=== PATIENT | female | born 1950 | race Caucasian/White ===

== ENCOUNTER → 2016-05-21 | Outpatient (CLI) | payer MEDICARE, BC ==
[2016-05-21 10:49] LABS: Hemoglobin A1C 9.1 % (4.2-6.1)
== END | disposition home or self-care (01) ==
LOC: LABWHC1 07:25
PROVIDERS: ATTEND Internal Medicine
DX: E11.9 Type 2 diabetes mellitus without complications (principal); E83.52 Hypercalcemia; N18.3 Chronic kidney disease, stage 3 (moderate); E78.5 Hyperlipidemia, unspecified; E03.9 Hypothyroidism, unspecified; E55.9 Vitamin D deficiency, unspecified
CPT/HCPCS: 36415; 83036; 83721

== ENCOUNTER → 2016-06-14 | Outpatient (CLI) | payer MEDICARE, BC ==
[2016-06-14 10:56] LABS: Calcium 9.5 mg/dL (8.4-10.2); Total Bilirubin 0.8 mg/dL (0.2-1.3); Total Protein 7.3 g/dL (6.3-8.2)
== END | disposition home or self-care (01) ==
LOC: LABWHC1 10:23
PROVIDERS: ATTEND Internal Medicine Endocrinology, Diabetes & Metabolism
DX: I10 Essential (primary) hypertension (principal)
CPT/HCPCS: 36415; 80053

== ENCOUNTER → 2016-09-14 | Outpatient (CLI) | payer MEDICARE, BC ==
[2016-09-14 10:03] LABS: CH 28.9; CHCM 33.5; HCT 47.4 % (34.0-46.0); HDW 2.82; HGB 15.5 gm/dL (11.4-16.0); MCH 28.4 pg (25.0-35.0); MCHC 32.6 g/dL (31.0-37.0); MCV 86.9 fL (80.0-100.0); Mean Platelet Volume 8.9; RBC 5.45 m/uL (3.80-5.40); RDW 14.6 % (11.5-15.5); WBC 6.1 k/uL (3.8-10.6)
[2016-09-14 10:32] LABS: Potassium 4.1 mmol/L (3.5-5.1)
== END ==
LOC: LABPAT 09:25
PROVIDERS: ATTEND Internal Medicine Interventional Cardiology
DX: Z01.812 Encounter for preprocedural laboratory examination (principal); I25.10 Atherosclerotic heart disease of native coronary artery without angina pectoris
CPT/HCPCS: 36415; 80051; 82565; 84520; 85027

== ENCOUNTER 2016-09-16 06:28 | Day surgery (SDC) | payer MEDICARE, BC ==
[~2016-09-16 06:28] MED LIST: ALPRAZolam 0.25 MG TAB PO PRN; ALPRAZolam 0.5 MG TAB PO PRN; ASPIRIN 325 MG TAB PO STA; ATORVASTATIN 80 MG TAB PO STA; NITROGLYCERIN SL TABS 0.4 MG TAB SUBLINGUAL PRN; SODIUM CHLORIDE 0.9% 1,000 ML in EMPTY BAG 1 BAG IV ONE
[2016-09-16] MEDS ORDERED: LIDOCAINE 2% INJ 20 MG/ML (20 ML MDV) ONE (07:17)
[2016-09-16] MEDS ORDERED: VERAPAMIL 2.5 MG/ML 2 ML AMP ONE (07:17)
[2016-09-16 07:18] LABS: Glucose,Whole Blood 325 mg/dL (75-99)
[2016-09-16] MEDS ORDERED: HEPARIN SODIUM 1,000 UNIT/ML VIAL ONE (07:18)
[2016-09-16] MEDS ORDERED: INSULIN LISPRO (humaLOG) 300 UNIT/3 ML VIAL SQ ONE (07:25)
[2016-09-16 07:30] LABS: Basophils # (A) 0.1 k/uL (0-0.2); Basophils % (A) 1 %; CH 29.2; CHCM 33.4; Eosinophils # (A) 0.3 k/uL (0-0.7); Eosinophils % (A) 4 %; HCT 44.3 % (34.0-46.0); HDW 2.79; HGB 14.6 gm/dL (11.4-16.0); Luc # (Auto) 0.16; Luc % (Auto) 3; Lymphocytes # (A) 1.8 k/uL (1.0-4.8); Lymphocytes % (A) 32 %; MCH 28.9 pg (25.0-35.0); MCHC 32.8 g/dL (31.0-37.0); MCV 87.9 fL (80.0-100.0); Mean Platelet Volume 8.7; Monocytes # (A) 0.4 k/uL (0-1.0); Monocytes % (A) 7 %; Neutrophils % (A) 53 %; RBC 5.04 m/uL (3.80-5.40); RDW 14.6 % (11.5-15.5); WBC 5.7 k/uL (3.8-10.6); WBC (Perox) 5.56
[2016-09-16] MEDS ORDERED: diphenhydrAMINE 50 MG/ML 1 ML VIAL ONE (07:30)
[2016-09-16] MEDS ORDERED: fentaNYL (PF) 50 MCG/ML 2 ML AMP ONE (07:30)
[2016-09-16 07:41] LABS: Calcium 9.8 mg/dL (8.4-10.2); Potassium 3.8 mmol/L (3.5-5.1)
[2016-09-16] MEDS ORDERED: diphenhydrAMINE 50 MG/ML 1 ML VIAL IVP ONE (07:57)
[2016-09-16] MEDS ORDERED: fentaNYL (PF) 50 MCG/ML 2 ML AMP IV ONE (07:58)
[2016-09-16] MEDS: LIDOCAINE 2% INJ 20 MG/ML SQ ONE ×2 (08:02→08:14)
[2016-09-16] MEDS ORDERED: NITROGLYCERIN 1000MCG/10ML SYRINGE INTRACORON ONE (08:20)
[2016-09-16] MEDS ORDERED: IODIXANOL 320 MG/ML 100 ML INTRAARTER ONE (08:27)
[2016-09-16] MEDS ORDERED: RX INFO: IV CONTRAST WAS GIVEN 1 EACH MISC MISCELLANE PRN (08:51)
[2016-09-16] MEDS ORDERED: NITROGLYCERIN SL TABS 0.4 MG TAB SUBLINGUAL PRN (08:52)
[2016-09-16 08:53] LABS: Glucose,Whole Blood 260 mg/dL (75-99)
[2016-09-16] MEDS: PREGABALIN 75 MG CAP PO SCH ×2 (09:00→21:28)
[2016-09-16] MEDS ORDERED: SODIUM CHLORIDE 0.9% 1,000 ML IV SCH (09:00)
[2016-09-16] MEDS: ISOSORBIDE MONONITRATE ER 15 MG TAB PO SCH (09:45)
[2016-09-16 09:56] LABS: Partial Thromboplastin Time 23.9 sec (22.0-30.0)
[2016-09-16 09:58] LABS: Basophils % (A) 1 %; CH 28.7; CHCM 32.9; Eosinophils # (A) 0.2 k/uL (0-0.7); Eosinophils % (A) 5 %; HCT 44.3 % (34.0-46.0); HDW 2.77; HGB 14.5 gm/dL (11.4-16.0); INR 1.1 (<1.1); Luc # (Auto) 0.09; Luc % (Auto) 2; Lymphocytes # (A) 1.4 k/uL (1.0-4.8); Lymphocytes % (A) 27 %; MCH 28.8 pg (25.0-35.0); MCHC 32.8 g/dL (31.0-37.0); MCV 87.9 fL (80.0-100.0); Monocytes # (A) 0.3 k/uL (0-1.0); Monocytes % (A) 6 %; Neutrophils # (A) 2.9 k/uL (1.3-7.7); Neutrophils % (A) 60 %; RBC 5.04 m/uL (3.80-5.40); RDW 14.5 % (11.5-15.5); WBC 4.9 k/uL (3.8-10.6); WBC (Perox) 4.94
[2016-09-16 10:25] LABS: ALT 30 U/L (9-52); AST 19 U/L (14-36); Alkaline Phosphatase 95 U/L (38-126); Anion Gap 11 mmol/L; Blood Urea Nitrogen 27 mg/dL (7-17); Calcium 9.6 mg/dL (8.4-10.2); Carbon Dioxide 28 mmol/L (22-30); Chloride 101 mmol/L (98-107); Cholesterol 174 mg/dL (<200); Glucose 270 mg/dL (74-99); HDL Cholesterol 29 mg/dL (40-60); Non-African American GFR(MDRD) 36 (>60 ml/min/1.73 sqM); Potassium 4.2 mmol/L (3.5-5.1); Sodium 140 mmol/L (137-145); Total Bilirubin 0.8 mg/dL (0.2-1.3); Total Protein 6.7 g/dL (6.3-8.2)
[2016-09-16] MEDS: LEVOTHYROXINE 75 MCG TAB PO SCH (10:25)
[2016-09-16] MEDS: METOPROLOL TARTRATE 25 MG TAB PO SCH ×2 (10:25→22:32)
[2016-09-16 10:54] LABS: Triglycerides 593 mg/dL (<150)
[2016-09-16] MEDS ORDERED: ACETAMINOPHEN TAB 325 MG TAB PO STA (11:06)
[2016-09-16 11:31] LABS: Hepatitis B Core IgM Index 0.02; Hepatitis B Surface Ag Index 0.06; Hepatitis C Virus IgG Ab Negative (Negative); Hepatitis C Virus IgG Index 0.02
[2016-09-16] MEDS ORDERED: CHOLECALCIFEROL 1,000 UNIT TAB PO SCH (12:00)
[2016-09-16] MEDS ORDERED: CYANOCOBALAMIN 500 MCG TAB PO SCH (12:00)
--- NOTE | 2016-09-16 13:45 | US ---
EXAMINATION TYPE: US carotid duplex BILAT DATE OF EXAM: 09/16/2016 1:36 PM COMPARISON: US CLINICAL HISTORY: Ankle Brachial Index (MITCH) . Pre op cardiac surgery, exam done portable EXAM MEASUREMENTS: RIGHT: Peak Systolic Velocity (PSV) cm/sec ----- Right CCA: 80.3 ----- Right ICA: 67.2 ----- Right ECA: 74.7 ICA/CCA ratio: 0.8 RIGHT: End Diastole cm/sec ----- Right CCA: 8.6 ----- Right ICA: 17.3 ----- Right ECA: 0.0 LEFT: Peak Systolic Velocity (PSV) cm/sec ----- Left CCA: 71.1 ----- Left ICA: 67.8 ----- Left ECA: 75.4 ICA/CCA ratio: 1.0 LEFT: End Diastole cm/sec ----- Left CCA: 8.2 ----- Left ICA: 16.9 ----- Left ECA: 0.0 VERTEBRALS (direction of flow): Right Vertebral: Antegrade Left Vertebral: Antegrade No elevated velocities, no significant stenosis IMPRESSION: 1. No significant hemodynamic stenosis bilaterally. 2. Intimal thickening.
[2016-09-16] MEDS ORDERED: INSULIN PUMP TARGET GLUCOSE 1 EACH MISC MISCELLANE PRN (15:16)
[2016-09-16] MEDS ORDERED: INSULIN LISPRO (humaLOG) 300 UNIT/3 ML VIAL SQ PRN (15:16)
[2016-09-16] MEDS ORDERED: INSULIN PUMP ACTIVE INSULIN 1 EACH MISC MISCELLANE PRN (15:16)
[2016-09-16] MEDS ORDERED: INSPUCOR MISCELLANE PRN (15:16)
[2016-09-16] MEDS ORDERED: INSULIN PUMP BASAL RATES 1 EACH MISC MISCELLANE PRN (15:16)
[2016-09-16 15:21] LABS: Appearance,Urine Clear (Clear); Bilirubin,Urine Negative (Negative); Glucose,Urine (UA) 4+ (Negative); Ketones,Urine Negative (Negative); Leukocyte Esterase,Urine Negative (Negative); Nitrite,Urine Negative (Negative); PH, Urine 5.5 (5.0-8.0); Protein,Urine Trace (Negative); Specific Gravity,Urine 1.034 (1.001-1.035); UA Billing (MACRO vs. MICRO) CHEM; Urobilinogen,Urine <2.0 mg/dL (<2.0)
[2016-09-16 15:29] VITALS: BMI 41.3
[2016-09-16] MEDS: ALLOPURINOL 100 MG TAB PO SCH (15:57)
--- NOTE | 2016-09-16 16:20 | P.GSCN ---
History of Present Illness Consult date: 09/16/16 Reason for Consult: Multivessel coronary artery disease. Requesting physician: Arin Stewart History of present illness: This 66-year-old female with a previous medical history of uncontrolled diabetes 2, hypertension, hyperlipidemia, renal insufficiency, obstructive sleep apnea, diabetic peripheral neuropathy, morbid obesity, and previous AL with stenting has been followed by Dr. Stewart. She had a heart catheterization this morning which demonstrated severe multivessel coronary artery disease. She does state that she has been having chest pain at rest as well as increased fatigue. Dr. Ariza from cardiothoracic surgery was consulted for the possibility of surgical revascularization. Review of Systems 14 point review of systems was completed and was negative except as noted. - Cardiovascular Reports as per HPI - Respiratory Reports as per HPI Past Medical History Past Medical History: Coronary Artery Disease (CAD), Chest Pain / Angina, Heart Failure, Diabetes Mellitus, GERD/Reflux, Myocardial Infarction (AL), Sleep Apnea /CPAP/BIPAP, Thyroid Disorder Additional Past Medical History / Comment(s): gout,neuropathy,fatty liver, renal insufficency, has insulin pump,doesn'tt use the cpap,ulcer, hypothyroid. Last Myocardial Infarction Date:: 09/18/2015 History of Any Multi-Drug Resistant Organisms: None Reported Past Surgical History: Bariatric Surgery, Heart Catheterization With Stent, Hysterectomy, Orthopedic Surgery, Tubal Ligation Additional Past Surgical History / Comment(s): lap band, 2001 HEART CATH W/1 STENT, 2012 HEART CATH AND 09-18-15 HEART CATH W/STENTS X2, EGD,COLONOSCOPY, LAP BAND 2007, RT ROTATOR CUFF,PANNICULECTOMY W/F/U WOUND DEBRIDMENT X2,ANAL FISSURE REPAIR, BRIGID CATARACTS. LT ARM LIPOMA REMOVED. Past Anesthesia/Blood Transfusion Reactions: Postoperative Nausea & Vomiting ( PONV) Additional Past Anesthesia/Blood Transfusion Reaction / Comm: DIFFICULTY WAKING FROM AA. Date of Last Stent Placement:: 09-18-15 Past Psychological History: No Psychological Hx Reported Smoking Status: Never smoker Past Alcohol Use History: Occasional Past Drug Use History: None Reported - Past Family History Mother Family Medical History: Cancer, Diabetes Mellitus Additional Family Medical History / Comment(s): BREAST/BONE CANCER Father Family Medical History: Myocardial Infarction (AL) Additional Family Medical History / Comment(s): AT AGE 56 FROM AL Medications and Allergies Home Medications Medication Instructions Recorded Confirmed Type Allopurinol [Zyloprim] 100 mg PO DAILY 06/17/15 09/16/16 History Cholecalciferol [Vitamin D3] 1,000 unit PO DAILY 06/17/15 09/16/16 History Furosemide [Lasix] 40 mg PO DAILY 06/17/15 09/16/16 History Insulin Aspart [NovoLOG] See Protocol SQ CONTINUOUS 06/17/15 09/16/16 History Levothyroxine Sodium [Synthroid] 75 mcg PO DAILY 06/17/15 09/16/16 History Pregabalin [Lyrica] 150 mg PO BID 06/17/15 09/16/16 History Cyanocobalamin [Vitamin B-12] 2,000 mcg PO DAILY 09/18/15 09/16/16 History Aspirin EC [Ecotrin Low Dose] 81 mg PO HS 12/11/15 09/16/16 History Clopidogrel [Plavix] 75 mg PO DAILY 09/16/16 09/16/16 History Allergies Allergy/AdvReac Type Severity Reaction Status Date / Time adhesive tape Allergy Rash/Hives Verified 12/11/15 14:12 Penicillins Allergy Rash/Hives Verified 12/11/15 14:12 plum Allergy Swelling Verified 12/11/15 14:45 Sulfa (Sulfonamide Allergy Rash/Hives Verified 12/11/15 14:12 Antibiotics) cherrys Allergy Anaphylaxis Uncoded 12/11/15 14:12 Surgical - Exam Vital Signs Temp Resp BP Pulse Ox 98.0 F 20 164/84 93 L 09/16/16 07:30 09/16/16 07:30 09/16/16 07:30 09/16/16 07:30 - General well developed, well nourished, no distress - Eyes PERRL, normal ocular movement - ENT no hearing loss - Neck no masses, no bruits, trachea midline - Respiratory Lung sounds diminished bilaterally. Respirations even, nonlabored. Currently on room air. - Cardiovascular S1, S2 present. Regular rate and rhythm, normal sinus rhythm on telemetry. - Abdomen Abdomen: soft, non tender, bowel sounds - Genitourinary Deferred - Rectum Deferred - Integumentary no rash, no growths - Neurologic normal coordination, normal sensation - Psychiatric oriented to time, oriented to person, oriented to place, speech is normal, memory intact Results - Labs 09/16/16 09:18 09/16/16 09:18 Abnormal Lab Results - Last 24 Hours (Table) 09/16/16 09/16/16 09/16/16 Range/Units 07:10 07:15 08:49 BUN 28 H (7-17) mg/dL Creatinine 1.43 H (0.52-1.04) mg/dL Glucose 281 H (74-99) mg/dL POC Glucose (mg/dL) 325 H 260 H (75-99) mg/dL Hemoglobin A1c (4.2-6.1) % Triglycerides (<150) mg/dL HDL Cholesterol (40-60) mg/dL Urine Protein (Negative) Urine Glucose (UA) (Negative) 09/16/16 09/16/16 09/16/16 Range/Units 09:18 09:18 14:45 BUN 27 H (7-17) mg/dL Creatinine 1.45 H (0.52-1.04) mg/dL Glucose 270 H (74-99) mg/dL POC Glucose (mg/dL) (75-99) mg/dL Hemoglobin A1c 9.4 H (4.2-6.1) % Triglycerides 593 H (<150) mg/dL HDL Cholesterol 29 L (40-60) mg/dL Urine Protein Trace H (Negative) Urine Glucose (UA) 4+ H (Negative) Diabetes panel 09/16/16 09/16/16 09/16/16 Range/Units 07:15 09:18 09:18 Sodium 140 140 (137-145) mmol/L Potassium 3.8 4.2 (3.5-5.1) mmol/L Chloride 104 101 (98-107) mmol/L Carbon Dioxide 25 28 (22-30) mmol/L BUN 28 H 27 H (7-17) mg/dL Creatinine 1.43 H 1.45 H (0.52-1.04) mg/dL Glucose 281 H 270 H (74-99) mg/dL Hemoglobin A1c 9.4 H (4.2-6.1) % Calcium 9.8 9.6 (8.4-10.2) mg/dL AST 19 (14-36) U/L ALT 30 (9-52) U/L Alkaline Phosphatase 95 (38-126) U/L Total Protein 6.7 (6.3-8.2) g/dL Albumin 4.0 (3.5-5.0) g/dL Triglycerides 593 H (<150) mg/dL HDL Cholesterol 29 L (40-60) mg/dL Thyroid panel 09/16/16 Range/Units 09:18 TSH 2.570 (0.465-4.680) mIU/L Calcium panel 09/16/16 09/16/16 Range/Units 07:15 09:18 Calcium 9.8 9.6 (8.4-10.2) mg/dL Albumin 4.0 (3.5-5.0) g/dL Pituitary panel 09/16/16 09/16/16 Range/Units 07:15 09:18 Sodium 140 140 (137-145) mmol/L Potassium 3.8 4.2 (3.5-5.1) mmol/L Chloride 104 101 (98-107) mmol/L Carbon Dioxide 25 28 (22-30) mmol/L BUN 28 H 27 H (7-17) mg/dL Creatinine 1.43 H 1.45 H (0.52-1.04) mg/dL Glucose 281 H 270 H (74-99) mg/dL Calcium 9.8 9.6 (8.4-10.2) mg/dL TSH 2.570 (0.465-4.680) mIU/L Adrenal panel 09/16/16 09/16/16 Range/Units 07:15 09:18 Sodium 140 140 (137-145) mmol/L Potassium 3.8 4.2 (3.5-5.1) mmol/L Chloride 104 101 (98-107) mmol/L Carbon Dioxide 25 28 (22-30) mmol/L BUN 28 H 27 H (7-17) mg/dL Creatinine 1.43 H 1.45 H (0.52-1.04) mg/dL Glucose 281 H 270 H (74-99) mg/dL Calcium 9.8 9.6 (8.4-10.2) mg/dL Total Bilirubin 0.8 (0.2-1.3) mg/dL AST 19 (14-36) U/L ALT 30 (9-52) U/L Alkaline Phosphatase 95 (38-126) U/L Total Protein 6.7 (6.3-8.2) g/dL Albumin 4.0 (3.5-5.0) g/dL - Imaging Chest x-ray: image reviewed Additional studies: Carotid Dopplers, PFTs reviewed Assessment and Plan (1) Morbid obesity with BMI of 40.0-44.9, adult Status: Acute (2) CAD (coronary artery disease) Status: Acute (3) Diabetes mellitus Status: Acute (4) Hyperlipidemia Status: Acute (5) Hypertension Status: Acute Plan: The patient was seen and examined in the extended stay unit with Dr. Ariza. Preoperative testing was initiated. Preoperative teaching was initiated and reinforced. Will plan for coronary artery bypass graft surgery, pending results of all diagnostic workup. Patient will need to be off Plavix for 5 days before surgery. Thank you Dr. Stewart for this consult. We look forward to working with you in the care of your patient. Time with Patient: Greater than 30
[2016-09-16] MEDS: INSULIN PUMP MEAL BOLUS 1 UNIT MISC MISCELLANE SCH ×2 (17:17→22:32)
[2016-09-16 17:24] LABS: Glucose,Whole Blood 177 mg/dL (75-99)
[2016-09-16] MEDS ORDERED: ACETAMINOPHEN TAB 325 MG TAB PO PRN (19:31)
[2016-09-16] MEDS ORDERED: ASPIRIN 81 MG CHEW PO SCH (21:00)
--- NOTE | 2016-09-16 21:31 | CONS ---
DATE OF CONSULTATION: Gena Franco is a 66-year-old female with known history of hypertension, hyperlipidemia, diabetes mellitus, who presented with symptoms of chest discomfort consistent with angina pectoris. In view of that, recommendation was made regarding cardiac catheterization. The procedure as well as the risks and complications were discussed with the patient who is in full understanding and agreement. PROCEDURE: Patient was brought to the petroleum laboratory technician in a fasting semisedated state after receiving fentanyl and Benadryl and achieving conscious moderate sedated state, using Xylocaine anesthesia and attempt to advance a wire in the right radial artery were unsuccessful. At that time using Xylocaine anesthesia and Seldinger technique, a 6 Tanzanian sheath was introduced in the right femoral artery. Selective right and left coronary angiography was performed using 6 Tanzanian 4 bend right and left Tonio catheters. Multiple views of the coronary arteries including hemiaxial views were obtained. Following that, a 6 [place]anian tight pigtail catheter was introduced into left ventricle and pressure was calculated. Following that, catheter and sheaths were removed. Hemostasis was obtained with deployment of an Angio-Seal. There were no immediate complications. Patient is returned to her room in stable condition. FINDINGS: LEFT MAIN: This is a large-size vessel trifurcating into left circumflex and left anterior descending coronary artery, and ramus intermedius, left main is without any evidence of high-grade stenosis. LEFT ANTERIOR DESCENDING CORONARY ARTERY: This is a large-size vessel reaching toward the apex with a wraparound apex segment, giving rise to a large diagonal branch. The stented segment in the diagonal branch in the LAD is patent prior to the takeoff of the diagonal branch, there is a 95% stenosis. The rest of the vessel has no high-grade stenosis. RAMUS INTERMEDIUS: This is a moderately sized vessel that has and 95% stenosis at the take off. LEFT CIRCUMFLEX: This is a nondominant vessel, giving rise to one obtuse marginal branch. The left circumflex in the mid and distal segment prior to the take off of the obtuse marginal branch has a 99% stenosis. RIGHT CORONARY ARTERY: This is a large dominant vessel, bifurcating into PDA and posterolateral branches. The right coronary artery in the proximal segment has a 60% at the bifurcation of the PDA, at the ostium of the PDA there is a 95% stenosis and there is a plaque in the PLV of 30%. LEFT VENTRICULOGRAM: Left ventriculogram was not performed. HEMODYNAMICS: There was no gradient across the aortic valve. The left end-diastolic pressure was 12 mmHg. CONCLUSION: 1. Severe triple vessel coronary artery disease. 2. Normal left ventricle end-diastolic. RECOMMENDATIONS: In view of findings and anatomy, I have recommended proceeding with coronary artery bypass grafting, because of the history of diabetes and the progression of disease those findings and recommendations were discussed with the patient and her family physician who are in full understanding and agreement. The duration of procedure: 29 minutes.
[2016-09-16 21:40] LABS: Glucose,Whole Blood 142 mg/dL (75-99)
--- NOTE | 2016-09-16 21:43 | LTR ---
September 16, 2016 RE: Salvador Gena Glenn Dear Dr. Cha: I had the pleasure of performing cardiac catheterization on Mrs. Franco at [facility] on the 16 of September and a full copy of procedure note will be forwarded to you. In brief, she was found to have severe triple vessel coronary artery disease with significant progression of disease compared with the images obtained in August of last year. Based on those findings, I have recommend proceeding with coronary artery bypass grafting. I will keep you update on her progress. Thank you again for allowing me to participate in her care. Please feel free to call for any questions. Sincerely, ESTRELLITA VALADEZ MD
--- NOTE | 2016-09-16 22:58 | XR ---
EXAMINATION TYPE: XR chest 2V DATE OF EXAM: 09/16/2016 3:58 PM COMPARISON: 12/12/2015 TECHNIQUE: PA and lateral views submitted. HISTORY: Preop FINDINGS: Exam limited by reduced inspiration. Degenerative change of the spine noted. Previous surgery involvi ng the right shoulder. The lungs are clear and there is no pneumothorax, pleural effusion, or focal pneumonia. IMPRESSION: 1. No acute process.
[2016-09-17] MEDS: LEVOTHYROXINE 75 MCG TAB PO SCH (06:37)
[2016-09-17 07:09] LABS: Calcium 8.9 mg/dL (8.4-10.2); Potassium 3.9 mmol/L (3.5-5.1)
[2016-09-17 07:10] LABS: Glucose,Whole Blood 124 mg/dL (75-99)
[2016-09-17 07:51] VITALS: BP 133/60; PULSE 57; TEMP 97.6
[2016-09-17] MEDS: PREGABALIN 75 MG CAP PO SCH (08:48)
[2016-09-17] MEDS: ALLOPURINOL 100 MG TAB PO SCH (08:48)
[2016-09-17] MEDS: ISOSORBIDE MONONITRATE ER 15 MG TAB PO SCH (08:48)
[2016-09-17] MEDS: METOPROLOL TARTRATE 25 MG TAB PO SCH (08:48)
[2016-09-17] MEDS: INSULIN PUMP MEAL BOLUS 1 UNIT MISC MISCELLANE SCH (08:49)
[2016-09-17 10:25] VITALS: RESP 18
--- NOTE | 2016-09-17 10:54 | PN ---
Ms. Franco is a 66-year-old female with known history of hypertension, hyperlipidemia, history of diabetes mellitus who has been complaining of symptoms of angina pectoris, underwent cardiac catheterization, was found to have severe triple vessel coronary artery disease with significant progression compared with a last visit. She is doing well this morning. Her breathing is stable. She is denying any dizziness. No palpitation. She denies any nausea. She continues to be on aspirin once a day, Imdur 15 mg daily, Lipitor 80 mg daily, insulin, metoprolol tartrate 25 mg twice a day and Lyrica. PHYSICAL EXAMINATION: Blood pressure 133/60 with the heart rate in the 50s. LUNGS: Clear. HEART: Regular rate and rhythm. S1 and S2, no S3, no rub with a systolic murmur. ABDOMEN: Soft, nontender, obese. EXTREMITIES: No edema. RIGHT GROIN: No hematoma. Lab data revealed BUN and creatinine 23 and 1.3. Potassium 3.9. IMPRESSION: 1. Severe triple vessel coronary artery disease. 2. Hypertension. 3. Hyperlipidemia. 4. Diabetes mellitus. 5. Renal function abnormality. RECOMMENDATIONS: Patient will be discharged home and readmitted in a week to undergo surgical intervention. She will stay off her Plavix.
--- NOTE | 2016-09-17 11:25 | P.PN ---
Subjective Principal diagnosis: Multi-vessel coronary artery disease, pre-operative coronary artery bypass surgery. Pt currently sitting up in bed in no apparent distress. All pre-operative questions answered Objective - Vital Signs Vital signs: Vital Signs Temp 97.6 F 09/17/16 07:50 Pulse 57 L 09/17/16 07:50 Resp 18 09/17/16 08:00 BP 133/60 09/17/16 07:50 Pulse Ox 98 09/17/16 07:50 Intake & Output 09/16/16 09/17/16 09/17/16 18:59 06:59 18:59 Intake Total 550 1200 Output Total 350 Balance 200 1200 Weight 112.5 kg Intake: IV 250 800 Sodium Chloride 0.9% 1, 100 800 000 ml @ 100 mls/hr IV . Q10H KJ Rx#:[id number] Oral 300 400 Output: Urine 350 Other: Voiding Method Toilet Toilet Toilet # Voids 1 2 - Constitutional General appearance: Present: cooperative, no acute distress, obese - Respiratory Respiratory: bilateral: CTA (Resp even, non-labored. Currently on room air with oxygen saturation 98%.) - Cardiovascular Rhythm: regular Heart sounds: normal: S1, S2 - Gastrointestinal Gastrointestinal Comment(s): Abd soft/NT/ND. General gastrointestinal: Present: normal bowel sounds - Integumentary Integumentary: Present: normal - Musculoskeletal Musculoskeletal: Present: gait normal - Psychiatric Psychiatric: Present: A&O x's 3, appropriate affect, intact judgment & insight - Allied health notes Allied health notes reviewed: nursing - Labs CBC & Chem 7: 09/16/16 09:18 09/17/16 06:08 Labs: Abnormal Lab Results - Last 24 Hours (Table) 09/16/16 09/16/16 09/16/16 Range/Units 09:18 14:45 17:15 Chloride (98-107) mmol/L Carbon Dioxide (22-30) mmol/L BUN (7-17) mg/dL Creatinine (0.52-1.04) mg/dL Glucose (74-99) mg/dL POC Glucose (mg/dL) 177 H (75-99) mg/dL Hemoglobin A1c 9.4 H (4.2-6.1) % Urine Protein Trace H (Negative) Urine Glucose (UA) 4+ H (Negative) 0509/17/16 09/17/16 Range/Units 21:38 06:08 07:03 Chloride 108 H (98-107) mmol/L Carbon Dioxide 21 L (22-30) mmol/L BUN 23 H (7-17) mg/dL Creatinine 1.30 H (0.52-1.04) mg/dL Glucose 134 H (74-99) mg/dL POC Glucose (mg/dL) 142 H 124 H (75-99) mg/dL Hemoglobin A1c (4.2-6.1) % Urine Protein (Negative) Urine Glucose (UA) (Negative) Microbiology - Last 24 Hours (Table) 09/16/16 14:45 Urine Culture - Preliminary Urine,Clean Catch - Imaging and Cardiology Chest x-ray: image reviewed Venous US: image reviewed Carotid, PFT reviewed. Assessment and Plan (1) Morbid obesity with BMI of 40.0-44.9, adult Status: Acute (2) CAD (coronary artery disease) Status: Acute (3) Diabetes mellitus Status: Acute (4) Hyperlipidemia Status: Acute (5) Hypertension Status: Acute Plan: All pre-operative work up completed and reviewed. Pre-operative teaching reinforced. Pt given CABG binder. 5 meter walk test: #1 5.15 sec, #2 5.58 sec, # 3 6.47 sec. From our standpoint, patient can be discharged home. She must hold Plavix 5 days preop which she has been instructed to do. Plan is for CABG September. Pt is in agreement. Time with Patient: Greater than 30
[2016-09-17 12:04] LABS: Glucose,Whole Blood 160 mg/dL (75-99)
[2016-09-17] MEDS ORDERED: ATORVASTATIN 80 MG TAB PO SCH (21:00)
--- NOTE | 2016-09-20 15:41 | ECHOF ---
Referral Reason:preop cardiac surgery MEASUREMENTS -------- HEIGHT: 165.1 cm WEIGHT: 112.5 kg BP: 164/84 RVIDd: 2.7 cm (< 3.3) IVSd: 1.0 cm (0.6 - 1.1) LVIDd: 4.8 cm (3.9 - 5.3) LVPWd: 1.0 cm (0.6 - 1.1) IVSs: 1.8 cm LVIDs: 3.1 cm LVPWs: 1.6 cm Ao Diam: 2.9 cm (2.0 - 3.7) AV Cusp: 1.6 cm (1.5 - 2.6) LA Diam: 3.7 cm (2.7 - 3.8) MV EXCURSION: 14.447 mm (> 18.000) MV EF SLOPE: 146 mm/s (70 - 150) EPSS: 0.8 cm MV E Lester: 0.36 m/s MV DecT: 304 ms MV A Lester: 0.53 m/s MV E/A Ratio: 0.69 RAP: 5.00 mmHg RVSP: 9.27 mmHg FINDINGS -------- Sinus rhythm. This was a technically difficult study with suboptimal views. Left ventricular wall thickness is normal. Overall left ventricular systolic function is normal with, an EF between 60 - 65 %. The right ventricle is normal in size and function. The left atrium was not well visualized. The right atrium was not well visualized. 1.5mg of Definity was utilized for enhancement of images Aortic valve is trileaflet and is mildly thickened. There is no evidence of aortic regurgitation. There is no evidence of aortic stenosis. The mitral valve leaflets are mildly thickened. Mild mitral annular calcification present. There is trace to mild mitral regurgitation. Trace tricuspid regurgitation present. There is no evidence of pulmonary hypertension. The right ventricular systolic pressure, as measured by Doppler, is 9.27mmHg. The pulmonic valve was not well visualized. The aortic root size is normal. The pericardium is normal. There is no pericardial effusion. CONCLUSIONS -------- 1. Sinus rhythm. 2. There is trace to mild mitral regurgitation. 3. Trace tricuspid regurgitation present. 4. There is no evidence of pulmonary hypertension. 5. The right ventricular systolic pressure, as measured by Doppler, is 9.27mmHg. 6. The pulmonic valve was not well visualized. 7. The aortic root size is normal. 8. There is no pericardial effusion. 9. This was a technically difficult study with suboptimal views. 10. Overall left ventricular systolic function is normal with, an EF between 60 - 65 %. 11. The left atrium was not well visualized. 12. The right atrium was not well visualized. 13. 1.5mg of Definity was utilized for enhancement of images 14. Aortic valve is trileaflet and is mildly thickened. 15. The mitral valve leaflets are mildly thickened. 16. Mild mitral annular calcification present. COMMISSIONED FIRE OFFICER: Juan M Kaplan RDCS
--- NOTE | 2016-09-25 11:12 | P.ARTDOP ---
Arterial Doppler LOWER EXTREMITY ARTERIAL DOPPLER: DATE OF SERVICE: 09/16/2016 Reason for study: Pre-CABG. Doppler waveforms: Multiphasic bilaterally throughout. Pulse volume recording: []. Pressure gradients: None. Ankle-brachial indices: Greater than 1 bilaterally. Toe pressures: 1:15 on the right, 122 on the left Impression: Normal study.
--- NOTE | 2016-09-25 11:15 | P.VSCSTY ---
Greater Saphenous Vein Mapping This is bilateral lower extremity greater saphenous vein mapping. Date of service 09/16/2016 Vein quality and ultrasound appearance large proximally, mainly on the right. Vein size groin right 11.1 x 10.6 groin left 9.7 x 9.2 High thigh right third team 0.0 x 10.7 high thigh left 6.0 x 5.6 Mid thigh right 7.4 x 7.5 mid thigh left 6.3 x 5.5 Above-knee right 6.3 x 5.2 above- knee left 6 x 6 x 4.90 Below knee right 5.6 x 5.1 below-knee left 5.1 x 4.8 Mid calf right 3.9 x 4.1 mid calf left 4.7 x 4.1 Ankle right 4.4 x 3.4 ankle left 4.8 x 4.5 Impression usual bilateral greater saphenous veins. Lower legs more size appropriate for coronaries..
== END 2016-09-17 13:05 | disposition home or self-care (01) ==
LOC: CATHCVL 06:28 → 3OBS 08:29 → CATHCVL 09-17 13:05
PROVIDERS: ATTEND Internal Medicine Interventional Cardiology
DX: I25.110 Atherosclerotic heart disease of native coronary artery with unstable angina pectoris (principal); Z95.5 Presence of coronary angioplasty implant and graft; Z82.49 Family history of ischemic heart disease and other diseases of the circulatory system; I10 Essential (primary) hypertension; E78.2 Mixed hyperlipidemia; E03.9 Hypothyroidism, unspecified; E11.40 Type 2 diabetes mellitus with diabetic neuropathy, unspecified; Z79.4 Long term (current) use of insulin; Z96.41 Presence of insulin pump (external) (internal); N28.9 Disorder of kidney and ureter, unspecified; G47.33 Obstructive sleep apnea (adult) (pediatric); M10.9 Gout, unspecified; Z79.02 Long term (current) use of antithrombotics/antiplatelets; Z79.82 Long term (current) use of aspirin; Z79.899 Other long term (current) drug therapy; Z91.09 Other allergy status, other than to drugs and biological substances
CPT/HCPCS: 94150; 93306; 93458; 83880; 80061; 80053; 80048 ×2; 80074; 84443; 83735; 85025; 85610; 85730; 81003; 87070; 87086; 71020; 93970; 93923; 93880; 99152; 99153; C1760; C1894 ×2; C1769; J2001; J1200; Q9967; J3010; 83036; 86850; 86900; 86901; 86920

== ENCOUNTER 2016-09-26 05:43 | Inpatient (IN) | payer MEDICARE, BC ==
[2016-09-16 10:35] LABS: Hemoglobin A1C 9.4 % (4.2-6.1)
[~2016-09-26 05:43] MED LIST changes: +ALBUMIN HUMAN 25% 50 ML IV ONE; +ALBUMIN HUMAN 5% 500 ML IVPB ONE; -ALPRAZolam 0.25 MG TAB PO PRN; -ALPRAZolam 0.5 MG TAB PO PRN; +AMINOCAPROIC ACID 250 MG/ML 20 ML VIAL IV ONE; +AMINOCAPROIC ACID 5,000 MG in DEXTROSE 5% IN WATER 50 ML IV ONE; +ASPIRIN 325 MG TAB PO ONE; -ASPIRIN 325 MG TAB PO STA; +ATORVASTATIN 10 MG TAB PO ONE; -ATORVASTATIN 80 MG TAB PO STA; +CALCIUM CHLORIDE 100 MG/ML 10 ML SYRINGE IV ONE; +CHLORHEXIDINE GLUCONATE 15 ML CUP MUCOUS MEM ONE; +CLEVIDIPINE BUTYRATE 25 MG in EMPTY BAG 1 BAG IV ONE; +DEXTROSE 5% IN WATER 1,000 ML with POTASSIUM CHLORIDE 110 MEQ, MAGNESIUM SULFATE 16 MEQ... IV ONE; +DEXTROSE 5% IN WATER 1,000 ML with POTASSIUM CHLORIDE 25 MEQ, SODIUM CHLORIDE 4MEQ/ML V... IV ONE; +DILTIAZEM 125 MG in SODIUM CHLORIDE 0.9% 100 ML IV ONE; +HEPARIN SODIUM 1,000 UNIT/ML VIAL IV ONE; +HEPARIN SODIUM,PORCINE 5,000 UNIT in SODIUM CHLORIDE 0.9% 500 ML IV ONE; +INSULIN REGULAR 100 UNIT in SODIUM CHLORIDE 0.9% 100 ML IV ONE; +LACTATED RINGERS 1,000 ML IV ONE; +LACTATED RINGERS 1,000 ML IV SCH; +LIDOCAINE 1% 20 ML VIAL (10MG/ML) FOR IV START INTRADERMA PRN; +MAGNESIUM SULFATE MG 500 MG/ML VIAL IV ONE; +MANNITOL 25% 12.5 GM/50 ML VIAL IV ONE; +METOPROLOL TARTRATE 12.5 MG TAB PO ONE; +MUPIROCIN 2% OINT 22 GM TUBE NASAL ONE; +NITROGLYCERIN SL TABS 0.4 MG TAB SUBLINGUAL ONE; -NITROGLYCERIN SL TABS 0.4 MG TAB SUBLINGUAL PRN; +NITROGLYCERIN-D5W PMX 25 MG/250 ML BTL IV ONE; +NITROGLYCERIN-D5W PMX 50 MG in DEXTROSE/WATER 1 250ML.BAG IV ONE; +NOREPINEPHRIN 4 MG-0.9% NS PMX 4 MG/250 ML ML IV ONE; +PHENYLEPHRINE 40 MG in SODIUM CHLORIDE 0.9% 250 ML IV ONE; +PHENYLEPHRINE-0.9% NACL SYG 1 MG/10 ML SYRINGE IV ONE; +PROPOFOL 50 ML IV ONE; +PROTAMINE SULFATE 10 MG/ML 25 ML VIAL IV ONE; +PROTAMINE SULFATE 250 MG in EMPTY BAG 1 BAG IV ONE; +SODIUM BICARB 8.4% 50 ML SYR (1 MEQ/ML) IV ONE; +SODIUM CHLORIDE 0.9% 1,000 ML IV ONE; -SODIUM CHLORIDE 0.9% 1,000 ML in EMPTY BAG 1 BAG IV ONE; +VANCOMYCIN 1,000 MG in SODIUM CHLORIDE 0.9% IRRIGATIO 1,000 ML IRRIGATION ONE; +VANCOMYCIN 1,750 MG in SODIUM CHLORIDE 0.9% 250 ML IVPB ONE
[2016-09-26] MEDS ORDERED: VANCOMYCIN 1,000 MG VIAL IVPB ONE (06:29)
[2016-09-26 06:36] LABS: Glucose,Whole Blood 126 mg/dL (75-99)
[2016-09-26] MEDS ORDERED: fentaNYL (PF) 50 MCG/ML 50 ML VIAL ONE (08:17)
[2016-09-26] MEDS ORDERED: ELECTROLYTE-R (PH 7.4) 1,000 ML IV.SOLN IV ONE (08:17)
[2016-09-26] MEDS ORDERED: LIDOCAINE 2% SYG (PF) 100 MG/5 ML ONE (08:17)
[2016-09-26] MEDS ORDERED: SODIUM CHLORIDE 0.9% 100 ML BAG ONE (08:17)
[2016-09-26] MEDS ORDERED: HEPARIN SODIUM,PORCINE 5,000 UNIT/ML 1 ML VIAL ONE (08:17)
[2016-09-26] MEDS ORDERED: ceFAZolin 1,000 MG VIAL ONE (08:17)
[2016-09-26] MEDS ORDERED: PROPOFOL 10 MG/ML 20 ML VIAL IV ONE (08:17)
[2016-09-26] MEDS ORDERED: HEPARIN SODIUM,PORCINE 10,000 UNIT/ML 1 ML VIAL ONE (08:17)
[2016-09-26] MEDS ORDERED: PHENYLEPHRINE-0.9% NACL SYG 1 MG/10 ML SYRINGE ONE (08:17)
[2016-09-26] MEDS ORDERED: SODIUM CHLORIDE 0.9% IRRIG 1,000 ML BTL IRRIGATION ONE (08:17)
[2016-09-26] MEDS ORDERED: fentaNYL (PF) 50 MCG/ML 2 ML AMP ONE ×2 (08:17)
[2016-09-26] MEDS ORDERED: PROTAMINE SULFATE 10 MG/ML 25 ML VIAL IV ONE (08:17)
[2016-09-26] MEDS ORDERED: VECURONIUM 10 MG VIAL IV ONE (08:17)
[2016-09-26] MEDS ORDERED: HEPARIN SODIUM 1,000 UNIT/ML VIAL ONE (08:17)
[2016-09-26] MEDS ORDERED: ePHEDrine 50 MG/ML 1 ML AMP ONE (08:17)
[2016-09-26] MEDS ORDERED: SUCCINYLCHOLINE CHLORIDE 100 MG/5 ML SYR IV ONE (08:17)
[2016-09-26] MEDS ORDERED: SODIUM BICARB 8.4% 50 ML SYR (1 MEQ/ML) ONE (08:17)
[2016-09-26] MEDS ORDERED: CALCIUM CHLORIDE 100 MG/ML 10 ML SYRINGE ONE (08:17)
[2016-09-26] MEDS ORDERED: MAGNESIUM SULFATE 4 MEQ/ML 2 ML VIAL ONE (08:17)
[2016-09-26] MEDS ORDERED: ALBUMIN HUMAN 5% 500 ML VIAL IVPB ONE (08:17)
[2016-09-26] MEDS ORDERED: MIDAZOLAM 2 MG/2 ML VIAL ONE (08:17)
[2016-09-26 08:51] LABS: Glucose,Whole Blood 137 mg/dL (75-99)
[2016-09-26 11:22] LABS: Glucose,Whole Blood 229 mg/dL (75-99)
[2016-09-26] MEDS ORDERED: SODIUM BICARB 8.4% 50 ML SYR (1 MEQ/ML) IV STA (11:22)
[2016-09-26 11:56] LABS: Glucose,Whole Blood 292 mg/dL (75-99)
[2016-09-26 12:34] LABS: Glucose,Whole Blood 313 mg/dL (75-99)
[2016-09-26 13:18] LABS: Glucose,Whole Blood 282 mg/dL (75-99)
[2016-09-26 13:51] LABS: Glucose,Whole Blood 287 mg/dL (75-99)
[2016-09-26 14:27] LABS: Glucose,Whole Blood 298 mg/dL (75-99)
[2016-09-26 15:00] LABS: Glucose,Whole Blood 212 mg/dL (75-99)
[2016-09-26] MEDS ORDERED: Potassium Replacement Protocol 1 EACH MISC MISCELLANE PRN ×2 (15:07→18:35)
[2016-09-26] MEDS ORDERED: NITROGLYCERIN-D5W PMX 50 MG in DEXTROSE/WATER 1 250ML.BAG IV SCH (15:07)
[2016-09-26] MEDS ORDERED: Phosphorus Replacement Protoco 1 EACH MISC MISCELLANE PRN (15:07)
[2016-09-26] MEDS ORDERED: Magnesium Replacement Protocol 1 EACH MISC MISCELLANE PRN (15:07)
[2016-09-26] MEDS ORDERED: BENZOCAINE/MENTHOL LOZENG 1 EACH LOZENGE MUCOUS MEM PRN (15:07)
[2016-09-26] MEDS ORDERED: MORPHINE SULFATE 2 MG/ML SYRINGE IVP PRN (15:07)
[2016-09-26] MEDS ORDERED: CALCIUM GLUCONATE 2,000 MG in SODIUM CHLORIDE 0.9% 100 ML IVPB PRN (15:07)
[2016-09-26] MEDS ORDERED: METOCLOPRAMIDE 5 MG/ML 2 ML VIAL IVP PRN (15:07)
[2016-09-26] MEDS ORDERED: ONDANSETRON 4 MG/2 ML VIAL IVP PRN (15:07)
[2016-09-26] MEDS ORDERED: ALBUMIN HUMAN 5% 250 ML in EMPTY BAG 1 BAG IVPB PRN (15:07)
[2016-09-26] MEDS ORDERED: IV VANCOMYCIN PER PHARMACY 1 EACH MISC MISCELLANE PRN (15:07)
[2016-09-26] MEDS: LACTATED RINGERS 1,000 ML IV SCH (16:00)
[2016-09-26] MEDS: IPRATROPIUM-ALBUTEROL 3 ML NEB INHALATION SCH ×2 (16:00→19:22)
[2016-09-26 16:14] LABS: Glucose,Whole Blood 162 mg/dL (75-99)
[2016-09-26] MEDS: PROPOFOL 500 MG in EMPTY BAG 1 BAG IV SCH ×3 (16:24→21:04)
[2016-09-26 16:42] LABS: Ionized Calcium 4.7 mg/dL (4.5-5.3)
[2016-09-26 16:43] LABS: Basophils % (A) 0 %; CH 28.4; CHCM 31.9; Eosinophils # (A) 0.1 k/uL (0-0.7); Eosinophils % (A) 1 %; HCT 23.3 % (34.0-46.0); HDW 2.83; Hypochromasia Slight; Luc # (Auto) 0.05; Luc % (Auto) 1; Lymphocytes # (A) 1.2 k/uL (1.0-4.8); Lymphocytes % (A) 21 %; MCH 28.8 pg (25.0-35.0); MCHC 32.1 g/dL (31.0-37.0); MCV 89.6 fL (80.0-100.0); Mean Platelet Volume 9.1; Monocytes # (A) 0.4 k/uL (0-1.0); Monocytes % (A) 7 %; Neutrophils # (A) 3.7 k/uL (1.3-7.7); Neutrophils % (A) 69 %; RBC 2.59 m/uL (3.80-5.40); WBC 5.4 k/uL (3.8-10.6); WBC (Perox) 5.31
[2016-09-26 16:44] LABS: HGB 7.5 gm/dL (11.4-16.0); INR 1.5 (<1.1); Partial Thromboplastin Time 36.1 sec (22.0-30.0); Prothrombin Time 14.9 sec (9.0-12.0)
[2016-09-26 16:54] LABS: ALT 28 U/L (9-52); AST 37 U/L (14-36); Alkaline Phosphatase <20 U/L (38-126); Anion Gap 12 mmol/L; Blood Urea Nitrogen 18 mg/dL (7-17); Calcium 7.6 mg/dL (8.4-10.2); Carbon Dioxide 24 mmol/L (22-30); Chloride 109 mmol/L (98-107); Glucose 148 mg/dL (74-99); Magnesium 2.2 mg/dL (1.6-2.3); Non-African American GFR(MDRD) 49 (>60 ml/min/1.73 sqM); Potassium 3.7 mmol/L (3.5-5.1); Sodium 145 mmol/L (137-145); Total Bilirubin 1.1 mg/dL (0.2-1.3); Total Protein 5.1 g/dL (6.3-8.2)
--- NOTE | 2016-09-26 16:56 | XR ---
EXAMINATION TYPE: XR chest 1V portable DATE OF EXAM: 09/26/2016 COMPARISON: Prior chest x-ray 16 Sep 2016 HISTORY: Postop cardiac surgery TECHNIQUE: Single frontal view of the chest is obtained. FINDINGS: Patient is status post median sternotomy and rotated. Endotracheal tube, NG tube, left and right chest tube, median sternal drains, left jugular central venous catheter are present, there are overlying appropriate positions. There is no sizable pneumothorax or pleural effusion. Lung volumes are low. Heart is enlarged. IMPRESSION: Postop changes. Rotated expiratory exam, follow-up suggested.
[2016-09-26 17:03] LABS: Glucose,Whole Blood 134 mg/dL (75-99)
[2016-09-26 17:07] LABS: Manual Review Performed
[2016-09-26 17:14] LABS: ABG PH 7.29 (7.35-7.45)
[2016-09-26 17:15] LABS: ABG Base Excess -2.7 mmol/L; ABG HCO3 23 mmol/L (21-25); ABG PCO2 49 mmHg (35-45); ABG PO2 266 mmHg (83-108); ABG TCO2 24 mmol/L (19-24)
[2016-09-26] MEDS: INSULIN REGULAR 100 UNIT in SODIUM CHLORIDE 0.9% 100 ML IV SCH (18:18)
--- NOTE | 2016-09-26 18:19 | CONS ---
DATE OF CONSULTATION: This is a 66-year-old lady who was electively brought in for bypass surgery. She is post CABG, intubated on vent, using her pacemaker. Stable hemodynamically. Past medical history is significant for: 1. Coronary artery disease. 2. Hypertension. 3. Hypothyroidism. 4. Diabetes. Medications at home include: 1. Aspirin. 2. Zyloprim. 3. Lipitor. 4. Lasix. 5. Insulin. 6. Imdur. 7. Synthroid. 8. Lopressor. 9. Lyrica. 10. Plavix. ALLERGIES: PENICILLIN, SULFA. Family history is negative for premature coronary artery disease. SOCIAL HISTORY: Negative for current smoking, ETOH abuse or drug abuse. REVIEW OF SYSTEMS: I am unable to obtain from patient, who is intubated on vent. On exam, vital signs are stable. Chest exam reveals diminished air entry at the bases. Heart exam reveals first and heart sounds. No gallop. Examination of extremities did not reveal any edema. Peripheral pulses are palpable. ASSESSMENT: Coronary artery disease, status post coronary artery bypass grafting. Continue with supportive care.
[2016-09-26 18:22] LABS: Glucose,Whole Blood 148 mg/dL (75-99)
[2016-09-26 18:24] LABS: Basophils % (A) 0 %; CH 28.6; CHCM 32.3; Eosinophils # (A) 0.1 k/uL (0-0.7); Eosinophils % (A) 2 %; HCT 24.5 % (34.0-46.0); HDW 2.92; HGB 7.9 gm/dL (11.4-16.0); Luc # (Auto) 0.07; Luc % (Auto) 1; Lymphocytes # (A) 0.9 k/uL (1.0-4.8); Lymphocytes % (A) 18 %; MCH 28.7 pg (25.0-35.0); MCHC 32.2 g/dL (31.0-37.0); MCV 89.2 fL (80.0-100.0); Mean Platelet Volume 8.7; Monocytes # (A) 0.4 k/uL (0-1.0); Monocytes % (A) 8 %; Neutrophils # (A) 3.5 k/uL (1.3-7.7); Neutrophils % (A) 71 %; RBC 2.74 m/uL (3.80-5.40); RDW 15.2 % (11.5-15.5); WBC (Perox) 5.09
[2016-09-26] MEDS: ACETAMINOPHEN IV (For NPO) 1,000 MG in EMPTY BAG 1 BAG IVPB SCH (18:45)
[2016-09-26 19:18] LABS: Glucose,Whole Blood 201 mg/dL (75-99)
--- NOTE | 2016-09-26 19:24 | P.CON ---
Consult Note - . Assessment/Plan:: History of present illness: The patient is a 66-year-old female who has undergone coronary artery bypass surgery earlier today. She is a patient of Dr. Cha for whom I'm covering. Patient presently remains on the ventilator. In discussion with nursing staff there was no apparent problems with her surgery. Past medical history: Coronary artery disease Patient has a history of diabetes Hypertensive cardiovascular disease Hyperlipidemia Morbid obesity Sleep apnea Peripheral neuropathy. Hypothyroidism Medical ALLERGIES include penicillin and sulfa Home medications: Lyrica 150 mg twice a day Nitroglycerin 1.4 sublingual when necessary Metoprolol 25 mg twice a day Levothyroxine 75 g daily Isorbid mononitrate 15 mg daily Lasix 40 mg daily B12 2000 g daily Plavix 75 mg daily Vitamin D 3000 units daily Atorvastatin 80 mg at at bedtime Aspirin 81 mg daily Allopurinol 100 mg daily Review of systems: Unable to obtain Family history: Strong family history of coronary artery disease with father dying of coronary artery disease in his 50s and brother also with coronary artery disease. Mother also has history of breast cancer. Social history: Patient apparently has no history of alcohol use. She does not smoke. Physical examination: Patient remains on ventilator sedated. Vital signs reveal a pulse of 84 with respirations 16 and blood pressure 100/ 62. Once again she is on the ventilator at 100% saturation on 40% FiO2. Head and neck exam reveals some general puffiness and presence of endotracheal tube. Lungs though are generally clear to auscultation but diminished at bases. Heart tones are somewhat distant but regular. No murmurs or rubs Abdomen with multiple drainage sites. Obese. No masses or organomegaly. Extremities revealed wrapping of the left lower extremity and no unusual edema. Unable to determine neurological status as she is sedated. Laboratory results: White count is 5 with a hemoglobin 7.9 and a platelet count of 90. Her INR was 1.5 with a PTT of 36.1. Blood gases reveal pH is 7.29 with a pCO2 of 49 and pO2 of 266. Sodium 145 with potassium of 3.7 and a CO2 content of 24. BUN of 18 with a creatinine 1.11 given her a GFR of 49. Blood sugar is 148. Calcium 7.6. Magnesium 2.2. Albumin was 3.7. Chest x-ray showed regular postop changes with rotation. Low lung volumes. Cardiomegaly. No sizable pneumothorax or pleural effusion seen. Impressions: This 66-year-old female with coronary artery disease status post bypass surgery presently remains on vent. She is in the intensive care unit where Accu-Cheks and blood pressure is being monitored and controlled. She does have other multiple risk factors as delineated above. We'll follow as needed for Dr. Cha until he returns.
[2016-09-26] MEDS: POTASSIUM CHLORIDE 10 MEQ in WATER FOR INJECTION 1 100ML.BAG IVPB SCH ×2 (20:00→21:10)
[2016-09-26 20:05] LABS: Glucose,Whole Blood 206 mg/dL (75-99)
[2016-09-26 20:57] LABS: Glucose,Whole Blood 198 mg/dL (75-99)
[2016-09-26] MEDS: PHENYLEPHRINE 40 MG in SODIUM CHLORIDE 0.9% 250 ML IV SCH ×2 (21:15→23:12)
[2016-09-26 21:18] LABS: Basophils % (A) 0 %; CH 28.4; Eosinophils # (A) 0.1 k/uL (0-0.7); Eosinophils % (A) 1 %; HCT 25.2 % (34.0-46.0); HDW 2.94; Hypochromasia Slight; Luc # (Auto) 0.08; Luc % (Auto) 1; Lymphocytes # (A) 0.7 k/uL (1.0-4.8); Lymphocytes % (A) 12 %; MCH 28.4 pg (25.0-35.0); MCHC 31.7 g/dL (31.0-37.0); MCV 89.4 fL (80.0-100.0); Mean Platelet Volume 8.9; Monocytes # (A) 0.3 k/uL (0-1.0); Monocytes % (A) 6 %; Neutrophils # (A) 4.6 k/uL (1.3-7.7); Neutrophils % (A) 79 %; RBC 2.83 m/uL (3.80-5.40); RDW 15.2 % (11.5-15.5); WBC 5.8 k/uL (3.8-10.6); WBC (Perox) 5.63
[2016-09-26 22:00] LABS: Glucose,Whole Blood 191 mg/dL (75-99)
[2016-09-26 22:27] LABS: ABG Base Excess -3.2 mmol/L; ABG HCO3 22 mmol/L (21-25); ABG PCO2 43 mmHg (35-45); ABG PH 7.33 (7.35-7.45); ABG PO2 88 mmHg (83-108); ABG TCO2 23 mmol/L (19-24)
[2016-09-26 23:11] LABS: Glucose,Whole Blood 178 mg/dL (75-99)
[2016-09-27 00:07] LABS: Glucose,Whole Blood 169 mg/dL (75-99)
[2016-09-27] MEDS: ACETAMINOPHEN IV (For NPO) 1,000 MG in EMPTY BAG 1 BAG IVPB SCH ×4 (00:07→20:29)
[2016-09-27] MEDS: CLEVIDIPINE BUTYRATE 25 MG in EMPTY BAG 1 BAG IV SCH ×2 (00:40→05:47)
[2016-09-27 01:10] LABS: Glucose,Whole Blood 163 mg/dL (75-99)
[2016-09-27 02:05] LABS: Glucose,Whole Blood 157 mg/dL (75-99)
[2016-09-27 03:12] LABS: Ionized Calcium 4.7 mg/dL (4.5-5.3)
[2016-09-27 03:12] LABS: Glucose,Whole Blood 154 mg/dL (75-99)
[2016-09-27 03:15] LABS: Calcium 8.1 mg/dL (8.4-10.2); Magnesium 2.1 mg/dL (1.6-2.3); Phosphorous 2.7 mg/dL (2.5-4.5); Potassium 4.9 mmol/L (3.5-5.1); Total Bilirubin 0.8 mg/dL (0.2-1.3); Total Protein 5.7 g/dL (6.3-8.2)
[2016-09-27 03:20] LABS: Basophils % (A) 0 %; CHCM 32.2; Hypochromasia Slight; Luc % (Auto) 1; Neutrophils % (A) 83 %
[2016-09-27 03:25] LABS: CH 28.3; Eosinophils % (A) 0 %; HCT 24.2 % (34.0-46.0); HDW 2.99; HGB 7.8 gm/dL (11.4-16.0); Luc # (Auto) 0.05; Lymphocytes # (A) 0.5 k/uL (1.0-4.8); Lymphocytes % (A) 10 %; MCH 28.7 pg (25.0-35.0); MCHC 32.3 g/dL (31.0-37.0); MCV 88.7 fL (80.0-100.0); Mean Platelet Volume 9.5; Monocytes # (A) 0.3 k/uL (0-1.0); Monocytes % (A) 5 %; Neutrophils # (A) 4.2 k/uL (1.3-7.7); RBC 2.73 m/uL (3.80-5.40); RDW 15.3 % (11.5-15.5); WBC (Perox) 5.06
[2016-09-27 04:22] LABS: Glucose,Whole Blood 158 mg/dL (75-99)
[2016-09-27] MEDS: HEPARIN SODIUM,PORCINE 5,000 UNIT/ML 1 ML VIAL SQ SCH ×5 (04:31→23:02)
[2016-09-27 05:35] LABS: Glucose,Whole Blood 163 mg/dL (75-99)
[2016-09-27] MEDS: VANCOMYCIN 1,750 MG in SODIUM CHLORIDE 0.9% 250 ML IVPB SCH (06:03)
[2016-09-27 06:06] LABS: Glucose,Whole Blood 158 mg/dL (75-99)
[2016-09-27] MEDS ORDERED: PREGABALIN 75 MG CAP PO STA (06:38)
--- NOTE | 2016-09-27 06:57 | XR ---
EXAMINATION TYPE: XR chest 1V portable DATE OF EXAM: 09/27/2016 HISTORY: Post Operative Cardiac Surgery. REFERENCE: Previous study dated 09/26/2016. FINDINGS: There has been a midline sternotomy. There are bilateral pleural drains in place. The patie nt has been extubated. The patient is ET tube has been removed. There continues to be a [place]-Ishmael cat heter in place. Its tip is in the right main pulmonary artery. Mediastinal widening has improved. There is improved aeration at the left lung base. I suspect small effusions. IMPRESSION: IMPROVED POSTOPERATIVE CHANGES.
[2016-09-27 07:00] LABS: Glucose,Whole Blood 154 mg/dL (75-99)
[2016-09-27] MEDS: INSULIN REGULAR 100 UNIT in SODIUM CHLORIDE 0.9% 100 ML IV SCH ×2 (07:02→21:10)
[2016-09-27] MEDS: LEVOTHYROXINE 75 MCG TAB PO SCH (07:14)
[2016-09-27 07:52] LABS: Glucose,Whole Blood 136 mg/dL (75-99)
[2016-09-27] MEDS ORDERED: FUROSEMIDE 10 MG/ML 2 ML VIAL IV ONE (08:06)
--- NOTE | 2016-09-27 08:12 | OP ---
DATE OF SERVICE: SURGEON: Jamil Ariza MD [employer]: NASH ARCH[employer]D [employer]ESSING MACHINE OPERATOR, KP DAVIS PREOPERATIVE DIAGNOSES: 1. Angina with triple vessel coronary artery disease, status post prior stenting to the LAD and the diagonal artery. 2. Status post prior myocardial infarction. 3. Obesity. 4. Diabetes. 5. Hypertension. 6. Hyperlipidemia. 7. Hypothyroidism. 8. Chronic Plavix used. POSTOPERATIVE DIAGNOSES: 1. Angina with triple vessel coronary artery disease, status post prior stenting to the LAD and the diagonal artery. 2. Status post prior myocardial infarction. 3. Obesity. 4. Diabetes. 5. Hypertension. 6. Hyperlipidemia. 7. Hypothyroidism. 8. Chronic Plavix used. OPERATION: \ 1. Triple vessel coronary artery bypass grafting using the left internal mammary artery to the left anterior descending artery. Reverse saphenous vein graft from the aorta to the posterior descending artery. Reverse saphenous vein graft from the aorta to the second obtuse marginal artery. 2. Endoscopic harvesting of the left greater saphenous vein. 3. Intraoperative transesophageal echocardiogram and epiaortic scanning. 4. Intraoperative graft flow measurements using the [employer] system. ANESTHESIA: ESTIMATED BLOOD LOSS: SPECIMENS REMOVED: COMPLICATIONS: OPERATIVE FINDINGS: INDICATIONS FOR SURGERY: Patient is a 66-year-old lady who underwent one year ago stenting to her LAD, and diagonal artery. The patient had recurrent angina at this point and work-up showed severe stenosis of the LAD as well as the stenosis of the proximal posterior descending artery and moderate stenosis of the circumflex system. There is a small to moderate sized ramus intermedius that we are going to be checking and the obtuse marginal artery seems to be on the small side. Risks, benefits, and alternatives were discussed with her. She understood them and agreed to proceed. We held the Plavix 5 days before surgery. DESCRIPTION OF PROCEDURE: Patient had a right internal jugular [place]-Ishmael catheter inserted in the preoperative holding area. PA Pressure was 45/20 and cardiac index was 2.1. Subsequently, she was brought to the operating room, where general endotracheal anesthesia was induced uneventfully. Patient received 1.75 grams of vancomycin and 3 grams of cefazolin intravenously. A Hedrick catheter was inserted. The chest, abdomen and both lower extremities were prepped and draped using ChloraPrep. Ioban was used to cover the skin. Transesophageal echocardiogram showed mild to moderate left ventricular dysfunction with some and anteroseptal and lateral hypokinesia. There was very mild mitral valve regurgitation. Midline sternotomy was performed and the patient had a thick subcutaneous fat layer. The bone was reasonably dense. The left hemisternum was elevated and left internal mammary artery was harvested in a somewhat skeletonized fashion. The left pleura was intentionally opened in this process and was drained with 28 [place] chest tube. The right pleural also was inadvertently opened and was drained with another 28 [place] chest tube. Mediastinal fat was transected between 2 ties and epiaortic scanning revealed no protruding atheroma in the ascending aorta. In the same setting, the left greater saphenous vein was harvested endoscopically from groin to above ankle level after administration of 2000 units of heparin. The leg incisions were closed over a drain. The vein appeared to be of good quality and around 4 mm in diameter. Pericardium was opened inverted T fashion and pericardial cradle was created. Despite the patient's large body habitus, the aorta was small as well as the heart and all her targets. After systemic heparinization, after placement of respective pledgeted pursestrings, aortic cannulation in the proximal arch, venous cannulation in a retracted right atrial appendage was performed. Antegrade as well as retrograde cardioplegia catheters were placed. Mammary artery was double clipped distally and transected, had an excellent pulsatile flow in it and was around 1.5 mm in diameter thin-walled. Cardiopulmonary bypass was initiated and we looked at the target and appeared that the LAD, which was small and had some visible disease in it, the posterior descending artery proximally when it was of reasonable size and the second obtuse marginal artery would be the site for bypass. The ramus intermedius appeared to be very small, less than 1 mm in diameter and the diagonal artery had a stent. It bifurcated into very small branches. During aortic clamping, myocardial protection was achieved with an initial dose of antegrade cold blood cardioplegia followed by a dose of retrograde cold blood cardioplegia. All subsequent doses were given retrograde at 15 minutes interval. The first distal anastomosis was seen in a segment of reverse saphenous vein. Vein graft of good quality and caliber and the 1.25 mm thin-walled second obtuse marginal artery, using Prolene 7 - 0 in continuous fashion. That anastomosis was hemostatic and there was good flow into the vein. The vein was measured to length and suspended. The second distal anastomosis was between another segment of reverse saphenous vein graft and the proximal aspect of the posterior descending artery, which was opened, and there was an anterior plaque to it using Prolene 7-0 in continuous fashion. There was good flow and that was hemostatic. The third and last distal anastomosis was between the left internal mammary artery and the mid to distal aspect of the left anterior descending artery, which was opened, was around 1.25 mm in diameter thin-walled, using Prolene 7 - 0 in continuous fashion. The mammary pedicle was affixed to the epicardium with 1 Prolene 6 - 0 sutures. Rewarming was started and 2 buttons were made in the ascending aorta and the two veins anastomosed proximally using Prolene 6 - 0 in a continuous fashion. Patient was given lidocaine and magnesium before unclamping the aorta. She regained spontaneous sinus rhythm. Two monopolar atrial pacing wires were affixed to the right atrial appendage. No ventricular pacing wire was placed as the patient tissues were extremely friable. The bleeding epicardial veins at the level of the apex had been oversewn with Prolene 6-0. A groove was made in the left pleural pericardial fat to accommodate the mammary artery medial to the lung and away from the posterior sternal table. There was bleeding from the branch at around 1 cm proximal to the anastomosis and at the level of the left internal mammary artery and that was controlled with a Prolene 7 - 0 using autologous pericardial pledgets within and that was satisfactory. Graft flow measurement revealed excellent flows in all 3 grafts and with that, test dose and full dose protamine was given. Decannulation proceeded. The aortic cannulation site required reinforcement. Mediastinal fat was approximated over the aorta and the right-sided vein graft. There was not much fat to cover the heart, which was plastered against the sternum. One 36 [place] substernal chest tube was placed. After ensuring adequate hemostasis and hemodynamics and with a MELANY showing improved left ventricular function and with good hemodynamics, the sternum was approximated using several [id number] [place] cable after interposing fibrillar between the sternal edges. Thorough irrigation with cefazolin followed before closing in layers. Skin glue was applied. The patient did not receive any blood bank product but received 1.25 liters of Cell Saver blood. She was transferred to the ICU in stable condition. Normal sinus rhythm at 74, PA pressure 42/18 and cardiac index was 2.2, mean arterial pressure of 77. MTDD
[2016-09-27] MEDS: IPRATROPIUM-ALBUTEROL 3 ML NEB INHALATION SCH ×4 (08:16→19:44)
[2016-09-27] MEDS: METOPROLOL TARTRATE 12.5 MG TAB PO SCH ×2 (08:20→20:40)
[2016-09-27] MEDS: PANTOPRAZOLE 40 MG TABLET PO SCH (08:50)
[2016-09-27] MEDS: ALLOPURINOL 100 MG TAB PO SCH (08:50)
[2016-09-27] MEDS: ATORVASTATIN 40 MG TAB PO SCH (08:51)
[2016-09-27] MEDS: CLOPIDOGREL 75 MG TAB PO SCH (08:51)
[2016-09-27] MEDS: ASPIRIN 325 MG TAB PO SCH (08:51)
[2016-09-27] MEDS ORDERED: PANTOPRAZOLE 40 MG/10 ML VIAL IVP SCH (09:00)
--- NOTE | 2016-09-27 09:17 | P.PN ---
<Esme Edmond - Last Filed: 09/27/16 09:04> Subjective Principal diagnosis: Angina with triple vessel coronary artery disease, status post prior stenting to the LAD and the diagonal artery. Status post prior myocardial infarction. Morbid obesity. Uncontrolled diabetes type 2 with hemoglobin A1c 9.4%. Hypertension. Hyperlipidemia. Hypothyroidism. POD #1 triple vessel coronary artery bypass grafting using the left internal mammary artery to the left anterior descending artery. Reverse saphenous vein graft from the aorta to the posterior descending artery. Reverse saphenous vein graft from the aorta to the second obtuse marginal artery. Endoscopic harvesting of the left greater saphenous vein. Intraoperative transesophageal echocardiogram and epi-aortic scanning. Intraoperative graft flow measurement using the [employer] system. Patient's currently sitting up in a recliner in no acute distress. Was extubated last night. Was on Ventimask this morning secondary to mouth breathing, currently on 6 L nasal cannula. Requires much encouragement to cough /deep breathing/move. Objective - Vital Signs Vital signs: Vital Signs Temp 98.1 F 09/26/16 06:00 Pulse 90 09/27/16 08:00 Resp 18 09/27/16 08:00 BP 107/59 09/27/16 07:45 Pulse Ox 93 L 09/27/16 08:00 Intake & Output 09/26/16 09/27/16 09/27/16 18:59 06:59 18:59 Intake Total 202.927 3812.401 559.669 Output Total 4160 1675 210 Balance -3893.067 552.401 349.669 Weight 121.7 kg Intake: IV 250 1125 108 ACETAMINOPHEN IV (For NPO 100 300 ) 1,000 mg In Empty Bag 1 bag @ 400 mls/hr IVPB Q6HR [facility] Rx#:[id number] Lactated Ringers 1,000 ml 150 570 70 @ 20 mls/hr IV .Q24H [facility] Rx#:[id number] cardiac output 150 20 pressure bag 105 18 Intake, IV Titration 16.933 502.401 151.669 Amount Clevidipine Butyrate 25 17.433 7.967 mg In Empty Bag 1 bag @ 1 MG/HR 2 mls/hr IV .Q24H [facility] Rx#:[id number] Insulin Regular 100 unit 89.978 18.702 In Sodium Chloride 0.9% 100 ml @ Per Protocol IV .Q0M [facility] Rx#:[id number] Phenylephrine 40 mg In 19.995 Sodium Chloride 0.9% 250 ml @ Titrate IV .Q0M [facility] Rx#:[id number] Potassium Chloride 10 meq 200 In Water For Injection 1 100ml.bag @ 100 mls/hr IVPB Q1H [facility] Rx#: [id number] Propofol 500 mg In Empty 16.933 49.995 Bag 1 bag @ Titrate IV . Q0M [facility] Rx#:[id number] Vancomycin 1,750 mg In 125 125 Sodium Chloride 0.9% 250 ml @ 125 mls/hr IVPB Q24H [facility] Rx#:[id number] Oral 600 300 Output: Chest Tube Drainage 135 670 40 Chest Tube Left Lateral 70 178 10 Chest Chest Tube Mediastinal 55 317 30 Chest Tube Right Lateral 10 175 0 Chest Drainage 50 Left Knee 50 Urine 1025 955 170 Estimated Blood Loss 3000 Other: Voiding Method Indwelling Catheter Indwelling Catheter ABP, PAP, CO, CI - Last Documented Arterial Blood Pressure 102/66 Pulmonary Artery Pressure 43/19 Cardiac Output 5 Cardiac Index 2.3 - Constitutional General appearance: Present: cooperative, morbidly obese, no acute distress - Respiratory Details: Lungs sounds diminished bilaterally. Respirations even, nonlabored. Currently on 6 L nasal cannula with oxygen saturation 92%. Able to achieve 500-750 mL on her incentive spirometer. Left pleural chest tube with 85 mL serous serosanguineous drainage overnight, 250 mL since surgery. Mediastinal chest tube with 240 mL overnight, 390 mL since surgery. Right pleural chest tube with 85 mL serosanguineous drainage overnight, 170 mL since surgery. No air leaks present. - Cardiovascular Details: S1, S2 present. Irregular rate and rhythm, sinus rhythm with frequent PACs. Sternum stable. Atrial epicardial wires present, disconnected from the generator this morning as patient was being inappropriately paced. Mammary support/Heart Hugger in place with patient demonstrating appropriate use. Teds/ SCDs present. - Gastrointestinal Gastrointestinal Comment(s): Abdomen soft, nontender, nondistended. Active bowel sounds 4 quadrants. Positive flatus. Patient tolerating clear liquids. - Genitourinary Genitourinary Comment(s): Hedrick present draining clear, yellow urine. Output 30-145 mL per hour overnight. - Integumentary Integumentary Comment(s): Anterior chest incision well approximated and covered with dry intact dressing. Left lower extremity EVH site well approximated with HEBERT drain in place. - Musculoskeletal Musculoskeletal: Present: strength equal bilaterally - Psychiatric Psychiatric: Present: A&O x's 3, appropriate affect, intact judgment & insight - Allied health notes Allied health notes reviewed: nursing - Labs CBC & Chem 7: 09/27/16 02:45 09/27/16 02:45 Labs: Abnormal Lab Results - Last 24 Hours (Table) 09/16/16 09/26/16 09/26/16 Range/Units 09:18 11:09 11:53 RBC (3.80-5.40) m/uL Hgb (11.4-16.0) gm/dL Hct (34.0-46.0) % Plt Count (150-450) k/uL Lymphocytes # (1.0-4.8) k/uL PT (9.0-12.0) sec APTT (22.0-30.0) sec ABG pH (7.35-7.45) ABG pCO2 (35-45) mmHg ABG pO2 (83-108) mmHg ABG O2 Saturation (94-97) % Chloride (98-107) mmol/L BUN (7-17) mg/dL Creatinine (0.52-1.04) mg/dL Glucose (74-99) mg/dL POC Glucose (mg/dL) 229 H 292 H (75-99) mg/dL Calcium (8.4-10.2) mg/dL AST (14-36) U/L Alkaline Phosphatase (38-126) U/L Total Protein (6.3-8.2) g/dL Crossmatch See Detail 09/26/16 09/26/16 09/26/16 Range/Units 12:31 13:16 13:49 RBC (3.80-5.40) m/uL Hgb (11.4-16.0) gm/dL Hct (34.0-46.0) % Plt Count (150-450) k/uL Lymphocytes # (1.0-4.8) k/uL PT (9.0-12.0) sec APTT (22.0-30.0) sec ABG pH (7.35-7.45) ABG pCO2 (35-45) mmHg ABG pO2 (83-108) mmHg ABG O2 Saturation (94-97) % Chloride (98-107) mmol/L BUN (7-17) mg/dL Creatinine (0.52-1.04) mg/dL Glucose (74-99) mg/dL POC Glucose (mg/dL) 313 H 282 H 287 H (75-99) mg/dL Calcium (8.4-10.2) mg/dL AST (14-36) U/L Alkaline Phosphatase (38-126) U/L Total Protein (6.3-8.2) g/dL Crossmatch 09/26/16 09/26/16 09/26/16 Range/Units 14:24 14:56 16:11 RBC (3.80-5.40) m/uL Hgb (11.4-16.0) gm/dL Hct (34.0-46.0) % Plt Count (150-450) k/uL Lymphocytes # (1.0-4.8) k/uL PT (9.0-12.0) sec APTT (22.0-30.0) sec ABG pH (7.35-7.45) ABG pCO2 (35-45) mmHg ABG pO2 (83-108) mmHg ABG O2 Saturation (94-97) % Chloride (98-107) mmol/L BUN (7-17) mg/dL Creatinine (0.52-1.04) mg/dL Glucose (74-99) mg/dL POC Glucose (mg/dL) 298 H 212 H 162 H (75-99) mg/dL Calcium (8.4-10.2) mg/dL AST (14-36) U/L Alkaline Phosphatase (38-126) U/L Total Protein (6.3-8.2) g/dL Crossmatch 09/26/16 09/26/16 09/26/16 Range/Units 16:25 16:25 16:25 RBC 2.59 L (3.80-5.40) m/uL Hgb 7.5 L D (11.4-16.0) gm/dL Hct 23.3 L (34.0-46.0) % Plt Count 89 L (150-450) k/uL Lymphocytes # (1.0-4.8) k/uL PT 14.9 H (9.0-12.0) sec APTT 36.1 H (22.0-30.0) sec ABG pH (7.35-7.45) ABG pCO2 (35-45) mmHg ABG pO2 (83-108) mmHg ABG O2 Saturation (94-97) % Chloride 109 H (98-107) mmol/L BUN 18 H (7-17) mg/dL Creatinine 1.11 H (0.52-1.04) mg/dL Glucose 148 H (74-99) mg/dL POC Glucose (mg/dL) (75-99) mg/dL Calcium 7.6 L (8.4-10.2) mg/dL AST 37 H (14-36) U/L Alkaline Phosphatase <20 L (38-126) U/L Total Protein 5.1 L (6.3-8.2) g/dL Crossmatch 09/26/16 09/26/16 09/26/16 Range/Units 16:40 17:01 18:00 RBC 2.74 L (3.80-5.40) m/uL Hgb 7.9 L (11.4-16.0) gm/dL Hct 24.5 L (34.0-46.0) % Plt Count 90 L (150-450) k/uL Lymphocytes # 0.9 L (1.0-4.8) k/uL PT (9.0-12.0) sec APTT (22.0-30.0) sec ABG pH 7.29 L (7.35-7.45) ABG pCO2 49 H (35-45) mmHg ABG pO2 266 H (83-108) mmHg ABG O2 Saturation 99.0 H (94-97) % Chloride (98-107) mmol/L BUN (7-17) mg/dL Creatinine (0.52-1.04) mg/dL Glucose (74-99) mg/dL POC Glucose (mg/dL) 134 H (75-99) mg/dL Calcium (8.4-10.2) mg/dL AST (14-36) U/L Alkaline Phosphatase (38-126) U/L Total Protein (6.3-8.2) g/dL Crossmatch 09/26/16 09/26/16 09/26/16 Range/Units 18:02 19:15 20:04 RBC (3.80-5.40) m/uL Hgb (11.4-16.0) gm/dL Hct (34.0-46.0) % Plt Count (150-450) k/uL Lymphocytes # (1.0-4.8) k/uL PT (9.0-12.0) sec APTT (22.0-30.0) sec ABG pH (7.35-7.45) ABG pCO2 (35-45) mmHg ABG pO2 (83-108) mmHg ABG O2 Saturation (94-97) % Chloride (98-107) mmol/L BUN (7-17) mg/dL Creatinine (0.52-1.04) mg/dL Glucose (74-99) mg/dL POC Glucose (mg/dL) 148 H 201 H 206 H (75-99) mg/dL Calcium (8.4-10.2) mg/dL AST (14-36) U/L Alkaline Phosphatase (38-126) U/L Total Protein (6.3-8.2) g/dL Crossmatch 09/26/16 09/26/16 09/26/16 Range/Units 20:55 20:55 21:59 RBC 2.83 L (3.80-5.40) m/uL Hgb 8.0 L (11.4-16.0) gm/dL Hct 25.2 L (34.0-46.0) % Plt Count 103 L (150-450) k/uL Lymphocytes # 0.7 L (1.0-4.8) k/uL PT (9.0-12.0) sec APTT (22.0-30.0) sec ABG pH (7.35-7.45) ABG pCO2 (35-45) mmHg ABG pO2 (83-108) mmHg ABG O2 Saturation (94-97) % Chloride (98-107) mmol/L BUN (7-17) mg/dL Creatinine (0.52-1.04) mg/dL Glucose (74-99) mg/dL POC Glucose (mg/dL) 198 H 191 H (75-99) mg/dL Calcium (8.4-10.2) mg/dL AST (14-36) U/L Alkaline Phosphatase (38-126) U/L Total Protein (6.3-8.2) g/dL Crossmatch 09/26/16 09/26/16 09/27/16 Range/Units 22:24 23:08 00:05 RBC (3.80-5.40) m/uL Hgb (11.4-16.0) gm/dL Hct (34.0-46.0) % Plt Count (150-450) k/uL Lymphocytes # (1.0-4.8) k/uL PT (9.0-12.0) sec APTT (22.0-30.0) sec ABG pH 7.33 L (7.35-7.45) ABG pCO2 (35-45) mmHg ABG pO2 (83-108) mmHg ABG O2 Saturation (94-97) % Chloride (98-107) mmol/L BUN (7-17) mg/dL Creatinine (0.52-1.04) mg/dL Glucose (74-99) mg/dL POC Glucose (mg/dL) 178 H 169 H (75-99) mg/dL Calcium (8.4-10.2) mg/dL AST (14-36) U/L Alkaline Phosphatase (38-126) U/L Total Protein (6.3-8.2) g/dL Crossmatch 09/27/16 09/27/16 09/27/16 Range/Units 01:07 02:04 02:45 RBC 2.73 L (3.80-5.40) m/uL Hgb 7.8 L (11.4-16.0) gm/dL Hct 24.2 L (34.0-46.0) % Plt Count 92 L (150-450) k/uL Lymphocytes # 0.5 L (1.0-4.8) k/uL PT (9.0-12.0) sec APTT (22.0-30.0) sec ABG pH (7.35-7.45) ABG pCO2 (35-45) mmHg ABG pO2 (83-108) mmHg ABG O2 Saturation (94-97) % Chloride (98-107) mmol/L BUN (7-17) mg/dL Creatinine (0.52-1.04) mg/dL Glucose (74-99) mg/dL POC Glucose (mg/dL) 163 H 157 H (75-99) mg/dL Calcium (8.4-10.2) mg/dL AST (14-36) U/L Alkaline Phosphatase (38-126) U/L Total Protein (6.3-8.2) g/dL Crossmatch 09/27/16 09/27/16 09/27/16 Range/Units 02:45 03:10 04:18 RBC (3.80-5.40) m/uL Hgb (11.4-16.0) gm/dL Hct (34.0-46.0) % Plt Count (150-450) k/uL Lymphocytes # (1.0-4.8) k/uL PT (9.0-12.0) sec APTT (22.0-30.0) sec ABG pH (7.35-7.45) ABG pCO2 (35-45) mmHg ABG pO2 (83-108) mmHg ABG O2 Saturation (94-97) % Chloride 109 H (98-107) mmol/L BUN (7-17) mg/dL Creatinine 1.12 H (0.52-1.04) mg/dL Glucose 147 H (74-99) mg/dL POC Glucose (mg/dL) 154 H 158 H (75-99) mg/dL Calcium 8.1 L (8.4-10.2) mg/dL AST 66 H (14-36) U/L Alkaline Phosphatase 22 L (38-126) U/L Total Protein 5.7 L (6.3-8.2) g/dL Crossmatch 09/27/16 09/27/16 09/27/16 Range/Units 05:33 06:05 06:56 RBC (3.80-5.40) m/uL Hgb (11.4-16.0) gm/dL Hct (34.0-46.0) % Plt Count (150-450) k/uL Lymphocytes # (1.0-4.8) k/uL PT (9.0-12.0) sec APTT (22.0-30.0) sec ABG pH (7.35-7.45) ABG pCO2 (35-45) mmHg ABG pO2 (83-108) mmHg ABG O2 Saturation (94-97) % Chloride (98-107) mmol/L BUN (7-17) mg/dL Creatinine (0.52-1.04) mg/dL Glucose (74-99) mg/dL POC Glucose (mg/dL) 163 H 158 H 154 H (75-99) mg/dL Calcium (8.4-10.2) mg/dL AST (14-36) U/L Alkaline Phosphatase (38-126) U/L Total Protein (6.3-8.2) g/dL Crossmatch 09/27/16 Range/Units 07:50 RBC (3.80-5.40) m/uL Hgb (11.4-16.0) gm/dL Hct (34.0-46.0) % Plt Count (150-450) k/uL Lymphocytes # (1.0-4.8) k/uL PT (9.0-12.0) sec APTT (22.0-30.0) sec ABG pH (7.35-7.45) ABG pCO2 (35-45) mmHg ABG pO2 (83-108) mmHg ABG O2 Saturation (94-97) % Chloride (98-107) mmol/L BUN (7-17) mg/dL Creatinine (0.52-1.04) mg/dL Glucose (74-99) mg/dL POC Glucose (mg/dL) 136 H (75-99) mg/dL Calcium (8.4-10.2) mg/dL AST (14-36) U/L Alkaline Phosphatase (38-126) U/L Total Protein (6.3-8.2) g/dL Crossmatch - Imaging and Cardiology Chest x-ray: image reviewed Assessment and Plan (1) Uncontrolled type 2 diabetes mellitus Status: Acute (2) History of coronary artery stent placement Status: Acute (3) Hypothyroidism Status: Acute (4) CAD (coronary artery disease) Status: Acute (5) Hyperlipidemia Status: Acute (6) Hypertension Status: Acute (7) Morbid obesity with BMI of 40.0-44.9, adult Status: Acute (8) Previous myocardial infarction older than 8 weeks Status: Acute Plan: 1. Continue aspirin, statin, Plavix, heparin subcu, beta feliberto. 2. Lasix 20 mg IV push ordered 1. 3. Wean O2 as tolerated. Encourage incentive spirometry use. 4. Increase activity, out of bed to chair all day. Physical therapy to follow. 5. GI/DVT prophylaxis. 6. Insulin drip/diabetic management per internal medicine service. 7. Daily labs, x-rays. 8. Will discontinue [place]. 9. More recommendations as patient progresses. Time with Patient: Greater than 30 <Jackson Rubin - Last Filed: 09/27/16 16:42> Objective - Vital Signs Vital signs: Vital Signs Temp 98.1 F 09/27/16 16:00 Pulse 75 09/27/16 16:01 Resp 16 09/27/16 16:00 BP 85/60 09/27/16 15:00 Pulse Ox 98 09/27/16 16:02 Intake & Output 09/26/16 09/27/16 09/27/16 18:59 06:59 18:59 Intake Total 910.937 8040.401 797.305 Output Total 4160 1675 638 Balance -3893.067 552.401 159.305 Weight 121.7 kg 121.7 kg Intake: IV 250 1125 301 ACETAMINOPHEN IV (For NPO 100 300 ) 1,000 mg In Empty Bag 1 bag @ 400 mls/hr IVPB Q6HR [facility] Rx#:[id number] Lactated Ringers 1,000 ml 150 570 230 @ 20 mls/hr IV .Q24H [facility] Rx#:[id number] cardiac output 150 20 pressure bag 105 51 Intake, IV Titration 16.933 502.401 196.305 Amount Clevidipine Butyrate 25 17.433 7.967 mg In Empty Bag 1 bag @ 1 MG/HR 2 mls/hr IV .Q24H [facility] Rx#:[id number] Insulin Regular 100 unit 89.978 63.338 In Sodium Chloride 0.9% 100 ml @ Per Protocol IV .Q0M [facility] Rx#:[id number] Phenylephrine 40 mg In 19.995 Sodium Chloride 0.9% 250 ml @ Titrate IV .Q0M [facility] Rx#:[id number] Potassium Chloride 10 meq 200 In Water For Injection 1 100ml.bag @ 100 mls/hr IVPB Q1H [facility] Rx#: [id number] Propofol 500 mg In Empty 16.933 49.995 Bag 1 bag @ Titrate IV . Q0M [facility] Rx#:[id number] Vancomycin 1,750 mg In 125 125 Sodium Chloride 0.9% 250 ml @ 125 mls/hr IVPB Q24H [facility] Rx#:[id number] Oral 600 300 Output: Chest Tube Drainage 135 670 180 Chest Tube Left Lateral 70 178 70 Chest Chest Tube Mediastinal 55 317 100 Chest Tube Right Lateral 10 175 10 Chest Drainage 50 Left Knee 50 Urine 1025 955 458 Estimated Blood Loss 3000 Other: Voiding Method Indwelling Catheter Indwelling Catheter Indwelling Catheter ABP, PAP, CO, CI - Last Documented Arterial Blood Pressure 104/90 Pulmonary Artery Pressure 31/15 Cardiac Output 5 Cardiac Index 2.3 - Labs CBC & Chem 7: 09/27/16 02:45 09/27/16 02:45 Labs: Abnormal Lab Results - Last 24 Hours (Table) 09/16/16 09/26/16 09/26/16 Range/Units 09:18 16:25 16:25 RBC 2.59 L (3.80-5.40) m/uL Hgb 7.5 L D (11.4-16.0) gm/dL Hct 23.3 L (34.0-46.0) % Plt Count 89 L (150-450) k/uL Lymphocytes # (1.0-4.8) k/uL PT (9.0-12.0) sec APTT (22.0-30.0) sec ABG pH (7.35-7.45) ABG pCO2 (35-45) mmHg ABG pO2 (83-108) mmHg ABG O2 Saturation (94-97) % Chloride 109 H (98-107) mmol/L BUN 18 H (7-17) mg/dL Creatinine 1.11 H (0.52-1.04) mg/dL Glucose 148 H (74-99) mg/dL POC Glucose (mg/dL) (75-99) mg/dL Calcium 7.6 L (8.4-10.2) mg/dL AST 37 H (14-36) U/L Alkaline Phosphatase <20 L (38-126) U/L Total Protein 5.1 L (6.3-8.2) g/dL Crossmatch See Detail 09/26/16 09/26/16 09/26/16 Range/Units 16:25 16:40 17:01 RBC (3.80-5.40) m/uL Hgb (11.4-16.0) gm/dL Hct (34.0-46.0) % Plt Count (150-450) k/uL Lymphocytes # (1.0-4.8) k/uL PT 14.9 H (9.0-12.0) sec APTT 36.1 H (22.0-30.0) sec ABG pH 7.29 L (7.35-7.45) ABG pCO2 49 H (35-45) mmHg ABG pO2 266 H (83-108) mmHg ABG O2 Saturation 99.0 H (94-97) % Chloride (98-107) mmol/L BUN (7-17) mg/dL Creatinine (0.52-1.04) mg/dL Glucose (74-99) mg/dL POC Glucose (mg/dL) 134 H (75-99) mg/dL Calcium (8.4-10.2) mg/dL AST (14-36) U/L Alkaline Phosphatase (38-126) U/L Total Protein (6.3-8.2) g/dL Crossmatch 09/26/16 09/26/16 09/26/16 Range/Units 18:00 18:02 19:15 RBC 2.74 L (3.80-5.40) m/uL Hgb 7.9 L (11.4-16.0) gm/dL Hct 24.5 L (34.0-46.0) % Plt Count 90 L (150-450) k/uL Lymphocytes # 0.9 L (1.0-4.8) k/uL PT (9.0-12.0) sec APTT (22.0-30.0) sec ABG pH (7.35-7.45) ABG pCO2 (35-45) mmHg ABG pO2 (83-108) mmHg ABG O2 Saturation (94-97) % Chloride (98-107) mmol/L BUN (7-17) mg/dL Creatinine (0.52-1.04) mg/dL Glucose (74-99) mg/dL POC Glucose (mg/dL) 148 H 201 H (75-99) mg/dL Calcium (8.4-10.2) mg/dL AST (14-36) U/L Alkaline Phosphatase (38-126) U/L Total Protein (6.3-8.2) g/dL Crossmatch 09/26/16 09/26/16 09/26/16 Range/Units 20:04 20:55 20:55 RBC 2.83 L (3.80-5.40) m/uL Hgb 8.0 L (11.4-16.0) gm/dL Hct 25.2 L (34.0-46.0) % Plt Count 103 L (150-450) k/uL Lymphocytes # 0.7 L (1.0-4.8) k/uL PT (9.0-12.0) sec APTT (22.0-30.0) sec ABG pH (7.35-7.45) ABG pCO2 (35-45) mmHg ABG pO2 (83-108) mmHg ABG O2 Saturation (94-97) % Chloride (98-107) mmol/L BUN (7-17) mg/dL Creatinine (0.52-1.04) mg/dL Glucose (74-99) mg/dL POC Glucose (mg/dL) 206 H 198 H (75-99) mg/dL Calcium (8.4-10.2) mg/dL AST (14-36) U/L Alkaline Phosphatase (38-126) U/L Total Protein (6.3-8.2) g/dL Crossmatch 09/26/16 09/26/16 09/26/16 Range/Units 21:59 22:24 23:08 RBC (3.80-5.40) m/uL Hgb (11.4-16.0) gm/dL Hct (34.0-46.0) % Plt Count (150-450) k/uL Lymphocytes # (1.0-4.8) k/uL PT (9.0-12.0) sec APTT (22.0-30.0) sec ABG pH 7.33 L (7.35-7.45) ABG pCO2 (35-45) mmHg ABG pO2 (83-108) mmHg ABG O2 Saturation (94-97) % Chloride (98-107) mmol/L BUN (7-17) mg/dL Creatinine (0.52-1.04) mg/dL Glucose (74-99) mg/dL POC Glucose (mg/dL) 191 H 178 H (75-99) mg/dL Calcium (8.4-10.2) mg/dL AST (14-36) U/L Alkaline Phosphatase (38-126) U/L Total Protein (6.3-8.2) g/dL Crossmatch 09/27/16 09/27/16 09/27/16 Range/Units 00:05 01:07 02:04 RBC (3.80-5.40) m/uL Hgb (11.4-16.0) gm/dL Hct (34.0-46.0) % Plt Count (150-450) k/uL Lymphocytes # (1.0-4.8) k/uL PT (9.0-12.0) sec APTT (22.0-30.0) sec ABG pH (7.35-7.45) ABG pCO2 (35-45) mmHg ABG pO2 (83-108) mmHg ABG O2 Saturation (94-97) % Chloride (98-107) mmol/L BUN (7-17) mg/dL Creatinine (0.52-1.04) mg/dL Glucose (74-99) mg/dL POC Glucose (mg/dL) 169 H 163 H 157 H (75-99) mg/dL Calcium (8.4-10.2) mg/dL AST (14-36) U/L Alkaline Phosphatase (38-126) U/L Total Protein (6.3-8.2) g/dL Crossmatch 09/27/16 09/27/16 09/27/16 Range/Units 02:45 02:45 03:10 RBC 2.73 L (3.80-5.40) m/uL Hgb 7.8 L (11.4-16.0) gm/dL Hct 24.2 L (34.0-46.0) % Plt Count 92 L (150-450) k/uL Lymphocytes # 0.5 L (1.0-4.8) k/uL PT (9.0-12.0) sec APTT (22.0-30.0) sec ABG pH (7.35-7.45) ABG pCO2 (35-45) mmHg ABG pO2 (83-108) mmHg ABG O2 Saturation (94-97) % Chloride 109 H (98-107) mmol/L BUN (7-17) mg/dL Creatinine 1.12 H (0.52-1.04) mg/dL Glucose 147 H (74-99) mg/dL POC Glucose (mg/dL) 154 H (75-99) mg/dL Calcium 8.1 L (8.4-10.2) mg/dL AST 66 H (14-36) U/L Alkaline Phosphatase 22 L (38-126) U/L Total Protein 5.7 L (6.3-8.2) g/dL Crossmatch 09/27/16 09/27/16 09/27/16 Range/Units 04:18 05:33 06:05 RBC (3.80-5.40) m/uL Hgb (11.4-16.0) gm/dL Hct (34.0-46.0) % Plt Count (150-450) k/uL Lymphocytes # (1.0-4.8) k/uL PT (9.0-12.0) sec APTT (22.0-30.0) sec ABG pH (7.35-7.45) ABG pCO2 (35-45) mmHg ABG pO2 (83-108) mmHg ABG O2 Saturation (94-97) % Chloride (98-107) mmol/L BUN (7-17) mg/dL Creatinine (0.52-1.04) mg/dL Glucose (74-99) mg/dL POC Glucose (mg/dL) 158 H 163 H 158 H (75-99) mg/dL Calcium (8.4-10.2) mg/dL AST (14-36) U/L Alkaline Phosphatase (38-126) U/L Total Protein (6.3-8.2) g/dL Crossmatch 09/27/16 09/27/16 09/27/16 Range/Units 06:56 07:50 09:28 RBC (3.80-5.40) m/uL Hgb (11.4-16.0) gm/dL Hct (34.0-46.0) % Plt Count (150-450) k/uL Lymphocytes # (1.0-4.8) k/uL PT (9.0-12.0) sec APTT (22.0-30.0) sec ABG pH (7.35-7.45) ABG pCO2 (35-45) mmHg ABG pO2 (83-108) mmHg ABG O2 Saturation (94-97) % Chloride (98-107) mmol/L BUN (7-17) mg/dL Creatinine (0.52-1.04) mg/dL Glucose (74-99) mg/dL POC Glucose (mg/dL) 154 H 136 H 114 H (75-99) mg/dL Calcium (8.4-10.2) mg/dL AST (14-36) U/L Alkaline Phosphatase (38-126) U/L Total Protein (6.3-8.2) g/dL Crossmatch 09/27/16 09/27/16 09/27/16 Range/Units 10:54 12:02 12:25 RBC (3.80-5.40) m/uL Hgb (11.4-16.0) gm/dL Hct (34.0-46.0) % Plt Count (150-450) k/uL Lymphocytes # (1.0-4.8) k/uL PT (9.0-12.0) sec APTT (22.0-30.0) sec ABG pH (7.35-7.45) ABG pCO2 (35-45) mmHg ABG pO2 (83-108) mmHg ABG O2 Saturation (94-97) % Chloride (98-107) mmol/L BUN (7-17) mg/dL Creatinine (0.52-1.04) mg/dL Glucose (74-99) mg/dL POC Glucose (mg/dL) 183 H 163 H 147 H (75-99) mg/dL Calcium (8.4-10.2) mg/dL AST (14-36) U/L Alkaline Phosphatase (38-126) U/L Total Protein (6.3-8.2) g/dL Crossmatch 09/27/16 09/27/16 Range/Units 13:49 14:45 RBC (3.80-5.40) m/uL Hgb (11.4-16.0) gm/dL Hct (34.0-46.0) % Plt Count (150-450) k/uL Lymphocytes # (1.0-4.8) k/uL PT (9.0-12.0) sec APTT (22.0-30.0) sec ABG pH (7.35-7.45) ABG pCO2 (35-45) mmHg ABG pO2 (83-108) mmHg ABG O2 Saturation (94-97) % Chloride (98-107) mmol/L BUN (7-17) mg/dL Creatinine (0.52-1.04) mg/dL Glucose (74-99) mg/dL POC Glucose (mg/dL) 117 H 100 H (75-99) mg/dL Calcium (8.4-10.2) mg/dL AST (14-36) U/L Alkaline Phosphatase (38-126) U/L Total Protein (6.3-8.2) g/dL Crossmatch Assessment and Plan Plan: The patient was seen and examined. Agree with the above assessment and plan. The patient was extubated last night. We will discontinue her [place] catheter this morning. Otherwise we will continue all of her monitoring lines. She'll be given a dose of Lasix. She is up in a chair this morning. We will continue to wean her oxygen as tolerated.
[2016-09-27 09:30] LABS: Glucose,Whole Blood 114 mg/dL (75-99)
[2016-09-27 10:56] LABS: Glucose,Whole Blood 183 mg/dL (75-99)
--- NOTE | 2016-09-27 11:19 | P.CNPUL ---
History of Present Illness Consult date: 09/27/16 Requesting physician: Sukhwinder Gtz Reason for consult: other (Ventilator/critical care management) Chief complaint: Coronary artery disease History of present illness: This is a very pleasant 66-year-old female patient who follows with Dr. Cha as her primary care physician. She has a history of diabetes mellitus, hypertension, hyperlipidemia, morbid obesity, sleep apnea, peripheral neuropathy , hypothyroidism, coronary artery disease with previous stenting to the LAD and the diagonal artery. She was also found to have coronary artery disease and presented for elective coronary artery bypass grafting yesterday. Dr. Ariza performed the surgery utilizing a SIMS to the LAD, reverse saphenous vein graft to the PDA and second obtuse marginal artery. This is postoperative day #1. She was successfully extubated and is presently sitting up in a chair at the bedside. She is awake and alert in no acute distress. She is maintaining good O2 saturations in the upper 90s on 2 L/m per nasal cannula. Her pain is well controlled. Her only drip remaining his insulin at 10 units per hour. She continues with the left, right and mediastinal chest tubes in place. She is in normal sinus rhythm. Hemodynamically stable. Current hemoglobin 7.8. Review of Systems 14 point review of systems was conducted all negative other than as mentioned in the HPI. Past Medical History Past Medical History: Coronary Artery Disease (CAD), Chest Pain / Angina, Heart Failure, Diabetes Mellitus, Myocardial Infarction ([place]), Renal Disease, Sleep Apnea/CPAP/BIPAP, Thyroid Disorder Additional Past Medical History / Comment(s): gout,neuropathy,fatty liver, renal insufficency-PCP monitors, has insulin pump,doesn't use the cpap, past hx. ulcer Last Myocardial Infarction Date:: 09/18/2015 History of Any Multi-Drug Resistant Organisms: None Reported Past Surgical History: Bariatric Surgery, Heart Catheterization, Heart Catheterization With Stent, Hysterectomy, Orthopedic Surgery, Tubal Ligation Additional Past Surgical History / Comment(s): lap band, several heart cath's w/ stents, EGD,COLONOSCOPY, LAP BAND 2007, RT ROTATOR CUFF,PANNICULECTOMY W/F/U WOUND DEBRIDEMENT X2,ANAL FISSURE REPAIR, BRIGID CATARACTS. LT ARM LIPOMA REMOVED. Past Anesthesia/Blood Transfusion Reactions: Previous Problems w/ Anesthesia Additional Past Anesthesia/Blood Transfusion Reaction / Comment(s): difficulty waking up from anesthesia Date of Last Stent Placement:: 09-18-15 Past Psychological History: No Psychological Hx Reported Smoking Status: Never smoker Past Alcohol Use History: Occasional Past Drug Use History: None Reported - Past Family History Mother Family Medical History: Cancer, Diabetes Mellitus Additional Family Medical History / Comment(s): BREAST/BONE CANCER Father Family Medical History: Myocardial Infarction ([place]) Additional Family Medical History / Comment(s): AT AGE 56 FROM [place] Brother(s) Family Medical History: Cancer Additional Family Medical History / Comment(s): prostate cancer, had open heart surg. Medications and Allergies Home Medications Medication Instructions Recorded Confirmed Type Allopurinol [Zyloprim] 100 mg PO DAILY 06/17/15 09/26/16 History Cholecalciferol [Vitamin D3] 1,000 unit PO DAILY 06/17/15 09/26/16 History Furosemide [Lasix] 40 mg PO DAILY 06/17/15 09/26/16 History Insulin Aspart [NovoLOG] See Protocol SQ CONTINUOUS 06/17/15 09/26/16 History Levothyroxine Sodium [Synthroid] 75 mcg PO DAILY 06/17/15 09/26/16 History Pregabalin [Lyrica] 150 mg PO BID 06/17/15 09/26/16 History Aspirin EC [Ecotrin Low Dose] 81 mg PO HS 12/11/15 09/26/16 History Clopidogrel [Plavix] 75 mg PO DAILY 09/20/16 09/26/16 History Cyanocobalamin (Vitamin B-12) 2,000 mcg PO DAILY 09/26/16 09/26/16 History [Vitamin B-12] Allergies Allergy/AdvReac Type Severity Reaction Status Date / Time adhesive tape Allergy Rash/Hives Verified 09/26/16 06:10 Penicillins Allergy Rash/Hives Verified 09/26/16 06:10 plum Allergy Swelling Verified 09/26/16 06:10 Sulfa (Sulfonamide Allergy Rash/Hives Verified 09/26/16 06:10 Antibiotics) cherrys Allergy Anaphylaxis Uncoded 09/20/16 14:46 Physical Exam Vitals: Vital Signs Pulse Resp BP Pulse Ox 09/27/16 11:00 79 14 83/39 96 09/27/16 10:00 85 13 95/53 96 09/27/16 09:00 81 13 100/58 99 09/27/16 08:00 90 13 93 L 09/27/16 07:45 93 22 107/59 92 L 09/27/16 07:30 84 15 98 09/27/16 07:00 82 13 97/49 97 09/27/16 06:45 85 14 99/51 95 09/27/16 06:30 93 19 91 L 09/27/16 06:15 87 16 93 L 09/27/16 06:00 84 18 90 L 09/27/16 05:45 84 15 94 L 09/27/16 05:30 97 16 94 L 09/27/16 05:15 92 13 94 L 09/27/16 05:00 96 34 H 82 L 09/27/16 04:45 85 17 91 L 09/27/16 04:30 84 16 92 L 09/27/16 04:15 84 22 91 L 09/27/16 04:00 84 14 92 L 09/27/16 03:45 84 17 86 L 09/27/16 03:30 84 13 91 L 09/27/16 03:15 84 13 92 L 09/27/16 03:00 84 13 95 09/27/16 02:45 84 13 90 L 09/27/16 02:30 84 15 90 L 09/27/16 02:15 84 26 H 87 L 09/27/16 02:00 84 15 84 L 09/27/16 01:45 84 16 94 L 09/27/16 01:30 84 13 95 09/27/16 01:15 84 15 95 09/27/16 01:00 84 14 94 L 09/27/16 00:45 84 21 97 09/27/16 00:30 84 16 98 09/27/16 00:15 84 15 94 L 09/27/16 00:00 87 17 99 09/26/16 23:45 84 16 96 09/26/16 23:30 84 15 98 09/26/16 23:15 84 18 93 L 09/26/16 23:00 84 18 96 09/26/16 22:45 84 18 97 09/26/16 22:30 84 18 98 09/26/16 22:15 84 19 97 09/26/16 22:00 84 21 98 09/26/16 21:45 84 20 95 09/26/16 21:30 84 19 99 09/26/16 21:15 84 17 100 09/26/16 21:00 84 18 100 09/26/16 20:45 84 17 100 09/26/16 20:30 84 18 09/26/16 20:15 84 18 100 09/26/16 20:00 84 17 100 09/26/16 19:45 84 18 09/26/16 19:42 84 09/26/16 19:30 75 18 09/26/16 19:22 84 09/26/16 19:00 84 16 100 09/26/16 18:15 84 17 100 09/26/16 18:00 84 18 100 09/26/16 17:45 84 18 09/26/16 17:30 84 18 09/26/16 17:15 84 18 09/26/16 17:00 84 12 09/26/16 16:57 84 12 09/26/16 16:00 12 Intake and Output 09/26/16 09/27/16 09/27/16 22:59 06:59 14:59 Intake Total 935.348 7274.493 698.917 Output Total 1255 980 420 Balance -255.159 514.493 278.917 Intake: IV 693 682 239 ACETAMINOPHEN IV (For NPO 200 200 ) 1,000 mg In Empty Bag 1 bag @ 400 mls/hr IVPB Q6HR [facility] Rx#:[id number] Lactated Ringers 1,000 ml 350 370 180 @ 20 mls/hr IV .Q24H [facility] Rx#:[id number] cardiac output 110 40 20 pressure bag 33 72 39 Intake, IV Titration 306.841 212.493 159.917 Amount Clevidipine Butyrate 25 17.433 7.967 mg In Empty Bag 1 bag @ 1 MG/HR 2 mls/hr IV .Q24H [facility] Rx#:[id number] Insulin Regular 100 unit 19.918 70.060 26.950 In Sodium Chloride 0.9% 100 ml @ Per Protocol IV .Q0M [facility] Rx#:[id number] Phenylephrine 40 mg In 19.995 Sodium Chloride 0.9% 250 ml @ Titrate IV .Q0M [facility] Rx#:[id number] Potassium Chloride 10 meq 200 In Water For Injection 1 100ml.bag @ 100 mls/hr IVPB Q1H [facility] Rx#: [id number] Propofol 500 mg In Empty 66.928 Bag 1 bag @ Titrate IV . Q0M [facility] Rx#:[id number] Vancomycin 1,750 mg In 125 125 Sodium Chloride 0.9% 250 ml @ 125 mls/hr IVPB Q24H [facility] Rx#:[id number] Oral 600 300 Output: Chest Tube Drainage 390 415 80 Chest Tube Left Lateral 162 86 10 Chest Chest Tube Mediastinal 128 244 70 Chest Tube Right Lateral 100 85 0 Chest Drainage 25 25 Left Knee 25 25 Urine 840 540 340 Other: Voiding Method Indwelling Catheter Indwelling Catheter Indwelling Catheter Weight 121.7 kg ABP, PAP, CO, CI - Last 8 Hours Arterial Blood Pressure 111/87 Arterial Blood Pressure 107/69 Arterial Blood Pressure 110/64 Arterial Blood Pressure 102/66 Arterial Blood Pressure 96/63 Arterial Blood Pressure 125/82 Arterial Blood Pressure 134/61 Arterial Blood Pressure 93/60 Arterial Blood Pressure 93/61 Arterial Blood Pressure 130/54 Arterial Blood Pressure 132/53 Arterial Blood Pressure 130/58 Arterial Blood Pressure 130/61 Arterial Blood Pressure 123/57 Arterial Blood Pressure 134/68 Arterial Blood Pressure 131/53 Arterial Blood Pressure 126/53 Arterial Blood Pressure 123/50 Arterial Blood Pressure 133/57 Arterial Blood Pressure 129/54 Arterial Blood Pressure 129/57 Arterial Blood Pressure 132/62 Pulmonary Artery Pressure 31/15 Pulmonary Artery Pressure 33/18 Pulmonary Artery Pressure 43/19 Pulmonary Artery Pressure 35/20 Pulmonary Artery Pressure 37/23 Pulmonary Artery Pressure 39/24 Pulmonary Artery Pressure 35/21 Pulmonary Artery Pressure 37/23 Pulmonary Artery Pressure 34/19 Pulmonary Artery Pressure 33/18 Pulmonary Artery Pressure 32/17 Pulmonary Artery Pressure 35/21 Pulmonary Artery Pressure 35/20 Pulmonary Artery Pressure 31/17 Pulmonary Artery Pressure 48/32 Pulmonary Artery Pressure 36/19 Pulmonary Artery Pressure 38/19 Pulmonary Artery Pressure 43/18 Pulmonary Artery Pressure 38/20 Pulmonary Artery Pressure 38/17 Pulmonary Artery Pressure 40/23 Pulmonary Artery Pressure 42/25 Cardiac Output 5 Cardiac Output 5 Cardiac Output 5 Cardiac Output 5 Cardiac Output 5.8 Cardiac Output 5.8 Cardiac Output 5.8 Cardiac Output 5.8 Cardiac Output 5.8 Cardiac Output 5.8 Cardiac Output 5.8 Cardiac Output 5.8 Cardiac Output 5.8 Cardiac Output 5.8 Cardiac Output 5.8 Cardiac Output 5.8 Cardiac Output 5.8 Cardiac Output 5.8 Cardiac Output 5.8 Cardiac Output 5.8 Cardiac Output 5.8 Cardiac Output 5.8 Cardiac Output 5 Cardiac Index 2.3 Cardiac Index 2.7 GENERAL EXAM: Alert, comfortable in no apparent distress. HEAD: Normocephalic. EYES: Normal reaction of pupils, equal size. NOSE: Clear with pink turbinates. THROAT: No erythema or exudates. NECK: No masses, no JVD. CHEST: Dressing is dry and intact. Chest tubes in place. LUNGS: Equal air entry with crackles in the posterior bases.. CVS: S1 and S2 normal with no audible murmur, regular rhythm. ABDOMEN: No hepatosplenomegaly, normal bowel sounds, no guarding or rigidity. SPINE: No scoliosis or deformity SKIN: No rashes CENTRAL NERVOUS SYSTEM: No focal deficits, tone is normal in all 4 extremities. Extremities: There is trace peripheral edema. No clubbing, no cyanosis. Peripheral pulses are intact. Results - Laboratory Findings CBC and BMP: 09/27/16 02:45 09/27/16 02:45 ABG ABG pH 7.33 (7.35-7.45) L 09/26/16 22:24 ABG pCO2 43 mmHg (35-45) 09/26/16 22:24 ABG pO2 88 mmHg (83-108) 09/26/16 22:24 ABG O2 Saturation 96.0 % (94-97) 09/26/16 22:24 PT/INR, D-dimer PT 14.9 sec (9.0-12.0) H 09/26/16 16:25 INR 1.5 (<1.1) 09/26/16 16:25 Abnormal lab findings: Abnormal Labs 09/16/16 09/16/16 09/26/16 09:18 09:18 06:20 RBC Hgb Hct Plt Count Lymphocytes # PT APTT ABG pH ABG pCO2 ABG pO2 ABG O2 Saturation Chloride BUN Creatinine Glucose POC Glucose (mg/dL) 126 H Hemoglobin A1c 9.4 H Calcium AST Alkaline Phosphatase Total Protein Crossmatch See Detail 09/26/16 09/26/16 09/26/16 08:46 11:09 11:53 RBC Hgb Hct Plt Count Lymphocytes # PT APTT ABG pH ABG pCO2 ABG pO2 ABG O2 Saturation Chloride BUN Creatinine Glucose POC Glucose (mg/dL) 137 H 229 H 292 H Hemoglobin A1c Calcium AST Alkaline Phosphatase Total Protein Crossmatch 09/26/16 09/26/16 09/26/16 12:31 13:16 13:49 RBC Hgb Hct Plt Count Lymphocytes # PT APTT ABG pH ABG pCO2 ABG pO2 ABG O2 Saturation Chloride BUN Creatinine Glucose POC Glucose (mg/dL) 313 H 282 H 287 H Hemoglobin A1c Calcium AST Alkaline Phosphatase Total Protein Crossmatch 09/26/16 09/26/16 09/26/16 14:24 14:56 16:11 RBC Hgb Hct Plt Count Lymphocytes # PT APTT ABG pH ABG pCO2 ABG pO2 ABG O2 Saturation Chloride BUN Creatinine Glucose POC Glucose (mg/dL) 298 H 212 H 162 H Hemoglobin A1c Calcium AST Alkaline Phosphatase Total Protein Crossmatch 09/26/16 09/26/16 09/26/16 16:25 16:25 16:25 RBC 2.59 L Hgb 7.5 L D Hct 23.3 L Plt Count 89 L Lymphocytes # PT 14.9 H APTT 36.1 H ABG pH ABG pCO2 ABG pO2 ABG O2 Saturation Chloride 109 H BUN 18 H Creatinine 1.11 H Glucose 148 H POC Glucose (mg/dL) Hemoglobin A1c Calcium 7.6 L AST 37 H Alkaline Phosphatase <20 L Total Protein 5.1 L Crossmatch 09/26/16 09/26/16 09/26/16 16:40 17:01 18:00 RBC 2.74 L Hgb 7.9 L Hct 24.5 L Plt Count 90 L Lymphocytes # 0.9 L PT APTT ABG pH 7.29 L ABG pCO2 49 H ABG pO2 266 H ABG O2 Saturation 99.0 H Chloride BUN Creatinine Glucose POC Glucose (mg/dL) 134 H Hemoglobin A1c Calcium AST Alkaline Phosphatase Total Protein Crossmatch 09/26/16 09/26/16 09/26/16 18:02 19:15 20:04 RBC Hgb Hct Plt Count Lymphocytes # PT APTT ABG pH ABG pCO2 ABG pO2 ABG O2 Saturation Chloride BUN Creatinine Glucose POC Glucose (mg/dL) 148 H 201 H 206 H Hemoglobin A1c Calcium AST Alkaline Phosphatase Total Protein Crossmatch 09/26/16 09/26/16 09/26/16 20:55 20:55 21:59 RBC 2.83 L Hgb 8.0 L Hct 25.2 L Plt Count 103 L Lymphocytes # 0.7 L PT APTT ABG pH ABG pCO2 ABG pO2 ABG O2 Saturation Chloride BUN Creatinine Glucose POC Glucose (mg/dL) 198 H 191 H Hemoglobin A1c Calcium AST Alkaline Phosphatase Total Protein Crossmatch 09/26/16 09/26/16 09/27/16 22:24 23:08 00:05 RBC Hgb Hct Plt Count Lymphocytes # PT APTT ABG pH 7.33 L ABG pCO2 ABG pO2 ABG O2 Saturation Chloride BUN Creatinine Glucose POC Glucose (mg/dL) 178 H 169 H Hemoglobin A1c Calcium AST Alkaline Phosphatase Total Protein Crossmatch 09/27/16 09/27/16 09/27/16 01:07 02:04 02:45 RBC 2.73 L Hgb 7.8 L Hct 24.2 L Plt Count 92 L Lymphocytes # 0.5 L PT APTT ABG pH ABG pCO2 ABG pO2 ABG O2 Saturation Chloride BUN Creatinine Glucose POC Glucose (mg/dL) 163 H 157 H Hemoglobin A1c Calcium AST Alkaline Phosphatase Total Protein Crossmatch 09/27/16 09/27/16 09/27/16 02:45 03:10 04:18 RBC Hgb Hct Plt Count Lymphocytes # PT APTT ABG pH ABG pCO2 ABG pO2 ABG O2 Saturation Chloride 109 H BUN Creatinine 1.12 H Glucose 147 H POC Glucose (mg/dL) 154 H 158 H Hemoglobin A1c Calcium 8.1 L AST 66 H Alkaline Phosphatase 22 L Total Protein 5.7 L Crossmatch 09/27/16 09/27/16 09/27/16 05:33 06:05 06:56 RBC Hgb Hct Plt Count Lymphocytes # PT APTT ABG pH ABG pCO2 ABG pO2 ABG O2 Saturation Chloride BUN Creatinine Glucose POC Glucose (mg/dL) 163 H 158 H 154 H Hemoglobin A1c Calcium AST Alkaline Phosphatase Total Protein Crossmatch 09/27/16 09/27/16 09/27/16 07:50 09:28 10:54 RBC Hgb Hct Plt Count Lymphocytes # PT APTT ABG pH ABG pCO2 ABG pO2 ABG O2 Saturation Chloride BUN Creatinine Glucose POC Glucose (mg/dL) 136 H 114 H 183 H Hemoglobin A1c Calcium AST Alkaline Phosphatase Total Protein Crossmatch - Diagnostic Findings Chest x-ray: image reviewed Assessment and Plan Plan: Impression: #1 Coronary artery disease status post coronary artery bypass grafting utilizing a SIMS to the LAD, reverse saphenous vein grafts to the PDA and obtuse marginal branch. #2 Ventilator dependent secondary to thoracotomy, expected outcome. Successfully extubated to nasal cannula. #3 History of coronary artery disease with previous stent placements to the LAD and diagonal artery. #4 Morbid obesity. #5 Hypertension. #6 Hyperlipidemia. #7 Hypothyroidism. #8 Obstructive sleep apnea. Plan: The patient was seen and evaluated by Dr. Meeks. Her chest x-ray and labs were reviewed. The patient is currently stable from the pulmonary and critical care standpoint. We'll continue to monitor her here closely in the intensive care unit. Continue to monitor her blood glucose levels. Continue bronchodilators. She is again encouraged regarding the increased use the incentive spirometer and cough and deep breathing exercises. We'll repeat her chest x-ray and labs in the a.m. We'll continue to follow.
--- NOTE | 2016-09-27 11:50 | PN ---
A 66-year-old lady who was admitted to hospital for bypass surgery. She is postop day #2, extubated. Seems to be in some discomfort, but is otherwise doing well. Remains in sinus rhythm with intermittent use of the pacemaker. On exam, comfortable at rest. Vital signs are stable. There is no jugular venous distention. Chest exam reveals diminished air entry at the bases. Heart exam reveals first and second heart sounds. No gallop. Exam of the extremities did not reveal edema. Peripheral pulses are felt. Occasional PACs are noted. Labs show that potassium is 4.9. Creatinine is 1.1. Hemoglobin is 7.8. ASSESSMENT: Coronary artery disease, status post coronary artery bypass graft, postop day #2. Patient is making steady recovery. She is currently on aspirin, Plavix, Lipitor, metoprolol, which are going to be continued.
[2016-09-27 12:03] LABS: Glucose,Whole Blood 163 mg/dL (75-99)
[2016-09-27 12:27] LABS: Glucose,Whole Blood 147 mg/dL (75-99)
[2016-09-27 14:09] LABS: Glucose,Whole Blood 117 mg/dL (75-99)
[2016-09-27 14:46] LABS: Glucose,Whole Blood 100 mg/dL (75-99)
[2016-09-27] MEDS ORDERED: BISACODYL 10 MG SUPP RECTAL PRN (14:51)
[2016-09-27] MEDS ORDERED: MAGNESIUM HYDROXIDE 2,400 MG/10 ML CUP PO PRN (14:51)
[2016-09-27] MEDS ORDERED: IPRATROPIUM-ALBUTEROL 3 ML NEB INHALATION PRN (14:52)
[2016-09-27] MEDS: CYANOCOBALAMIN 500 MCG TAB PO SCH (15:03)
[2016-09-27 15:50] LABS: Glucose,Whole Blood 96 mg/dL (75-99)
[2016-09-27 17:09] LABS: Glucose,Whole Blood 101 mg/dL (75-99)
[2016-09-27] MEDS: CHOLECALCIFEROL 1,000 UNIT TAB PO SCH (17:36)
[2016-09-27] MEDS: LACTATED RINGERS 1,000 ML IV SCH (17:37)
[2016-09-27 17:50] LABS: Glucose,Whole Blood 107 mg/dL (75-99)
[2016-09-27 18:45] LABS: Glucose,Whole Blood 138 mg/dL (75-99)
[2016-09-27 20:28] LABS: Glucose,Whole Blood 175 mg/dL (75-99)
[2016-09-27] MEDS: PREGABALIN 75 MG CAP PO SCH (20:40)
[2016-09-27] MEDS: SENNOSIDES-DOCUSATE SODIUM 1 EACH TAB PO SCH (20:41)
[2016-09-27 21:10] LABS: Glucose,Whole Blood 170 mg/dL (75-99)
[2016-09-27 22:12] LABS: Glucose,Whole Blood 146 mg/dL (75-99)
[2016-09-27 22:59] LABS: Glucose,Whole Blood 126 mg/dL (75-99)
[2016-09-27] MEDS: HYDROcodone/APAP 5-325MG 1 EACH TAB PO PRN (23:07)
[2016-09-28 00:24] LABS: Glucose,Whole Blood 107 mg/dL (75-99)
[2016-09-28 02:05] LABS: Glucose,Whole Blood 164 mg/dL (75-99)
[2016-09-28 03:13] LABS: Glucose,Whole Blood 143 mg/dL (75-99)
[2016-09-28 05:02] LABS: Glucose,Whole Blood 125 mg/dL (75-99)
[2016-09-28 05:14] LABS: Glucose,Whole Blood 121 mg/dL (75-99)
[2016-09-28 06:19] LABS: Glucose,Whole Blood 96 mg/dL (75-99)
[2016-09-28 06:32] LABS: Basophils % (A) 0 %; CH 28.6; CHCM 31.5; Eosinophils # (A) 0.1 k/uL (0-0.7); Eosinophils % (A) 2 %; HCT 23.5 % (34.0-46.0); HDW 2.97; HGB 7.4 gm/dL (11.4-16.0); Hypochromasia Slight; Luc # (Auto) 0.19; Luc % (Auto) 3; Lymphocytes # (A) 1.1 k/uL (1.0-4.8); Lymphocytes % (A) 16 %; MCHC 31.7 g/dL (31.0-37.0); MCV 91.7 fL (80.0-100.0); Mean Platelet Volume 9.1; Monocytes # (A) 0.5 k/uL (0-1.0); Monocytes % (A) 7 %; Neutrophils # (A) 5.1 k/uL (1.3-7.7); Neutrophils % (A) 72 %; RBC 2.57 m/uL (3.80-5.40); RDW 15.4 % (11.5-15.5); WBC (Perox) 7.29
[2016-09-28 06:51] LABS: INR 1.2 (<1.1); Prothrombin Time 12.3 sec (9.0-12.0)
[2016-09-28 07:18] LABS: Ionized Calcium 4.8 mg/dL (4.5-5.3)
[2016-09-28 07:34] LABS: Calcium 8.7 mg/dL (8.4-10.2); Magnesium 2.2 mg/dL (1.6-2.3); Potassium 4.3 mmol/L (3.5-5.1); Total Bilirubin 0.7 mg/dL (0.2-1.3); Total Protein 5.4 g/dL (6.3-8.2)
[2016-09-28] MEDS: IPRATROPIUM-ALBUTEROL 3 ML NEB INHALATION SCH ×4 (07:55→19:42)
--- NOTE | 2016-09-28 07:59 | XR ---
EXAMINATION TYPE: XR chest 1V portable DATE OF EXAM: 09/28/2016 HISTORY: Shortness of breath. COMPARISON: September 27, 2016 TECHNIQUE: Single view of the chest is submitted. FINDINGS: [place]-I[place]mael catheter has been removed. Bilateral chest tubes are in place. No evidence for sizable pneu mothorax. Lung volumes are diminished with scattered areas of linear atelectasis or infiltrate. The heart is stable. Hilar and mediastinal structures are within normal limits. Degenerative changes are seen of the dorsal spine. IMPRESSION: 1. Stable chest. Removal of [place]-Ishmael catheter noted.
[2016-09-28 08:11] LABS: Glucose,Whole Blood 184 mg/dL (75-99)
[2016-09-28] MEDS: VANCOMYCIN 1,750 MG in SODIUM CHLORIDE 0.9% 250 ML IVPB SCH (08:14)
[2016-09-28] MEDS: HYDROcodone/APAP 5-325MG 1 EACH TAB PO PRN ×3 (08:23→20:13)
[2016-09-28] MEDS: INSULIN REGULAR 100 UNIT in SODIUM CHLORIDE 0.9% 100 ML IV SCH ×2 (08:24→21:09)
[2016-09-28] MEDS: LEVOTHYROXINE 75 MCG TAB PO SCH (08:25)
[2016-09-28] MEDS: PANTOPRAZOLE 40 MG TABLET PO SCH (08:25)
[2016-09-28] MEDS: HEPARIN SODIUM,PORCINE 5,000 UNIT/ML 1 ML VIAL SQ SCH ×3 (08:25→23:55)
[2016-09-28] MEDS: ALLOPURINOL 100 MG TAB PO SCH (08:26)
[2016-09-28] MEDS: ATORVASTATIN 40 MG TAB PO SCH (08:26)
[2016-09-28] MEDS: CLOPIDOGREL 75 MG TAB PO SCH (08:26)
[2016-09-28] MEDS: METOPROLOL TARTRATE 12.5 MG TAB PO SCH (08:26)
[2016-09-28] MEDS: ASPIRIN 325 MG TAB PO SCH (08:26)
[2016-09-28] MEDS: PREGABALIN 75 MG CAP PO SCH ×2 (08:28→20:09)
--- NOTE | 2016-09-28 08:52 | P.PN ---
Progress Note - Text The patient is a 66-year-old female who is post coronary artery bypass surgery 3 days previous. She is a patient of Dr. Cha for whom I am covering. Patient is sitting in a chair at the side of the bed. She is somewhat fatigued but easily aroused. She does complain of some postsurgical chest discomfort. Denies any nausea, vomiting or shortness of breath at rest. Her last vital signs reveal a pulse of 89 with respirations 14 and blood pressure 114/67. She is 98% saturated on 2 L Extraocular movements intact. Lungs reveal diminished breath sounds at the bases but no wheezing. Heart tones are somewhat distant but regular. Abdomen is obese and nontender. No unusual distal edema noted. As mentioned she is responding appropriately. No definite cranial nerve deficits. No focal weakness noted. Laboratory results: White count is 7 with a hemoglobin 7.4 and a platelet count of 91. INR is 1.2 Sodium is 140 with potassium 4.3. BUN of 15 with a creatinine 1.3 giving her GFR of 41. Blood sugar ranged from 96-184. AST is mildly elevated at 60. Albumin is 3.7. Impressions and plans: Overall this 66-year-old female who appears to be slowly improving post coronary artery bypass surgery. Patient does have multiple comorbidities including obesity, diabetes, hypertension, hyperlipidemia, sleep apnea, hypothyroidism and peripheral neuropathy. Continue present treatment as per thoracic surgery, pulmonary medicine and cardiology. Their notes were regarded. She does have a postop blood loss anemia which is being followed. Dr. Cha to resume follow-up on his return.
[2016-09-28 10:23] LABS: Glucose,Whole Blood 199 mg/dL (75-99)
--- NOTE | 2016-09-28 10:35 | P.PN ---
Subjective Principal diagnosis: Coronary artery disease This is a very pleasant 66-year-old female patient who follows with Dr. Cha as her primary care physician. She has a history of diabetes mellitus, hypertension, hyperlipidemia, morbid obesity, sleep apnea, peripheral neuropathy , hypothyroidism, coronary artery disease with previous stenting to the LAD and the diagonal artery. She was also found to have coronary artery disease and presented for elective coronary artery bypass grafting yesterday. Dr. Ariza performed the surgery utilizing a SIMS to the LAD, reverse saphenous vein graft to the PDA and second obtuse marginal artery. This is postoperative day #1. She was successfully extubated and is presently sitting up in a chair at the bedside. She is awake and alert in no acute distress. She is maintaining good O2 saturations in the upper 90s on 2 L/m per nasal cannula. Her pain is well controlled. Her only drip remaining his insulin at 10 units per hour. She continues with the left, right and mediastinal chest tubes in place. She is in normal sinus rhythm. Hemodynamically stable. Current hemoglobin 7.8. The patient is seen again today postoperative day #2 09/28/2016 in follow-up in the intensive care unit. She is awake and alert in no acute distress. She is currently sitting up in the chair at the bedside. Her pain is well controlled currently. She denies any worsening shortness of breath, cough or congestion. She is maintaining good O2 saturations in the 90s on 2 L/m per nasal cannula. She has a lactated Ringer's running at 30 MLS per hour. She is on an insulin drip at 11.5 units per hour. Her hemoglobin is stable at 7.4. Leaflets 91, 000. Creatinine 1.30. She is afebrile. Hemodynamically stable. Asher-Ishmael catheter has been removed. Her chest tubes remain in place. Chest x-ray reveals atelectasis in the bilateral bases. Objective - Vital Signs Vital signs: Vital Signs Temp 98.8 F 09/28/16 00:00 Pulse 89 09/28/16 08:06 Resp 14 09/28/16 07:00 BP 114/67 09/28/16 07:00 Pulse Ox 98 09/28/16 07:00 Intake & Output 09/27/16 09/28/16 09/28/16 18:59 06:59 18:59 Intake Total 849.305 856.896 50.135 Output Total 841 790 Balance 8.305 66.896 50.135 Weight 121.7 kg 126.4 kg Intake: IV 353 742 ACETAMINOPHEN IV (For NPO 100 ) 1,000 mg In Empty Bag 1 bag @ 400 mls/hr IVPB Q6HR KJ Rx#:[id number] Lactated Ringers 1,000 ml 270 600 @ 20 mls/hr IV .Q24H KJ Rx#:[id number] cardiac output 20 pressure bag 63 42 Intake, IV Titration 196.305 114.896 50.135 Amount Clevidipine Butyrate 25 7.967 mg In Empty Bag 1 bag @ 1 MG/HR 2 mls/hr IV .Q24H KJ Rx#:[id number] Insulin Regular 100 unit 63.338 114.896 50.135 In Sodium Chloride 0.9% 100 ml @ Per Protocol IV .Q0M KJ Rx#:[id number] Vancomycin 1,750 mg In 125 Sodium Chloride 0.9% 250 ml @ 125 mls/hr IVPB Q24H KJ Rx#:[id number] Oral 300 Output: Chest Tube Drainage 258 190 Chest Tube Left Lateral 98 80 Chest Chest Tube Mediastinal 150 100 Chest Tube Right Lateral 10 10 Chest Urine 583 600 Other: Voiding Method Indwelling Catheter Indwelling Catheter ABP, PAP, CO, CI - Last Documented Arterial Blood Pressure 291/291 Pulmonary Artery Pressure 31/15 Cardiac Output 5 Cardiac Index 2.3 - Exam GENERAL EXAM: Alert, comfortable in no apparent distress. HEAD: Normocephalic. EYES: Normal reaction of pupils, equal size. NOSE: Clear with pink turbinates. THROAT: No erythema or exudates. NECK: No masses, no JVD. CHEST: Dressing is dry and intact. Chest tubes in place. LUNGS: Equal air entry with crackles in the posterior bases.. CVS: S1 and S2 normal with no audible murmur, regular rhythm. ABDOMEN: No hepatosplenomegaly, normal bowel sounds, no guarding or rigidity. SPINE: No scoliosis or deformity SKIN: No rashes CENTRAL NERVOUS SYSTEM: No focal deficits, tone is normal in all 4 extremities. Extremities: There is trace peripheral edema. No clubbing, no cyanosis. Peripheral pulses are intact. - Labs CBC & Chem 7: 09/28/16 06:05 09/28/16 06:05 Labs: Abnormal Lab Results - Last 24 Hours (Table) 09/27/16 09/27/16 09/27/16 Range/Units 10:54 12:02 12:25 RBC (3.80-5.40) m/uL Hgb (11.4-16.0) gm/dL Hct (34.0-46.0) % Plt Count (150-450) k/uL PT (9.0-12.0) sec Creatinine (0.52-1.04) mg/dL POC Glucose (mg/dL) 183 H 163 H 147 H (75-99) mg/dL AST (14-36) U/L Alkaline Phosphatase (38-126) U/L Total Protein (6.3-8.2) g/dL 09/27/16 09/27/16 09/27/16 Range/Units 13:49 14:45 17:08 RBC (3.80-5.40) m/uL Hgb (11.4-16.0) gm/dL Hct (34.0-46.0) % Plt Count (150-450) k/uL PT (9.0-12.0) sec Creatinine (0.52-1.04) mg/dL POC Glucose (mg/dL) 117 H 100 H 101 H (75-99) mg/dL AST (14-36) U/L Alkaline Phosphatase (38-126) U/L Total Protein (6.3-8.2) g/dL 09/27/16 09/27/16 09/27/16 Range/Units 17:49 18:43 20:24 RBC (3.80-5.40) m/uL Hgb (11.4-16.0) gm/dL Hct (34.0-46.0) % Plt Count (150-450) k/uL PT (9.0-12.0) sec Creatinine (0.52-1.04) mg/dL POC Glucose (mg/dL) 107 H 138 H 175 H (75-99) mg/dL AST (14-36) U/L Alkaline Phosphatase (38-126) U/L Total Protein (6.3-8.2) g/dL 09/27/16 09/27/16 09/27/16 Range/Units 21:09 22:10 22:58 RBC (3.80-5.40) m/uL Hgb (11.4-16.0) gm/dL Hct (34.0-46.0) % Plt Count (150-450) k/uL PT (9.0-12.0) sec Creatinine (0.52-1.04) mg/dL POC Glucose (mg/dL) 170 H 146 H 126 H (75-99) mg/dL AST (14-36) U/L Alkaline Phosphatase (38-126) U/L Total Protein (6.3-8.2) g/dL 09/28/16 09/28/16 09/28/16 Range/Units 00:22 02:03 03:11 RBC (3.80-5.40) m/uL Hgb (11.4-16.0) gm/dL Hct (34.0-46.0) % Plt Count (150-450) k/uL PT (9.0-12.0) sec Creatinine (0.52-1.04) mg/dL POC Glucose (mg/dL) 107 H 164 H 143 H (75-99) mg/dL AST (14-36) U/L Alkaline Phosphatase (38-126) U/L Total Protein (6.3-8.2) g/dL 09/28/16 09/28/16 09/28/16 Range/Units 05:00 05:12 06:05 RBC (3.80-5.40) m/uL Hgb (11.4-16.0) gm/dL Hct (34.0-46.0) % Plt Count (150-450) k/uL PT (9.0-12.0) sec Creatinine 1.30 H (0.52-1.04) mg/dL POC Glucose (mg/dL) 125 H 121 H (75-99) mg/dL AST 60 H (14-36) U/L Alkaline Phosphatase 29 L (38-126) U/L Total Protein 5.4 L (6.3-8.2) g/dL 09/28/16 09/28/16 09/28/16 Range/Units 06:05 06:05 08:09 RBC 2.57 L (3.80-5.40) m/uL Hgb 7.4 L (11.4-16.0) gm/dL Hct 23.5 L (34.0-46.0) % Plt Count 91 L (150-450) k/uL PT 12.3 H (9.0-12.0) sec Creatinine (0.52-1.04) mg/dL POC Glucose (mg/dL) 184 H (75-99) mg/dL AST (14-36) U/L Alkaline Phosphatase (38-126) U/L Total Protein (6.3-8.2) g/dL 09/28/16 Range/Units 10:22 RBC (3.80-5.40) m/uL Hgb (11.4-16.0) gm/dL Hct (34.0-46.0) % Plt Count (150-450) k/uL PT (9.0-12.0) sec Creatinine (0.52-1.04) mg/dL POC Glucose (mg/dL) 199 H (75-99) mg/dL AST (14-36) U/L Alkaline Phosphatase (38-126) U/L Total Protein (6.3-8.2) g/dL Assessment and Plan Plan: Impression: #1 Coronary artery disease status post coronary artery bypass grafting utilizing a SIMS to the LAD, reverse saphenous vein grafts to the PDA and obtuse marginal branch. Post operative day #2. #2 Ventilator dependent secondary to thoracotomy, expected outcome. Successfully extubated to nasal cannula. #3 History of coronary artery disease with previous stent placements to the LAD and diagonal artery. #4 Morbid obesity. #5 Hypertension. #6 Hyperlipidemia. #7 Hypothyroidism. #8 Obstructive sleep apnea. Plan: The patient was seen and evaluated by Dr. Meeks. Her chest x-ray and labs were reviewed. Will continue with her current medications. Continue to monitor her blood glucose levels. Continue bronchodilators. She is again encouraged regarding the increased use the incentive spirometer and cough and deep breathing exercises. We will increase her activity as tolerated. We'll repeat her chest x-ray and labs in the a.m. We'll continue to follow. Time with Patient: Greater than 30
--- NOTE | 2016-09-28 10:41 | P.PN ---
<Alec Epstein Manuel - Last Filed: 09/28/16 10:38> Progress Note - Text CV Surgery Nursing Principal diagnosis: Angina with triple vessel coronary artery disease, status post prior stenting to the LAD and the diagonal artery. Status post prior myocardial infarction. Morbid obesity. Uncontrolled diabetes type 2 with hemoglobin A1c 9.4%. Hypertension. Hyperlipidemia. Hypothyroidism. POD #2 triple vessel coronary artery bypass grafting using the left internal mammary artery to the left anterior descending artery. Reverse saphenous vein graft from the aorta to the posterior descending artery. Reverse saphenous vein graft from the aorta to the second obtuse marginal artery. Endoscopic harvesting of the left greater saphenous vein. Intraoperative transesophageal echocardiogram and epi-aortic scanning. Intraoperative graft flow measurement using the beRecruitedstSymphogen system. Patient awake and alert, no distress noted, no specific complaints. She is sitting up to the bedside chair. Vital Signs: Afebrile Vital Signs - 24 hr 09/27/16 09/27/16 09/27/16 07:30 07:45 08:00 Temperature Pulse Rate 84 93 90 Respiratory 15 22 13 Rate Blood Pressure 107/59 O2 Sat by Pulse 98 92 L 93 L Oximetry 09/27/16 09/27/16 09/27/16 09:00 10:00 11:00 Temperature Pulse Rate 81 85 79 Respiratory 13 13 14 Rate Blood Pressure 100/58 95/53 83/39 O2 Sat by Pulse 99 96 96 Oximetry 09/27/16 09/27/16 09/27/16 11:32 11:42 12:00 Temperature 98.1 F Pulse Rate 75 74 79 Respiratory 16 Rate Blood Pressure 91/38 O2 Sat by Pulse 97 Oximetry 09/27/16 09/27/16 09/27/16 13:00 14:00 15:00 Temperature Pulse Rate 81 76 76 Respiratory 12 22 13 Rate Blood Pressure 94/55 85/60 85/60 O2 Sat by Pulse 99 98 98 Oximetry 09/27/16 09/27/16 09/27/16 15:41 16:00 16:01 Temperature 98.1 F Pulse Rate 68 74 75 Respiratory 16 Rate Blood Pressure O2 Sat by Pulse 99 Oximetry 09/27/16 09/27/16 09/27/16 16:02 17:00 18:00 Temperature Pulse Rate 77 96 Respiratory 12 21 Rate Blood Pressure O2 Sat by Pulse 98 99 95 Oximetry 09/27/16 09/27/16 09/27/16 19:00 19:44 19:58 Temperature Pulse Rate 90 87 95 Respiratory 15 Rate Blood Pressure 111/64 O2 Sat by Pulse 97 Oximetry 09/27/16 09/27/16 09/27/16 20:00 21:00 22:00 Temperature 99 F Pulse Rate 94 88 89 Respiratory 21 11 L 10 L Rate Blood Pressure 111/64 119/60 137/64 O2 Sat by Pulse 100 97 95 Oximetry 09/27/16 09/27/16 09/28/16 22:17 23:00 00:00 Temperature 98.8 F Pulse Rate 84 84 85 Respiratory 10 L 12 12 Rate Blood Pressure 137/64 132/70 127/62 O2 Sat by Pulse 96 96 97 Oximetry 09/28/16 09/28/16 09/28/16 01:00 02:00 03:00 Temperature Pulse Rate 82 82 75 Respiratory 10 L 10 L 12 Rate Blood Pressure 112/59 112/54 112/54 O2 Sat by Pulse 98 97 97 Oximetry 09/28/16 09/28/16 09/28/16 04:00 05:00 06:00 Temperature Pulse Rate 79 74 76 Respiratory 13 14 16 Rate Blood Pressure 101/52 104/50 104/50 O2 Sat by Pulse 97 99 96 Oximetry 09/28/16 07:00 Temperature Pulse Rate 78 Respiratory 14 Rate Blood Pressure 114/67 O2 Sat by Pulse 98 Oximetry ABP, PAP, CO, CI - Last 8 Hours Arterial Blood Pressure 291/291 Arterial Blood Pressure 97/80 Arterial Blood Pressure 103/88 Arterial Blood Pressure 99/83 Arterial Blood Pressure 108/96 Labs: IV Fluids: Lactated Ringer's at 20 mL per hour. CVP: 3 Lungs: Essentially clear throughout, diminished bilateral bases. Respirations are symmetrical and unlabored. O2 sat: 98% on 2 L nasal cannula. I/S: 500-750 mL, reviewed with the patient the importance of using her incentive spirometry every hour while awake. The patient did give a good return demonstration on her incentive spirometry. Heart: S1S2, regular rhythm and rate, negative for S3, gallop or murmur. Bedside telemetry showing normal sinus rhythm with frequent PACs heart rate 74. Sternum stable, chest incision clean with Dermabond dressing clean and dry. No drainage noted. Heart hugger in place, patient demonstrating proper use of her heart hugger. Heart hugger brought in place for extra sternal protection. Epicardial atrial pacemaker wires intact. Left leg incisions clean dry and well approximated. No drainage noted. HEBERT drain intact to her left lower mid leg, 25 mL output in the last 8 hours, 50 mL output since surgery. Knee-high NISHA hose and sequential compression devices in place to her lower extremities. Abdomen: Soft, Positive bowel sounds present in all 4 quadrants, patient denies passing any flatus since surgery. CBGs: 96-143 mg/dL in the last 24 hours. U/O: Adequate, Hedrick catheter for accurate I&O. 355 mL output in the last 8 hours. Chest Tubes: Left pleural chest tube without air leak, draining thin serosanguineous drainage. 50 mL output in the last 8 hours, 150 mL output in the last 24 hours. Mediastinal chest tube without air leak, draining thin serosanguineous drainage. 90 mL output in the last 8 hours, 270 mL output in the last 24 hours. Right pleural chest tube without air leak, draining thin serosanguineous drainage. 10 mL output in the last 8 hours, 130 mL output in the last 24 hours. All 3 chest tubes remained to continuous low wall suction. 24 hr Total: Intake & Output 09/26/16 09/27/16 09/28/16 09/29/16 06:59 06:59 06:59 06:59 Intake Total 102 2494.334 1706.201 Output Total 5835 1631 Balance 102 -3340.666 75.201 Weight 114.8 kg 121.7 kg 126.4 kg Active Medications Hydrocodone Bitart/Acetaminophen ([place] 5-325) 2 each PO Q4HR PRN PRN Reason: Severe Pain Hydrocodone Bitart/Acetaminophen ([place] 5-325) 1 each PO Q4HR PRN PRN Reason: Moderate Pain Last Admin: 09/27/16 23:07 Dose: 1 each Albuterol/Ipratropium (Duoneb 0.5 Mg-3 Mg/3 Ml Soln) 3 ml INHALATION RT-Q2H PRN PRN Reason: Shortness Of Breath Or Wheezing Albuterol/Ipratropium (Duoneb 0.5 Mg-3 Mg/3 Ml Soln) 3 ml INHALATION RT-QID [facility] Last Admin: 09/27/16 19:44 Dose: 3 ml Allopurinol (Zyloprim) 100 mg PO DAILY [facility] Last Admin: 09/27/16 08:50 Dose: 100 mg Aspirin (Aspirin) 325 mg PO DAILY [facility] Last Admin: 09/27/16 08:51 Dose: 325 mg Atorvastatin Calcium (Lipitor) 40 mg PO DAILY [facility] Last Admin: 09/27/16 08:51 Dose: 40 mg Benzocaine/Menthol (Cepacol Lozenge) 1 each MUCOUS MEM Q2H PRN PRN Reason: Sore Throat Bisacodyl (Dulcolax) 10 mg RECTAL DAILY PRN PRN Reason: Constipation Cholecalciferol (Vitamin D3) 1,000 unit PO DAILY@1200 [facility] Last Admin: 09/27/16 17:36 Dose: 1,000 unit Clopidogrel Bisulfate (Plavix) 75 mg PO DAILY [facility] Last Admin: 09/27/16 08:51 Dose: 75 mg Cyanocobalamin (Vitamin B-12) 2,000 mcg PO DAILY@1200 [facility] Last Admin: 09/27/16 15:03 Dose: 2,000 mcg Heparin Sodium (Porcine) (Heparin) 5,000 unit SQ Q8HR [facility] Last Admin: 09/27/16 23:02 Dose: Not Given Albumin Human 250 ml/ IV (Solution) 250 mls @ 250 mls/hr IVPB Q1HR PRN PRN Reason: For Volume Stop: 09/28/16 15:08 Clevidipine 25 mg/ IV Solution 50 mls @ 2 mls/hr IV .Q24H [facility]; 1 MG/HR PRN Reason: Protocol Last Titration: 09/27/16 07:14 Dose: 0 mg/hr, 0 mls/hr Insulin Human Regular 100 unit (/ Sodium Chloride) 101 mls @ 0 mls/hr IV .Q0M [facility]; Per Protocol PRN Reason: Protocol Last Titration: 09/28/16 05:14 Dose: 10 units/hr, 10.1 mls/hr Lactated Ringer's (Lactated Ringers) 1,000 mls @ 20 mls/hr IV .Q24H [facility] Last Admin: 09/27/16 17:37 Dose: 20 mls/hr Vancomycin HCl 1,750 mg/ (Sodium Chloride) 250 mls @ 125 mls/hr IVPB Q24H [facility] Stop: 09/28/16 07:59 Last Admin: 09/27/16 06:03 Dose: 125 mls/hr Phenylephrine HCl 40 mg/ (Sodium Chloride) 254 mls @ 0 mls/hr IV .Q0M [facility]; Titrate PRN Reason: Protocol Last Titration: 09/26/16 22:45 Dose: 0 mcg/min, 0 mls/hr Levothyroxine Sodium (Synthroid) 75 mcg PO DAILY@0630 [facility] Last Admin: 09/27/16 07:14 Dose: 75 mcg Magnesium Hydroxide (Milk Of Magnesia) 2,400 mg PO BID PRN PRN Reason: Constipation Metoclopramide HCl (Reglan) 10 mg IVP Q4H PRN PRN Reason: Nausea And Vomiting Metoprolol Tartrate (Lopressor) 12.5 mg PO BID [facility] Last Admin: 09/27/16 20:40 Dose: 12.5 mg Miscellaneous Information (Magnesium Per Protocol) 1 each MISCELLANE DAILY PRN ; Protocol PRN Reason: Per Protocol Miscellaneous Information (Phosphorus Per Protocol) 1 each MISCELLANE DAILY PRN ; Protocol PRN Reason: Per Protocol Miscellaneous Information (Potassium Per Protocol) 1 each MISCELLANE DAILY PRN ; Protocol PRN Reason: Per Protocol Miscellaneous Information (Potassium Per Protocol) 1 each MISCELLANE DAILY PRN ; Protocol PRN Reason: Per Protocol Ondansetron HCl (Zofran) 4 mg IVP Q6HR PRN PRN Reason: Nausea And Vomiting Pantoprazole Sodium (Protonix) 40 mg PO AC-[id number] [facility] Last Admin: 09/27/16 08:50 Dose: 40 mg Pregabalin (Lyrica) 150 mg PO BID [facility] Last Admin: 09/27/16 20:40 Dose: 150 mg Senna/Docusate Sodium (Senokot-S) 2 each PO HS [facility] Last Admin: 09/27/16 20:41 Dose: 2 each Sodium Chloride (Saline Flush) 10 ml IV BID [facility] Last Admin: 09/27/16 20:56 Dose: 10 ml Plan: 1. Continue aspirin, statin, Plavix, heparin subcu, we will increase her metoprolol to 25 mg by mouth twice a day. 2. We will increase her metoprolol to 25 mg by mouth twice a day. 3. Wean O2 as tolerated. Encourage incentive spirometry use. 4. Increase activity, out of bed to chair all day. Physical therapy to follow. 5. GI/DVT prophylaxis. 6. Insulin drip/diabetic management per internal medicine service. 7. Daily labs, x-rays. 8. Will remove her mediastinal chest tube, her right and left pleural chest tubes remain in at this time. 9. She will be transferred to [address] [place] [address]. <Jackson Rubin - Last Filed: 09/28/16 10:52> Progress Note - Text The patient was seen and examined. I agree with the above assessment and plan. The patient continues to report generalized pain and discomfort. We will remove her mediastinal tube today but keep her pleural tubes intact. We will increase her beta feliberto and wean her oxygen. Her creatinine did increase a bit overnight. We will monitor it for now. We will discontinue her Hedrick catheter and transfer her to [facility]. She needs encouragement for ambulation.
[2016-09-28 11:22] LABS: Glucose,Whole Blood 161 mg/dL (75-99)
--- NOTE | 2016-09-28 12:14 | PN ---
Gena is a 66-year-old lady who is status post CABG, postop day #3, doing much better and less discomfort. Chest tubes are coming out. She is on aspirin, Lipitor, Plavix. On exam, comfortable at rest. Vital signs are stable. Chest exam reveals diminished air entry at the bases. Heart exam reveals first and second heart sounds. No gallop. Exam of the extremities did not reveal any edema. Peripheral pulses are felt. Labs show that the hemoglobin is low at 7.4. Creatinine is 1.3. Potassium is 4.3. ASSESSMENT: Coronary artery disease, status post coronary artery bypass graft. PLAN: Patient is making steady recovery, on appropriate medications. Once chest tubes are out, she may be able to come to [facility].
[2016-09-28 12:25] LABS: Glucose,Whole Blood 125 mg/dL (75-99)
[2016-09-28] MEDS: CHOLECALCIFEROL 1,000 UNIT TAB PO SCH (12:25)
[2016-09-28] MEDS: CYANOCOBALAMIN 500 MCG TAB PO SCH (12:25)
[2016-09-28 14:06] LABS: Glucose,Whole Blood 88 mg/dL (75-99)
[2016-09-28 14:57] LABS: Glucose,Whole Blood 143 mg/dL (75-99)
[2016-09-28] MEDS: CLEVIDIPINE BUTYRATE 25 MG in EMPTY BAG 1 BAG IV SCH (15:11)
[2016-09-28 16:54] LABS: Glucose,Whole Blood 237 mg/dL (75-99)
[2016-09-28] MEDS: LACTATED RINGERS 1,000 ML IV SCH (16:58)
[2016-09-28 17:58] LABS: Glucose,Whole Blood 213 mg/dL (75-99)
[2016-09-28 19:10] LABS: Glucose,Whole Blood 189 mg/dL (75-99)
[2016-09-28 19:59] LABS: Glucose,Whole Blood 172 mg/dL (75-99)
[2016-09-28] MEDS: METOPROLOL TARTRATE 25 MG TAB PO SCH (20:08)
[2016-09-28] MEDS: SENNOSIDES-DOCUSATE SODIUM 1 EACH TAB PO SCH (20:08)
[2016-09-28 21:04] LABS: Glucose,Whole Blood 126 mg/dL (75-99)
[2016-09-28 22:03] LABS: Glucose,Whole Blood 159 mg/dL (75-99)
[2016-09-28 23:10] LABS: Glucose,Whole Blood 142 mg/dL (75-99)
[2016-09-28 23:56] LABS: Glucose,Whole Blood 115 mg/dL (75-99)
[2016-09-29 02:08] LABS: Glucose,Whole Blood 140 mg/dL (75-99)
[2016-09-29 03:27] LABS: Glucose,Whole Blood 144 mg/dL (75-99)
[2016-09-29 04:05] LABS: Glucose,Whole Blood 191 mg/dL (75-99)
[2016-09-29 04:12] LABS: Calcium 8.4 mg/dL (8.4-10.2); Magnesium 2.1 mg/dL (1.6-2.3); Potassium 4.2 mmol/L (3.5-5.1); Total Bilirubin 0.9 mg/dL (0.2-1.3); Total Protein 5.3 g/dL (6.3-8.2)
[2016-09-29 04:13] LABS: Ionized Calcium 4.8 mg/dL (4.5-5.3)
[2016-09-29 04:27] LABS: Basophils % (A) 1 %; CH 28.6; CHCM 32.2; Eosinophils # (A) 0.2 k/uL (0-0.7); Eosinophils % (A) 2 %; HCT 20.2 % (34.0-46.0); HDW 3.08; Hypochromasia Slight; Luc # (Auto) 0.21; Luc % (Auto) 3; Lymphocytes # (A) 1.3 k/uL (1.0-4.8); Lymphocytes % (A) 19 %; MCH 29.2 pg (25.0-35.0); MCHC 32.5 g/dL (31.0-37.0); MCV 89.9 fL (80.0-100.0); Mean Platelet Volume 9.1; Monocytes # (A) 0.4 k/uL (0-1.0); Monocytes % (A) 6 %; Neutrophils # (A) 4.8 k/uL (1.3-7.7); Neutrophils % (A) 70 %; RBC 2.25 m/uL (3.80-5.40); RDW 15.4 % (11.5-15.5); WBC 6.9 k/uL (3.8-10.6); WBC (Perox) 7.09
[2016-09-29 04:42] LABS: HGB 6.6 gm/dL (11.4-16.0)
[2016-09-29 05:02] LABS: Glucose,Whole Blood 112 mg/dL (75-99)
[2016-09-29 06:55] LABS: Glucose,Whole Blood 157 mg/dL (75-99)
[2016-09-29] MEDS: IPRATROPIUM-ALBUTEROL 3 ML NEB INHALATION SCH ×4 (07:19→20:53)
[2016-09-29 08:20] LABS: Glucose,Whole Blood 156 mg/dL (75-99)
--- NOTE | 2016-09-29 09:00 | XR ---
EXAMINATION TYPE: XR chest 1V portable DATE OF EXAM: 09/29/2016 COMPARISON: 09/28/2016 HISTORY: SOB, Follow Up FINDINGS: Bilateral chest tubes are in place. No evidence for sizable pneumothorax. No change in scattered strandy opacities. Stable appearance of the cardio-mediastinal structures at this time. Pleural effusion unchanged. IMPRESSION: 1. Stable portable chest. Clinical correlation and follow up until resolution is recommended.
[2016-09-29] MEDS: LEVOTHYROXINE 75 MCG TAB PO SCH (09:07)
[2016-09-29] MEDS: METOPROLOL TARTRATE 25 MG TAB PO SCH ×2 (09:07→20:03)
[2016-09-29] MEDS: CLOPIDOGREL 75 MG TAB PO SCH (09:08)
[2016-09-29] MEDS: ASPIRIN 325 MG TAB PO SCH (09:08)
[2016-09-29] MEDS: PANTOPRAZOLE 40 MG TABLET PO SCH (09:08)
[2016-09-29] MEDS: HEPARIN SODIUM,PORCINE 5,000 UNIT/ML 1 ML VIAL SQ SCH ×3 (09:08→23:09)
[2016-09-29] MEDS: ATORVASTATIN 40 MG TAB PO SCH (09:08)
[2016-09-29] MEDS: ALLOPURINOL 100 MG TAB PO SCH (09:08)
[2016-09-29] MEDS: PREGABALIN 75 MG CAP PO SCH ×2 (09:09→20:16)
[2016-09-29 09:17] LABS: Glucose,Whole Blood 252 mg/dL (75-99)
[2016-09-29 10:45] LABS: Glucose,Whole Blood 154 mg/dL (75-99)
--- NOTE | 2016-09-29 11:11 | PN ---
This is a lady who is postop day number three status post bypass grafting. She had a 3 vessel bypass. She had SIMS to LAD, reverse saphenous vein graft to the PDA and also to the obtuse marginal. She has a history of ventilator -dependent respiratory failure postoperatively which is resolved. She also has a history of coronary artery disease, morbid obesity, hypertension, hyperlipidemia, hypothyroidism, and sleep apnea syndrome. Doing reasonably well. The patient is slow to progress. Not doing well on her incentive spirometry. Really has no complaints today. She is getting no supplemental oxygen. She had a KVO IV of LR. She is receiving 1 unit of PRBCs and she is on an insulin drip at 17 units an hour. Vital signs include temperature 99.3, heart rate 80, respiratory rate 18, blood pressure 102/44, mean 63, saturations are 93% on room air. Appears in no acute distress. HEENT examination is grossly unremarkable. Mucous membranes are moist. No oral lesions. Neck is supple. Full range of motion. No adenopathy or thyromegaly. Cardiovascular examination reveals regular rhythm and rate. S1, S2 normal. No S3, S4 or murmur. Lungs reveal relatively clear breath sounds. She did not take deep breaths. ABDOMEN: Soft. Bowel sounds are heard. EXTREMITIES: Intact. No cyanosis, clubbing, or edema. Skin without rash. NEUROLOGICAL: Examination is nonfocal. Labs are reviewed. White count 6.9, hemoglobin 6.6, hematocrit 20.2, platelet count 103,000. Electrolytes all normal. Creatinine a bit high at 1.16. The rest of the labs look okay. Chest x-ray is unchanged and stable. Medications are reviewed. ASSESSMENT: 1. Postoperative day. 2. Status post three-vessel bypass grafting. 3. Postoperative respiratory failure with ventilator dependence, resolved. 4. History of coronary artery disease with previous stent placement. 5. History of morbid obesity. 6. Essential hypertension. 7. Hyperlipidemia. 8. Hypothyroidism. 9. Sleep apnea syndrome. PLAN: The patient is doing reasonably well. Slow to progress. We encourage deep breathing, coughing and clearing of secretions. I have also asked the nurse to really work with her with her incentive spirometer. Hopefully get her out of bed today. Chest tubes coming out. No additional recommendations are made. Will continue to follow.
[2016-09-29] MEDS: CHOLECALCIFEROL 1,000 UNIT TAB PO SCH (12:10)
[2016-09-29] MEDS: CYANOCOBALAMIN 500 MCG TAB PO SCH (12:10)
[2016-09-29 12:11] LABS: Glucose,Whole Blood 129 mg/dL (75-99)
[2016-09-29] MEDS: INSULIN REGULAR 100 UNIT in SODIUM CHLORIDE 0.9% 100 ML IV SCH (12:11)
[2016-09-29 12:43] LABS: Basophils % (A) 0 %; CH 29.3; CHCM 33.7; Eosinophils # (A) 0.2 k/uL (0-0.7); Eosinophils % (A) 2 %; Luc % (Auto) 2; Lymphocytes # (A) 1.2 k/uL (1.0-4.8); Lymphocytes % (A) 14 %; MCH 29.6 pg (25.0-35.0); MCHC 33.8 g/dL (31.0-37.0); MCV 87.7 fL (80.0-100.0); Mean Platelet Volume 9.4; Monocytes # (A) 0.4 k/uL (0-1.0); Monocytes % (A) 5 %; Neutrophils # (A) 6.5 k/uL (1.3-7.7); Neutrophils % (A) 76 %; Poikilocytosis Slight; RBC 2.97 m/uL (3.80-5.40); RDW 15.9 % (11.5-15.5); WBC 8.6 k/uL (3.8-10.6); WBC (Perox) 8.72
[2016-09-29 12:49] LABS: HGB 8.8 gm/dL (11.4-16.0)
--- NOTE | 2016-09-29 13:00 | P.PN ---
Progress Note - Text CV Surgery Nursing Principal diagnosis: Angina with triple vessel coronary artery disease, status post prior stenting to the LAD and the diagonal artery. Status post prior myocardial infarction. Morbid obesity. Uncontrolled diabetes type 2 with hemoglobin A1c 9.4%. Hypertension. Hyperlipidemia. Hypothyroidism. POD #3 triple vessel coronary artery bypass grafting using the left internal mammary artery to the left anterior descending artery. Reverse saphenous vein graft from the aorta to the posterior descending artery. Reverse saphenous vein graft from the aorta to the second obtuse marginal artery. Endoscopic harvesting of the left greater saphenous vein. Intraoperative transesophageal echocardiogram and epi-aortic scanning. Intraoperative graft flow measurement using the [employer] system. Patient awake and alert, no distress noted, she is complaining of pain to her bottom was sitting up to the chair. Vital Signs: Afebrile Vital Signs - 24 hr 09/28/16 09/28/16 09/28/16 09:00 10:00 11:00 Temperature Pulse Rate 84 81 71 Respiratory 13 17 12 Rate Blood Pressure 120/60 91/55 100/49 O2 Sat by Pulse 99 97 Oximetry 09/28/16 09/28/16 09/28/16 12:00 12:07 12:18 Temperature 98.2 F Pulse Rate 70 69 72 Respiratory 11 L Rate Blood Pressure 106/53 O2 Sat by Pulse 97 Oximetry 09/28/16 09/28/16 09/28/16 13:00 14:00 15:00 Temperature Pulse Rate 64 102 H 76 Respiratory 11 L 22 18 Rate Blood Pressure 100/45 100/45 O2 Sat by Pulse 96 Oximetry 09/28/16 09/28/16 09/28/16 15:36 15:47 16:00 Temperature Pulse Rate 83 86 83 Respiratory 13 Rate Blood Pressure O2 Sat by Pulse Oximetry 09/28/16 09/28/16 09/28/16 17:00 18:00 19:00 Temperature 98.4 F Pulse Rate 90 87 79 Respiratory 17 11 L 14 Rate Blood Pressure 142/53 152/60 152/60 O2 Sat by Pulse 96 Oximetry 09/28/16 09/28/16 09/28/16 19:42 20:00 20:02 Temperature 97.9 F Pulse Rate 81 84 87 Respiratory 12 Rate Blood Pressure 131/65 O2 Sat by Pulse 92 L Oximetry 09/28/16 09/28/16 09/28/16 21:00 22:00 23:00 Temperature Pulse Rate 101 H 78 71 Respiratory 26 H 12 12 Rate Blood Pressure 131/65 105/64 105/64 O2 Sat by Pulse 99 97 Oximetry 09/28/16 09/29/16 09/29/16 23:10 00:00 01:00 Temperature 97.5 F L Pulse Rate 66 72 68 Respiratory 11 L 21 13 Rate Blood Pressure 105/64 98/50 98/50 O2 Sat by Pulse 98 96 98 Oximetry 09/29/16 09/29/16 09/29/16 02:00 03:00 04:00 Temperature 98.1 F Pulse Rate 67 68 65 Respiratory 11 L 12 13 Rate Blood Pressure 97/44 97/44 109/54 O2 Sat by Pulse 99 100 98 Oximetry 09/29/16 09/29/16 09/29/16 05:00 06:00 07:00 Temperature Pulse Rate 72 76 68 Respiratory 15 11 L 13 Rate Blood Pressure 109/54 101/55 101/55 O2 Sat by Pulse 95 97 99 Oximetry 09/29/16 09/29/16 09/29/16 07:21 07:43 08:00 Temperature Pulse Rate 73 75 72 Respiratory 17 Rate Blood Pressure 102/44 O2 Sat by Pulse 94 L 96 Oximetry Labs: Short CBC 09/29/16 Range/Units 03:38 WBC 6.9 (3.8-10.6) k/uL Hgb 6.6 L* (11.4-16.0) gm/dL Hct 20.2 L (34.0-46.0) % Plt Count 103 L (150-450) k/uL Neutrophils # 4.8 (1.3-7.7) k/uL BMP 09/29/16 03:38 Sodium 137 Potassium 4.2 Chloride 105 Carbon Dioxide 24 BUN 16 Creatinine 1.16 H Glucose 134 H Calcium 8.4 Liver Function 09/29/16 Range/Units 03:38 Total Bilirubin 0.9 (0.2-1.3) mg/dL AST 79 H (14-36) U/L ALT 32 (9-52) U/L Alkaline Phosphatase 39 (38-126) U/L Albumin 3.1 L (3.5-5.0) g/dL IV Fluids: Lactated Ringer's at 20 minute liters per hour Insulin drip at 0.5 units per hour. Lungs: Essentially clear throughout, diminished bilateral bases. Respirations are symmetrical and unlabored. O2 sat: 96% on room air. I/S: 1000 mL, reviewed with the patient important of using her incentive spirometry every hour while awake. The patient did give a good return demonstration on her incentive spirometry. Heart: S1S2, regular rhythm and rate, negative for S3, gallop or murmur. Bedside telemetry showing normal sinus rhythm with occasional PACs with heart rate 86. Sternum stable, chest incision clean with Dermabond dressing clean and dry. Heart hugger in place, patient is demonstrating proper use of her heart hugger. Atrial epicardial pacemaker wires intact and grounded. Left leg incisions clean dry and well approximated. No drainage noted. HEBERT drain in place to left lower leg. 35 mL of thin serosanguineous drainage in the last 24 hours. Abdomen: Soft, nontender. Positive bowel sounds present in all 4 quadrants. Sitting up to bedside chair eating her breakfast. CBGs: 112-172 mg/dL in the last 24 hours. U/O: Adequate, Hedrick catheter for accurate I&O. 415 mL output in the last 8 hours. Chest Tubes: Left pleural chest tube without air leak, draining thin serosanguineous drainage. Remains to continuous low wall suction. 40 mL output in the last 8 hours, 150 mL output in the last 24 hours. Right pleural chest tube without air leak, remains to low continuous wall suction. Draining thin serosanguineous drainage. 50 mL output in the last 8 hours, 130 mL output in the last 24 hours. 24 hr Total: Intake & Output 09/27/16 09/28/16 09/29/16 09/30/16 06:59 06:59 06:59 06:59 Intake Total 2494.334 9070.466 9305.511 20 Output Total 5835 1631 1090 315 Balance -3340.666 75.201 899.511 -295 Weight 121.7 kg 126.4 kg 125.4 kg 125.4 kg Active Medications Hydrocodone Bitart/Acetaminophen ([place] 5-325) 2 each PO Q4HR PRN PRN Reason: Severe Pain Hydrocodone Bitart/Acetaminophen ([place] 5-325) 1 each PO Q4HR PRN PRN Reason: Moderate Pain Last Admin: 09/28/16 20:13 Dose: 1 each Albuterol/Ipratropium (Duoneb 0.5 Mg-3 Mg/3 Ml Soln) 3 ml INHALATION RT-Q2H PRN PRN Reason: Shortness Of Breath Or Wheezing Albuterol/Ipratropium (Duoneb 0.5 Mg-3 Mg/3 Ml Soln) 3 ml INHALATION RT-QID [facility] Last Admin: 09/29/16 07:19 Dose: 3 ml Allopurinol (Zyloprim) 100 mg PO DAILY [facility] Last Admin: 09/28/16 08:26 Dose: 100 mg Aspirin (Aspirin) 325 mg PO DAILY [facility] Last Admin: 09/28/16 08:26 Dose: 325 mg Atorvastatin Calcium (Lipitor) 40 mg PO DAILY [facility] Last Admin: 09/28/16 08:26 Dose: 40 mg Benzocaine/Menthol (Cepacol Lozenge) 1 each MUCOUS MEM Q2H PRN PRN Reason: Sore Throat Bisacodyl (Dulcolax) 10 mg RECTAL DAILY PRN PRN Reason: Constipation Cholecalciferol (Vitamin D3) 1,000 unit PO DAILY@1200 [facility] Last Admin: 09/28/16 12:25 Dose: 1,000 unit Clopidogrel Bisulfate (Plavix) 75 mg PO DAILY [facility] Last Admin: 09/28/16 08:26 Dose: 75 mg Cyanocobalamin (Vitamin B-12) 2,000 mcg PO DAILY@1200 [facility] Last Admin: 09/28/16 12:25 Dose: 2,000 mcg Heparin Sodium (Porcine) (Heparin) 5,000 unit SQ Q8HR [facility] Last Admin: 09/28/16 23:55 Dose: 5,000 unit Clevidipine 25 mg/ IV Solution 50 mls @ 2 mls/hr IV .Q24H KJ; 1 MG/HR PRN Reason: Protocol Last Admin: 09/28/16 15:11 Dose: Not Given Insulin Human Regular 100 unit (/ Sodium Chloride) 101 mls @ 0 mls/hr IV .Q0M [facility]; Per Protocol PRN Reason: Protocol Last Titration: 09/29/16 07:05 Dose: 11.5 units/hr, 11.61 mls/hr Lactated Ringer's (Lactated Ringers) 1,000 mls @ 20 mls/hr IV .Q24H [facility] Last Admin: 09/28/16 16:58 Dose: 20 mls/hr Phenylephrine HCl 40 mg/ (Sodium Chloride) 254 mls @ 0 mls/hr IV .Q0M [facility]; Titrate PRN Reason: Protocol Last Titration: 09/26/16 22:45 Dose: 0 mcg/min, 0 mls/hr Levothyroxine Sodium (Synthroid) 75 mcg PO DAILY@0630 [facility] Last Admin: 09/28/16 08:25 Dose: 75 mcg Magnesium Hydroxide (Milk Of Magnesia) 2,400 mg PO BID PRN PRN Reason: Constipation Metoclopramide HCl (Reglan) 10 mg IVP Q4H PRN PRN Reason: Nausea And Vomiting Metoprolol Tartrate (Lopressor) 25 mg PO BID [facility] Last Admin: 09/28/16 20:08 Dose: 25 mg Miscellaneous Information (Magnesium Per Protocol) 1 each MISCELLANE DAILY PRN ; Protocol PRN Reason: Per Protocol Miscellaneous Information (Phosphorus Per Protocol) 1 each MISCELLANE DAILY PRN ; Protocol PRN Reason: Per Protocol Miscellaneous Information (Potassium Per Protocol) 1 each MISCELLANE DAILY PRN ; Protocol PRN Reason: Per Protocol Miscellaneous Information (Potassium Per Protocol) 1 each MISCELLANE DAILY PRN ; Protocol PRN Reason: Per Protocol Ondansetron HCl (Zofran) 4 mg IVP Q6HR PRN PRN Reason: Nausea And Vomiting Pantoprazole Sodium (Protonix) 40 mg PO AC-BRKFST [facility] Last Admin: 09/28/16 08:25 Dose: 40 mg Pregabalin (Lyrica) 150 mg PO BID [facility] Last Admin: 09/28/16 20:09 Dose: 150 mg Senna/Docusate Sodium (Senokot-S) 2 each PO HS [facility] Last Admin: 09/28/16 20:08 Dose: 2 each Sodium Chloride (Saline Flush) 10 ml IV BID [facility] Last Admin: 09/28/16 23:08 Dose: 10 ml Plan: 1. Continue aspirin, statin, Plavix, heparin subcu, and metoprolol. 2. We will remove her left and right pleural chest tubes. 3. Wean O2 as tolerated. Encourage incentive spirometry use. 4. Increase activity, out of bed to chair all day. Physical therapy to follow. 5. GI/DVT prophylaxis. 6. Insulin drip/diabetic management per internal medicine service. 7. Daily labs, x-rays. 8. Discontinue cordis and Hedrick catheter and left leg HEBERT drain today. 9. She will receive 1 unit of packed red blood cells today for a hemoglobin of 6.6. 10. She will be transferred to [address] [place] [address] when there is a bed available. Left and right pleural chest tubes removed without incident, sutures secured in place. Folded 4 x 4 dressings applied and secured with tape.
[2016-09-29 13:24] LABS: Glucose,Whole Blood 104 mg/dL (75-99)
--- NOTE | 2016-09-29 13:26 | PN ---
Gena is a 66-year-old lady with coronary artery disease, status post CABG, she is feeling better today. Denies any chest pain, remains in sinus rhythm. Blood pressure is well controlled. She is currently on aspirin, Lipitor, Plavix, Synthroid, Lopressor 25 b.i.d. On exam, heart rate is 85 beats per minute per minute, blood pressures 100/50, respirations 18. There is no jugular venous distention. Chest exam reveals diminished air entry at the bases. Heart exam reveals first and second heart sounds. No gallop. There is a systolic murmur in the left lower sternal border. Abdomen soft. Exam of extremities did not reveal any edema. Peripheral pulses are palpable. ASSESSMENT: Coronary artery disease status post coronary artery bypass graft. PLAN: Patient is making slow but steady recovery. Continue with the current care.
[2016-09-29] MEDS: INSULN ASP PRT/INSULIN ASPART 100 UNIT/ML 10 ML VIAL SQ SCH (14:30)
[2016-09-29 17:16] LABS: Glucose,Whole Blood 246 mg/dL (75-99)
[2016-09-29] MEDS: INSULIN LISPRO (humaLOG) 300 UNIT/3 ML VIAL SQ SCH ×3 (17:19→21:55)
[2016-09-29] MEDS: HYDROcodone/APAP 5-325MG 1 EACH TAB PO PRN (20:02)
[2016-09-29] MEDS: SENNOSIDES-DOCUSATE SODIUM 1 EACH TAB PO SCH (20:16)
[2016-09-29 21:09] LABS: Glucose,Whole Blood 186 mg/dL (75-99)
[2016-09-29] MEDS: INSULIN NPH 300 UNIT/3 ML VIAL SQ SCH (21:54)
[2016-09-30 06:13] LABS: Glucose,Whole Blood 241 mg/dL (75-99)
[2016-09-30] MEDS: INSULIN LISPRO (humaLOG) 300 UNIT/3 ML VIAL SQ SCH ×6 (06:35→21:31)
[2016-09-30] MEDS: PANTOPRAZOLE 40 MG TABLET PO SCH (06:48)
[2016-09-30] MEDS: LEVOTHYROXINE 75 MCG TAB PO SCH (06:48)
[2016-09-30] MEDS: INSULN ASP PRT/INSULIN ASPART 100 UNIT/ML 10 ML VIAL SQ SCH (06:52)
--- NOTE | 2016-09-30 07:57 | P.PN ---
Progress Note - Text The patient is a 66-year-old female who is post coronary artery bypass surgery 5 days ago. She is a patient of Dr. Cha for whom I am covering. Patient has been moved to the cardiac monitoring floor. She is sitting up in the chair at the side of the bed. She is trying to eat some breakfast this morning. Denies any unusual shortness of breath. No nausea or vomiting. She is alert and oriented. Vital signs with temperature 98.2 with a pulse of 72 and respirations 18. Blood pressure is 143/62. Head and neck exam unremarkable. Lungs are diminished at bases. Heart tones slightly irregular. Abdomen is obese. Nontender. No unusual distal edema. Patient is alert. No cranial nerve deficits. No focal weakness noted. Blood sugars have recently increased up to the 200 range. Other labs pending. Chest x-ray pending. Impressions and plans: This 66-year-old female appears to be continuing to recover after coronary artery bypass surgery. She does have multiple comorbidities including underlying obesity, diabetes, hypertension, hyperlipidemia. Patient also has sleep apnea, hypothyroidism and neuropathy. Cardiology, pulmonary and surgery notes regarded. Patient is on her insulin and will receive her 50 units before breakfast this morning. She is also on 13 units NPH at bedtime and 13 units before supper.
--- NOTE | 2016-09-30 08:11 | XR ---
EXAMINATION TYPE: XR chest 2V DATE OF EXAM: 09/30/2016 HISTORY: Postop CABG. REFERENCE: Previous study dated 09/29/2016. FINDINGS: There has been a midline sternotomy. The heart is mildly enlarged. There are areas of platelike atelectasis in both lungs. I suspect a small left effusion. The patient' s bilateral pleural drains have been removed. IMPRESSION: 1. AREAS OF PLATELIKE ATELECTASIS IN BOTH LUNGS. 2. I SUSPECT A SMALL LEFT EFFUSION.
[2016-09-30] MEDS: IPRATROPIUM-ALBUTEROL 3 ML NEB INHALATION SCH ×4 (08:21→20:16)
[2016-09-30] MEDS: HEPARIN SODIUM,PORCINE 5,000 UNIT/ML 1 ML VIAL SQ SCH ×3 (08:37→23:25)
[2016-09-30] MEDS: CLOPIDOGREL 75 MG TAB PO SCH (08:37)
[2016-09-30] MEDS: ATORVASTATIN 40 MG TAB PO SCH (08:37)
[2016-09-30] MEDS: ALLOPURINOL 100 MG TAB PO SCH (08:37)
[2016-09-30] MEDS: METOPROLOL TARTRATE 25 MG TAB PO SCH ×2 (08:37→21:30)
[2016-09-30] MEDS: ASPIRIN 325 MG TAB PO SCH (08:37)
[2016-09-30 08:57] LABS: Anisocytosis Slight; CH 29.3; CHCM 33.3; HCT 27.9 % (34.0-46.0); HDW 3.65; HGB 9.5 gm/dL (11.4-16.0); MCH 30.2 pg (25.0-35.0); Mean Platelet Volume 8.4; Poikilocytosis Slight; RBC 3.13 m/uL (3.80-5.40); RDW 16.2 % (11.5-15.5); WBC 6.5 k/uL (3.8-10.6); WBC (Perox) 6.97
[2016-09-30 09:14] LABS: ALT 44 U/L (9-52); AST 45 U/L (14-36); Alkaline Phosphatase 64 U/L (38-126); Anion Gap 12 mmol/L; Blood Urea Nitrogen 16 mg/dL (7-17); Calcium 8.7 mg/dL (8.4-10.2); Carbon Dioxide 23 mmol/L (22-30); Chloride 104 mmol/L (98-107); Glucose 237 mg/dL (74-99); Non-African American GFR(MDRD) 50 (>60 ml/min/1.73 sqM); Sodium 139 mmol/L (137-145); Total Bilirubin 1.3 mg/dL (0.2-1.3)
[2016-09-30 09:43] LABS: Add Differential Manual Differential
[2016-09-30 09:44] LABS: Nucleated Red Blood Cells 0 /100 WBC (0-0); Total Cells Counted 100
[2016-09-30 09:46] LABS: Manual Review Performed
[2016-09-30 09:53] VITALS: BMI 45.8
--- NOTE | 2016-09-30 11:18 | P.PN ---
Subjective Principal diagnosis: Angina with triple vessel coronary artery disease, status post prior stenting to the LAD and the diagonal artery. Status post prior myocardial infarction. Morbid obesity. Uncontrolled diabetes type 2 with hemoglobin A1c 9.4%. Hypertension. Hyperlipidemia. Hypothyroidism. POD #4 triple vessel coronary artery bypass grafting using the left internal mammary artery to the left anterior descending artery. Reverse saphenous vein graft from the aorta to the posterior descending artery. Reverse saphenous vein graft from the aorta to the second obtuse marginal artery. Endoscopic harvesting of the left greater saphenous vein. Intraoperative transesophageal echocardiogram and epi-aortic scanning. Intraoperative graft flow measurement using the [employer] system. Patient's currently sitting up in the chair eating breakfast in no acute distress. Was transferred out of the ICU yesterday. Chest tubes were discontinued yesterday. Denies pain, shortness of breath. Objective - Vital Signs Vital signs: Vital Signs Temp 98.2 F 09/30/16 04:00 Pulse 72 09/30/16 04:00 Resp 18 09/30/16 04:00 BP 143/62 09/30/16 04:00 Pulse Ox 96 09/30/16 04:00 Intake & Output 09/29/16 09/30/16 09/30/16 18:59 06:59 18:59 Intake Total 1245.811 Output Total 1490 200 Balance -244.189 -200 Weight 125.4 kg 125.1 kg Intake: IV 180 Lactated Ringers 1,000 ml 180 @ 20 mls/hr IV .Q24H KJ Rx#:[id number] Intake, IV Titration 35.811 Amount Insulin Regular 100 unit 35.811 In Sodium Chloride 0.9% 100 ml @ Per Protocol IV .Q0M KJ Rx#:[id number] Oral 720 Blood Product 310 Rc As-1 Unit 310 [id number] Output: Chest Tube Drainage 190 Chest Tube Left Lateral 100 Chest Chest Tube Right Lateral 90 Chest Urine 1300 200 Other: Voiding Method Bedside Commode Toilet # Voids 1 ABP, PAP, CO, CI - Last Documented Arterial Blood Pressure 291/291 Pulmonary Artery Pressure 31/15 Cardiac Output 5 Cardiac Index 2.3 - Constitutional General appearance: Present: cooperative, no acute distress, obese - Respiratory Details: Lungs sounds diminished bilaterally. Respirations even, nonlabored. Currently on room air with oxygen saturation 96%. Able to achieve 1000 mL on her incentive spirometry. Effective cough. - Cardiovascular Details: S1, S2 present. Regular rate and rhythm, normal sinus rhythm on telemetry. Sternum stable. Atrial epicardial wire present but grounded. Heart hugger in place with patient demonstrating appropriate use. Teds/SCDs present. Trace bilateral lower extremity edema present, left greater than right. - Gastrointestinal Gastrointestinal Comment(s): Abdomen soft, nontender, nondistended. Active bowel sounds 4 quadrants. Tolerating diet. - Genitourinary Genitourinary Comment(s): Void clear, yellow urine - Integumentary Integumentary Comment(s): Anterior chest incision well approximated and covered with dry intact dressing. Left lower extremity EVH site well approximated - Musculoskeletal Musculoskeletal: Present: strength equal bilaterally - Psychiatric Psychiatric: Present: A&O x's 3, appropriate affect, intact judgment & insight - Allied health notes Allied health notes reviewed: nursing - Labs CBC & Chem 7: 09/29/16 11:52 09/29/16 03:38 Labs: Abnormal Lab Results - Last 24 Hours (Table) 09/29/16 09/29/16 09/29/16 Range/Units 07:06 08:17 09:15 RBC (3.80-5.40) m/uL Hgb (11.4-16.0) gm/dL Hct (34.0-46.0) % RDW (11.5-15.5) % Plt Count (150-450) k/uL POC Glucose (mg/dL) 156 H 252 H (75-99) mg/dL Crossmatch See Detail 09/29/16 09/29/16 09/29/16 Range/Units 10:43 11:52 12:09 RBC 2.97 L (3.80-5.40) m/uL Hgb 8.8 L D (11.4-16.0) gm/dL Hct 26.0 L (34.0-46.0) % RDW 15.9 H (11.5-15.5) % Plt Count 114 L (150-450) k/uL POC Glucose (mg/dL) 154 H 129 H (75-99) mg/dL Crossmatch 09/29/16 09/29/16 09/29/16 Range/Units 13:21 17:10 20:34 RBC (3.80-5.40) m/uL Hgb (11.4-16.0) gm/dL Hct (34.0-46.0) % RDW (11.5-15.5) % Plt Count (150-450) k/uL POC Glucose (mg/dL) 104 H 246 H 186 H (75-99) mg/dL Crossmatch 09/30/16 Range/Units 06:00 RBC (3.80-5.40) m/uL Hgb (11.4-16.0) gm/dL Hct (34.0-46.0) % RDW (11.5-15.5) % Plt Count (150-450) k/uL POC Glucose (mg/dL) 241 H (75-99) mg/dL Crossmatch - Imaging and Cardiology Chest x-ray: image reviewed Assessment and Plan (1) Uncontrolled type 2 diabetes mellitus Status: Acute (2) History of coronary artery stent placement Status: Acute (3) Hypothyroidism Status: Acute (4) CAD (coronary artery disease) Status: Acute (5) Hyperlipidemia Status: Acute (6) Hypertension Status: Acute (7) Morbid obesity with BMI of 40.0-44.9, adult Status: Acute (8) Previous myocardial infarction older than 8 weeks Status: Acute Plan: 1. Continue aspirin, statin, Plavix, heparin subcu, beta feliberto. 2. Encourage incentive spirometry use. 3. Increase activity, ambulate in hallway. Physical therapy to follow. 4. GI/DVT prophylaxis. 5. Diabetic management per internal medicine service. 6. Daily labs. 7. PT/OT recommendations appreciated. Consult placed to case management and social work as patient will need to go to rehab upon discharge. Patient lives alone and has no support. 8. Plan for discharge soon. Time with Patient: Greater than 30
[2016-09-30] MEDS: PREGABALIN 75 MG CAP PO SCH ×2 (11:27→21:30)
[2016-09-30] MEDS: CYANOCOBALAMIN 500 MCG TAB PO SCH (11:28)
[2016-09-30] MEDS: CHOLECALCIFEROL 1,000 UNIT TAB PO SCH (11:28)
[2016-09-30 11:43] LABS: Glucose,Whole Blood 193 mg/dL (75-99)
--- NOTE | 2016-09-30 12:42 | P.PN ---
Subjective Principal diagnosis: Status post CABG This is a 66-year-old female who is status post coronary artery bypass grafting surgery, patient was seen and examined today, sitting up in the chair at bedside. Denies any chest pain, breathing has been stable. Blood pressure 106/ 58 with a heart rate in the 70s. Hemoglobin 9.5, platelet count 138, potassium 4.0, BUN 16, creatinine 1.1. Objective - Vital Signs Vital signs: Vital Signs Temp 97.1 F L 09/30/16 12:00 Pulse 72 09/30/16 12:00 Resp 18 09/30/16 12:00 BP 106/58 09/30/16 12:00 Pulse Ox 95 09/30/16 12:00 Intake & Output 09/29/16 09/30/16 09/30/16 18:59 06:59 18:59 Intake Total 1245.811 240 Output Total 1490 200 Balance -244.189 -200 240 Weight 125.4 kg 125.1 kg 125.1 kg Intake: IV 180 Lactated Ringers 1,000 ml 180 @ 20 mls/hr IV .Q24H KJ Rx#:[id number] Intake, IV Titration 35.811 Amount Insulin Regular 100 unit 35.811 In Sodium Chloride 0.9% 100 ml @ Per Protocol IV .Q0M KJ Rx#:[id number] Oral 720 240 Blood Product 310 Rc As-1 Unit 310 [id number] Output: Chest Tube Drainage 190 Chest Tube Left Lateral 100 Chest Chest Tube Right Lateral 90 Chest Urine 1300 200 Other: Voiding Method Bedside Commode Toilet Toilet # Voids 1 ABP, PAP, CO, CI - Last Documented Arterial Blood Pressure 291/291 Pulmonary Artery Pressure 31/15 Cardiac Output 5 Cardiac Index 2.3 - Exam PHYSICAL EXAMINATION: HEENT: Head is atraumatic, normocephalic. Pupils equal, round. Neck is supple. There is no elevated jugular venous pressure. HEART EXAMINATION: Heart S1, S2 normal. No murmur or gallop heard. CHEST EXAMINATION: Lungs reveal diminished air entry to bilateral bases. ABDOMEN: Soft, nontender. Bowel sounds are heard. No organomegaly noted. EXTREMITIES: 2+ peripheral pulses with trace evidence of peripheral edema and no calf tenderness noted. NEUROLOGIC patient is awake, alert and oriented -3. . - Labs CBC & Chem 7: 09/30/16 07:48 09/30/16 07:48 Labs: Abnormal Lab Results - Last 24 Hours (Table) 09/29/16 09/29/16 09/29/16 Range/Units 07:06 11:52 13:21 RBC 2.97 L (3.80-5.40) m/uL Hgb 8.8 L D (11.4-16.0) gm/dL Hct 26.0 L (34.0-46.0) % RDW 15.9 H (11.5-15.5) % Plt Count 114 L (150-450) k/uL Lymphocytes # (Manual) (1.0-4.8) k/uL Creatinine (0.52-1.04) mg/dL Glucose (74-99) mg/dL POC Glucose (mg/dL) 104 H (75-99) mg/dL AST (14-36) U/L Total Protein (6.3-8.2) g/dL Crossmatch See Detail 09/29/16 09/29/16 09/30/16 Range/Units 17:10 20:34 06:00 RBC (3.80-5.40) m/uL Hgb (11.4-16.0) gm/dL Hct (34.0-46.0) % RDW (11.5-15.5) % Plt Count (150-450) k/uL Lymphocytes # (Manual) (1.0-4.8) k/uL Creatinine (0.52-1.04) mg/dL Glucose (74-99) mg/dL POC Glucose (mg/dL) 246 H 186 H 241 H (75-99) mg/dL AST (14-36) U/L Total Protein (6.3-8.2) g/dL Crossmatch 09/30/16 09/30/16 09/30/16 Range/Units 07:48 07:48 11:42 RBC 3.13 L (3.80-5.40) m/uL Hgb 9.5 L (11.4-16.0) gm/dL Hct 27.9 L (34.0-46.0) % RDW 16.2 H (11.5-15.5) % Plt Count 138 L (150-450) k/uL Lymphocytes # (Manual) 0.4 L (1.0-4.8) k/uL Creatinine 1.10 H (0.52-1.04) mg/dL Glucose 237 H (74-99) mg/dL POC Glucose (mg/dL) 193 H (75-99) mg/dL AST 45 H (14-36) U/L Total Protein 6.0 L (6.3-8.2) g/dL Crossmatch Assessment and Plan (1) S/P CABG (coronary artery bypass graft) Status: Acute (2) CAD (coronary artery disease) Status: Acute (3) Diabetes mellitus Status: Acute (4) Hyperlipidemia Status: Acute (5) Hypertension Status: Acute (6) Morbid obesity with BMI of 40.0-44.9, adult Status: Acute Plan: From cardiology's perspective, we'll recommend to continue the patient on her current medications. She's been encouraged regarding the use of her incentive spirometry. DNP note has been reviewed, I agree with a documented findings and plan of care. Patient was seen and examined.
--- NOTE | 2016-09-30 16:05 | P.PN ---
Subjective This is a 66-year-old female patient who is still recovering from coronary artery bypass surgery. The patient underwent three-vessel bypass surgery with SIMS to LAD and reverse saphenous vein graft to PDA and obtuse marginal. The patient is morbidly obese. She has also hypertension, hyperlipidemia, hypothyroidism and obstructive sleep apnea. The patient is doing extremely well. She has no specific complaints. Chest tubes have been removed. No major respiratory distress. She is having symptoms of peripheral neuropathy which is a diabetic neuropathy for which she was restarted on that a cup. No nausea. No vomiting. She is using incentive spirometer. There has been no other significant events over the past 24 hours. Her condition is stable for now. Objective - Vital Signs Vital signs: Vital Signs Temp 97.1 F L 09/30/16 12:00 Pulse 80 09/30/16 15:26 Resp 18 09/30/16 12:00 BP 143/63 09/30/16 14:01 Pulse Ox 97 09/30/16 14:01 Intake & Output 09/29/16 09/30/16 09/30/16 18:59 06:59 18:59 Intake Total 6496.418 0443 Output Total 1490 200 Balance -244.189 -200 1000 Weight 125.4 kg 125.1 kg 125.1 kg Intake: IV 180 Lactated Ringers 1,000 ml 180 @ 20 mls/hr IV .Q24H KJ Rx#:[id number] Intake, IV Titration 35.811 Amount Insulin Regular 100 unit 35.811 In Sodium Chloride 0.9% 100 ml @ Per Protocol IV .Q0M KJ Rx#:[id number] Oral 720 1000 Blood Product 310 Rc As-1 Unit 310 [id number] Output: Chest Tube Drainage 190 Chest Tube Left Lateral 100 Chest Chest Tube Right Lateral 90 Chest Urine 1300 200 Other: Voiding Method Bedside Commode Toilet Toilet # Voids 1 ABP, PAP, CO, CI - Last Documented Arterial Blood Pressure 291/291 Pulmonary Artery Pressure 31/15 Cardiac Output 5 Cardiac Index 2.3 - Exam My normally had patient is morbidly obese and she is not in acute respiratory distress.Head exam was generally normal. There was no scleral icterus or corneal arcus. Mucous membranes were moist. Neck is supple and there is no JVDs no goiter or neck masses. The patient is a Mallampati class IV. Lung sounds are diminished in lung bases bilaterally otherwise clear. There is no wheezes overall currently crackles. Heart sounds are regular, positive S1-S2. No cervical murmurs appreciated and sternum stable clean and intact.Abdominal exam revealed normal bowel sounds. The abdomen was soft, non-tender, and without masses, organomegaly, or appreciable enlargement of the abdominal aorta.Examination of the extremities revealed easily palpable radial, femoral and pedal pulses. There was no cyanosis, clubbing. Patient has +1-2 edema in lower extremities bilaterally and some edema in the upper extremities. - Labs CBC & Chem 7: 09/30/16 07:48 09/30/16 07:48 Labs: Abnormal Lab Results - Last 24 Hours (Table) 09/29/16 09/29/16 09/29/16 Range/Units 07:06 17:10 20:34 RBC (3.80-5.40) m/uL Hgb (11.4-16.0) gm/dL Hct (34.0-46.0) % RDW (11.5-15.5) % Plt Count (150-450) k/uL Lymphocytes # (Manual) (1.0-4.8) k/uL Creatinine (0.52-1.04) mg/dL Glucose (74-99) mg/dL POC Glucose (mg/dL) 246 H 186 H (75-99) mg/dL AST (14-36) U/L Total Protein (6.3-8.2) g/dL Crossmatch See Detail 09/30/16 09/30/16 09/30/16 Range/Units 06:00 07:48 07:48 RBC 3.13 L (3.80-5.40) m/uL Hgb 9.5 L (11.4-16.0) gm/dL Hct 27.9 L (34.0-46.0) % RDW 16.2 H (11.5-15.5) % Plt Count 138 L (150-450) k/uL Lymphocytes # (Manual) 0.4 L (1.0-4.8) k/uL Creatinine 1.10 H (0.52-1.04) mg/dL Glucose 237 H (74-99) mg/dL POC Glucose (mg/dL) 241 H (75-99) mg/dL AST 45 H (14-36) U/L Total Protein 6.0 L (6.3-8.2) g/dL Crossmatch 09/30/16 Range/Units 11:42 RBC (3.80-5.40) m/uL Hgb (11.4-16.0) gm/dL Hct (34.0-46.0) % RDW (11.5-15.5) % Plt Count (150-450) k/uL Lymphocytes # (Manual) (1.0-4.8) k/uL Creatinine (0.52-1.04) mg/dL Glucose (74-99) mg/dL POC Glucose (mg/dL) 193 H (75-99) mg/dL AST (14-36) U/L Total Protein (6.3-8.2) g/dL Crossmatch Assessment and Plan Plan: Assessment 1 coronary artery bypass surgery and the patient is postop day #4. 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 atelectasis in lung bases bilaterally with a small left-sided pleural effusion Plan We'll give the patient 20 mg IV Lasix to improve her volume status. Continues incentive spirometer. Ambulate in the hallway. She has adequate point controlled with [place]. Restart Lyrica. Monitor the blood sugar. We'll continue to follow.
[2016-09-30] MEDS: HYDROcodone/APAP 5-325MG 1 EACH TAB PO PRN (16:13)
[2016-09-30 16:51] LABS: Glucose,Whole Blood 227 mg/dL (75-99)
[2016-09-30] MEDS: FUROSEMIDE 10 MG/ML 2 ML VIAL IV ONE ×2 (17:09→18:23)
[2016-09-30 20:50] LABS: Glucose,Whole Blood 155 mg/dL (75-99)
[2016-09-30] MEDS: SENNOSIDES-DOCUSATE SODIUM 1 EACH TAB PO SCH (21:30)
[2016-09-30] MEDS: INSULIN NPH 300 UNIT/3 ML VIAL SQ SCH (21:31)
[2016-10-01] MEDS: HYDROcodone/APAP 5-325MG 1 EACH TAB PO PRN ×3 (02:18→23:08)
[2016-10-01] MEDS: INSULIN LISPRO (humaLOG) 300 UNIT/3 ML VIAL SQ SCH ×6 (02:19→21:59)
[2016-10-01 02:20] LABS: Glucose,Whole Blood 172 mg/dL (75-99)
[2016-10-01 06:02] LABS: Glucose,Whole Blood 184 mg/dL (75-99)
[2016-10-01] MEDS: PANTOPRAZOLE 40 MG TABLET PO SCH (06:33)
[2016-10-01] MEDS: LEVOTHYROXINE 75 MCG TAB PO SCH (06:33)
[2016-10-01] MEDS: INSULN ASP PRT/INSULIN ASPART 100 UNIT/ML 10 ML VIAL SQ SCH (06:55)
[2016-10-01 07:22] LABS: Anisocytosis Slight; CH 29.7; CHCM 34.2; HCT 24.7 % (34.0-46.0); HDW 3.77; HGB 8.3 gm/dL (11.4-16.0); MCH 29.5 pg (25.0-35.0); MCHC 33.6 g/dL (31.0-37.0); MCV 87.7 fL (80.0-100.0); Mean Platelet Volume 9.7; Poikilocytosis Slight; RBC 2.81 m/uL (3.80-5.40); RDW 16.4 % (11.5-15.5); WBC (Perox) 6.14
--- NOTE | 2016-10-01 07:40 | P.PN ---
Progress Note - Text The patient is a 66-year-old female who is post coronary artery bypass about 6 days ago. I'm covering for Dr. Cha. Patient overall states that she is doing well but developed some shortness of breath last night. She feels better this morning and is sitting at the side of the bed in no distress. She states she has a mild cough. No unusual chest pain or nausea and vomiting. Vital signs reveal temperature 90.8 with a pulse of 70 and respirations 16. Blood pressure 124/64 and she is 99% saturated on 2 L nasal cannula. Lung sounds are generally diminished but overall clear. Her tones distant but regular. She does have some low-grade edema. No neurological changes. Abdomen results: Blood sugars 184 this morning and has been intermittent 100s to 200 range. White count 5.8 with a hemoglobin 8.3 and a platelet count of 142. Impressions and plans: Overall this 66-year-old female appears to be continuing to recover from her bypass surgery. She does have underlying comorbidities including obesity, diabetes, hypertension and hyperlipidemia along with sleep apnea and hypothyroidism and underlying neuropathy. Notes from specialists regarded. Continue present insulin regimen. Discussed with surgery. Anticipating discharge to extended care facility when bed is available. Will discuss and inform Dr. Cha upon his return later today.
[2016-10-01] MEDS: IPRATROPIUM-ALBUTEROL 3 ML NEB INHALATION SCH ×4 (07:44→20:51)
[2016-10-01 08:01] LABS: Add Differential Manual Differential; Anion Gap 8 mmol/L; Blood Urea Nitrogen 13 mg/dL (7-17); Calcium 8.9 mg/dL (8.4-10.2); Carbon Dioxide 24 mmol/L (22-30); Chloride 108 mmol/L (98-107); Glucose 182 mg/dL (74-99); Non-African American GFR(MDRD) 54 (>60 ml/min/1.73 sqM); Potassium 4.4 mmol/L (3.5-5.1); Sodium 140 mmol/L (137-145)
[2016-10-01 08:14] LABS: Band Neutrophils % 0.5 %; Nucleated Red Blood Cells 3 /100 WBC (0-0); Total Cells Counted 200
[2016-10-01 08:15] LABS: WBC 5.6 k/uL (3.8-10.6)
[2016-10-01 08:16] LABS: Manual Review Performed; Polychromasia Present
--- NOTE | 2016-10-01 08:21 | XR ---
EXAMINATION TYPE: XR chest 2V DATE OF EXAM: 10/01/2016 COMPARISON: Prior chest x-ray 09/30/2016 HISTORY: Status post cardiac surgery TECHNIQUE: Frontal and lateral views of the chest are obtained. FINDINGS: Some minimal blunting of the costophrenic sulcus is noted, patient is post median sternoto my and the heart remains enlarged. There is basilar atelectasis. No evident pneumothorax. Postop díaz ge right shoulder. Pulmonary vascularity and hernando not significantly changed. IMPRESSION: Similar findings to prior exam. Basilar atelectasis, small left effusion.
[2016-10-01] MEDS ORDERED: FUROSEMIDE 10 MG/ML 2 ML VIAL IV ONE (08:30)
[2016-10-01] MEDS: HEPARIN SODIUM,PORCINE 5,000 UNIT/ML 1 ML VIAL SQ SCH ×3 (08:54→23:08)
[2016-10-01] MEDS: METOPROLOL TARTRATE 25 MG TAB PO SCH ×2 (08:55→20:09)
[2016-10-01] MEDS: ASPIRIN 325 MG TAB PO SCH (08:55)
[2016-10-01] MEDS: ATORVASTATIN 40 MG TAB PO SCH (08:55)
[2016-10-01] MEDS: CLOPIDOGREL 75 MG TAB PO SCH (08:55)
[2016-10-01] MEDS: ALLOPURINOL 100 MG TAB PO SCH (08:55)
[2016-10-01] MEDS: PREGABALIN 75 MG CAP PO SCH ×2 (08:59→20:09)
--- NOTE | 2016-10-01 09:56 | P.PN ---
Subjective Principal diagnosis: Angina with triple vessel coronary artery disease, status post prior stenting to the LAD and the diagonal artery. Status post prior myocardial infarction. Morbid obesity. Uncontrolled diabetes type 2 with hemoglobin A1c 9.4%. Hypertension. Hyperlipidemia. Hypothyroidism. POD #5 triple vessel coronary artery bypass grafting using the left internal mammary artery to the left anterior descending artery. Reverse saphenous vein graft from the aorta to the posterior descending artery. Reverse saphenous vein graft from the aorta to the second obtuse marginal artery. Endoscopic harvesting of the left greater saphenous vein. Intraoperative transesophageal echocardiogram and epi-aortic scanning. Intraoperative graft flow measurement using the Ce[employer] system. Patient sitting up in the chair eating breakfast in no acute distress. States she had a rough night last night with some increased shortness of breath, however currently on room air without shortness of breath. Objective - Vital Signs Vital signs: Vital Signs Temp 98 F 10/01/16 04:00 Pulse 96 10/01/16 07:46 Resp 16 10/01/16 04:00 BP 124/64 10/01/16 04:00 Pulse Ox 96 10/01/16 07:46 Intake & Output 09/30/16 10/01/16 10/01/16 18:59 06:59 18:59 Intake Total 1360 20 Balance 1360 20 Weight 125.1 kg 122.4 kg Intake: IV 20 0.9 flush 20 Oral 1360 Other: Voiding Method Toilet Toilet # Voids 1 ABP, PAP, CO, CI - Last Documented Arterial Blood Pressure 291/291 Pulmonary Artery Pressure 31/15 Cardiac Output 5 Cardiac Index 2.3 - Constitutional General appearance: Present: cooperative, no acute distress, obese - Respiratory Details: Lungs sounds diminished bilaterally with coarse breath sounds left lung base. Respirations even, nonlabored. Currently on room air with oxygen saturation 98% . Able to achieve 750 mL on incentive spirometry. - Cardiovascular Details: S1, S2 present. Regular rate and rhythm, at times irregular, sinus rhythm with frequent PACs. Sternum stable. Heart hugger in place with patient demonstrating appropriate use. Teds/SCDs present. Trace bilateral lower extremity edema still present. - Gastrointestinal Gastrointestinal Comment(s): Abdomen soft, nontender, nondistended. Active bowel sounds 4 quadrants. Tolerating diet. States she had a bowel movements 2 days ago. - Genitourinary Genitourinary Comment(s): Continues to void clear, yellow urine. - Integumentary Integumentary Comment(s): Anterior chest incision well approximated and covered with dry intact dressing. - Musculoskeletal Musculoskeletal: Present: strength equal bilaterally - Psychiatric Psychiatric: Present: A&O x's 3, appropriate affect, intact judgment & insight - Allied health notes Allied health notes reviewed: nursing - Labs CBC & Chem 7: 10/01/16 06:01 10/01/16 06:01 Labs: Abnormal Lab Results - Last 24 Hours (Table) 09/30/16 09/30/16 09/30/16 Range/Units 07:48 07:48 11:42 RBC 3.13 L (3.80-5.40) m/uL Hgb 9.5 L (11.4-16.0) gm/dL Hct 27.9 L (34.0-46.0) % RDW 16.2 H (11.5-15.5) % Plt Count 138 L (150-450) k/uL Lymphocytes # (Manual) 0.4 L (1.0-4.8) k/uL Creatinine 1.10 H (0.52-1.04) mg/dL Glucose 237 H (74-99) mg/dL POC Glucose (mg/dL) 193 H (75-99) mg/dL AST 45 H (14-36) U/L Total Protein 6.0 L (6.3-8.2) g/dL 09/30/16 09/30/16 10/01/16 Range/Units 16:47 20:42 02:18 RBC (3.80-5.40) m/uL Hgb (11.4-16.0) gm/dL Hct (34.0-46.0) % RDW (11.5-15.5) % Plt Count (150-450) k/uL Lymphocytes # (Manual) (1.0-4.8) k/uL Creatinine (0.52-1.04) mg/dL Glucose (74-99) mg/dL POC Glucose (mg/dL) 227 H 155 H 172 H (75-99) mg/dL AST (14-36) U/L Total Protein (6.3-8.2) g/dL 10/01/16 10/01/16 Range/Units 06:01 06:01 RBC 2.81 L (3.80-5.40) m/uL Hgb 8.3 L (11.4-16.0) gm/dL Hct 24.7 L (34.0-46.0) % RDW 16.4 H (11.5-15.5) % Plt Count 142 L (150-450) k/uL Lymphocytes # (Manual) (1.0-4.8) k/uL Creatinine (0.52-1.04) mg/dL Glucose (74-99) mg/dL POC Glucose (mg/dL) 184 H (75-99) mg/dL AST (14-36) U/L Total Protein (6.3-8.2) g/dL Assessment and Plan (1) Uncontrolled type 2 diabetes mellitus Status: Acute (2) History of coronary artery stent placement Status: Acute (3) Hypothyroidism Status: Acute (4) CAD (coronary artery disease) Status: Acute (5) Hyperlipidemia Status: Acute (6) Hypertension Status: Acute (7) Morbid obesity with BMI of 40.0-44.9, adult Status: Acute (8) Previous myocardial infarction older than 8 weeks Status: Acute Plan: 1. Continue aspirin, statin, Plavix, heparin subcu, beta feliberto. Lasix given yesterday per pulmonology with good diuresis. Will give lasix 20 mg IVP x1 today. 2. Encourage incentive spirometry use. Will obtain chest x-ray secondary to patient's complaint of shortness of breath. 3. Increase activity, ambulate in hallway. Physical therapy to follow. 4. GI/DVT prophylaxis. 5. Diabetic management per internal medicine service. 6. Daily labs. 7. PT/OT recommendations appreciated. 8. Discharge planning in place, patient will need to go to rehab she has no home support. Time with Patient: Greater than 30
--- NOTE | 2016-10-01 11:22 | P.PN ---
Subjective Principal diagnosis: Status post CABG This is a 66-year-old female who is status post coronary artery bypass grafting surgery, patient was seen and examined today, sitting up in the chair at bedside. Patient complained of having an episode of shortness of breath through the night last night. She states that her breathing feels normal wall she is sitting up in the chair. Chest x-ray does reveal small left pleural effusion. Patient continues to be in a normal sinus rhythm with PACs. No evidence of atrial fibrillation. Hemoglobin 8.3, potassium 4.4, BUN 13, creatinine 1.03. The patient was initiated on Lasix, her weight today is down 3 kg. Objective - Vital Signs Vital signs: Vital Signs Temp 98.0 F 10/01/16 08:45 Pulse 80 10/01/16 08:45 Resp 18 10/01/16 08:45 BP 133/60 10/01/16 08:45 Pulse Ox 97 10/01/16 08:45 Intake & Output 09/30/16 10/01/16 10/01/16 18:59 06:59 18:59 Intake Total 1360 20 464 Balance 1360 20 464 Weight 125.1 kg 122.4 kg Intake: IV 20 24 0.9 flush 20 24 Oral 1360 440 Other: Voiding Method Toilet Toilet # Voids 1 ABP, PAP, CO, CI - Last Documented Arterial Blood Pressure 291/291 Pulmonary Artery Pressure 31/15 Cardiac Output 5 Cardiac Index 2.3 - Exam PHYSICAL EXAMINATION: HEENT: Head is atraumatic, normocephalic. Pupils equal, round. Neck is supple. There is no elevated jugular venous pressure. HEART EXAMINATION: Heart S1, S2 normal. No murmur or gallop heard. CHEST EXAMINATION: Lungs reveal diminished air entry to bilateral bases. ABDOMEN: Soft, nontender. Bowel sounds are heard. No organomegaly noted. EXTREMITIES: 2+ peripheral pulses with trace evidence of peripheral edema and no calf tenderness noted. Left leg greater than right. Mild swelling in bilateral hands noted NEUROLOGIC patient is awake, alert and oriented -3. . - Labs CBC & Chem 7: 10/01/16 06:01 10/01/16 06:01 Labs: Abnormal Lab Results - Last 24 Hours (Table) 09/30/16 09/30/16 09/30/16 Range/Units 11:42 16:47 20:42 RBC (3.80-5.40) m/uL Hgb (11.4-16.0) gm/dL Hct (34.0-46.0) % RDW (11.5-15.5) % Plt Count (150-450) k/uL Nucleated RBCs (0-0) /100 WBC Chloride (98-107) mmol/L Glucose (74-99) mg/dL POC Glucose (mg/dL) 193 H 227 H 155 H (75-99) mg/dL 10/01/16 10/01/16 10/01/16 Range/Units 02:18 06:01 06:01 RBC 2.81 L (3.80-5.40) m/uL Hgb 8.3 L (11.4-16.0) gm/dL Hct 24.7 L (34.0-46.0) % RDW 16.4 H (11.5-15.5) % Plt Count 142 L (150-450) k/uL Nucleated RBCs 3 H (0-0) /100 WBC Chloride 108 H (98-107) mmol/L Glucose 182 H (74-99) mg/dL POC Glucose (mg/dL) 172 H (75-99) mg/dL 10/01/16 Range/Units 06:01 RBC (3.80-5.40) m/uL Hgb (11.4-16.0) gm/dL Hct (34.0-46.0) % RDW (11.5-15.5) % Plt Count (150-450) k/uL Nucleated RBCs (0-0) /100 WBC Chloride (98-107) mmol/L Glucose (74-99) mg/dL POC Glucose (mg/dL) 184 H (75-99) mg/dL Assessment and Plan (1) S/P CABG (coronary artery bypass graft) Status: Acute (2) CAD (coronary artery disease) Status: Acute (3) Diabetes mellitus Status: Acute (4) Hyperlipidemia Status: Acute (5) Hypertension Status: Acute (6) Morbid obesity with BMI of 40.0-44.9, adult Status: Acute Plan: From cardiology's perspective, we'll recommend to continue the patient on her current medications including Lasix. Overall progressing very well. DNP note has been reviewed, I agree with a documented findings and plan of care. Patient was seen and examined.
[2016-10-01] MEDS: CYANOCOBALAMIN 500 MCG TAB PO SCH (11:27)
[2016-10-01] MEDS: CHOLECALCIFEROL 1,000 UNIT TAB PO SCH (11:28)
[2016-10-01 11:37] LABS: Glucose,Whole Blood 207 mg/dL (75-99)
--- NOTE | 2016-10-01 12:45 | P.PN ---
Subjective This is a 66-year-old female patient who is still recovering from coronary artery bypass surgery. The patient underwent three-vessel bypass surgery with SIMS to LAD and reverse saphenous vein graft to PDA and obtuse marginal. The patient is morbidly obese. She has also hypertension, hyperlipidemia, hypothyroidism and obstructive sleep apnea. The patient is doing extremely well. She has no specific complaints. Chest tubes have been removed. No major respiratory distress. She is having symptoms of peripheral neuropathy which is a diabetic neuropathy for which she was restarted on that a cup. No nausea. No vomiting. She is using incentive spirometer. There has been no other significant events over the past 24 hours. Her condition is stable for now. On 10/01/2016 I'm seeing this patient in follow-up. She is doing well. She is less edematous compared to yesterday. No shortness of breath. Sternum stable clean and intact. No nausea or vomiting. No change in mental status. No cardiac arrhythmias have been noted. No other complaints otherwise for now. Objective - Vital Signs Vital signs: Vital Signs Temp 97.7 F 10/01/16 11:20 Pulse 88 10/01/16 12:36 Resp 18 10/01/16 11:20 BP 99/58 10/01/16 11:20 Pulse Ox 96 10/01/16 11:20 Intake & Output 09/30/16 10/01/16 10/01/16 18:59 06:59 18:59 Intake Total 1360 20 464 Output Total 400 Balance 1360 20 64 Weight 125.1 kg 122.4 kg Intake: IV 20 24 0.9 flush 20 24 Oral 1360 440 Output: Urine 400 Other: Voiding Method Toilet Toilet # Voids 1 1 ABP, PAP, CO, CI - Last Documented Arterial Blood Pressure 291/291 Pulmonary Artery Pressure 31/15 Cardiac Output 5 Cardiac Index 2.3 - Exam My normally had patient is morbidly obese and she is not in acute respiratory distress.Head exam was generally normal. There was no scleral icterus or corneal arcus. Mucous membranes were moist. Neck is supple and there is no JVDs no goiter or neck masses. The patient is a Mallampati class IV. Lung sounds are diminished in lung bases bilaterally otherwise clear. There is no wheezes overall currently crackles. Heart sounds are regular, positive S1-S2. No cervical murmurs appreciated and sternum stable clean and intact.Abdominal exam revealed normal bowel sounds. The abdomen was soft, non-tender, and without masses, organomegaly, or appreciable enlargement of the abdominal aorta.Examination of the extremities revealed easily palpable radial, femoral and pedal pulses. There was no cyanosis, clubbing. Patient has +1-2 edema in lower extremities bilaterally and some edema in the upper extremities. - Labs CBC & Chem 7: 10/01/16 06:10/01/16 06:01 Labs: Abnormal Lab Results - Last 24 Hours (Table) 09/30/16 09/30/16 10/01/16 Range/Units 16:47 20:42 02:18 RBC (3.80-5.40) m/uL Hgb (11.4-16.0) gm/dL Hct (34.0-46.0) % RDW (11.5-15.5) % Plt Count (150-450) k/uL Nucleated RBCs (0-0) /100 WBC Chloride (98-107) mmol/L Glucose (74-99) mg/dL POC Glucose (mg/dL) 227 H 155 H 172 H (75-99) mg/dL 10/01/16 10/01/16 10/01/16 Range/Units 06:01 06:01 06:01 RBC 2.81 L (3.80-5.40) m/uL Hgb 8.3 L (11.4-16.0) gm/dL Hct 24.7 L (34.0-46.0) % RDW 16.4 H (11.5-15.5) % Plt Count 142 L (150-450) k/uL Nucleated RBCs 3 H (0-0) /100 WBC Chloride 108 H (98-107) mmol/L Glucose 182 H (74-99) mg/dL POC Glucose (mg/dL) 184 H (75-99) mg/dL 10/01/16 Range/Units 11:30 RBC (3.80-5.40) m/uL Hgb (11.4-16.0) gm/dL Hct (34.0-46.0) % RDW (11.5-15.5) % Plt Count (150-450) k/uL Nucleated RBCs (0-0) /100 WBC Chloride (98-107) mmol/L Glucose (74-99) mg/dL POC Glucose (mg/dL) 207 H (75-99) mg/dL Assessment and Plan Plan: Assessment 1 coronary artery bypass surgery and the patient is postop day #5 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 atelectasis in lung bases bilaterally with a small left-sided pleural effusion Plan Patient is doing extremely well. No significant distress at this point. No cardiac arrhythmias. Using incentive spirometer. Oxygenating well. Hemoglobin stable at 8.3. No other significant issues otherwise for now.
[2016-10-01 16:51] LABS: Glucose,Whole Blood 219 mg/dL (75-99)
--- NOTE | 2016-10-01 18:32 | P.PN ---
Subjective This is dictation on medical consult dictated by Dr. Vamsi Eaton [facility], date of service 10/01/2016. Patient seen and evaluated today discussed with her the plan stated that she is going to be assisted for for further deconditioning and rehabilitation pulsed coronary artery bypass graft 3 done on the last 7 today. Her vital signs stable. Status post 3 vessel bypass graft. She had episode of shortness of breath. And her previous chest x-ray showed some pleural effusion her creatinine 1.03 with a BUN 13 and potassium 4.4 her vital signs stable. His intake and output stable Past medical history: Obesity, diabetes mellitus insulin-dependent and she was followed by Dr.shamsa CONTRERAS the room cooler installer who has been monitoring her blood sugars. Hyperlipidemia, hypertension, chronic kidney disease. On examination today 5 days after the surgery. She conscious alert oriented able to continue to communicate she had mild cough and splinted her chest with the brace. She had thoracotomy Healing well and she has bruises on the left thigh associated with harvesting the veins. Patient has also edema of the dorsum of the hand and 1+ edema on the lower extremities she is wearing the SCDs with inflation and deflation Abdomen soft positive bowel sounds no tenderness. Neurological examination was intact with no lateralizing sign and she just finished her walk today. Assessment: No #1 status post 3 vessel bypass graft. #2 diabetes mellitus insulin-dependent labile but well-controlled. #3 anemia postoperative. #4 hyperlipidemia Plan: We'll continue the current treatment, cardiology monitoring the patient from the cardiac, they consulted also Dr. Brendon Dunbar the room cooler installer. I was out of town and they came today and I found that consult was requested, we 'll see the patient in follow her with you thank you Objective - Vital Signs Vital signs: Vital Signs Temp 97.9 F 10/01/16 16:00 Pulse 91 10/01/16 16:00 Resp 20 10/01/16 16:00 BP 123/58 10/01/16 16:00 Pulse Ox 96 10/01/16 16:00 Intake & Output 09/30/16 10/01/16 10/01/16 18:59 06:59 18:59 Intake Total 1360 20 824 Output Total 400 Balance 1360 20 424 Weight 125.1 kg 122.4 kg Intake: IV 20 24 0.9 flush 20 24 Oral 1360 800 Output: Urine 400 Other: Voiding Method Toilet Toilet # Voids 1 1 ABP, PAP, CO, CI - Last Documented Arterial Blood Pressure 291/291 Pulmonary Artery Pressure 31/15 Cardiac Output 5 Cardiac Index 2.3 - Labs CBC & Chem 7: 10/01/16 06:01 10/01/16 06:01 Labs: Abnormal Lab Results - Last 24 Hours (Table) 09/30/16 10/01/16 10/01/16 Range/Units 20:42 02:18 06:01 RBC 2.81 L (3.80-5.40) m/uL Hgb 8.3 L (11.4-16.0) gm/dL Hct 24.7 L (34.0-46.0) % RDW 16.4 H (11.5-15.5) % Plt Count 142 L (150-450) k/uL Nucleated RBCs 3 H (0-0) /100 WBC Chloride (98-107) mmol/L Glucose (74-99) mg/dL POC Glucose (mg/dL) 155 H 172 H (75-99) mg/dL 10/01/16 10/01/16 10/01/16 Range/Units 06:01 06:01 11:30 RBC (3.80-5.40) m/uL Hgb (11.4-16.0) gm/dL Hct (34.0-46.0) % RDW (11.5-15.5) % Plt Count (150-450) k/uL Nucleated RBCs (0-0) /100 WBC Chloride 108 H (98-107) mmol/L Glucose 182 H (74-99) mg/dL POC Glucose (mg/dL) 184 H 207 H (75-99) mg/dL 10/01/16 Range/Units 16:44 RBC (3.80-5.40) m/uL Hgb (11.4-16.0) gm/dL Hct (34.0-46.0) % RDW (11.5-15.5) % Plt Count (150-450) k/uL Nucleated RBCs (0-0) /100 WBC Chloride (98-107) mmol/L Glucose (74-99) mg/dL POC Glucose (mg/dL) 219 H (75-99) mg/dL
[2016-10-01] MEDS: SENNOSIDES-DOCUSATE SODIUM 1 EACH TAB PO SCH (20:09)
[2016-10-01 20:30] LABS: Glucose,Whole Blood 136 mg/dL (75-99)
[2016-10-01] MEDS: INSULIN NPH 300 UNIT/3 ML VIAL SQ SCH (22:00)
[2016-10-02 01:59] LABS: Glucose,Whole Blood 142 mg/dL (75-99)
[2016-10-02] MEDS: INSULIN LISPRO (humaLOG) 300 UNIT/3 ML VIAL SQ SCH ×3 (02:04→12:11)
[2016-10-02 05:38] LABS: Glucose,Whole Blood 146 mg/dL (75-99)
[2016-10-02] MEDS: PANTOPRAZOLE 40 MG TABLET PO SCH (06:36)
[2016-10-02] MEDS: LEVOTHYROXINE 75 MCG TAB PO SCH (06:36)
[2016-10-02 06:46] LABS: Anisocytosis Slight; Basophils % (A) 1 %; CH 29.1; CHCM 32.1; Eosinophils # (A) 0.3 k/uL (0-0.7); Eosinophils % (A) 6 %; HCT 26.2 % (34.0-46.0); HDW 3.65; HGB 8.4 gm/dL (11.4-16.0); Hypochromasia Slight; Luc # (Auto) 0.22; Luc % (Auto) 4; Lymphocytes # (A) 1.2 k/uL (1.0-4.8); Lymphocytes % (A) 22 %; MCH 29.5 pg (25.0-35.0); MCHC 32.1 g/dL (31.0-37.0); MCV 91.8 fL (80.0-100.0); Mean Platelet Volume 8.5; Monocytes # (A) 0.4 k/uL (0-1.0); Monocytes % (A) 7 %; Neutrophils # (A) 3.2 k/uL (1.3-7.7); Neutrophils % (A) 60 %; Poikilocytosis Slight; RBC 2.86 m/uL (3.80-5.40); RDW 16.5 % (11.5-15.5); WBC 5.4 k/uL (3.8-10.6); WBC (Perox) 5.64
[2016-10-02 06:48] LABS: Calcium 8.4 mg/dL (8.4-10.2); Potassium 3.8 mmol/L (3.5-5.1)
[2016-10-02] MEDS: INSULN ASP PRT/INSULIN ASPART 100 UNIT/ML 10 ML VIAL SQ SCH (07:06)
[2016-10-02] MEDS: IPRATROPIUM-ALBUTEROL 3 ML NEB INHALATION SCH ×2 (08:45→12:08)
[2016-10-02] MEDS: ASPIRIN 325 MG TAB PO SCH (08:58)
[2016-10-02] MEDS: PREGABALIN 75 MG CAP PO SCH (08:58)
[2016-10-02] MEDS: HEPARIN SODIUM,PORCINE 5,000 UNIT/ML 1 ML VIAL SQ SCH (08:58)
[2016-10-02] MEDS: CLOPIDOGREL 75 MG TAB PO SCH (08:58)
[2016-10-02] MEDS: ATORVASTATIN 40 MG TAB PO SCH (08:58)
[2016-10-02] MEDS: ALLOPURINOL 100 MG TAB PO SCH (08:58)
[2016-10-02] MEDS ORDERED: METOPROLOL TARTRATE 50 MG TAB PO SCH (09:00)
--- NOTE | 2016-10-02 09:00 | P.PN ---
Progress Note - Text CV Surgery Nursing Principal diagnosis: Angina with triple vessel coronary artery disease, status post prior stenting to the LAD and the diagonal artery. Status post prior myocardial infarction. Morbid obesity. Uncontrolled diabetes type 2 with hemoglobin A1c 9.4%. Hypertension. Hyperlipidemia. Hypothyroidism. POD #6 triple vessel coronary artery bypass grafting using the left internal mammary artery to the left anterior descending artery. Reverse saphenous vein graft from the aorta to the posterior descending artery. Reverse saphenous vein graft from the aorta to the second obtuse marginal artery. Endoscopic harvesting of the left greater saphenous vein. Intraoperative transesophageal echocardiogram and epi-aortic scanning. Intraoperative graft flow measurement using the Medistim system. Patient awake and alert, no distress noted, no specific complaints. She is sitting up to the bedside chair eating her breakfast. She states she does not have much of an appetite. Vital Signs: Afebrile Vital Signs - 24 hr 10/01/16 10/01/16 10/01/16 07:46 07:55 08:45 Temperature 98.0 F Pulse Rate 96 92 Pulse Rate [ 80 Pulse Oximetery ] Respiratory 18 Rate Blood Pressure [Left Arm Sitting] Blood Pressure 133/60 [Right Arm] O2 Sat by Pulse 96 97 Oximetry 10/01/16 10/01/16 10/01/16 11:20 12:25 12:36 Temperature 97.7 F Pulse Rate 86 88 Pulse Rate [ 87 Pulse Oximetery ] Respiratory 18 Rate Blood Pressure [Left Arm Sitting] Blood Pressure 99/58 [Right Arm] O2 Sat by Pulse 96 Oximetry 10/01/16 10/01/16 10/01/16 15:08 15:13 16:00 Temperature 97.9 F Pulse Rate 84 88 Pulse Rate [ 91 Pulse Oximetery ] Respiratory 20 Rate Blood Pressure [Left Arm Sitting] Blood Pressure 123/58 [Right Arm] O2 Sat by Pulse 96 Oximetry 10/01/16 10/01/16 10/01/16 20:00 20:53 21:07 Temperature 98.3 F Pulse Rate 88 88 Pulse Rate [ 96 Pulse Oximetery ] Respiratory 16 Rate Blood Pressure [Left Arm Sitting] Blood Pressure 139/68 [Right Arm] O2 Sat by Pulse 96 Oximetry 10/02/16 10/02/16 00:00 02:47 Temperature 98.3 F 98.1 F Pulse Rate Pulse Rate [ 88 89 Pulse Oximetery ] Respiratory 16 16 Rate Blood Pressure 114/56 [Left Arm Sitting] Blood Pressure 123/73 [Right Arm] O2 Sat by Pulse 94 L 95 Oximetry Labs: Short CBC 10/01/16 10/02/16 Range/Units 06:01 06:20 WBC 5.6 5.4 (3.8-10.6) k/uL Hgb 8.4 L (11.4-16.0) gm/dL Hct 26.2 L (34.0-46.0) % Plt Count 179 (150-450) k/uL Neutrophils # 3.2 (1.3-7.7) k/uL BMP 10/01/16 10/02/16 06:01 06:20 Sodium 140 140 Potassium 4.4 3.8 Chloride 108 H 106 Carbon Dioxide 24 26 BUN 13 12 Creatinine 1.03 1.16 H Glucose 182 H 149 H Calcium 8.9 8.4 Lungs: Expiratory wheezes to her bilateral upper lobes, diminished bilateral bases. Respirations are symmetrical and unlabored. O2 sat: 95% on room air. I/S: 1000 mL, reviewed with the patient the importance of using her incentive spirometry every hour while awake. The patient did give a good return demonstration on her incentive spirometry. Heart: S1S2, regular rhythm and rate, negative for S3, gallop or murmur. Remote telemetry showing normal sinus rhythm with frequent PACs heart rate 88. Sternum stable, chest incision clean with Dermabond dressing clean and dry. No drainage noted. Heart hugger in place, patient is demonstrating appropriate use of her heart hugger. Left leg incisions clean dry and well approximated. No drainage noted. 2 edema noted to her bilateral lower and upper extremities. Knee-high NISHA hose and sequential compression devices in place to her bilateral lower extremities. Abdomen: Soft, nontender. Positive bowel sounds present in all 4 quadrants. Patient states her bowels have moved since surgery. CBGs: 136-219 mg/dL in the last 24 hours. U/O: Adequate. 24 hr Total: Intake & Output 09/30/16 10/01/16 10/02/16 10/03/16 06:59 06:59 06:59 06:59 Intake Total 2145.815 6243 834 100 Output Total 1690 400 Balance -917.766 4352 434 100 Weight 125.1 kg 122.4 kg 122.2 kg Active Medications Hydrocodone Bitart/Acetaminophen (Wallis 5-325) 2 each PO Q4HR PRN PRN Reason: Severe Pain Last Admin: 10/01/16 23:08 Dose: 2 each Hydrocodone Bitart/Acetaminophen (Wallis 5-325) 1 each PO Q4HR PRN PRN Reason: Moderate Pain Last Admin: 10/01/16 14:37 Dose: 1 each Albuterol/Ipratropium (Duoneb 0.5 Mg-3 Mg/3 Ml Soln) 3 ml INHALATION RT-Q2H PRN PRN Reason: Shortness Of Breath Or Wheezing Last Admin: 10/01/16 01:34 Dose: 3 ml Albuterol/Ipratropium (Duoneb 0.5 Mg-3 Mg/3 Ml Soln) 3 ml INHALATION RT-QID [facility] Last Admin: 10/01/16 20:51 Dose: 3 ml Allopurinol (Zyloprim) 100 mg PO DAILY [facility] Last Admin: 10/01/16 08:55 Dose: 100 mg Aspirin (Aspirin) 325 mg PO DAILY [facility] Last Admin: 10/01/16 08:55 Dose: 325 mg Atorvastatin Calcium (Lipitor) 40 mg PO DAILY [facility] Last Admin: 10/01/16 08:55 Dose: 40 mg Bisacodyl (Dulcolax) 10 mg RECTAL DAILY PRN PRN Reason: Constipation Cholecalciferol (Vitamin D3) 1,000 unit PO DAILY@1200 [facility] Last Admin: 10/01/16 11:28 Dose: 1,000 unit Clopidogrel Bisulfate (Plavix) 75 mg PO DAILY [facility] Last Admin: 10/01/16 08:55 Dose: 75 mg Cyanocobalamin (Vitamin B-12) 2,000 mcg PO DAILY@1200 [facility] Last Admin: 10/01/16 11:27 Dose: 2,000 mcg Heparin Sodium (Porcine) (Heparin) 5,000 unit SQ Q8HR [facility] Last Admin: 10/01/16 23:08 Dose: 5,000 unit Insulin Aspart (Novolog Mix 70-30 Vial) 50 unit 0.4 unit/kg (50 unit) SQ - BRKFST [facility] Last Admin: 10/02/16 07:06 Dose: 50 unit Insulin Human Lispro (Humalog) 13 unit 0.1 unit/kg (13 unit) SQ -SUPPER [facility] Last Admin: 10/01/16 17:41 Dose: 13 unit Insulin Human Lispro (Humalog) 0 unit SQ [id number] [facility] PRN Reason: Protocol Last Admin: 10/02/16 06:36 Dose: 1 unit Insulin Human NPH (Humulin N) 13 unit 0.1 unit/kg (13 unit) SQ [facility] Last Admin: 10/01/16 22:00 Dose: 13 unit Levothyroxine Sodium (Synthroid) 75 mcg PO DAILY@0630 [facility] Last Admin: 10/02/16 06:36 Dose: 75 mcg Magnesium Hydroxide (Milk Of Magnesia) 2,400 mg PO BID PRN PRN Reason: Constipation Metoclopramide HCl (Reglan) 10 mg IVP Q4H PRN PRN Reason: Nausea And Vomiting Metoprolol Tartrate (Lopressor) 25 mg PO BID [facility] Last Admin: 10/01/16 20:09 Dose: 25 mg Miscellaneous Information (Magnesium Per Protocol) 1 each MISCELLANE DAILY PRN ; Protocol PRN Reason: Per Protocol Miscellaneous Information (Phosphorus Per Protocol) 1 each MISCELLANE DAILY PRN ; Protocol PRN Reason: Per Protocol Miscellaneous Information (Potassium Per Protocol) 1 each MISCELLANE DAILY PRN ; Protocol PRN Reason: Per Protocol Miscellaneous Information (Potassium Per Protocol) 1 each MISCELLANE DAILY PRN ; Protocol PRN Reason: Per Protocol Ondansetron HCl (Zofran) 4 mg IVP Q6HR PRN PRN Reason: Nausea And Vomiting Pantoprazole Sodium (Protonix) 40 mg PO AC-BRKFST [facility] Last Admin: 10/02/16 06:36 Dose: 40 mg Pregabalin (Lyrica) 150 mg PO BID [facility] Last Admin: 10/01/16 20:09 Dose: 150 mg Senna/Docusate Sodium (Senokot-S) 2 each PO HS [facility] Last Admin: 10/01/16 20:09 Dose: 2 each Sodium Chloride (Saline Flush) 10 ml IV BID [facility] Last Admin: 10/01/16 20:09 Dose: 10 ml Plan: 1. Continue aspirin, statin, Plavix, heparin subcu, and we will increase her metoprolol to 50 mg by mouth twice a day. 2. Increase activity, out of bed to chair all day. Physical therapy to follow. 3. GI/DVT prophylaxis. 4. Insulin drip/diabetic management per internal medicine service. 5. Daily labs, x-rays. 6. Discontinue cordis and Hedrick catheter and left leg HEBERT drain today. 7. We will restart the patient on her daily dose of Lasix 40 mg by mouth daily. 8. Discharge planning in place, will be discharged to subacute rehab when bed available.
[2016-10-02] MEDS ORDERED: FUROSEMIDE 40 MG TAB PO SCH (09:15)
--- NOTE | 2016-10-02 10:13 | CDI ---
In responding to this query, please exercise your independent professional judgment. The [facility] Coding Staff and Clinical Documentation Specialists appreciate your assistance in clarifying documentation, maintaining compliance with coding guidelines, accurately documenting patients condition and capturing severity of illness. The fact that a question is asked does not imply that any particular answer is desired or expected. Communication forms are a method of clarifying documentation and are not made part of the Legal Health Record. Thank you in advance for your clarification. Last Revision, May 2016 Dillon Russell [address] [place] [address] Documentation Clarification Form Date: 10/02/2016 9:57:00 AM From: Jewell Singh RN, CCDS Admit Date: 09/26/2016 5:43:00 AM Patient Name: Gena Franco Visit Number: [id number] Dr. Jaiml Ariza/Esme Edmond LIBRARY CIRCULATION TECHNICIAN "Post-operative anemia is documented in the Medical Progress Notes. Patients Admitting Diagnosis: Angina with triple vessel coronary artery disease , status post prior stenting to the LAD and the diagonal artery. Status post prior myocardial infarction. Post-Operative Diagnosis: same Procedure performed: triple vessel coronary artery bypass grafting using the left internal mammary artery to the left anterior descending artery. Reverse saphenous vein graft from the aorta to the posterior descending artery. Reverse saphenous vein graft from the aorta to the second obtuse marginal artery. Endoscopic harvesting of the left greater saphenous vein. Intraoperative transesophageal echocardiogram and epi-aortic scanning. Intraoperative graft flow measurement using the Medistim system. History/Risk Factors: Morbid obesity. Uncontrolled diabetes type 2 with hemoglobin A1c 9.4%. Hypertension. Hyperlipidemia. Hypothyroidism. Clinical Indicators: Hgb: 7.5/7.9/8/7.8/7.4/6.6/8.8/9.5/8.3/8.4 HCT:23.3/24.5/25.2/24.2/23.5/20.2/27.9/24.7/26.2 Treatment: Transfusion of 1 unit PRBC's In order to accurately reflect this patients severity of illness, please clarify if the post-operative diagnosis is: An expected post-procedural or post-surgical condition Integral to the procedure Inherent to the procedure An unexpected post-procedural or post-surgical condition, related to surgical care Other, please specify Unable to determine Please also specify the type of anemia if present, Acute blood loss anemia Acute on chronic blood loss anemia Chronic blood loss anemia Iron deficiency anemia Hemolytic anemia Drug induced anemia Anemia of chronic disease Please document in your progress notes and discharge summary in order to capture severity of illness and risk of mortality. Include clinical findings that support your diagnosis. FYI: Press F11 to launch patient chart Place X here if this finding has no clinical significance, is not applicable or if you are not able to provide any additional documentation. ROBYN
--- NOTE | 2016-10-02 10:21 | P.PN ---
Subjective Principal diagnosis: Status post CABG This is a 66-year-old female who is status post coronary artery bypass grafting surgery, patient was seen and examined today, sitting up in the chair at bedside. Patient complained again of having an episode of shortness of breath through the night last night. She states that her breathing feels normal wall she is sitting up in the chair. Patient continues to be in a normal sinus rhythm with PACs. No evidence of atrial fibrillation. Hemoglobin 8.4, platelet count 179, potassium 3.8, BUN 12, creatinine 1.1. Blood pressure 114/ 56 with a heart rate in the 80s. Patient has been resumed on Lasix 40 mg daily. Objective - Vital Signs Vital signs: Vital Signs Temp 98.1 F 10/02/16 02:47 Pulse 84 10/02/16 09:07 Resp 16 10/02/16 02:47 BP 114/56 10/02/16 02:47 Pulse Ox 95 10/02/16 02:47 Intake & Output 10/01/16 10/02/16 10/02/16 18:59 06:59 18:59 Intake Total 824 10 100 Output Total 400 Balance 424 10 100 Weight 122.2 kg Intake: IV 24 10 0.9 flush 24 10 Oral 800 100 Output: Urine 400 Other: Voiding Method Toilet # Voids 1 1 ABP, PAP, CO, CI - Last Documented Arterial Blood Pressure 291/291 Pulmonary Artery Pressure 31/15 Cardiac Output 5 Cardiac Index 2.3 - Exam PHYSICAL EXAMINATION: HEENT: Head is atraumatic, normocephalic. Pupils equal, round. Neck is supple. There is no elevated jugular venous pressure. HEART EXAMINATION: Heart S1, S2 normal. No murmur or gallop heard. CHEST EXAMINATION: Lungs reveal diminished air entry to bilateral bases. ABDOMEN: Soft, nontender. Bowel sounds are heard. No organomegaly noted. EXTREMITIES: 2+ peripheral pulses with trace evidence of peripheral edema and no calf tenderness noted. Left leg greater than right. Mild swelling in bilateral hands noted NEUROLOGIC patient is awake, alert and oriented -3. . - Labs CBC & Chem 7: 10/02/16 06:20 10/02/16 06:20 Labs: Abnormal Lab Results - Last 24 Hours (Table) 10/01/16 10/01/16 10/01/16 Range/Units 11:30 16:44 20:29 RBC (3.80-5.40) m/uL Hgb (11.4-16.0) gm/dL Hct (34.0-46.0) % RDW (11.5-15.5) % Creatinine (0.52-1.04) mg/dL Glucose (74-99) mg/dL POC Glucose (mg/dL) 207 H 219 H 136 H (75-99) mg/dL 10/02/16 10/02/16 10/02/16 Range/Units 01:57 05:37 06:20 RBC 2.86 L (3.80-5.40) m/uL Hgb 8.4 L (11.4-16.0) gm/dL Hct 26.2 L (34.0-46.0) % RDW 16.5 H (11.5-15.5) % Creatinine (0.52-1.04) mg/dL Glucose (74-99) mg/dL POC Glucose (mg/dL) 142 H 146 H (75-99) mg/dL 10/02/16 Range/Units 06:20 RBC (3.80-5.40) m/uL Hgb (11.4-16.0) gm/dL Hct (34.0-46.0) % RDW (11.5-15.5) % Creatinine 1.16 H (0.52-1.04) mg/dL Glucose 149 H (74-99) mg/dL POC Glucose (mg/dL) (75-99) mg/dL Assessment and Plan (1) S/P CABG (coronary artery bypass graft) Status: Acute (2) CAD (coronary artery disease) Status: Acute (3) Diabetes mellitus Status: Acute (4) Hyperlipidemia Status: Acute (5) Hypertension Status: Acute (6) Morbid obesity with BMI of 40.0-44.9, adult Status: Acute Plan: From cardiology's perspective, we'll recommend to continue the patient on her current medications Lasix has been resumed. Arrangements being made for transfer to rehab. Overall progressing very well. DNP note has been reviewed, I agree with a documented findings and plan of care. Patient was seen and examined.
--- NOTE | 2016-10-02 10:38 | P.DS ---
Providers Date of admission: 09/26/16 05:43 Attending physician: Jamil Ariza Consults: 09/26/16 15:07 Consult Physician Routine Consulting Provider: Fei Meeks Consult Reason/Comments: Minister Helper Consult: post cardiac surgery Do you want consulting provider notified?: Yes Consult Physician Routine Consulting Provider: Bjorn Cha Consult Reason/Comments: medical managment Do you want consulting provider notified?: Yes Consult Physician Routine Consulting Provider: Arin Stewart Consult Reason/Comments: Commercial Accountant Consult: post cardiac surgery Do you want consulting provider notified?: Yes Primary care physician: Bjorn Cha - Discharge Diagnosis(es) (1) Uncontrolled type 2 diabetes mellitus Current Visit: Yes Status: Acute (2) History of coronary artery stent placement Current Visit: Yes Status: Acute (3) Hypothyroidism Current Visit: Yes Status: Acute (4) CAD (coronary artery disease) Current Visit: No Status: Acute (5) Hyperlipidemia Current Visit: No Status: Acute (6) Hypertension Current Visit: No Status: Acute (7) Morbid obesity with BMI of 40.0-44.9, adult Current Visit: No Status: Acute (8) Previous myocardial infarction older than 8 weeks Current Visit: Yes Status: Acute Hospital Course: FINAL DIAGNOSIS: 1.[ Angina with triple vessel coronary artery disease, status post prior stenting to the LAD and the diagonal artery] 2.[ Status post prior myocardial infarction] 3.[ Morbid obesity] 4.[ Uncontrolled diabetes type 2 with hemoglobin A1c 9.4%] 5.[ Hypertension] 6.[ Hyperlipidemia] 7.[ Hypothyroidism] 8.[ Renal insufficiency] 9.[ Obstructive sleep apnea, noncompliant with CPAP use] 10.[ Diabetic peripheral neuropathy] PRINCIPAL PROCEDURE: [] 1.[ Elective triple-vessel coronary artery bypass grafting using the left internal mammary artery to the left anterior descending artery, reverse saphenous vein graft from the aorta to the posterior descending artery, reverse saphenous vein graft from the aorta to the second obtuse marginal artery] 2.[ Endoscopic harvesting of the left greater saphenous vein] 3.[ Intraoperative transesophageal echocardiogram and epi-aortic scanning] 4.[ Intraoperative graft flow measurement using the Medistim system] HISTORY OF PRESENT ILLNESS: [This 66-year-old female was being followed by Dr. Stewart. Apparently she was exhibiting increased episodes of chest pain including at rest as well as increased fatigue. She was recommended to undergo cardiac catheterization which she had on 09/16/2016. This catheterization demonstrated significant progression of multivessel coronary artery disease. Dr. Ariza from cardiothoracic surgery was consulted for the possibility of surgical revascularization. An extensive discussion was had with the patient, risks and benefits were explained, and consent was obtained to proceed with surgery. The patient had preoperative testing while in the hospital and was subsequently discharged home to allow for Plavix metabolism, to be brought back in as an outpatient.] HOSPITAL COURSE:[ The patient was brought to the hospital on 09/26/2016, taken to the preoperative area, prepared in the usual fashion, and subsequently taken to the operating room where Dr. Ariza performed an elective coronary artery bypass grafting using the left internal mammary artery to the left anterior descending artery, reverse saphenous vein graft from the aorta to the posterior descending artery, reverse saphenous vein graft from the aorta to the second obtuse marginal artery, endoscopic harvesting of the left greater saphenous vein, intraoperative transesophageal echocardiogram, epi-aortic scanning, and intraoperative graft flow measurement using the Medistim system. Upon completion of surgery the patient was transferred to the cardiovascular intensive care unit where she was recovered, monitored hemodynamically, and where she progressed to cardiac rehabilitation phase 1. She was extubated, all lines, tubes, and drips were discontinued when appropriate and she was transferred to [address] [place] [address] for further monitoring and rehabilitation. Her oxygen was titrated down, she continued to work with physical therapy, and she was ready to be discharged to rehab on postoperative day #5 as she lives alone and has no support for her immediate postoperative care. She received written and verbal instruction regarding her medications, activity restrictions , signs and symptoms requiring physician notification, and follow-up appointments.] COMPLICATIONS: [The patient experienced no postoperative complications.] CONSULTATIONS: 1.[ Dr. Stewart for cardiology] 2.[ Dr. Meeks for pulmonology] 3.[ Dr. Cha for medical management] DISCHARGE INSTRUCTIONS: 1. No driving for 4 weeks, or until physician gives their ok. 2. The patient should sleep in their own bed, no medical bed needed. 3. Stairs are not an issue. If the bedroom is upstairs, it is advised that the patient go up at night and down in the morning for the first week. Go slowly, using handrail and take 1 step at a time. 4. NISHA hose are to be worn for 30 days or until physician discontinues. 5. Heart hugger is to be worn 100% of the time until physician discontinues.( except when showering) 6. No lifting, pushing, or pulling more than 10 pounds for 12 weeks. The physician will advise of any restriction changes. 7. The patient is expected to continue the prescribed walking program. 8. Continue pain control per as needed orders. 9. Continue with incentive spirometry and splinting/heart hugger until otherwise directed by the physician. 10. Must shower daily using liquid antibacterial soap and a separate white washcloth for each individual incision. 11. Routine sternal incision care. No powders, lotions, ointments on incisions. 12. Please call surgeon/BAG CUTTER for temp greater than 101 F or purulent drainage from incisions. REHAB SERVICES TO PROVIDE: RN SKILLED HOME CARE SERVICES FOR POST-OP SURGICAL PATIENTS WITH THE FOLLOWING: Coronary Artery Bypass Surgery (CABG), Mitral Valve Replacement/ Repair ( MVR), Aortic Valve Replacement/Repair (AVR) RN TO CONTINUE EDUCATION FROM ``ROAD TO A HEALTH HEART PATIENT EDUCATION MANUAL (GIVEN TO PATIENT IN THE HOSPITAL) MEDICATION RECONCILIATION WITH EDUCATION NEEDED ON FIRST HOME VISIT EMPHASIZE IMPORTANCE OF WEARING BREAST SUPPORT/HEART HUGGER ENCOURAGE USE OF INCENTIVE SPIROMETER 10 X EVERY HOUR WHILE AWAKE ENCOURAGE UTILIZATION OF LOWER EXTREMITY COMPRESSION STOCKINGS/NISHA HOSE and ELEVATE LEGS ABOVE LEVEL OF HEART WHILE AT REST. ENCOURAGE AMBULATION 3-5x/day INCREASING TOLERATES, WHILE AVOID EXTREMES IN TEMPERATURE FREQUENCY: RN TO OPEN THE PATIENT WITHIN 24 HOURS OF DISCHARGE FROM THE HOSPITAL WITH TELEHEALTH INSTALLED AT [facility] [place] TO VISIT 2-3 X A WEEK FOR 4 WEEKS ESTABLISHED BY PATIENT NEEDS. REMOVAL OF SUTURES: NURSING SERVICES TO REMOVE SUTURES TWO WEEKS POST SURGICAL DATE [ default ]. If any questions regarding suture removal please call the office at [phone]. LABORATORY: CBC, CMP TO BE DRAWN ON THE THIRD DAY HOME, 12/14/2015 (RAN STAT ) FAX RESULTS TO [phone]. TELEHEALTH PARAMETERS: WEIGHT: NOTIFY MD OF WEIGHT GAIN OF 2 LBS IN 24 HOURS OR 5 LBS IN ONE WEEK HR: NOTIFY MD OF HR <55 BPM OR HR>100 BPM BP: NOTIFY MD IF BP <90/55 OR BP>140/100 O2 SAT: NOTIFY MD IF PO2<93% ON ROOM AIR SEND TELEHEALTH REPORT TO AIR AND WATER FILLER AND CARDIOVASCULAR SURGEON THE FIRST WEEK OF CARE AND THEN BI-WEEKLY. PLEASE ADDITIONALLY COMMUNICATE ANY ABNORMALS AND NEW FINDINGS TO THE SURGEONS OFFICE. Plan - Discharge Summary New Discharge Prescriptions: New Aspirin 325 mg PO DAILY tab Atorvastatin [Lipitor] 40 mg PO DAILY tab HYDROcodone/APAP 5-325MG [[place] 5-325] 1 - 2 each PO Q6HR PRN #120 tab PRN Reason: Severe Pain INSULIN LISPRO (humaLOG) [humaLOG (formulary)] 13 unit SQ AC-SUPPER vial Insulin NPH [humuLIN N] 13 unit SQ HS vial Insuln Asp Prt/Insulin Aspart [NovoLOG MIX 70-30 VIAL] 50 unit SQ AC-BRKFST vial Ipratropium-Albuterol Nebulize [Duoneb 0.5 mg-3 mg/3 ml Soln] 3 ml INHALATION RT-Q2H PRN neb PRN Reason: Shortness Of Breath Or Wheezing Ipratropium-Albuterol Nebulize [Duoneb 0.5 mg-3 mg/3 ml Soln] 3 ml INHALATION RT-QID neb Magnesium Hydroxide [Milk of Magnesia Concentrate] 2,400 mg PO BID PRN dose PRN Reason: Constipation Metoprolol Tartrate [Lopressor] 50 mg PO BID tab Pantoprazole [Protonix] 40 mg PO AC-BRKFST tab Sennosides-Docusate Sodium [Senokot-S] 2 each PO HS tab Continue Levothyroxine Sodium [Synthroid] 75 mcg PO DAILY Furosemide [Lasix] 40 mg PO DAILY Cholecalciferol [Vitamin D3] 1,000 unit PO DAILY Allopurinol [Zyloprim] 100 mg PO DAILY Pregabalin [Lyrica] 150 mg PO BID Clopidogrel [Plavix] 75 mg PO DAILY Cyanocobalamin (Vitamin B-12) [Vitamin B-12] 2,000 mcg PO DAILY Discontinued Insulin Aspart [NovoLOG] See Protocol SQ CONTINUOUS Atorvastatin [Lipitor] 80 mg PO HS #30 tab Metoprolol Tartrate [Lopressor] 25 mg PO BID #60 tab Nitroglycerin Sl Tabs [Nitrostat] 0.4 mg SUBLINGUAL Q5M PRN #25 tab PRN Reason: Chest Pain Aspirin EC [Ecotrin Low Dose] 81 mg PO HS Isosorbide Mononitrate ER [Imdur] 15 mg PO DAILY tab Discharge Medication List Allopurinol [Zyloprim] 100 mg PO DAILY 06/17/15 [History] Cholecalciferol [Vitamin D3] 1,000 unit PO DAILY 06/17/15 [History] Furosemide [Lasix] 40 mg PO DAILY 06/17/15 [History] Levothyroxine Sodium [Synthroid] 75 mcg PO DAILY 06/17/15 [History] Pregabalin [Lyrica] 150 mg PO BID 06/17/15 [History] Clopidogrel [Plavix] 75 mg PO DAILY 09/20/16 [History] Cyanocobalamin (Vitamin B-12) [Vitamin B-12] 2,000 mcg PO DAILY 09/26/16 [ History] Aspirin 325 mg PO DAILY tab 10/02/16 [Rx] Atorvastatin [Lipitor] 40 mg PO DAILY tab 10/02/16 [Rx] HYDROcodone/APAP 5-325MG [[place] 5-325] 1 - 2 each PO Q6HR PRN #120 tab 10/02/16 [Rx] INSULIN LISPRO (humaLOG) [humaLOG (formulary)] 13 unit SQ AC-SUPPER vial [Rx] Insulin NPH [humuLIN N] 13 unit SQ HS vial 10/02/16 [Rx] Insuln Asp Prt/Insulin Aspart [NovoLOG MIX 70-30 VIAL] 50 unit SQ AC-BRKFST vial 10/02/16 [Rx] Ipratropium-Albuterol Nebulize [Duoneb 0.5 mg-3 mg/3 ml Soln] 3 ml INHALATION RT -Q2H PRN neb 10/02/16 [Rx] Ipratropium-Albuterol Nebulize [Duoneb 0.5 mg-3 mg/3 ml Soln] 3 ml INHALATION RT -QID neb 10/02/16 [Rx] Magnesium Hydroxide [Milk of Magnesia Concentrate] 2,400 mg PO BID PRN dose 11/11 [Rx] Metoprolol Tartrate [Lopressor] 50 mg PO BID tab 10/02/16 [Rx] Pantoprazole [Protonix] 40 mg PO AC-BRKFST tab 10/02/16 [Rx] Sennosides-Docusate Sodium [Senokot-S] 2 each PO HS tab 10/02/16 [Rx] Follow up Appointment(s)/Referral(s): Arin Stewart MD [STAFF PHYSICIAN] - 2 Weeks (Dr. Stewart's office will call with appointment time) Jamil Ariza MD [STAFF PHYSICIAN] - 10/25/16 10:30 am Fei Meeks DO [Doctor of Osteopathic Medicine] - 10/24/16 1:30 pm Bjorn Cha MD [Primary Care Provider] - As Needed (Dr. Cha to follow patient at [facility]) Ambulatory/Diagnostic Orders: Complete Blood Count w/diff [LAB.AMB] Time Frame: 3 Days, Location: Determined By Patient Comprehensive Metabolic Panel [LAB.AMB] Time Frame: 3 Days, Location: Determined By Patient Discharge Disposition: TRANSFER TO SNF/ECF
[2016-10-02 11:41] VITALS: RESP 18
[2016-10-02 11:49] LABS: Glucose,Whole Blood 175 mg/dL (75-99)
[2016-10-02] MEDS: CYANOCOBALAMIN 500 MCG TAB PO SCH (12:11)
[2016-10-02] MEDS: CHOLECALCIFEROL 1,000 UNIT TAB PO SCH (12:11)
--- NOTE | 2016-10-02 13:51 | P.PN ---
Subjective Principal diagnosis: Coronary artery disease This is a very pleasant 66-year-old female patient who follows with Dr. Cha as her primary care physician. She has a history of diabetes mellitus, hypertension, hyperlipidemia, morbid obesity, sleep apnea, peripheral neuropathy , hypothyroidism, coronary artery disease with previous stenting to the LAD and the diagonal artery. She was also found to have coronary artery disease and presented for elective coronary artery bypass grafting yesterday. Dr. Ariza performed the surgery utilizing a SIMS to the LAD, reverse saphenous vein graft to the PDA and second obtuse marginal artery. This is postoperative day #6. She is doing quite well. She is currently sitting up in the chair at the bedside. She has no pulmonary complaints. No significant cough or congestion. No significant dyspnea on exertion. Working well with her incentive spirometer. Maintaining good O2 saturations in the 90s on room air. Afebrile. No leukocytosis. Hemoglobin stable at 8.4. Objective - Vital Signs Vital signs: Vital Signs Temp 97.6 F 10/02/16 08:40 Pulse 84 10/02/16 12:21 Resp 18 10/02/16 08:40 BP 126/58 10/02/16 11:09 Pulse Ox 96 10/02/16 11:09 Intake & Output 10/01/16 10/02/16 10/02/16 18:59 06:59 18:59 Intake Total 824 10 100 Output Total 400 Balance 424 10 100 Weight 122.2 kg Intake: IV 24 10 0.9 flush 24 10 Oral 800 100 Output: Urine 400 Other: Voiding Method Toilet # Voids 1 1 ABP, PAP, CO, CI - Last Documented Arterial Blood Pressure 291/291 Pulmonary Artery Pressure 31/15 Cardiac Output 5 Cardiac Index 2.3 - Exam GENERAL EXAM: Alert, comfortable in no apparent distress. HEAD: Normocephalic. EYES: Normal reaction of pupils, equal size. NOSE: Clear with pink turbinates. THROAT: No erythema or exudates. NECK: No masses, no JVD. CHEST: Dressing is dry and intact. LUNGS: Equal air entry with no crackles, wheeze or rhonchi. CVS: S1 and S2 normal with no audible murmur, regular rhythm. ABDOMEN: No hepatosplenomegaly, normal bowel sounds, no guarding or rigidity. SPINE: No scoliosis or deformity SKIN: No rashes CENTRAL NERVOUS SYSTEM: No focal deficits, tone is normal in all 4 extremities. Extremities: There is trace peripheral edema. No clubbing, no cyanosis. Peripheral pulses are intact. - Labs CBC & Chem 7: 10/02/16 06:20 10/02/16 06:20 Labs: Abnormal Lab Results - Last 24 Hours (Table) 10/01/16 10/01/16 10/02/16 Range/Units 16:44 20:29 01:57 RBC (3.80-5.40) m/uL Hgb (11.4-16.0) gm/dL Hct (34.0-46.0) % RDW (11.5-15.5) % Creatinine (0.52-1.04) mg/dL Glucose (74-99) mg/dL POC Glucose (mg/dL) 219 H 136 H 142 H (75-99) mg/dL 10/02/16 10/02/16 10/02/16 Range/Units 05:37 06:20 06:20 RBC 2.86 L (3.80-5.40) m/uL Hgb 8.4 L (11.4-16.0) gm/dL Hct 26.2 L (34.0-46.0) % RDW 16.5 H (11.5-15.5) % Creatinine 1.16 H (0.52-1.04) mg/dL Glucose 149 H (74-99) mg/dL POC Glucose (mg/dL) 146 H (75-99) mg/dL 10/02/16 Range/Units 11:48 RBC (3.80-5.40) m/uL Hgb (11.4-16.0) gm/dL Hct (34.0-46.0) % RDW (11.5-15.5) % Creatinine (0.52-1.04) mg/dL Glucose (74-99) mg/dL POC Glucose (mg/dL) 175 H (75-99) mg/dL Assessment and Plan Plan: Impression: #1 Coronary artery disease status post coronary artery bypass grafting utilizing a SIMS to the LAD, reverse saphenous vein grafts to the PDA and obtuse marginal branch. Post operative day #6. #2 Ventilator dependent secondary to thoracotomy, expected outcome. Successfully extubated to nasal cannula. #3 History of coronary artery disease with previous stent placements to the LAD and diagonal artery. #4 Morbid obesity. #5 Hypertension. #6 Hyperlipidemia. #7 Hypothyroidism. #8 Obstructive sleep apnea. Plan: The patient was seen and evaluated by Dr. Leonard. She is stable from the pulmonary and critical care standpoint. The plan is to transfer for inpatient rehabilitation. She'll follow-up in our office in 1-2 weeks' time. She is however encouraged to call sooner with any other questions or concerns.
[2016-10-02 14:38] VITALS: BP 118/67; PULSE 90; TEMP 98.4
[2016-10-04 08:48] LABS: ABG Base Excess 2.1 mmol/L; ABG HCO3 27 mmol/L (21-25); ABG Oxygen Saturation 99.8 % (94-97); ABG PCO2 45 mmHg (35-45); ABG PH 7.39 (7.35-7.45); ABG PO2 223 mmHg (83-108); ABG TCO2 28 mmol/L (19-24)
[2016-10-04 08:49] LABS: ABG Base Excess -0.2 mmol/L; ABG HCO3 24 mmol/L (21-25); ABG Oxygen Saturation 97.5 % (94-97); ABG PCO2 39 mmHg (35-45); ABG PH 7.41 (7.35-7.45); ABG PO2 95 mmHg (83-108); ABG TCO2 25 mmol/L (19-24)
[2016-10-04 08:50] LABS: ABG Base Excess -2.4 mmol/L; ABG HCO3 24 mmol/L (21-25); ABG Oxygen Saturation 99.4 % (94-97); ABG PCO2 50 mmHg (35-45); ABG PO2 171 mmHg (83-108); ABG TCO2 25 mmol/L (19-24)
[2016-10-04 08:51] LABS: ABG Base Excess -2.3 mmol/L; ABG HCO3 23 mmol/L (21-25); ABG Oxygen Saturation 99.8 % (94-97); ABG PCO2 42 mmHg (35-45); ABG PH 7.35 (7.35-7.45); ABG PO2 255 mmHg (83-108); ABG TCO2 24 mmol/L (19-24)
[2016-10-04 08:52] LABS: ABG PCO2 43 mmHg (35-45); ABG PH 7.31 (7.35-7.45); ABG PO2 311 mmHg (83-108)
[2016-10-04 08:53] LABS: ABG PCO2 43 mmHg (35-45); ABG PH 7.32 (7.35-7.45); ABG PO2 333 mmHg (83-108)
[2016-10-04 08:53] LABS: ABG Base Excess -4.2 mmol/L; ABG HCO3 21 mmol/L (21-25); ABG Oxygen Saturation 99.9 % (94-97); ABG TCO2 23 mmol/L (19-24)
[2016-10-04 08:54] LABS: ABG Base Excess -3.5 mmol/L; ABG HCO3 22 mmol/L (21-25); ABG Oxygen Saturation 99.9 % (94-97); ABG TCO2 23 mmol/L (19-24)
[2016-10-04 08:55] LABS: ABG Base Excess -2.4 mmol/L; ABG HCO3 22 mmol/L (21-25); ABG Oxygen Saturation 99.7 % (94-97); ABG PCO2 38 mmHg (35-45); ABG PH 7.38 (7.35-7.45); ABG PO2 211 mmHg (83-108); ABG TCO2 23 mmol/L (19-24)
== END 2016-10-02 15:18 | DRG 236 ==
LOC: 2ORMAIN 05:43 → 6ICU 16:56 → 6SEL 09-29 14:41
PROVIDERS: ADMIT Surgery; ATTEND Surgery
PROC: 06BQ0ZZ Excision of Left Saphenous Vein, Open Approach (ICD-10-PCS; 2016-09-26)
PROC: 5A1221Z Performance of Cardiac Output, Continuous (ICD-10-PCS; 2016-09-26)
PROC: 021109W Bypass Coronary Artery, Two Arteries from Aorta with Autologous Venous Tissue, Open Approach (ICD-10-PCS; principal; 2016-09-26 08:00)
PROC: 02100Z9 Bypass Coronary Artery, One Artery from Left Internal Mammary, Open Approach (ICD-10-PCS; 2016-09-26 08:00)
PROC: 30240N1 Transfusion of Nonautologous Red Blood Cells into Central Vein, Open Approach (ICD-10-PCS; 2016-09-29)
DX: I25.119 Atherosclerotic heart disease of native coronary artery with unspecified angina pectoris (principal); D62 Acute posthemorrhagic anemia; J98.11 Atelectasis; I13.0 Hypertensive heart and chronic kidney disease with heart failure and stage 1 through stage 4 chronic kidney disease, or unspecified chronic kidney disease; E11.22 Type 2 diabetes mellitus with diabetic chronic kidney disease; E11.42 Type 2 diabetes mellitus with diabetic polyneuropathy; I50.9 Heart failure, unspecified; E03.9 Hypothyroidism, unspecified; E11.65 Type 2 diabetes mellitus with hyperglycemia; E66.01 Morbid (severe) obesity due to excess calories; E78.5 Hyperlipidemia, unspecified; G47.33 Obstructive sleep apnea (adult) (pediatric); I25.2 Old myocardial infarction; K76.0 Fatty (change of) liver, not elsewhere classified; M10.9 Gout, unspecified; N18.9 Chronic kidney disease, unspecified; R01.1 Cardiac murmur, unspecified; Z68.41 Body mass index [BMI] 40.0-44.9, adult; Z79.02 Long term (current) use of antithrombotics/antiplatelets; Z79.82 Long term (current) use of aspirin; Z79.899 Other long term (current) drug therapy; Z83.3 Family history of diabetes mellitus; Z98.84 Bariatric surgery status; Z96.41 Presence of insulin pump (external) (internal); Z95.5 Presence of coronary angioplasty implant and graft; Z91.19 Patient's noncompliance with other medical treatment and regimen; Z88.0 Allergy status to penicillin; Z88.2 Allergy status to sulfonamides; Z82.49 Family history of ischemic heart disease and other diseases of the circulatory system
CPT/HCPCS: 36620; 71010; 71020; 80048; 80053; 82330; 82805; 83036; 83735; 84100; 85025; 85520; 85610; 85730; 86850; 86891; 86900; 86901; 86920; 94002; 94640; 94760

== ENCOUNTER → 2016-11-08 | Outpatient (CLI) | payer MEDICARE, BC ==
[2016-11-08 11:28] LABS: Calcium 9.7 mg/dL (8.4-10.2); Phosphorous 3.6 mg/dL (2.5-4.5); Potassium 4.1 mmol/L (3.5-5.1); Total Bilirubin 0.6 mg/dL (0.2-1.3); Total Protein 6.8 g/dL (6.3-8.2); Uric Acid 6.4 mg/dL (3.7-7.4)
[2016-11-08 11:37] LABS: % Iron Saturation 15.7 % (20-50)
--- NOTE | 2016-11-08 11:58 | XR ---
Lumbosacral spine HISTORY: Low back pain 5 views of the lumbosacral spine No comparisons Patient is post lap band. There is no spondylolysis evident. Anterolisthesis grade 1 L4-5. Loss of di sc height L4-5 and L5-S1. Marked spondylosis is present especially in the lower thoracic spine. Scler osis present in the posterior elements of the lower lumbar spine. Atherosclerotic vascular calcificat ions are present in the aorta and iliac locations. IMPRESSION: Degenerative disc disease, facet arthropathy. Postop changes.
--- NOTE | 2016-11-08 12:00 | XR ---
Sacroiliac joints HISTORY: Back and hip pain 2 views of the sacroiliac joints are submitted. There is no ankylosis or erosion. Sacroiliac joints are intact, no evident eburnation. Bone mineraliz ation and alignment are maintained. Mild marginal spurring present. IMPRESSION: Mild osteoarthritic changes.
[2016-11-08 12:15] LABS: Basophils % (A) 1 %; CH 25.7; CHCM 31.4; Eosinophils # (A) 0.3 k/uL (0-0.7); Eosinophils % (A) 6 %; HCT 38.6 % (34.0-46.0); HDW 3.67; Hypochromasia Moderate; Luc # (Auto) 0.11; Luc % (Auto) 2; Lymphocytes # (A) 1.5 k/uL (1.0-4.8); Lymphocytes % (A) 25 %; MCH 26.7 pg (25.0-35.0); MCHC 32.5 g/dL (31.0-37.0); Mean Platelet Volume 9.3; Monocytes # (A) 0.4 k/uL (0-1.0); Monocytes % (A) 7 %; Neutrophils # (A) 3.7 k/uL (1.3-7.7); Neutrophils % (A) 61 %; Poikilocytosis Slight; RBC 4.71 m/uL (3.80-5.40); RDW 15.1 % (11.5-15.5); WBC (Perox) 5.85
[2016-11-08 12:16] LABS: HGB 12.6 gm/dL (11.4-16.0)
[2016-11-08 12:17] LABS: MCV 82.1 fL (80.0-100.0)
[2016-11-08 13:57] LABS: Hemoglobin A1C 7.1 % (4.2-6.1)
== END | disposition home or self-care (01) ==
LOC: LABWHC1 10:25
PROVIDERS: ATTEND Internal Medicine Interventional Cardiology
DX: M51.36 Other intervertebral disc degeneration, lumbar region (principal); M46.96 Unspecified inflammatory spondylopathy, lumbar region; M53.3 Sacrococcygeal disorders, not elsewhere classified; D64.9 Anemia, unspecified; E11.9 Type 2 diabetes mellitus without complications; E55.9 Vitamin D deficiency, unspecified; E78.2 Mixed hyperlipidemia; E78.5 Hyperlipidemia, unspecified; J44.9 Chronic obstructive pulmonary disease, unspecified; Z95.1 Presence of aortocoronary bypass graft; Z98.890 Other specified postprocedural states
CPT/HCPCS: 36415; 72110; 72202; 80053; 80061; 82306; 82728; 83036; 83540; 83550; 83735; 83970; 84100; 84439; 84443; 84550; 85025

== ENCOUNTER → 2017-01-15 | Outpatient (CLI) | payer MEDICARE, BC ==
[2017-01-15 12:15] LABS: Magnesium 1.9 mg/dL (1.6-2.3); Potassium 4.1 mmol/L (3.5-5.1); Total Bilirubin 0.5 mg/dL (0.2-1.3); Total Protein 6.6 g/dL (6.3-8.2)
== END | disposition home or self-care (01) ==
LOC: LABWHC1 11:26
PROVIDERS: ATTEND Internal Medicine Interventional Cardiology
DX: I49.8 Other specified cardiac arrhythmias (principal)
CPT/HCPCS: 36415; 80053; 83735

== ENCOUNTER → 2017-04-29 | Outpatient (CLI) | payer MEDICARE, BC ==
[2017-04-29 10:36] LABS: Albumin 4.2 g/dL (3.5-5.0); Calcium 10.2 mg/dL (8.4-10.2); Potassium 4.3 mmol/L (3.5-5.1); Total Bilirubin 0.6 mg/dL (0.2-1.3); Total Protein 7.2 g/dL (6.3-8.2)
[2017-04-29 10:59] LABS: Creatinine,Urine Random 115.3 mg/dL
[2017-04-29 11:04] LABS: C Reactive Protein 12.2 mg/L (<10.0)
[2017-04-29 12:15] LABS: Erythrocyte Sedimentation Rate 14 mm/hr (0-20)
[2017-04-29 13:51] LABS: Basophils # (A) 0.1 k/uL (0-0.2); Basophils % (A) 1 %; Eosinophils # (A) 0.3 k/uL (0-0.7); Eosinophils % (A) 5 %; HCT 45.5 % (34.0-46.0); HGB 14.9 gm/dL (11.4-16.0); Lymphocytes # (A) 1.4 k/uL (1.0-4.8); Lymphocytes % (A) 27 %; MCH 27.9 pg (25.0-35.0); MCHC 32.8 g/dL (31.0-37.0); Mean Platelet Volume 9.6; Monocytes # (A) 0.5 k/uL (0-1.0); Monocytes % (A) 9 %; Neutrophils # (A) 3.1 k/uL (1.3-7.7); Neutrophils % (A) 57 %; Platelet Count 183 k/uL (150-450); RBC 5.35 m/uL (3.80-5.40); RDW 14.8 % (11.5-15.5); WBC 5.4 k/uL (3.8-10.6)
== END | disposition home or self-care (01) ==
LOC: LABWHC1 09:55
PROVIDERS: ATTEND Internal Medicine Interventional Cardiology
DX: E78.2 Mixed hyperlipidemia (principal); N18.4 Chronic kidney disease, stage 4 (severe)
CPT/HCPCS: 36415; 80053; 80061; 82550; 82570; 84156; 85025; 85652; 86140

== ENCOUNTER → 2017-06-26 | Outpatient (CLI) | payer MEDICARE, BC ==
--- NOTE | 2017-06-26 14:03 | US ---
EXAMINATION TYPE: US kidneys/renal and bladder DATE OF EXAM: 06/26/2017 COMPARISON:2014 renal US CLINICAL HISTORY: N18.4 Chronic Kidney Disease stage 4. Large body habitus limited visualization EXAM MEASUREMENTS: Right Kidney: 9.0 x 3.9 x 4.8 cm Left Kidney: 9.7 x 4.4 x 3.7 cm Post Void Residual Volume: 12.9 mL Right Kidney: No hydronephrosis or masses seen Left Kidney: possible small cyst lower pole 1.3 x 1.5 x 1.3 cm Bladder: limited Bilateral Jets seen: No Normal Post Void Residual: Yes There is no evidence for hydronephrosis at this point in time. No nephrolithiasis is seen. Technolog ist mueller lower pole lesion left kidney likely corresponds to simple appearing cysts seen on prior ex am, measurements are slightly smaller and the lesion is less well-seen on current study. The urinary bladder is poorly distended and thus suboptimally evaluated. Bilateral ureteral jets are not seen. IMPRESSION: No hydronephrosis is evident bilaterally.
== END | disposition home or self-care (01) ==
LOC: RADUSWWP 12:14
PROVIDERS: ATTEND Internal Medicine
DX: N18.4 Chronic kidney disease, stage 4 (severe) (principal); Z88.0 Allergy status to penicillin; Z88.2 Allergy status to sulfonamides
CPT/HCPCS: 76770

== ENCOUNTER → 2017-11-26 | Outpatient (CLI) | payer MEDICARE, BC ==
[2017-11-26 10:59] LABS: ALT 32 U/L (9-52); AST 29 U/L (14-36); Cholesterol 163 mg/dL (<200); HDL Cholesterol 32 mg/dL (40-60); LDL Cholesterol,Calculated 52 mg/dL (0-99); Triglycerides 393 mg/dL (<150)
== END | disposition home or self-care (01) ==
LOC: LABWHC1 09:52
PROVIDERS: ATTEND Nurse Practitioner Adult Health
DX: E78.2 Mixed hyperlipidemia (principal)
CPT/HCPCS: 36415; 80061; 84450; 84460

== ENCOUNTER → 2017-12-02 | Outpatient (CLI) | payer MEDICARE, BC ==
--- NOTE | 2017-12-03 10:00 | MM ---
Reason for exam: clinical finding. Last mammogram was performed 1 year and 9 months ago. History: Patient is postmenopausal and had first child at age 33. Family history of breast cancer in mother at age 69. Took estrogen for 20 years beginning at age 38. Taking other hormone for 40 years beginning at age 18. Physical Findings: Nurse did not find any significant physical abnormalities on exam. MG 3D Diag Mammo W/Cad BRIGID Bilateral CC, MLO, and CV view(s) were taken. Prior study comparison: March 11, 2016, bilateral MG 3d screening mammo w/cad. December 07, 2013, bilateral MG screening mammo w CAD. There are scattered fibroglandular densities. No significant new findings when compared with previous films. These results were verbally communicated with the patient and result sheet given to the patient on 12/02/17. ASSESSMENT: Benign, BI-RAD 2 RECOMMENDATION: Routine screening mammogram of both breasts in 1 year.
--- NOTE | 2017-12-03 10:01 | USB ---
Reason for exam: clinical finding. History: Patient is postmenopausal and had first child at age 33. Family history of breast cancer in mother at age 69. Took estrogen for 20 years beginning at age 38. Taking other hormone for 40 years beginning at age 18. US Breast RT Right complete breast ultrasound includes all four quadrants, the retroareolar region and axilla. Finding demonstrates a 0.3 x 0.3 x 0.3cm lesion too small to characterize at 10 o'clock. These results were verbally communicated with the patient and result sheet given to the patient on 12/02/17. ASSESSMENT: Probably benign, BI-RAD 3 RECOMMENDATION: Ultrasound of the right breast in 6 months.
== END | disposition home or self-care (01) ==
LOC: RADMAMWWP 14:04
PROVIDERS: ATTEND Internal Medicine
DX: S20.01XA Contusion of right breast, initial encounter (principal); N63.10 Unspecified lump in the right breast, unspecified quadrant
CPT/HCPCS: 77066; 76641; G0279; 77062

== ENCOUNTER → 2017-12-18 | Outpatient (CLI) | payer MEDICARE, BC ==
[2017-12-18 14:10] LABS: Calcium 9.8 mg/dL (8.4-10.2); Potassium 4.5 mmol/L (3.5-5.1); Uric Acid 6.5 mg/dL (3.7-7.4)
[2017-12-18 18:58] LABS: Rheumatoid Factor 11 IU/mL (0-15)
[2017-12-18 21:43] LABS: Anti-DNA, DS unit <1.0 IU/mL; DNA Double-Stranded NEGATIVE (NEGATIVE)
== END | disposition home or self-care (01) ==
LOC: LABWHC1 10:53
PROVIDERS: ATTEND Internal Medicine
DX: E87.8 Other disorders of electrolyte and fluid balance, not elsewhere classified (principal); M10.9 Gout, unspecified; N18.3 Chronic kidney disease, stage 3 (moderate); M46.1 Sacroiliitis, not elsewhere classified; D89.89 Other specified disorders involving the immune mechanism, not elsewhere classified
CPT/HCPCS: 36415; 80048; 84550; 85652; 86038; 86225; 86431

== ENCOUNTER → 2018-02-19 | Outpatient (CLI) | payer MEDICARE, BC ==
[2018-02-19 11:22] LABS: Anisocytosis Slight; Basophils % (A) 1 %; Eosinophils # (A) 0.3 k/uL (0-0.7); Eosinophils % (A) 3 %; HCT 43.3 % (34.0-46.0); HGB 13.7 gm/dL (11.4-16.0); Lymphocytes # (A) 1.4 k/uL (1.0-4.8); Lymphocytes % (A) 19 %; MCH 26.9 pg (25.0-35.0); MCHC 31.7 g/dL (31.0-37.0); MCV 84.9 fL (80.0-100.0); Mean Platelet Volume 8.4; Monocytes # (A) 0.5 k/uL (0-1.0); Monocytes % (A) 6 %; Neutrophils # (A) 5.1 k/uL (1.3-7.7); Neutrophils % (A) 69 %; Platelet Count 189 k/uL (150-450); RDW 16.5 % (11.5-15.5); WBC 7.4 k/uL (3.8-10.6)
[2018-02-19 13:27] LABS: Erythrocyte Sedimentation Rate 17 mm/hr (0-20)
[2018-02-19 15:29] LABS: Parathyroid Hormone Intact 68.7 pg/mL (14.0-72.0)
[2018-02-19 15:39] LABS: Vitamin D 25 Hydroxy 29.9 ng/mL (30.0-100.0)
[2018-02-19 15:49] LABS: Albumin 4.3 g/dL (3.80-4.90); Albumin/Globulin Ratio 2.05 (1.20-2.10); Anion Gap 6.9 mmol/L (4.00-12.00); C Reactive Protein 1.4 mg/dL (0.0-0.8); Calcium 9.2 mg/dL (8.7-10.3); Carbon Dioxide 29.1 mmol/L (21.6-31.8); Globulin 2.1 g/dL (2.1-3.7); LDL Cholesterol,Calculated 78.2 mg/dL (0.0-131.0); Magnesium 2.1 mg/dL (1.5-2.4); Phosphorus 3.1 mg/dL (2.4-5.1); Potassium 4.2 mmol/L (3.5-5.5); Total Bilirubin 0.7 mg/dL (0.3-1.2); Total Protein 6.4 g/dL (6.2-8.2); Uric Acid 7.5 mg/dL (2.9-7.7); VLDL Calculation 63.8 mg/dL (5.00-40.00)
[2018-02-19 15:57] LABS: T4, Free (Free Thyroxine) 1.1 ng/dL (0.80-1.80)
[2018-02-19 18:51] LABS: Hemoglobin A1C 8.5 % (4.0-6.0)
== END | disposition home or self-care (01) ==
LOC: LABWHC1 10:23
PROVIDERS: ATTEND Internal Medicine
DX: E11.22 Type 2 diabetes mellitus with diabetic chronic kidney disease (principal); I12.9 Hypertensive chronic kidney disease with stage 1 through stage 4 chronic kidney disease, or unspecified chronic kidney disease; N18.3 Chronic kidney disease, stage 3 (moderate); E78.5 Hyperlipidemia, unspecified; E21.3 Hyperparathyroidism, unspecified; E55.9 Vitamin D deficiency, unspecified
CPT/HCPCS: 36415; 80053; 80061; 82306; 82550; 83036; 83735; 83970; 84100; 84439; 84443; 84550; 85025; 85652; 86140

== ENCOUNTER → 2018-03-04 | Outpatient (CLI) | payer MEDICARE, BC ==
--- NOTE | 2018-03-04 16:37 | MR ---
EXAMINATION TYPE: MR lumbar spine wo/w con DATE OF EXAM: 03/04/2018 COMPARISON: None HISTORY: Spinal Stenosis of lumbar region CONTRAST: 10 mL intravenous Gadavist. TECHNIQUE: Multiplanar, multisequence images of the lumbar spine were acquired. FINDINGS: L5-S1: No significant disc bulge or disc herniation. No spinal canal stenosis. No foraminal stenosi s. Facet hypertrophy is present. L4-L5: There is a grade 1 spondylolisthesis of L4 anterior and L5. Disc uncovering is present with mo derate anterior thecal sac flattening. Facet hypertrophy and ligamentum flavum laxity is present. Thi s is contributing to AP spinal canal stenosis of 0.9 cm. Moderate right and mild left foraminal steno sis is present. L3-L4: Minimal disc bulge is anterior thecal sac flattening. No AP spinal canal stenosis or neural fo raminal stenosis is present. No spinal canal stenosis. No foraminal stenosis. . L2-L3: No significant disc bulge or disc herniation. No spinal canal stenosis. No foraminal stenosi s. Neural foramen are patent.. L1-L2: Minimal disc bulging is anterior thecal sac contact. No AP spinal canal stenosis is present. No spinal canal stenosis. No foraminal stenosis. . T12-L1: No significant disc bulge or disc herniation. No spinal canal stenosis. No foraminal stenos is. T11-T12: There is loss of disc height. Endplate changes are present. No AP spinal canal stenosis pres ent. Minimal posterior lateral thecal sac contact from facet hypertrophy is present. Neural foramen a re patent. No abnormal enhancement is evident. IMPRESSION: 1. Disc uncovering with facet hypertrophy is contributing to spinal canal stenosis at L4-5. Bilateral foraminal stenosis is present, greater on the right than left. 2. Minimal disc bulge L1-2, T11-12.
== END | disposition home or self-care (01) ==
LOC: RADMRIMAIN 08:33
PROVIDERS: ATTEND Psychiatry & Neurology Neurology
DX: M48.061 Spinal stenosis, lumbar region without neurogenic claudication (principal); M99.73 Connective tissue and disc stenosis of intervertebral foramina of lumbar region; M51.25 Other intervertebral disc displacement, thoracolumbar region
CPT/HCPCS: 72158; A9585

== ENCOUNTER → 2018-03-24 | Outpatient (CLI) | payer MEDICARE, BC ==
[2018-03-24 15:04] VITALS: BP 117/75; PULSE 81; TEMP 98.8; BMI 39.8
--- NOTE | 2018-03-24 15:27 | P.BASOAP ---
Subjective Progress Note Date: 03/24/18 Principal diagnosis: Morbid obesity Patient has not been seen in quite some time. She had a lap band placed in 2007. This was a AP large. She is unsure how much fluid is in the band. She still has some issues with dysphagia to eggs and mushrooms. Overall her restriction is decreased however. She would like to try to have a lap band adjustment because of a slight increase in appetite. She had a recent heart surgery. After her heart surgery her weight had gone down to approximately 220. Today she is 239 and feels much more fatigued as the result of the increased weight. Some back and hip pain that is limiting her exercise level. Objective - Vital Signs Vital signs: Vital Signs Temp 98.8 F 03/24/18 15:02 Pulse 81 03/24/18 15:02 Resp BP 117/75 03/24/18 15:02 Pulse Ox Intake & Output 03/23/18 03/24/18 03/24/18 18:59 06:59 18:59 Weight 108.545 kg - Exam Abdomen: Soft, nontender, nondistended Assessment/Plan (1) Morbid obesity with BMI of 40.0-44.9, adult Narrative/Plan: Patient requesting a lap band adjustment. The band was accessed sterilely. 1.6 mL of saline was present in the band. I added an additional 0.2 mL for a total of 1.8 mL. Patient tolerated water at that time. Follow-up 1-2 months. Plan: Date: 03/24/18 Initial Weight: 131.542 kg Initial BMI: 48.2 Current Weight: 108.545 kg Current BMI: 39.8 Type of Surgery: Total Volume in Band: Previous Volume: Volume Removed: Volume Added: Band Size:
== END ==
LOC: BARWHC3 14:26
PROVIDERS: ATTEND Surgery
DX: E66.01 Morbid (severe) obesity due to excess calories (principal); Z68.39 Body mass index [BMI] 39.0-39.9, adult
CPT/HCPCS: 99212

== ENCOUNTER 2018-04-01 16:58 | Emergency (ER) | payer OTHER, MEDICARE, BC ==
[2018-04-01] MEDS ORDERED: HYDROmorphone 1 MG/ML 1 ML SYRINGE IVP STA (17:27)
[2018-04-01] MEDS ORDERED: SODIUM CHLORIDE 0.9% 1,000 ML IV STA (17:27)
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
[2018-04-01 17:50] LABS: Basophils % (A) 1 %; Eosinophils # (A) 0.3 k/uL (0-0.7); Eosinophils % (A) 5 %; HCT 41.9 % (34.0-46.0); Lymphocytes # (A) 1.4 k/uL (1.0-4.8); Lymphocytes % (A) 24 %; MCHC 33.5 g/dL (31.0-37.0); MCV 83.7 fL (80.0-100.0); Mean Platelet Volume 8.4; Monocytes # (A) 0.4 k/uL (0-1.0); Monocytes % (A) 7 %; Neutrophils # (A) 3.7 k/uL (1.3-7.7); Neutrophils % (A) 61 %; Platelet Count 153 k/uL (150-450); RBC 5.01 m/uL (3.80-5.40); RDW 15.4 % (11.5-15.5)
[2018-04-01 17:55] LABS: Appearance,Urine Clear (Clear); Bacteria,Urine Many /hpf; Bilirubin,Urine Negative (Negative); Blood,Urine Negative (Negative); Color,Urine Light Yellow; Glucose,Urine (UA) 2+ (Negative); Ketones,Urine Negative (Negative); Leukocyte Esterase,Urine Small (Negative); Mucus,Urine Rare /hpf; Nitrite,Urine Negative (Negative); Protein,Urine Negative (Negative); RBC,Urine 1 /hpf (0-5); Specific Gravity,Urine 1.007 (1.001-1.035); Squamous Epithelial Cell,Urine <1 /hpf (0-4); Urobilinogen,Urine <2.0 mg/dL (<2.0); WBC,Urine 7 /hpf (0-5)
[2018-04-01 17:56] LABS: Partial Thromboplastin Time 24.2 sec (22.0-30.0); Prothrombin Time 10.9 sec (9.0-12.0)
[2018-04-01 18:03] LABS: ALT 31 U/L (9-52); AST 51 U/L (14-36); Albumin 4.1 g/dL (3.5-5.0); Alcohol <10 mg/dL; Alkaline Phosphatase 49 U/L (38-126); Amphetamine Screen,Urine Not Detected (NotDetected); Anion Gap 11 mmol/L; Barbiturate Screen,Urine Not Detected (NotDetected); Benzodiazepines Screen,Urine Not Detected (NotDetected); Blood Urea Nitrogen 28 mg/dL (7-17); Calcium 9.1 mg/dL (8.4-10.2); Carbon Dioxide 27 mmol/L (22-30); Chloride 101 mmol/L (98-107); Cocaine Screen,Urine Not Detected (NotDetected); Glucose 254 mg/dL (74-99); Methadone Screen, Urine Not Detected (NotDetected); Opiate Screen,Urine Not Detected (NotDetected); Oxycodone Screen, Urine Not Detected (NotDetected); Phencyclidine Screen,Urine Not Detected (NotDetected); Potassium 4.9 mmol/L (3.5-5.1); Sodium 139 mmol/L (137-145); Total Bilirubin 1.1 mg/dL (0.2-1.3); Total Protein 7.2 g/dL (6.3-8.2); Tricyclic Antidepressant,Urine Not Detected (NotDetected); Urn Cannabinoid Scrn Not Detected (NotDetected)
[2018-04-01 18:12] LABS: Creatine Kinase 53 U/L (30-135)
[2018-04-01] MEDS ORDERED: FAMOTIDINE 20 MG/2 ML VIAL IV STA (18:21)
[2018-04-01] MEDS ORDERED: methylPREDNISolone SOD SUCCI 125 MG/2 ML VIAL IV STA (18:21)
[2018-04-01] MEDS ORDERED: diphenhydrAMINE 50 MG/ML 1 ML VIAL IVP STA (18:22)
[2018-04-01 18:23] LABS: Creatine Kinase MB 0.4 ng/mL (0.0-2.4); Troponin I <0.012 ng/mL (0.000-0.034)
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
[2018-04-01 19:29] VITALS: BP 179/79; PULSE 50; RESP 18; TEMP 98
== END 2018-04-01 19:27 | disposition home or self-care (01) ==
LOC: EC 16:58
DX: S20.219A Contusion of unspecified front wall of thorax, initial encounter (principal); I25.119 Atherosclerotic heart disease of native coronary artery with unspecified angina pectoris; G47.30 Sleep apnea, unspecified; E07.9 Disorder of thyroid, unspecified; E11.40 Type 2 diabetes mellitus with diabetic neuropathy, unspecified; I25.2 Old myocardial infarction; I50.9 Heart failure, unspecified; M10.9 Gout, unspecified; Z79.899 Other long term (current) drug therapy; Z79.4 Long term (current) use of insulin; Z79.82 Long term (current) use of aspirin; Z88.0 Allergy status to penicillin; Z91.041 Radiographic dye allergy status; Z91.048 Other nonmedicinal substance allergy status; Z91.018 Allergy to other foods; Z88.2 Allergy status to sulfonamides; Z98.84 Bariatric surgery status; Z95.1 Presence of aortocoronary bypass graft; Z95.5 Presence of coronary angioplasty implant and graft; V99.XXXA Unspecified transport accident, initial encounter; Y92.410 Unspecified street and highway as the place of occurrence of the external cause
CPT/HCPCS: 36415; 93005; 80053; 82550; 82553; 84484; 85025; 85610; 85730; 81001; 80306; 80320; 72125; 70450; 71260; 74177; 99285; 96374; 96375 ×2; 96361; J1200; J2930; Q9967

== ENCOUNTER → 2018-04-01 | Outpatient (CLI) | payer MEDICARE, BC ==
--- NOTE | 2018-04-01 15:53 | XR ---
Bilateral hips HISTORY: Bilateral hip pain 2 views of each hip submitted on a total of 4 images. There is calcification at the insertion of the gluteus tendon at the greater trochanter on the left w hich may be indicative of calcific tendinitis. Alignment, joint spaces, bone mineralization are denae l. No fracture or dislocation. IMPRESSION: Possible calcific tendinitis on the left as described. Hip MRI may be of benefit.
== END ==
LOC: RADXRMAIN 14:42
PROVIDERS: ATTEND Psychiatry & Neurology Neurology
DX: M25.551 Pain in right hip (principal); M25.552 Pain in left hip
CPT/HCPCS: 73521

== ENCOUNTER → 2018-05-19 | Outpatient (CLI) | payer MEDICARE, BC ==
[2018-05-19 15:07] VITALS: BP 111/74; PULSE 70; RESP 16; TEMP 97.6; BMI 39.6
--- NOTE | 2018-05-19 18:24 | P.BASOAP ---
Subjective Progress Note Date: 05/19/18 Principal diagnosis: Morbid obesity Patient here today requesting a band adjustment. Overall she was somewhat happy with her previous adjustment. She notices decreased hunger. Improved restriction. Objective - Vital Signs Vital signs: Vital Signs Temp 97.6 F 05/19/18 15:05 Pulse 70 05/19/18 15:05 Resp 16 05/19/18 15:05 BP 111/74 05/19/18 15:05 Pulse Ox Intake & Output 05/18/18 05/19/18 05/19/18 18:59 06:59 18:59 Weight 107.955 kg - Exam Abdomen: Soft, nontender, nondistended Assessment/Plan (1) Morbid obesity with BMI of 40.0-44.9, adult Narrative/Plan: Options reviewed with patient. We'll proceed with band adjustment. The patient 's lap band port was palpated. The site was aseptically prepped. The Garrett needle was advanced into the port. A total of 0.2 ml of fluid was did for a total of 2 mL. Pressure was held and a sterile dressing was applied. Plan: Date: 05/19/18 Initial Weight: 134.263 kg Initial BMI: 49.2 Current Weight: 107.955 kg Current BMI: 39.6 Type of Surgery: Total Volume in Band: 2.0 Previous Volume: 1.8 Volume Removed: Volume Added: 0.2 Band Size:
== END ==
LOC: BARWHC3 13:36
PROVIDERS: ATTEND Surgery
DX: E66.01 Morbid (severe) obesity due to excess calories (principal); Z68.41 Body mass index [BMI] 40.0-44.9, adult
CPT/HCPCS: 99212

== ENCOUNTER → 2018-05-22 | Outpatient (CLI) | payer MEDICARE, BC ==
[2018-05-22 16:19] LABS: Albumin 4.5 g/dL (3.80-4.90); Albumin/Globulin Ratio 2.05 (1.20-2.10); Calcium 9.7 mg/dL (8.7-10.3); Globulin 2.2 g/dL (1.6-3.3); Potassium 4.5 mmol/L (3.5-5.5); Total Bilirubin 0.4 mg/dL (0.3-1.2); Total Protein 6.7 g/dL (6.2-8.2)
== END | disposition home or self-care (01) ==
LOC: LABWHC1 09:47
PROVIDERS: ATTEND Internal Medicine Interventional Cardiology
DX: E78.2 Mixed hyperlipidemia (principal)
CPT/HCPCS: 36415; 80053; 80061

== ENCOUNTER → 2018-06-19 | Outpatient (CLI) | payer MEDICARE, BC ==
[2018-06-19 18:21] LABS: Hemoglobin A1C 8.4 % (4.0-6.0)
== END | disposition home or self-care (01) ==
LOC: LABWHC1 10:12
PROVIDERS: ATTEND Internal Medicine Endocrinology, Diabetes & Metabolism
DX: E11.65 Type 2 diabetes mellitus with hyperglycemia (principal)
CPT/HCPCS: 36415; 82043; 82570; 83036; 84443

== ENCOUNTER → 2018-09-01 | Outpatient (CLI) | payer MEDICARE, BC ==
[2018-09-01 15:35] LABS: HCT 43.9 % (34.0-46.0); HGB 14.4 gm/dL (11.4-16.0); MCH 27.9 pg (25.0-35.0); MCHC 32.7 g/dL (31.0-37.0); MCV 85.4 fL (80.0-100.0); Mean Platelet Volume 8.5; Platelet Count 190 k/uL (150-450); RBC 5.15 m/uL (3.80-5.40); RDW 14.6 % (11.5-15.5); WBC 6.9 k/uL (3.8-10.6)
[2018-09-01 15:54] LABS: Albumin 4.2 g/dL (3.5-5.0); Calcium 9.9 mg/dL (8.4-10.2); Potassium 4.3 mmol/L (3.5-5.1); Total Bilirubin 0.9 mg/dL (0.2-1.3); Total Protein 6.9 g/dL (6.3-8.2)
[2018-09-01 19:05] LABS: Vitamin D 25 Hydroxy 22.8 ng/mL (30.0-100.0)
[2018-09-01 19:25] LABS: Parathyroid Hormone Intact 40.6 pg/mL (14.0-72.0)
--- NOTE | 2018-09-02 06:55 | BD ---
EXAMINATION TYPE: Axial Bone Density DATE OF EXAM: 09/01/2018 COMPARISON: 12/19/2011 CLINICAL HISTORY: 68-year-old female osteopenia and bone disorder Height: 63 IN Weight: 239 LBS FRAX RISK QUESTIONS: Family History (Parent hip fracture): YES MOTHER Secondary Osteoporosis: 3. Menopause before 45: YES PARTIAL HYST AGE 38 RISK FACTORS HISTORY OF: Active: MODERATE Postmenopausal woman: AGE 38 Take estrogen and/or progesterone medications: NOT NOW How long: AGE 50-55 Lost more than 2 inches in height since high school: YES 3" MEDICATIONS: Thyroid Medications: YES Which medication: Levothyroxine How Lon+ YEARS Additional Medications: LEVOTHYROXINE, CHOLESTEROL MEDS, HEART MEDS, OMEGA 3, LYRICA, INSULIN, EXAM MEASUREMENTS: Bone mineral densitometry was performed using the [employer] System. Bone mineral density as measured about the Lumbar spine is: ----- L1-L4(G/cm2): 1.391 T Score Values are as follows: ----- L2: 2.0 ----- L3: 1.8 ----- L4: 1.1 ----- L1-L4: 1.8 Bone mineral density has: Increased 1.5% since study of: 12/19/2011 Bone mineral density about the R hip (g/cm2): 0.917 Bone mineral density about the L hip (g/cm2): 0.918 T Score values are as follows: -----R Neck: -0.9 -----L Neck: -0.9 -----R Total: 0.4 -----L Total: 0.6 Bone mineral density has: Decreased -3.2% since study of: 12/19/2011 IMPRESSION: Normal (Values between +1 and -1 indicate normal bone mass). However, note that measurements are clos silvia approaching osteopenia at the femoral necks. Consider repeating this study in 5 years or sooner if there is some new clinical indication. NOTE: T-SCORE=SD OF THE YOUNG ADULT MEAN.
== END | disposition home or self-care (01) ==
LOC: RADBDWWP 15:10
PROVIDERS: ATTEND Physical Medicine & Rehabilitation Pain Medicine
DX: M85.851 Other specified disorders of bone density and structure, right thigh (principal); M85.852 Other specified disorders of bone density and structure, left thigh
CPT/HCPCS: 77080; 80053; 82306; 83970; 84443; 85027

== ENCOUNTER → 2018-09-15 | Outpatient (CLI) | payer MEDICARE, BC ==
--- NOTE | 2018-09-15 14:08 | XR ---
Lumbosacral spine HISTORY: Low back pain 5 views of lumbosacral spine correlated to prior exam dated 11/08/2016 Patient is post lap band. Lumbar vertebral bodies show stable height, alignment, and bone mineralizat ion. Anterolisthesis grade 1 present L4-5. There is loss of disc height L4-5, L5-S1 with multilevel s pondylosis. Sclerosis present in the posterior elements. Vascular calcifications are noted incidental ly. No significant change in listhesis on flexion and extension views. IMPRESSION: Degenerative disc disease, spondylolisthesis, facet arthropathy
== END | disposition home or self-care (01) ==
LOC: RADXRMAIN 13:42
PROVIDERS: ATTEND Neurological Surgery
DX: M43.16 Spondylolisthesis, lumbar region (principal); M51.36 Other intervertebral disc degeneration, lumbar region; M51.37 Other intervertebral disc degeneration, lumbosacral region; M46.97 Unspecified inflammatory spondylopathy, lumbosacral region
CPT/HCPCS: 72110

== ENCOUNTER → 2018-11-24 | Outpatient (CLI) | payer MEDICARE, BC ==
[2018-11-24 19:00] LABS: Hemoglobin A1C 8.7 % (4.0-6.0)
[2018-11-24 19:12] LABS: Chol/HDL Ratio 4.82; LDL Cholesterol,Calculated 49.8 mg/dL (0.0-131.0); VLDL Calculation 76.2 mg/dL (5.00-40.00)
== END ==
LOC: LABWHC1 09:44
PROVIDERS: ATTEND Internal Medicine Endocrinology, Diabetes & Metabolism
DX: E11.65 Type 2 diabetes mellitus with hyperglycemia (principal); E78.2 Mixed hyperlipidemia
CPT/HCPCS: 36415; 80061; 83036; 84450; 84460

== ENCOUNTER → 2018-12-29 | Outpatient (CLI) | payer MEDICARE, BC ==
[2018-12-29 16:39] LABS: Basophils # (A) 0.2 k/uL (0-0.2); Basophils % (A) 2 %; Eosinophils # (A) 0.5 k/uL (0-0.7); Eosinophils % (A) 6 %; HGB 15.2 gm/dL (11.4-16.0); Lymphocytes # (A) 2.2 k/uL (1.0-4.8); Lymphocytes % (A) 24 %; MCH 27.3 pg (25.0-35.0); Mean Platelet Volume 8.3; Monocytes # (A) 0.6 k/uL (0-1.0); Monocytes % (A) 6 %; Neutrophils # (A) 5.5 k/uL (1.3-7.7); Neutrophils % (A) 60 %; Platelet Count 222 k/uL (150-450); RBC 5.55 m/uL (3.80-5.40); RDW 15.4 % (11.5-15.5); WBC 9.2 k/uL (3.8-10.6)
--- NOTE | 2018-12-30 08:28 | XR ---
EXAMINATION TYPE: XR chest 2V DATE OF EXAM: 12/29/2018 COMPARISON: NONE TECHNIQUE: PA and lateral views submitted. HISTORY: Cough possible pneumonia FINDINGS: The lungs are clear and there is no pneumothorax, pleural effusion, or focal pneumonia. Postsurgica l changes noted. There is reduced inspiration. Postoperative change right shoulder. Heart size normal . Hypertrophic and degenerative change of the spine. Subsegmental changes at the lung bases. Catheter overlying the anterior upper abdomen on the lateral view. IMPRESSION: 1. Basilar subsegmental consolidation felt to be more typical of atelectasis from reduced inspiration correlate clinically.
== END | disposition home or self-care (01) ==
LOC: LABWHC1 16:09
PROVIDERS: ATTEND Internal Medicine
DX: J98.11 Atelectasis (principal); J12.9 Viral pneumonia, unspecified
CPT/HCPCS: 36415; 71046; 85025

== ENCOUNTER → 2019-01-20 | Outpatient (CLI) | payer MEDICARE, BC ==
[2019-01-20 10:09] LABS: HCT 48.4 % (34.0-46.0); MCH 27.4 pg (25.0-35.0); Mean Platelet Volume 8.7; Platelet Count 191 k/uL (150-450); RBC 5.84 m/uL (3.80-5.40); RDW 15.7 % (11.5-15.5); WBC 5.7 k/uL (3.8-10.6)
[2019-01-20 10:14] LABS: Appearance,Urine Clear (Clear); Bacteria,Urine Rare /hpf; Bilirubin,Urine Negative (Negative); Blood,Urine Negative (Negative); Color,Urine Yellow; Glucose,Urine (UA) Negative (Negative); Hyaline Casts,Urine 5 /lpf (0-2); Ketones,Urine Negative (Negative); Leukocyte Esterase,Urine Moderate (Negative); Mucus,Urine Rare /hpf; Nitrite,Urine Negative (Negative); PH, Urine 5.5 (5.0-8.0); Protein,Urine Trace (Negative); Specific Gravity,Urine 1.015 (1.001-1.035); Squamous Epithelial Cell,Urine 1 /hpf (0-4); Urobilinogen,Urine <2.0 mg/dL (<2.0)
[2019-01-20 17:27] LABS: Anion Gap 11.9 mmol/L (4.00-12.00); BUN/Creat Ratio 13.13 Ratio (12.00-20.00); Calcium 9.8 mg/dL (8.7-10.3); Carbon Dioxide 28.1 mmol/L (21.6-31.8); Potassium 4.3 mmol/L (3.5-5.5)
== END | disposition home or self-care (01) ==
LOC: LABWHC1 09:40
PROVIDERS: ATTEND Neurological Surgery
DX: M43.10 Spondylolisthesis, site unspecified (principal); E11.9 Type 2 diabetes mellitus without complications; Z79.4 Long term (current) use of insulin
CPT/HCPCS: 36415; 80048; 81001; 85027

== ENCOUNTER → 2019-04-12 | Outpatient (CLI) | payer MEDICARE, BC ==
[2019-04-12 12:24] LABS: Basophils # (A) 0.1 k/uL (0-0.2); Basophils % (A) 1 %; Eosinophils # (A) 0.3 k/uL (0-0.7); Eosinophils % (A) 4 %; HGB 13.5 gm/dL (11.4-16.0); Hypochromasia Slight; Lymphocytes # (A) 1.4 k/uL (1.0-4.8); Lymphocytes % (A) 20 %; MCH 26.8 pg (25.0-35.0); MCHC 32.1 g/dL (31.0-37.0); MCV 83.4 fL (80.0-100.0); Monocytes # (A) 0.4 k/uL (0-1.0); Monocytes % (A) 6 %; Neutrophils # (A) 4.6 k/uL (1.3-7.7); Neutrophils % (A) 66 %; Platelet Count 202 k/uL (150-450); RBC 5.03 m/uL (3.80-5.40); RDW 14.7 % (11.5-15.5); WBC 6.9 k/uL (3.8-10.6)
[2019-04-12 13:24] LABS: Erythrocyte Sedimentation Rate 20 mm/hr (0-20)
[2019-04-12 17:26] LABS: African American GFR (CKD) 44.6 (60.0-200.0); Albumin 4.3 g/dL (3.80-4.90); Albumin/Globulin Ratio 2.26 (1.60-3.17); Calcium 9.5 mg/dL (8.7-10.3); Chol/HDL Ratio 4.24; Globulin 1.9 g/dL (1.6-3.3); LDL Cholesterol,Calculated 57.8 mg/dL (0.0-131.0); Non-African American GFR(CKD) 38.5 (60.0-200.0); Potassium 3.7 mmol/L (3.5-5.5); Total Bilirubin 0.5 mg/dL (0.3-1.2); Total Protein 6.2 g/dL (6.2-8.2); Uric Acid 6.8 mg/dL (2.9-7.7); VLDL Calculation 52.2 mg/dL (5.00-40.00)
[2019-04-12 19:30] LABS: Hemoglobin A1C 6.8 % (4.0-6.0)
== END ==
LOC: LABWHC1 10:50
PROVIDERS: ATTEND Internal Medicine
DX: E78.5 Hyperlipidemia, unspecified (principal); E11.9 Type 2 diabetes mellitus without complications; M10.9 Gout, unspecified; I10 Essential (primary) hypertension; E55.9 Vitamin D deficiency, unspecified; D64.9 Anemia, unspecified
CPT/HCPCS: 36415; 80053; 80061; 82306; 82550; 83036; 84439; 84443; 84550; 85025; 85652; 86140

== ENCOUNTER → 2019-06-03 | Outpatient (CLI) | payer MEDICARE, BC ==
[2019-06-03 16:17] LABS: African American GFR (CKD) 37.7 (60.0-200.0); Albumin 4.5 g/dL (3.80-4.90); Albumin/Globulin Ratio 2.37 (1.60-3.17); BUN/Creat Ratio 16.88 Ratio (12.00-20.00); Calcium 9.4 mg/dL (8.7-10.3); Chol/HDL Ratio 4.82; Globulin 1.9 g/dL (1.6-3.3); LDL Cholesterol,Calculated 52.6 mg/dL (0.0-131.0); Non-African American GFR(CKD) 32.5 (60.0-200.0); Total Bilirubin 0.5 mg/dL (0.3-1.2); Total Protein 6.4 g/dL (6.2-8.2); VLDL Calculation 73.4 mg/dL (5.00-40.00)
[2019-06-03 17:25] LABS: Urine Creatinine 133.6 mg/dL
[2019-06-03 18:10] LABS: Hemoglobin A1C 8.2 % (4.0-6.0)
== END | disposition home or self-care (01) ==
LOC: LABWHC1 10:28
PROVIDERS: ATTEND Internal Medicine Interventional Cardiology
DX: E11.65 Type 2 diabetes mellitus with hyperglycemia (principal)
CPT/HCPCS: 36415; 80053; 80061; 82043; 82570; 83036; 84443

== ENCOUNTER → 2019-09-27 | Outpatient (CLI) | payer MEDICARE, BC ==
[2019-09-27 17:43] LABS: African American GFR (CKD) 40.8 (60.0-200.0); Albumin 4.1 g/dL (3.80-4.90); Albumin/Globulin Ratio 1.86 (1.60-3.17); Anion Gap 9.9 mmol/L (4.00-12.00); BUN/Creat Ratio 14.67 Ratio (12.00-20.00); Calcium 9.2 mg/dL (8.7-10.3); Carbon Dioxide 30.1 mmol/L (21.6-31.8); Chol/HDL Ratio 5.38; Globulin 2.2 g/dL (1.6-3.3); Non-African American GFR(CKD) 35.2 (60.0-200.0); Potassium 3.7 mmol/L (3.5-5.5); Total Bilirubin 0.6 mg/dL (0.3-1.2); Total Protein 6.3 g/dL (6.2-8.2)
== END | disposition home or self-care (01) ==
LOC: LABWHC1 08:00
PROVIDERS: ATTEND Internal Medicine Interventional Cardiology
DX: E78.2 Mixed hyperlipidemia (principal)
CPT/HCPCS: 36415; 80053; 80061; 83721

== ENCOUNTER → 2020-01-28 | Outpatient (CLI) | payer MEDICARE, BC ==
[2020-01-28 22:38] LABS: African American GFR (CKD) 40.8 (60.0-200.0); Albumin 4.4 g/dL (3.80-4.90); Albumin/Globulin Ratio 1.91 (1.60-3.17); Anion Gap 10.3 mmol/L (4.00-12.00); Calcium 9.6 mg/dL (8.7-10.3); Carbon Dioxide 28.7 mmol/L (21.6-31.8); Chol/HDL Ratio 4.88; Globulin 2.3 g/dL (1.6-3.3); Non-African American GFR(CKD) 35.2 (60.0-200.0); Potassium 4.2 mmol/L (3.5-5.5); Total Bilirubin 0.7 mg/dL (0.2-1.2); Total Protein 6.7 g/dL (6.2-8.2)
== END | disposition home or self-care (01) ==
LOC: LABWHC1 10:03
PROVIDERS: ATTEND Internal Medicine Interventional Cardiology
DX: E78.2 Mixed hyperlipidemia (principal)
CPT/HCPCS: 36415; 80053; 80061; 83721

== ENCOUNTER → 2020-02-21 | Outpatient (CLI) | payer MEDICARE, BC ==
[2020-02-21 19:02] LABS: Urine Creatinine 140.4 mg/dL
[2020-02-21 20:32] LABS: African American GFR (CKD) 44.3 (60.0-200.0); Albumin 4.2 g/dL (3.80-4.90); Albumin/Globulin Ratio 1.75 (1.60-3.17); Anion Gap 7.9 mmol/L (4.00-12.00); BUN/Creat Ratio 16.43 Ratio (12.00-20.00); Calcium 9.6 mg/dL (8.7-10.3); Carbon Dioxide 31.1 mmol/L (21.6-31.8); Chol/HDL Ratio 5.47; Globulin 2.4 g/dL (1.6-3.3); Non-African American GFR(CKD) 38.2 (60.0-200.0); Potassium 4.3 mmol/L (3.5-5.5); Total Bilirubin 0.6 mg/dL (0.2-1.2); Total Protein 6.6 g/dL (6.2-8.2)
[2020-02-21 21:16] LABS: Hemoglobin A1C 8.8 % (4.0-6.0)
== END | disposition home or self-care (01) ==
LOC: LABWHC1 10:15
PROVIDERS: ATTEND Internal Medicine Endocrinology, Diabetes & Metabolism
DX: E11.65 Type 2 diabetes mellitus with hyperglycemia (principal)
CPT/HCPCS: 36415; 80053; 80061; 82043; 82570; 83036; 83721; 84443

== ENCOUNTER → 2021-03-01 | Day surgery (SDC) | payer MEDICARE, BC ==
[2021-02-27 09:30] VITALS: BMI 39.9
[~2021-03-01] MED LIST changes: -ALBUMIN HUMAN 25% 50 ML IV ONE; -ALBUMIN HUMAN 5% 500 ML IVPB ONE; +ALPRAZolam 0.25 MG TAB PO PRN; +ALPRAZolam 0.5 MG TAB PO PRN; -AMINOCAPROIC ACID 250 MG/ML 20 ML VIAL IV ONE; -AMINOCAPROIC ACID 5,000 MG in DEXTROSE 5% IN WATER 50 ML IV ONE; -ASPIRIN 325 MG TAB PO ONE; +ASPIRIN 325 MG TAB PO SCH; +ASPIRIN 325 MG TAB PO STA; -ATORVASTATIN 10 MG TAB PO ONE; +ATORVASTATIN 80 MG TAB PO SCH; -CALCIUM CHLORIDE 100 MG/ML 10 ML SYRINGE IV ONE; -CHLORHEXIDINE GLUCONATE 15 ML CUP MUCOUS MEM ONE; -CLEVIDIPINE BUTYRATE 25 MG in EMPTY BAG 1 BAG IV ONE; -DEXTROSE 5% IN WATER 1,000 ML with POTASSIUM CHLORIDE 110 MEQ, MAGNESIUM SULFATE 16 MEQ... IV ONE; -DEXTROSE 5% IN WATER 1,000 ML with POTASSIUM CHLORIDE 25 MEQ, SODIUM CHLORIDE 4MEQ/ML V... IV ONE; -DILTIAZEM 125 MG in SODIUM CHLORIDE 0.9% 100 ML IV ONE; +FLUTICASONE 50MCG/SPRAY NASAL 16GM EA NOSTRIL SCH; -HEPARIN SODIUM 1,000 UNIT/ML VIAL IV ONE; +HEPARIN SODIUM,PORCINE 10,000 UNIT in SODIUM CHLORIDE 0.9% 1,000 ML IRRIGATION PRN; +HEPARIN SODIUM,PORCINE 2,500 UNIT in SODIUM CHLORIDE 0.9% 250 ML IRRIGATION PRN; -HEPARIN SODIUM,PORCINE 5,000 UNIT in SODIUM CHLORIDE 0.9% 500 ML IV ONE; -INSULIN REGULAR 100 UNIT in SODIUM CHLORIDE 0.9% 100 ML IV ONE; +IOPAMIDOL-370 100ML BTL INJ ONE; +IOPAMIDOL-370 125ML BTL INJ ONE; +ISOSORBIDE MONONITRATE ER 30 MG TAB.ER.24H PO SCH; +Insulin Aspart (For Pump) 100 UNIT/ML VIAL SQ-PUMP SCH; -LACTATED RINGERS 1,000 ML IV ONE; -LACTATED RINGERS 1,000 ML IV SCH; +LEVOTHYROXINE 75 MCG TAB PO SCH; -LIDOCAINE 1% 20 ML VIAL (10MG/ML) FOR IV START INTRADERMA PRN; +LIDOCAINE 1% INJ 10MG/ML (20 ML MDV) ONE; +LIDOCAINE 1% INJ 10MG/ML (20 ML MDV) SQ ONE; -MAGNESIUM SULFATE MG 500 MG/ML VIAL IV ONE; -MANNITOL 25% 12.5 GM/50 ML VIAL IV ONE; -METOPROLOL TARTRATE 12.5 MG TAB PO ONE; +METOPROLOL TARTRATE 25 MG TAB PO SCH; -MUPIROCIN 2% OINT 22 GM TUBE NASAL ONE; -NITROGLYCERIN SL TABS 0.4 MG TAB SUBLINGUAL ONE; +NITROGLYCERIN SL TABS 0.4 MG TAB SUBLINGUAL PRN; -NITROGLYCERIN-D5W PMX 25 MG/250 ML BTL IV ONE; -NITROGLYCERIN-D5W PMX 50 MG in DEXTROSE/WATER 1 250ML.BAG IV ONE; +NON FORMULARY DRUG (Cholecalciferol (Vitamin D3) [Vitamin D3] 2,000 UNIT Capsule) PO SCH; +NON FORMULARY DRUG (Dulaglutide [Trulicity] 1.5 MG/0.5 ML Each) SQ SCH; +NON FORMULARY DRUG (Fenofibrate Nanocrystallized [Fenofibrate] 145 MG Tablet) PO SCH; +NON FORMULARY DRUG (Folic Acid [Folic Acid] 0.4 MG Tablet) PO SCH; +NON FORMULARY DRUG (Pregabalin [Lyrica] 150 MG Capsule) PO SCH; -NOREPINEPHRIN 4 MG-0.9% NS PMX 4 MG/250 ML ML IV ONE; -PHENYLEPHRINE 40 MG in SODIUM CHLORIDE 0.9% 250 ML IV ONE; -PHENYLEPHRINE-0.9% NACL SYG 1 MG/10 ML SYRINGE IV ONE; -PROPOFOL 50 ML IV ONE; -PROTAMINE SULFATE 10 MG/ML 25 ML VIAL IV ONE; -PROTAMINE SULFATE 250 MG in EMPTY BAG 1 BAG IV ONE; +RX INFO: IV CONTRAST WAS GIVEN 1 EACH MISC MISCELLANE PRN; -SODIUM BICARB 8.4% 50 ML SYR (1 MEQ/ML) IV ONE; -SODIUM CHLORIDE 0.9% 1,000 ML IV ONE; +SODIUM CHLORIDE 0.9% 1,000 ML IV SCH; +SODIUM CHLORIDE 0.9% 1,000 ML in EMPTY BAG 1 BAG IV SCH; -VANCOMYCIN 1,000 MG in SODIUM CHLORIDE 0.9% IRRIGATIO 1,000 ML IRRIGATION ONE; -VANCOMYCIN 1,750 MG in SODIUM CHLORIDE 0.9% 250 ML IVPB ONE; +allopurinoL 100 MG TAB PO SCH; +fentaNYL (PF) 50 MCG/ML 2 ML AMP IVP ONE; +fentaNYL (PF) 50 MCG/ML 2 ML AMP ONE
[2021-03-01 06:38] LABS: Glucose,Whole Blood 268 mg/dL (75-99)
[2021-03-01 06:42] VITALS: TEMP 97.5
[2021-03-01 11:17] VITALS: RESP 16
--- NOTE | 2021-03-01 11:18 | CC ---
CARDIAC CATHETERIZATION REPORT Mrs. Franco is a 70-year-old female with known history of coronary artery disease status post coronary bypass grafting who has been complaining of symptoms of progressive dyspnea on exertion and chest discomfort. She has underwent a myocardial perfusion imaging that revealed anterolateral wall ischemia. In view of that, recommendation made regarding cardiac catheterization. The procedure as well as the risks and the complications were discussed with the patient who is in full understanding and agreement. PROCEDURE DETAILS: Patient was brought to [facility] in a fasting semi-sedated state after receiving fentanyl and Benadryl and achieving moderate conscious sedated state. Using Xylocaine anesthesia and Seldinger technique, a 6-Arabic sheath was introduced in the right femoral artery. Selective right and left coronary angiography performed using 5-Arabic 3.5 bend right and left Tonio catheter. Multiple views of the coronary artery including hemiaxial views were obtained. The right Tonio was used to cannulate the saphenous vein graft to the obtuse marginal branch and cross the aortic valve and left ventricular end-diastolic pressure was calculated. Following that, the 6-Arabic KENNETH catheter was used to obtain images of the SIMS and a 6-Arabic right coronary bypass catheter was used to cannulate the saphenous vein graft to the right coronary artery. The images of the grafts were obtained. At the end of the procedure, catheter and sheath were removed. Hemostasis was obtained with deployment of an Angio-Seal. There was no immediate complication. Patient was returned to his room in stable condition. FINDINGS: LEFT MAIN: This is a large-sized vessel bifurcating into left circumflex, left anterior descending artery, left main coronary artery has no evidence of high-grade stenosis. LEFT ANTERIOR DESCENDING CORONARY ARTERY: This is a large-sized vessel reaching to the apex with a wraparound apex segment, in the left anterior descending artery stented segment proximally has a 90% stenosis involving the segment prior to the takeoff of the diagonal branch. The rest of the vessel has no high-grade stenosis. CIRCUMFLEX CORONARY ARTERY: This is a nondominant vessel giving rise to 2 obtuse marginal branches. The first one has a 50 to 60% stenosis proximally. The second obtuse marginal branch is totally occluded without significant antegrade flow. RIGHT CORONARY ARTERY: This is a large dominant vessel bifurcating into PDA and posterolateral segment and branches. The vessel distally has a 90% stenosis with competitive flow in the PDA and PLV. SAPHENOUS VEIN GRAFT TO THE OBTUSE MARGINAL BRANCH: The proximal and distal anastomotic sites are patent. The flow into the obtuse marginal branch is brisk. There is no evidence of obstructive disease. SAPHENOUS VEIN GRAFT TO THE RIGHT CORONARY ARTERY: The proximal and distal anastomotic sites are patent. The flow into the PDA and PLV is brisk. There is no evidence for active significant obstructive disease. SIMS TO THE LAD: The distal anastomotic site is patent. The flow into the LAD is brisk. HEMODYNAMICS: There was no gradient across the aortic valve. The left ventricle end-diastolic pressure was 14-16 mmHg. CONCLUSION: 1. Severe triple-vessel coronary artery disease. 2. Patent SIMS to LAD. 3. Patent saphenous vein graft to the obtuse marginal branch 2. 4. Patent saphenous vein graft to the right coronary artery. RECOMMENDATIONS: At this time, I would recommend continue medical therapy and optimizing medical regimen and if she persists in having symptoms, then attempt to proceed with PCI of the proximal LAD will be done. Those findings and recommendations were discussed with the patient and her family and they are in full understanding and agreement. Duration of the sedation is 36 minutes. MMODL / IJN: [id number] /
[2021-03-01 12:24] VITALS: BP 130/62; PULSE 50
== END | disposition home or self-care (01) ==
LOC: CATHCVL 06:11
PROVIDERS: ATTEND Internal Medicine Interventional Cardiology
DX: I25.10 Atherosclerotic heart disease of native coronary artery without angina pectoris (principal); Z20.822 Contact with and (suspected) exposure to COVID-19
CPT/HCPCS: 93459; 87635; C1760; C1894; C1769; J2001; J3010; Q9967 ×2

== ENCOUNTER → 2021-06-18 | Outpatient (CLI) | payer MEDICARE, BC ==
--- NOTE | 2021-06-20 14:07 | MM ---
Reason for exam: screening (asymptomatic). Last mammogram was performed 3 years and 6 months ago. History: Patient is postmenopausal and had first child at age 33. Family history of breast cancer in mother at age 69. Took estrogen for 20 years beginning at age 38. Taking other hormone for 40 years beginning at age 18. Physical Findings: A clinical breast exam by your physician is recommended on an annual basis and results should be correlated with mammographic findings. MG 3D Screening Mammo W/Cad Bilateral CC and MLO view(s) were taken. Prior study comparison: December 02, 2017, bilateral MG 3d diag mammo w/cad BRIGID. March 11, 2016, bilateral MG 3d screening mammo w/cad. No significant changes when compared with prior studies. ASSESSMENT: Benign, BI-RAD 2 RECOMMENDATION: Routine screening mammogram of both breasts in 1 year.
== END | disposition home or self-care (01) ==
LOC: RADMAMWWP 15:58
PROVIDERS: ATTEND Internal Medicine
DX: Z12.31 Encounter for screening mammogram for malignant neoplasm of breast (principal)
CPT/HCPCS: 77063; 77067

== ENCOUNTER 2023-09-26 12:57 | Observation (INO) | payer MEDICARE, BC ==
--- NOTE | 2023-09-26 13:31 | ED ---
Chest Pain HPI - General Source: patient, RN notes reviewed Mode of arrival: ambulatory Limitations: no limitations <Giovanna Ogden - Last Filed: 09/26/23 13:30> <Karan Fitzgerald - Last Filed: 09/26/23 17:26> - General Chief Complaint: Chest Pain Stated Complaint: Chest pain/MARTHA Time Seen by Provider: 09/26/23 13:30 - History of Present Illness Initial Comments: Quick note: 73-year-old female presented to the ER with a chief complaint of shortness of breath and chest heaviness. Patient has a past medical history significant of open heart surgery in 2017. She states chest discomfort started last night and has been increasing in intensity. She also reports she is starting to get a headache. She denies any nausea, vomiting, or peripheral edema. (Giovanna Ogden) Dictation was produced using [employer] dictation software. please excuse any grammatical, word or spelling errors. Chief Complaint: 73-year-old female presents emergency department for shortness of breath and chest pressure History of Present Illness: Patient is 73-year-old female she has been suffering from shortness of breath and chest pressure for the last several days. She called her health and safety tech on the phone today. She is told to come to the emergency department. Patient states that sometimes she wakes up in the morning has sharp pain in her substernal area. Nonradiating not associate diaphoresis or nausea. She has history of coronary artery bypass grafting performed several years ago. Denies any fever but has been having a slightly productive cough. Pains not reproduced with deep inspiration. The ROS documented in this emergency department record has been reviewed and confirmed by me. Those systems with pertinent positive or negative responses have been documented in the HPI. All other systems are other negative and/or noncontributory. (Karan Fitzgerald) - Related Data Home Medications Medication Instructions Recorded Confirmed Atorvastatin [Lipitor] 80 mg PO HS 03/24/18 09/26/23 Fenofibrate Nanocrystallized 145 mg PO HS 03/24/18 09/26/23 [Fenofibrate] Furosemide [Lasix] 40 mg PO BID 03/24/18 09/26/23 Insulin Aspart (For Pump) [NovoLOG 0.01 unit SQ-PUMP CONTINUOUS 03/24/18 09/26/23 (For Pump)] Levothyroxine Sodium [Synthroid] 75 mcg PO DAILY 03/24/18 09/26/23 Pregabalin [Lyrica] 150 mg PO BID 03/24/18 09/26/23 allopurinoL [Zyloprim] 100 mg PO DAILY 03/24/18 09/26/23 Isosorbide Mononitrate [Isosorbide 30 mg PO DAILY 02/27/21 09/26/23 Mononitrate ER] Nitroglycerin Sl Tabs [Nitrostat] 0.4 mg SUBLINGUAL Q5M PRN 09/26/23 09/26/23 Allergies Allergy/AdvReac Type Severity Reaction Status Date / Time adhesive tape Allergy Rash/Hives Verified 09/26/23 14:13 shepherd Allergy Anaphylaxis Verified 09/26/23 14:13 Iodinated Contrast Media Allergy Anaphylaxis Verified 09/26/23 14:13 [Iodinated Contrast- Oral and IV Dye] Penicillins Allergy Rash/Hives Verified 09/26/23 14:13 plum Allergy Swelling Verified 09/26/23 14:13 Sulfa (Sulfonamide Allergy Rash/Hives Verified 09/26/23 14:13 Antibiotics) Review of Systems ROS Other: All systems not noted in ROS Statement are negative. <Giovanna Ogden - Last Filed: 09/26/23 13:30> ROS Other: All systems not noted in ROS Statement are negative. <Karan Fitzgerald - Last Filed: 09/26/23 17:26> ROS Statement: Those systems with pertinent positive or pertinent negative responses have been documented in the HPI. Past Medical History Past Medical History: Coronary Artery Disease (CAD), Chest Pain / Angina, Heart Failure, Diabetes Mellitus, [place]ocardial Infarction ([place]), Renal Disease, Sleep Apnea/CPAP/BIPAP, Thyroid Disorder Additional Past Medical History / Comment(s): gout,neuropathy,fatty liver, CHRONIC KIDNEY DISEASE - STAGE 3 , has insulin pump,doesn't use the cpap, past hx. Last Myocardial Infarction Date:: 09/18/2015 History of Any Multi-Drug Resistant Organisms: None Reported Past Surgical History: Back Surgery, Bariatric Surgery, Coronary Bypass/CABG, Heart Catheterization, Heart Catheterization With Stent, Hysterectomy, Orthopedic Surgery, Tubal Ligation Additional Past Surgical History / Comment(s): several heart cath's w/stents most recent was 2015 (2 stents placed), EGD,COLONOSCOPY, LAP BAND 2008, RT ROTATOR CUFF,PANNICULECTOMY W/surgical WOUND DEBRIDEMENT X2,ANAL FISSURE REPAIR, BRIGID CATARACTS. LT ARM LIPOMA REMOVED, triple bypass & CABG 09-26-16 Past Anesthesia/Blood Transfusion Reactions: Previous Problems w/ Anesthesia Additional Past Anesthesia/Blood Transfusion Reaction / Comment(s): difficulty waking up from anesthesia. Pt states she had one blood transfusion after her open heart sx and did not experience any reactions Date of Last Stent Placement:: 09-18-15 Past Psychological History: No Psychological Hx Reported Smoking Status: Never smoker Past Alcohol Use History: None Reported Past Drug Use History: None Reported - Past Family History Mother Family Medical History: Cancer, Diabetes Mellitus Additional Family Medical History / Comment(s): BREAST/BONE CANCER Father Family Medical History: Myocardial Infarction ([place]) Additional Family Medical History / Comment(s): AT AGE 56 FROM [place] Brother(s) Family Medical History: Cancer Additional Family Medical History / Comment(s): prostate cancer, had open heart surg. Sister(s) Family Medical History: Cancer Additional Family Medical History / Comment(s): KIDNEY CANCER , SKIN CANCER <Giovanna Ogden - Last Filed: 09/26/23 13:30> General Exam Limitations: no limitations <Giovanna Ogden - Last Filed: 09/26/23 13:30> <Karan Fitzgerald - Last Filed: 09/26/23 17:26> - General Exam Comments Initial Comments: Visual Physical Exam Vital signs reviewed General: Well-appearing, nontoxic, no acute distress. Head: Normocephalic, atraumatic Eyes: PERRLA, EOMI ENT: Airway patent Chest: Nonlabored breathing Skin: No visual rash, normal skin tone Neuro: Alert and oriented 3 Musculoskeletal: No gross abnormalities (Giovanna Ogden) PHYSICAL EXAM: General Impression: Alert and oriented x3, not in acute distress HEENT: Normocephalic atraumatic, extra-ocular movements intact, pupils equal and reactive to light bilaterally, mucous membranes moist. Cardiovascular: Heart regular rate and rhythm Chest: Able to complete full sentences, no retractions, no tachypnea Abdomen: abdomen soft, non-tender, non-distended, no organomegaly Musculoskeletal: Pulses present and equal in all extremities, no peripheral edema Motor: no focal deficits noted Neurological: CN II-XII grossly intact, no focal motor or sensory deficits noted Skin: Intact with no visualized rashes Psych: Normal affect and mood (Karan Fitzgerald) Course Vital Signs 09/26/23 09/26/23 09/26/23 13:10 14:26 15:00 Temperature 98.2 F Pulse Rate 56 L 53 L 48 L Respiratory 18 16 20 Rate Blood Pressure 108/70 108/87 105/58 O2 Sat by Pulse 95 97 97 Oximetry 09/26/23 16:00 Temperature Pulse Rate 52 L Respiratory 17 Rate Blood Pressure 113/59 O2 Sat by Pulse 100 Oximetry Chest Pain MDM <Giovanna Ogden - Last Filed: 09/26/23 13:30> <Karan Fitzgerald - Last Filed: 09/26/23 17:26> - MDM I performed the quick note portion of this chart. Electronically signed by Giovanna Ogden PA-C (Giovanna Ogden) My EKG interpretation: Ventricular rate 55, sinus bradycardia, NV interval 164, QRS 108, QTc 416. No NV prolongation, no QTC prolongation, no ST or T-wave changes noted. EKG compared to April 01, 2018 showing no changes. Overall, this EKG is unremarkable Was pt. sent in by a medical professional or institution ([facility], [employer], urgent care, hospital, or skilled nursing...) When possible be specific @ -Sent from health and safety tech office Did you speak to anyone other than the patient for history (EMS, parent, family, police, friend...)? What history was obtained from this source @ -No Did you review nursing and triage notes (agree or disagree)? Why? @ -I reviewed and agree with nursing and triage notes Were old charts reviewed (outside hosp., previous admission, EMS record, old EKG, old radiological studies, urgent care reports/EKG's, skilled nursing records)? Report findings @ -No old charts were reviewed Differential Diagnosis (chest pain, altered mental status, abdominal pain women, abdominal pain men, vaginal bleeding, musculoskeletal, weakness, fever, dyspnea, syncope, headache, dizziness, GI bleed, back pain, seizure, CVA, palpatations, mental health)? @ -Differential Chest Pain: Stable Angina, Unstable Angina, STEMI, NSTEMI Aortic Dissection, Pneumothorax, Musculoskeletal, Esophageal Spasm GERD, Cholecystitis, Pancreatitis, Zoster, this is not meant to be an all-inclusive list. EKG interpreted by me (3pts min.). @ -See above X-rays interpreted by me (1pt min.). @ -Chest x-ray shows no acute process CT interpreted by me (1pt min.). @ -CT angiography shows no large PE U/S interpreted by me (1pt. min.). @ -None done What testing was considered but not performed or refused? (CT, X-rays, U/S, labs)? Why? @ -None What meds were considered but not given or refused? Why? @ -None Did you discuss the management of the patient with other professionals (professionals i.e. , PA, [employer], lab, RT, psych nurse, social services designee, product grader, teacher, infantry officer, catalytic case operator)? Give summary @ -Case discussed with hospitalist for admission Was smoking cessation discussed for >3mins.? @ -No Was critical care preformed (if so, how long)? @ -No Were there social determinants of health that impacted care today? How? (Homelessness, low income, unemployed, alcoholism, drug addiction, transportation, low edu. Level, literacy, decrease access to med. care, usp, rehab)? @ -No Was there de-escalation of care discussed even if they declined (Discuss DNR or withdrawal of care, Hospice)? DNR status @ -No What co-morbidities impacted this encounter? (DM, HTN, Smoking, COPD, CAD, Cancer, CVA, ARF, Chemo, Hep., AIDS, mental health diagnosis, sleep apnea, morbid obesity)? @ -None Was patient admitted / discharged? Hospital course, mention meds given and route, prescriptions, significant lab abnormalities, going to OR and other pertinent info. @ -73-year-old female presents to the emergency department for chest pain s hortness of breath. Vital signs upon arrival shows findings within acceptable limits. Laboratory evaluation obtained. D-dimer elevated 1.01. Rest of labs within acceptable limits. Patient given aspirin. Patient studies are unremarkable. Patient be admitted observation with cardiology consultation. Undiagnosed new problem with uncertain prognosis? @ -No Drug Therapy requiring intensive monitoring for toxicity (Heparin, Nitro, Insulin, Cardizem)? @ -No Were any procedures done? @ -No Diagnosis/symptom? Acute, or Chronic, or Acute on Chronic? Uncomplicated (without systemic symptoms) or Complicated (systemic symptoms)? @ -Chest pain Side effects of treatment? @ -No Exacerbation, Progression, or Severe Exacerbation? @ -No Poses a threat to life or bodily function? How? (Chest pain, [place], [place], pneumonia, PE, COPD, DKA, ARF, appy, cholecystitis, CVA, Diverticulitis, Homicidal, Suicidal, threat to staff... and all critical care pts) @ -yes (Karan Fitzgerald) Disposition <Giovanna Ogden - Last Filed: 09/26/23 13:30> Decision Time: 17:26 <Karan Fitzgerald - Last Filed: 09/26/23 17:26> Clinical Impression: Chest pain Disposition: ADMITTED IP TO THIS HOSP Condition: Fair Referrals: Bjorn Cha MD [Primary Care Provider] - 1-2 days
[2023-09-26 13:54] LABS: Basophils # (A) 0.1 k/uL (0-0.2); Basophils % (A) 1 %; Eosinophils # (A) 0.4 k/uL (0-0.7); Eosinophils % (A) 7 %; HCT 44.5 % (34.0-46.0); HGB 14.5 gm/dL (11.4-16.0); Lymphocytes # (A) 1.6 k/uL (1.0-4.8); Lymphocytes % (A) 26 %; MCH 27.4 pg (25.0-35.0); MCHC 32.5 g/dL (31.0-37.0); MCV 84.4 fL (80.0-100.0); Monocytes # (A) 0.5 k/uL (0-1.0); Monocytes % (A) 7 %; Neutrophils # (A) 3.5 k/uL (1.3-7.7); Neutrophils % (A) 56 %; Platelet Count 191 k/uL (150-450); RBC 5.27 m/uL (3.80-5.40); RDW 15.3 % (11.5-15.5); WBC 6.2 k/uL (3.8-10.6)
[2023-09-26 14:03] LABS: Partial Thromboplastin Time 24.5 sec (22.0-30.0); Prothrombin Time 10.9 sec (10.0-12.5)
[2023-09-26 14:13] LABS: ALT 21 U/L (4-34); AST 33 U/L (14-36); African American GFR (CKD) 45 (>60 ml/min/1.73 sqM); Albumin 4.1 g/dL (3.5-5.0); Alkaline Phosphatase 85 U/L (38-126); Anion Gap 2 mmol/L; Blood Urea Nitrogen 21 mg/dL (7-17); Calcium 9.3 mg/dL (8.4-10.2); Carbon Dioxide 35 mmol/L (22-30); Chloride 103 mmol/L (98-107); Glucose 115 mg/dL (74-99); Magnesium 1.9 mg/dL (1.6-2.3); Non-African American GFR(CKD) 39 (>60 ml/min/1.73 sqM); Potassium 4.5 mmol/L (3.5-5.1); Sodium 140 mmol/L (137-145); Total Bilirubin 0.7 mg/dL (0.2-1.3); Total Protein 6.8 g/dL (6.3-8.2)
[2023-09-26] MEDS: methylPREDNISolone SOD SUCCI 125 MG/2 ML VIAL IV STA (15:28)
[2023-09-26] MEDS: FAMOTIDINE 20 MG/2 ML VIAL IV STA (15:29)
[2023-09-26] MEDS: diphenhydrAMINE 50 MG/ML 1 ML VIAL IVP STA (15:30)
--- NOTE | 2023-09-26 16:13 | CT ---
EXAMINATION TYPE: CT angio chest DATE OF EXAM: 09/26/2023 COMPARISON: 04/01/2018 HISTORY: 73-year-old female positive d-dimer, shortness of breath TECHNIQUE: Contiguous axial scanning of the chest after the administration of 80 mL of Isovue 370. C oronal/sagittal MIP reconstructions performed. CT DLP: 731.8 mGycm. Automatic exposure control utilized for a dose reduction. FINDINGS: Median sternotomy wires and postoperative clips. Heart normal size without pericardial effusion. No flattening of the interventricular septum or reflu x of contrast into the veins. Aorta normal caliber with conventional branching anatomy. No thoracic lymphadenopathy by CT size criteria. Satisfactory opacification of the pulmonary arterial system with mild breathing motion artifact. No d efinite pulmonary embolus is seen. Some patchy subpleural opacity along the posterior right lung base and also at the bilateral lung bas es likely representing areas of atelectasis. There seems to be some mild medial lower lobe bronchiole ctasis. No consolidation or pleural effusion. Visualized upper abdomen shows lap band device in place and a couple small hilar splenules. Bones: Accentuated lower thoracic kyphosis with scattered moderate to severe degenerative disc diseas e throughout the thoracic spine. IMPRESSION: 1. Mild breathing motion artifact. No definite pulmonary embolus. 2. Strandy areas of scarring or atelectasis especially in the lower lungs where mild bronchiolectasis also seems to be present, unchanged from prior.
--- NOTE | 2023-09-26 16:39 | XR ---
EXAMINATION TYPE: XR chest 2V DATE OF EXAM: 09/26/2023 2:45 PM CLINICAL INDICATION:Female, 73 years old with history of Chest Pain; COMPARISON: Chest radiographs from 12/29/2018 TECHNIQUE: XR chest 2V Frontal and lateral views of the chest. FINDINGS: Lungs/Pleura: There is no evidence of pleural effusion, focal consolidation, or pneumothorax. Pulmonary vascularity: Unremarkable. Heart/mediastinum: Cardiomediastinal silhouette is unremarkable. Musculoskeletal: No acute osseous pathology. Midline sternotomy wires are noted. Right shoulder rotat or cuff repair anchors. IMPRESSION: No acute cardiopulmonary disease/process.
[2023-09-26] MEDS: ASPIRIN 81 MG PO STA (16:50)
[2023-09-26] MEDS ORDERED: NITROGLYCERIN SL TABS 0.4 MG TAB SUBLINGUAL PRN (17:22)
[2023-09-26 21:31] LABS: Glucose,Whole Blood 230 mg/dL (70-110)
[2023-09-27] MEDS ORDERED: NITROGLYCERIN SL TABS 0.4 MG TAB SUBLINGUAL PRN (05:10)
[2023-09-27] MEDS ORDERED: DEXTROSE 50% SYRINGE 50 ML IVP PRN ×2 (05:11)
[2023-09-27 05:30] LABS: Glucose,Whole Blood 253 mg/dL (70-110)
[2023-09-27] MEDS: Insulin Aspart (For Pump) 100 UNIT/ML VIAL SQ-PUMP SCH (05:37)
[2023-09-27] MEDS: LEVOTHYROXINE 75 MCG TAB PO SCH (05:41)
[2023-09-27] MEDS: INSPUCOR MISCELLANE PRN (05:48)
[2023-09-27] MEDS: ISOSORBIDE MONONITRATE ER 30 MG TAB.ER.24H PO SCH (08:23)
[2023-09-27] MEDS: allopurinoL 100 MG TAB PO SCH (08:24)
[2023-09-27] MEDS: PREGABALIN 75 MG CAP PO SCH (08:24)
[2023-09-27] MEDS: ASPIRIN 325 MG TAB PO SCH (08:24)
[2023-09-27 08:56] LABS: Glucose,Whole Blood 312 mg/dL (70-110)
--- NOTE | 2023-09-27 10:57 | P.HPIM ---
History of Present Illness Patient is a pleasant 73-year-old female came in with complaints of cough shortness of breath and chest pressure-like sensation. Patient had no acute ST- T wave changes on the EKG. Patient had an EF of around 60 to 65% in the past may have had diastolic dysfunction patient is on Lasix at home with elevated creatinine of 1.35 which is at baseline. Patient denies any cough sputum production patient had a CT of the chest which showed some atelectasis without any evidence of pneumonia or pulmonary embolism. Patient does have sleep apnea and does not use her CPAP machine at home. Patient was evaluated by cardiology recommended echocardiogram monitoring overnight if echo is normal patient can be discharged tomorrow after overnight monitoring. Patient is not in heart failure exacerbation. Patient blood sugars are elevated because of the steroid she received in ER. Patient chest pressure is constant mild nonradiating no as sociated lightheadedness shortness of breath. Patient denies any fever or chills. REVIEW OF SYSTEMS: CONSTITUTIONAL: No fever, no malaise, no fatigue. HEENT: No recent visual problems or hearing problems. Denied any sore throat. CARDIOVASCULAR: No orthopnea, PND, no palpitations, no syncope. PULMONARY: no hemoptysis. GASTROINTESTINAL: No diarrhea, no nausea, no vomiting, no abdominal pain. NEUROLOGICAL: No headaches, no weakness, no numbness. HEMATOLOGICAL: Denies any bleeding or petechiae. GENITOURINARY: Denies any burning micturition, frequency, or urgency. MUSCULOSKELETAL/RHEUMATOLOGICAL: Denies any joint pain, swelling, or any muscle pain. ENDOCRINE: Denies any polyuria or polydipsia. The rest of the 14-point review of systems is negative. PHYSICAL EXAMINATION: GENERAL: The patient is alert and oriented x3, not in any acute distress. Well developed, well nourished. HEENT: Pupils are round and equally reacting to light. EOMI. No scleral icterus. No conjunctival pallor. Normocephalic, atraumatic. No pharyngeal erythema. No thyromegaly. CARDIOVASCULAR: S1 and S2 present. No murmurs, rubs, or gallops. PULMONARY: Chest is clear to auscultation, no wheezing or crackles. ABDOMEN: Soft, nontender, nondistended, normoactive bowel sounds. No palpable organomegaly. MUSCULOSKELETAL: No joint swelling or deformity. EXTREMITIES: No cyanosis, clubbing, or pedal edema. NEUROLOGICAL: Gross neurological examination did not reveal any focal deficits. SKIN: No rashes. Assessment and plan -Chest pain will rule out acute coronary syndromes patient will be monitored overnight echocardiogram will be obtained cardiology evaluated the patient. Rule out pulmonary embolism and pneumonia. -Shortness of breath unknown etiology patient saturations are good may be re lated to her sleep apnea. Patient was advised to see his sleep specialist as an outpatient -Type 2 diabetes mellitus uncontrolled elevated blood sugars secondary to steroid she received in ER. Patient blood sugars are expected to be higher for around 48 to 72 hours. Patient has an insulin pump which will be resumed -Coronary artery disease with a CABG in 2017 -Hypertension -Hyperlipidemia -Congestive heart failure chronic diastolic function without any acute exacerbation -Hypothyroidism -Sleep apnea -Chronic kidney disease stage III probably diabetic nephropathy DVT prophylaxis: Early ambulation test Past Medical History Past Medical History: Coronary Artery Disease (CAD), Chest Pain / Angina, Heart Failure, Diabetes Mellitus, Hyperlipidemia, Myocardial Infarction ([place]), Renal Disease, Sleep Apnea/CPAP/BIPAP, Thyroid Disorder Additional Past Medical History / Comment(s): gout,neuropathy,fatty liver, CHRONIC KIDNEY DISEASE - STAGE 3 , has insulin pump,doesn't use the cpap Last Myocardial Infarction Date:: 09/18/2015 History of Any Multi-Drug Resistant Organisms: None Reported Past Surgical History: Back Surgery, Bariatric Surgery, Coronary Bypass/CABG, Heart Catheterization, Heart Catheterization With Stent, Hysterectomy, Ort hopedic Surgery, Tubal Ligation Additional Past Surgical History / Comment(s): several heart cath's w/stents most recent was 2015 (2 stents placed), EGD,COLONOSCOPY, LAP BAND 2008, RT ROTATOR CUFF,PANNICULECTOMY W/surgical WOUND DEBRIDEMENT X2,ANAL FISSURE REPAIR, BRIGID CATARACTS. LT ARM LIPOMA REMOVED, triple bypass & CABG 09-26-16, back sx 2018 2022 Past Anesthesia/Blood Transfusion Reactions: Previous Problems w/ Anesthesia Additional Past Anesthesia/Blood Transfusion Reaction / Comment(s): difficulty waking up from anesthesia. Pt states she had one blood transfusion after her open heart sx and did not experience any reactions Date of Last Stent Placement:: 09-18-15 Past Psychological History: No Psychological Hx Reported Smoking Status: Never smoker Past Alcohol Use History: Occasional, Rare Past Drug Use History: None Reported - Past Family History Mother Family Medical History: Cancer, Diabetes Mellitus Additional Family Medical History / Comment(s): BREAST/BONE CANCER Father Family Medical History: Myocardial Infarction ([place]) Additional Family Medical History / Comment(s): AT AGE 56 FROM [place] Brother(s) Family Medical History: Cancer Additional Family Medical History / Comment(s): prostate cancer, had open heart surg. Sister(s) Family Medical History: Cancer Additional Family Medical History / Comment(s): KIDNEY CANCER , SKIN CANCER Medications and Allergies Home Medications Medication Instructions Recorded Confirmed Type Atorvastatin [Lipitor] 80 mg PO HS 03/24/18 09/26/23 History Fenofibrate Nanocrystallized 145 mg PO HS 03/24/18 09/26/23 History [Fenofibrate] Furosemide [Lasix] 40 mg PO BID 03/24/18 09/26/23 History Insulin Aspart (For Pump) [NovoLOG 0.01 unit SQ-PUMP CONTINUOUS 03/24/18 09/26/23 History (For Pump)] Levothyroxine Sodium [Synthroid] 75 mcg PO DAILY 03/24/18 09/26/23 History Pregabalin [Lyrica] 150 mg PO BID 03/24/18 09/26/23 History allopurinoL [Zyloprim] 100 mg PO DAILY 03/24/18 09/26/23 History Isosorbide Mononitrate [Isosorbide 30 mg PO DAILY 02/27/21 09/26/23 History Mononitrate ER] Dulaglutide [Trulicity] 3 mg SQ WEEKLY 09/26/23 09/26/23 History Nitroglycerin Sl Tabs [Nitrostat] 0.4 mg SUBLINGUAL Q5M PRN 09/26/23 09/26/23 History Allergies Allergy/AdvReac Type Severity Reaction Status Date / Time adhesive tape Allergy Rash/Hives Verified 09/26/23 14:13 shepherd Allergy Anaphylaxis Verified 09/26/23 14:13 Iodinated Contrast Media Allergy Anaphylaxis Verified 09/26/23 14:13 [Iodinated Contrast- Oral and IV Dye] Penicillins Allergy Rash/Hives Verified 09/26/23 14:13 plum Allergy Swelling Verified 09/26/23 14:13 Sulfa (Sulfonamide Allergy Rash/Hives Verified 09/26/23 14:13 Antibiotics) Physical Exam Vitals: Vital Signs Temp Pulse Pulse Resp BP BP BP 06/01/24 07:00 97.6 F 69 18 146/65 09/27/23 02:21 97.5 F L 54 L 17 133/76 09/26/23 21:50 97.8 F 62 18 136/81 09/26/23 20:23 98.3 F 57 L 20 133/66 09/26/23 16:00 52 L 17 113/59 09/26/23 15:00 48 L 20 105/58 09/26/23 14:26 53 L 16 108/87 09/26/23 13:10 98.2 F 56 L 18 108/70 Pulse Ox 09/27/23 07:00 95 09/27/23 02:21 96 09/26/23 21:50 95 09/26/23 20:23 96 09/26/23 16:00 100 09/26/23 15:00 97 09/26/23 14:26 97 09/26/23 13:10 95 Intake and Output 09/26/23 09/27/23 09/27/23 22:59 06:59 14:59 Output Total 100 Balance -100 Output: Urine 100 Other: Voiding Method Toilet # Voids 1 1 Weight 108.862 kg Results CBC & Chem 7: 09/26/23 13:31 09/26/23 13:31 Labs: Abnormal Lab Results - Last 24 Hours (Table) 09/26/23 09/26/23 09/26/23 Range/Units 13:31 14:23 21:25 D-Dimer 1.01 H (<0.60) mg/L FEU Carbon Dioxide 35 H (22-30) mmol/L BUN 21 H (7-17) mg/dL Creatinine 1.35 H (0.52-1.04) mg/dL Glucose 115 H (74-99) mg/dL POC Glucose (mg/dL) 230 H (70-110) mg/dL Hemoglobin A1c (<=6.0) % 09/27/23 09/27/23 09/27/23 Range/Units 05:29 05:43 08:55 D-Dimer (<0.60) mg/L FEU Carbon Dioxide (22-30) mmol/L BUN (7-17) mg/dL Creatinine (0.52-1.04) mg/dL Glucose (74-99) mg/dL POC Glucose (mg/dL) 253 H 312 H (70-110) mg/dL Hemoglobin A1c 9.1 H (<=6.0) % Thrombosis Risk Factor Assmnt - Choose All That Apply Any of the Below Risk Factors Present?: Yes Each Factor Represents 1 point: Obesity (BMI >25) Other Risk Factors: Yes Each Risk Factor Represents 3 Points: Age 75 years or older Other congenital or acquired thrombophilia - If yes, enter type in comment: No Thrombosis Risk Factor Assessment Total Risk Factor Score: 4 Thrombosis Risk Factor Assessment Level: Moderate Risk
[2023-09-27 11:14] LABS: Chol/HDL Ratio 6.11 Ratio; LDL Cholesterol,Calculated 103.7 mg/dL (0.0-131.0)
[2023-09-27] MEDS: FUROSEMIDE 40 MG TAB PO SCH (11:59)
--- NOTE | 2023-09-27 12:38 | P.CRDCN ---
History of Present Illness Consult date: 09/27/23 Consult reason: chest pain History of present illness: This is Mir Regalado NP, I'm dictating on behalf of Dr. Murphy's H&P and A&P The patient was interviewed and examined. HPI: Patient is a pleasant 73-year-old female with a past medical history that includes coronary artery disease, chest pain, heart failure, diabetes, hyperlipidemia, SC, CKD stage III, sleep apnea, hypothyroidism, and gout who presents to the hospital with complaints of shortness of breath and chest pressure. Patient reports that she has had shortness of breath on and off for the last couple of weeks. She states that she woke up 2 nights ago with significant chest heaviness. She reports after that night the shortness of breath and heaviness continued constantly. She reports the heaviness in her chest was central with radiation in through her back. Patient has had a history of SC as well as coronary artery bypass in 2017, and the symptoms caused her con cern and this is why she presented to the emergency department. Cardiology was consulted secondary to the shortness of breath and chest heaviness. Patient this morning reports that she continues to feel the chest pressure centrally at this time. Review of her EKG demonstrates very subtle changes when compared to the admission EKG in the ER. Vital signs otherwise stable. ROS: [No fever, chills, or rigors] [Positive for cough, no phlegm or expectoration] [no nausea, vomiting, or diarrhea] [no hematuria, dysuria] [no musculoskelatal complaints] [no strokes or seizures] [no skin lesions] EXAMINATION: GENERAL: Well-appearing, well-nourished and in no acute distress. NECK: Supple without JVD or thyromegaly. LUNGS: Breath sounds clear to auscultation bilaterally. Respiration equal and unlabored. No wheezes, rales or rhonchi. HEART: Regular rate and rhythm without murmurs, rubs or gallops. S1 and S2 heard. EXTREMITIES: Normal range of motion, no edema. No clubbing or cyanosis. Albina pheral pulses intact and strong. REVIEW OF LABS, ECG & MEDICAL DATA: LABS: White count 6.2, hemoglobin 14.5, platelets 191, D-dimer 1.01, sodium 140, potassium 4.5, BUN 21, creatinine 1.35, hemoglobin A1c 9.1, magnesium 1.9, troponin less than 0.012 x 3, BNP 263, triglycerides 301, cholesterol 196, LDL 103.7, HDL 32.1 EKG: Sinus mechanism with subtle changes when compared to initial read. IMAGING: CT angiogram of the chest dated 09/26/2023 demonstrates mild breathing motion artifact, no definite pulmonary embolus, strandy areas of scarring or atelectasis especially in the lower lungs were mild bronchiolectasis also seems to be present, unchanged from prior. Chest x-ray dated 09/26/2023 demonstrates no acute cardiopulmonary disease/process. VITALS: Temp 97.6, pulse 69, respirations 18, blood pressure 146/65, O2 saturation 95% on room air IMPRESSION: 1. Chest heaviness 2. History of bypass surgery 3. Shortness of breath 4. Hypertriglyceridemia PLAN: Obtain echocardiogram. Check lipid panel. If patient has any increase in chest discomfort or pain please get repeat EKG. Start Zetia 10 mg daily in response to elevated triglycerides. Further recommendations based on patient's clinical course. Thank you for the consult and allowing us to participate in the care of this patient. Past Medical History Past Medical History: Coronary Artery Disease (CAD), Chest Pain / Angina, Heart Failure, Diabetes Mellitus, Hyperlipidemia, Myocardial Infarction (SC), Renal Disease, Sleep Apnea/CPAP/BIPAP, Thyroid Disorder Additional Past Medical History / Comment(s): gout,neuropathy,fatty liver, CHRONIC KIDNEY DISEASE - STAGE 3 , has insulin pump,doesn't use the cpap Last Myocardial Infarction Date:: 09/18/2015 History of Any Multi-Drug Resistant Organisms: None Reported Past Surgical History: Back Surgery, Bariatric Surgery, Coronary Bypass/CABG, Heart Catheterization, Heart Catheterization With Stent, Hysterectomy, Orthopedic Surgery, Tubal Ligation Additional Past Surgical History / Comment(s): several heart cath's w/stents most recent was 2015 (2 stents placed), EGD,COLONOSCOPY, LAP BAND 2007, RT ROTAT OR CUFF,PANNICULECTOMY W/surgical WOUND DEBRIDEMENT X2,ANAL FISSURE REPAIR, BRIGID CATARACTS. LT ARM LIPOMA REMOVED, triple bypass & CABG 09-26-16, back sx 2018 2022 Past Anesthesia/Blood Transfusion Reactions: Previous Problems w/ Anesthesia Additional Past Anesthesia/Blood Transfusion Reaction / Comment(s): difficulty waking up from anesthesia. Pt states she had one blood transfusion after her open heart sx and did not experience any reactions Date of Last Stent Placement:: 09-18-15 Past Psychological History: No Psychological Hx Reported Smoking Status: Never smoker Past Alcohol Use History: Occasional, Rare Past Drug Use History: None Reported - Past Family History Mother Family Medical History: Cancer, Diabetes Mellitus Additional Family Medical History / Comment(s): BREAST/BONE CANCER Father Family Medical History: Myocardial Infarction (SC) Additional Family Medical History / Comment(s): AT AGE 56 FROM SC Brother(s) Family Medical History: Cancer Additional Family Medical History / Comment(s): prostate cancer, had open heart surg. Sister(s) Family Medical History: Cancer Additional Family Medical History / Comment(s): KIDNEY CANCER , SKIN CANCER Medications and Allergies Home Medications Medication Instructions Recorded Confirmed Type Atorvastatin [Lipitor] 80 mg PO HS 03/24/18 09/26/23 History Fenofibrate Nanocrystallized 145 mg PO HS 03/24/18 09/26/23 History [Fenofibrate] Furosemide [Lasix] 40 mg PO BID 03/24/18 09/26/23 History Insulin Aspart (For Pump) [NovoLOG 0.01 unit SQ-PUMP CONTINUOUS 03/24/18 09/26/23 History (For Pump)] Levothyroxine Sodium [Synthroid] 75 mcg PO DAILY 03/24/18 09/26/23 History Pregabalin [Lyrica] 150 mg PO BID 03/24/18 09/26/23 History allopurinoL [Zyloprim] 100 mg PO DAILY 03/24/18 09/26/23 History Isosorbide Mononitrate [Isosorbide 30 mg PO DAILY 02/27/21 09/26/23 History Mononitrate ER] Dulaglutide [Trulicity] 3 mg SQ WEEKLY 09/26/23 09/26/23 History Nitroglycerin Sl Tabs [Nitrostat] 0.4 mg SUBLINGUAL Q5M PRN 09/26/23 09/26/23 History Allergies Allergy/AdvReac Type Severity Reaction Status Date / Time adhesive tape Allergy Rash/Hives Verified 09/26/23 14:13 shepherd Allergy Anaphylaxis Verified 09/26/23 14:13 Iodinated Contrast Media Allergy Anaphylaxis Verified 09/26/23 14:13 [Iodinated Contrast- Oral and IV Dye] Penicillins Allergy Rash/Hives Verified 09/26/23 14:13 plum Allergy Swelling Verified 09/26/23 14:13 Sulfa (Sulfonamide Allergy Rash/Hives Verified 09/26/23 14:13 Antibiotics) Physical Exam Vitals: Vital Signs Temp Pulse Pulse Resp BP BP BP 09/27/23 07:00 97.6 F 69 18 146/65 09/27/23 02:21 97.5 F L 54 L 17 133/76 09/26/23 21:50 97.8 F 62 18 136/81 09/26/23 20:23 98.3 F 57 L 20 133/66 09/26/23 16:00 52 L 17 113/59 09/26/23 15:00 48 L 20 105/58 09/26/23 14:26 53 L 16 108/87 09/26/23 13:10 98.2 F 56 L 18 108/70 Pulse Ox 09/27/23 07:00 95 09/27/23 02:21 96 09/26/23 21:50 95 09/26/23 20:23 96 09/26/23 16:00 100 09/26/23 15:00 97 09/26/23 14:26 97 09/26/23 13:10 95 Intake and Output 09/26/23 09/27/23 09/27/23 22:59 06:59 14:59 Output Total 100 Balance -100 Output: Urine 100 Other: # Voids 1 1 Weight 108.862 kg Results 09/26/23 13:31 09/26/23 13:31 Cardiac Enzymes 09/26/23 09/26/23 09/26/23 Range/Units 13:31 13:31 18:42 AST 33 (14-36) U/L Troponin I <0.012 <0.012 (0.000-0.034) ng/mL 09/26/23 Range/Units 21:27 AST (14-36) U/L Troponin I <0.012 (0.000-0.034) ng/mL Coagulation 09/26/23 Range/Units 13:31 PT 10.9 (10.0-12.5) sec APTT 24.5 (22.0-30.0) sec CBC 09/26/23 Range/Units 13:31 WBC 6.2 (3.8-10.6) k/uL RBC 5.27 (3.80-5.40) m/uL Hgb 14.5 (11.4-16.0) gm/dL Hct 44.5 (34.0-46.0) % Plt Count 191 (150-450) k/uL Comprehensive Metabolic Panel 09/26/23 Range/Units 13:31 Sodium 140 (137-145) mmol/L Potassium 4.5 (3.5-5.1) mmol/L Chloride 103 (98-107) mmol/L Carbon Dioxide 35 H (22-30) mmol/L BUN 21 H (7-17) mg/dL Creatinine 1.35 H (0.52-1.04) mg/dL Glucose 115 H (74-99) mg/dL Calcium 9.3 (8.4-10.2) mg/dL AST 33 (14-36) U/L ALT 21 (4-34) U/L Alkaline Phosphatase 85 (38-126) U/L Total Protein 6.8 (6.3-8.2) g/dL Albumin 4.1 (3.5-5.0) g/dL Current Medications Generic Name Dose Route Start Last Admin Trade Name Freq PRN Reason Stop Dose Admin Allopurinol 100 mg 09/27/23 09:00 Allopurinol 100 Mg Tab PO DAILY KJ Aspirin 325 mg 09/27/23 09:00 Aspirin 325 Mg Tab PO DAILY [facility] Atorvastatin Calcium 80 mg 09/27/23 21:00 Atorvastatin 80 Mg Tab PO HS KJ Dextrose/Water 25 ml 09/27/23 05:11 Dextrose 50% Syringe 50 Ml IVP PER PROTOCOL PRN Hypoglycemia Protocol Dextrose/Water 50 ml 09/27/23 05:11 Dextrose 50% Syringe 50 Ml IVP PER PROTOCOL PRN Hypoglycemia Protocol Fenofibrate 160 mg 09/27/23 21:00 Fenofibrate 160 Mg Tab PO HS KJ Insulin Aspart 0.01 unit 09/27/23 05:15 09/27/23 05:37 Insulin Aspart (For Pump) 100 Unit/Ml Vial SQ-PUMP 0.01 unit CONTINUOUS KJ Administration Isosorbide Mononitrate 30 mg 09/27/23 09:00 Isosorbide Mononitrate Er 30 Mg Tab.Er.24h PO DAILY [facility] Levothyroxine Sodium 75 mcg 09/27/23 06:30 09/27/23 05:41 Levothyroxine 75 Mcg Tab PO 75 mcg DAILY@0630 KJ Administration Miscellaneous Information 0 unit 09/27/23 05:24 09/27/23 05:48 Insulin Pump Correction Bolus 1 Unit Misc MISCELLANE 7.9 unit ACHS PRN Administration Blood Sugar - High Protocol Nitroglycerin 0.4 mg 09/26/23 17:22 Nitroglycerin Sl Tabs 0.4 Mg Tab SUBLINGUAL Q5M PRN Chest Pain Pregabalin 150 mg 09/27/23 09:00 Pregabalin 75 Mg Cap PO BID KJ Intake and Output 09/26/23 09/27/23 09/27/23 22:59 06:59 14:59 Output Total 100 Balance -100 Output: Urine 100 Other: # Voids 1 1 Weight 108.862 kg 09/26/23 13:31 09/26/23 13:31
--- NOTE | 2023-09-27 12:55 | CA ---
Transthoracic Echo Report Name: Gena Franco Age: 73 Gender: F : 1950 Exam Date: 09/27/2023 10:04 Exam Location: [facility] Ht (in): 65 Wt (lb): 241 Ordering Physician: Mir Regalado Attending/Referring Phys: Production Line Mechanic Mayra Murillo RDCS Procedure CPT: Indications: sob Cardiac Hx: CABG Technical Quality: Technically difficult study Contrast 1: Definity Total Dose (mL): 2 Contrast 2: Total Dose (mL): MEASUREMENTS (Male / Female) Normal Values 2D ECHO LV Diastolic Diameter PLAX 3.4 cm 4.2 - 5.9 / 3.9 - 5.3 cm LV Systolic Diameter PLAX 2.6 cm IVS Diastolic Thickness 1.2 cm 0.6 - 1.0 / 0.6 - 0.9 cm LVPW Diastolic Thickness 1.1 cm 0.6 - 1.0 / 0.6 - 0.9 cm LV Relative Wall Thickness 0.7 LA Volume 91.4 cm??? 18 - 58 / 22 - 52 cm??? LA Volume Index 39.9 cm???/m??? 16 - 28 cm???/m??? M-MODE Aortic Root Diameter MM 2.9 cm LA Systolic Diameter MM 5.5 cm LA Ao Ratio MM 1.9 AV Cusp Separation MM 2.0 cm DOPPLER AV Peak Velocity 135.7 cm/s AV Peak Gradient 7.4 mmHg MV Area PHT 3.4 cm??? Mitral E Point Velocity 100.0 cm/s Mitral A Point Velocity 55.4 cm/s Mitral E to A Ratio 1.8 MV Deceleration Time 223.9 ms TR Peak Velocity 182.9 cm/s TR Peak Gradient 13.4 mmHg FINDINGS Left Ventricle Left ventricular ejection fraction is estimated at 55-60 %. Mildly increased septal wall thickness. Mildly increased posterior wall thickness. No obvious regional wall motion abnormalities. Left ventricular cavity size normal. Right Ventricle Normal right ventricular size and function. Right ventricular systolic pressure within normal limits. Right Atrium Moderate right atrial dilatation. Left Atrium Moderately increased left atrial volume. Mildly increased left atrial area. Mitral Valve Structurally normal mitral valve. No mitral stenosis. Trace mitral regurgitation. Aortic Valve Trileaflet aortic valve. No aortic valve stenosis or regurgitation. Tricuspid Valve Structurally normal tricuspid valve. No tricuspid stenosis. Trace tricuspid regurgitation. Pulmonic Valve Structurally normal pulmonic valve. No pulmonic stenosis. No pulmonic regurgitation. Pericardium No pericardial or pleural effusion. Aorta Normal size aortic root and proximal ascending aorta. CONCLUSIONS Preserved LV systolic function Left ventricular hypertrophy Possible mild inferior septal and inferior basal hypokinesis Previewed by: Dr. Andrew Murphy MD (Electronically Signed) Final Date: 27 September 2023 12:54
[2023-09-27 12:56] LABS: Glucose,Whole Blood 383 mg/dL (70-110)
[2023-09-27] MEDS: EZETIMIBE 10 MG TAB PO SCH (14:24)
[2023-09-27 15:48] VITALS: BMI 39.9
[2023-09-27 17:26] LABS: Glucose,Whole Blood 367 mg/dL (70-110)
[2023-09-27] MEDS: ATORVASTATIN 80 MG TAB PO SCH (20:36)
[2023-09-27] MEDS: FENOFIBRATE 160 MG TAB PO SCH (20:36)
[2023-09-27 20:44] LABS: Glucose,Whole Blood 330 mg/dL (70-110)
[2023-09-28 05:19] LABS: Glucose,Whole Blood 184 mg/dL (70-110)
[2023-09-28 08:41] LABS: Glucose,Whole Blood 186 mg/dL (70-110)
--- NOTE | 2023-09-28 08:51 | P.PN ---
Subjective Progress Note Date: 09/28/23 This is Mir Regalado NP, I'm dictating on behalf of Dr. Murphy's H&P and A&P. Patient was interviewed and examined. Patient is a pleasant 73-year-old female who presented to the hospital with c omplaints of shortness of breath and chest discomfort. Overnight the patient had episodes of shortness of breath and an EKG was completed which shows A-fib with slow ventricular response. This was paroxysmal in nature and would come and go. This morning the patient reports she is having no shortness of breath, but does report an episode this morning. Patient denies any chest pain this morning. Lipid panel was checked yesterday and did show hypertriglyceridemia. We started the patient on ezetimibe yesterday. GENERAL: Well-appearing, well-nourished and in no acute distress. NECK: Supple without JVD or thyromegaly. LUNGS: Breath sounds clear to auscultation bilaterally. Respiration equal and unlabored. No wheezes, rales or rhonchi. HEART: Regular rate and rhythm without murmurs, rubs or gallops. S1 and S2 heard. EXTREMITIES: Normal range of motion, no edema. No clubbing or cyanosis. Peripheral pulses intact and strong. VITALS: Temp 97.5, pulse rate 53, respirations 17, blood pressure 134/61, O2 saturation 95% on room air TELEMETRY: Sinus bradycardia. EKG done during episode of shortness of breath shows atrial fibrillation with slow ventricular response LABS: No new labs since yesterday. IMPRESSION: 1. Atrial fibrillation with slow ventricular response, paroxysmal 2. Shortness of breath secondary to the above 3. History of coronary bypass surgery 4. Hypertriglyceridemia PLAN: Start Eliquis 5 mg twice daily for stroke reduction in the presence of atrial fibrillation. From a cardiology standpoint patient may be discharged. Patient should follow- up with Dr. Stewart. Recommend A-fib ablation. Continue ezetimibe. Objective - Vital Signs Vital signs: Vital Signs Temp 97.5 F L 09/28/23 02:00 Pulse 58 L 09/28/23 05:19 Resp 17 09/28/23 02:00 BP 148/75 09/28/23 05:19 Pulse Ox 94 L 09/28/23 05:19 FiO2 Intake & Output 06/05/2109/28/23 09/28/23 18:59 06:59 18:59 Intake Total 118 Balance 118 Weight 108.862 kg Intake: Oral 118 Other: Voiding Method Toilet # Voids 3 3 - Labs CBC & Chem 7: 09/26/23 13:31 09/26/23 13:31 Labs: Abnormal Lab Results - Last 24 Hours (Table) 09/27/23 09/27/23 09/27/23 Range/Units 05:19 05:43 08:55 POC Glucose (mg/dL) 312 H (70-110) mg/dL Hemoglobin A1c 9.1 H (<=6.0) % Triglycerides 301.00 H (0.00-149.00) mg/dL VLDL Cholesterol, Calc 60.20 H (5.00-40.00) mg/dL HDL Cholesterol 32.10 L (40.00-60.00) mg/dL 09/27/23 09/27/23 09/27/23 Range/Units 12:55 17:24 20:41 POC Glucose (mg/dL) 383 H 367 H 330 H (70-110) mg/dL Hemoglobin A1c (<=6.0) % Triglycerides (0.00-149.00) mg/dL VLDL Cholesterol, Calc (5.00-40.00) mg/dL HDL Cholesterol (40.00-60.00) mg/dL 09/28/23 09/28/23 Range/Units 05:17 08:40 POC Glucose (mg/dL) 184 H 186 H (70-110) mg/dL Hemoglobin A1c (<=6.0) % Triglycerides (0.00-149.00) mg/dL VLDL Cholesterol, Calc (5.00-40.00) mg/dL HDL Cholesterol (40.00-60.00) mg/dL
[2023-09-28 09:21] VITALS: BP 121/79; PULSE 56; RESP 16; TEMP 98.1
[2023-09-28] MEDS: APIXABAN 5 MG TAB PO SCH (09:40)
--- NOTE | 2023-09-30 21:37 | P.DS ---
Providers Date of admission: 09/26/23 17:22 Attending physician: Celestina Stallworth Consults: 09/26/23 17:22 Consult Physician Urgent Consulting Provider: Arin Stewart Consult Reason/Comments: chest pain Do you want consulting provider notified?: Yes Primary care physician: Bjorn Cha Hospital Course: Final Diagnosis -Chest pain due to paroxysmal atrial fibrillation -Found to have paroxysmal atrial fibrillation and will be discharged on oral anticoagulation. -Shortness of breath unknown etiology patient saturations are good may be related to her sleep apnea. Patient was advised to see his sleep specialist as an outpatient -Type 2 diabetes mellitus uncontrolled elevated blood sugars secondary to steroid she received in ER. Patient blood sugars are expected to be higher for around 48 to 72 hours. Patient has an insulin pump which will be resumed -Coronary artery disease with a CABG in 2017 -Hypertension -Hyperlipidemia -Congestive heart failure chronic diastolic function without any acute e xacerbation -Hypothyroidism -Sleep apnea -Chronic kidney disease stage III probably diabetic nephropathy Discharge Disposition Patient is stable for discharge home. Has been cleared by cardiology. Found to be in atrial fibrillation. Patient has been discharged on eliquis 5 mg twice a day. Her heart rate is controlled and she is in normal sinus rhythm currently. Patient to repeat blood work in 2 to 3 days. Patient to follow up with PCP Dr. Cha in 1 week. Hospital Course Patient is a pleasant 73-year-old female came in with complaints of cough shortness of breath and chest pressure-like sensation. Patient had no acute ST- T wave changes on the EKG. Patient had an EF of around 60 to 65% in the past may have had diastolic dysfunction patient is on Lasix at home with elevated creatinine of 1.35 which is at baseline. Patient denies any cough sputum production patient had a CT of the chest which showed some atelectasis without any evidence of pneumonia or pulmonary embolism. Patient does have sleep apnea and does not use her CPAP machine at home. Patient was evaluated by cardiology recommended echocardiogram monitoring overnight. Patient blood sugars are elevated because of the steroid she received in ER. Patient chest pressure is constant mild nonradiating no associated lightheadedness shortness of breath. Patient denies any fever or chills. Was admitted for observation. Echocardiogram reveals an EF of 55-60% with possible mild inferior septal and inferior basal hypokinesis. Overnight the patient had episodes of shortness of breath and an EKG was completed which shows A-fib with slow ventricular response. This was paroxysmal in nature and would come and go. This morning the patient reports she is having no shortness of breath, but does report an episode this morning. Patient has reported a few similar episodes recently and feels this may have been the a.fib as well she will be anticoagulated with eliquis. She has been started on ezetimibe. Patient is currently in normal sinus rhythm. No chest pain, no shortness of breath. No dizziness or lightheadedness. She has been up ambulating. Hemodynamically stable. Please see medication reconciliation for a list of current medications. Thank you for allowing us to participate in the care of this patient. The impression and plan of care has been dictated by Pili Dimas, Nurse Practitioner as directed. Dr. Amy MD I have performed a history and physical examination and medical decision making of this patient, discussed the same with the dictator, and agree with the dictators assessment and plan as written, documented as a scribe. Based on total visit time, I have performed more than 50% of this visit. Patient Condition at Discharge: Fair Plan - Discharge Summary New Discharge Prescriptions: New Famotidine [Pepcid] 20 mg PO DAILY #30 tablet Apixaban [Eliquis] 5 mg PO BID #60 tab Ezetimibe [Zetia] 10 mg PO DAILY #30 tab Continue Levothyroxine Sodium [Synthroid] 75 mcg PO DAILY Furosemide [Lasix] 40 mg PO BID Pregabalin [Lyrica] 150 mg PO BID Atorvastatin [Lipitor] 80 mg PO HS allopurinoL [Zyloprim] 100 mg PO DAILY Insulin Aspart (For Pump) [NovoLOG (For Pump)] 0.01 unit SQ-PUMP CONTINUOUS Fenofibrate Nanocrystallized [Fenofibrate] 145 mg PO HS Dulaglutide [Trulicity] 3 mg SQ WEEKLY Isosorbide Mononitrate [Isosorbide Mononitrate ER] 30 mg PO DAILY Nitroglycerin Sl Tabs [Nitrostat] 0.4 mg SUBLINGUAL Q5M PRN PRN Reason: Chest Pain Discharge Medication List Atorvastatin [Lipitor] 80 mg PO HS 03/24/18 [History] Fenofibrate Nanocrystallized [Fenofibrate] 145 mg PO HS 03/24/18 [History] Furosemide [Lasix] 40 mg PO BID 03/24/18 [History] Insulin Aspart (For Pump) [NovoLOG (For Pump)] 0.01 unit SQ-PUMP CONTINUOUS 03/24/18 [History] Levothyroxine Sodium [Synthroid] 75 mcg PO DAILY 03/24/18 [History] Pregabalin [Lyrica] 150 mg PO BID 03/24/18 [History] allopurinoL [Zyloprim] 100 mg PO DAILY 03/24/18 [History] Isosorbide Mononitrate [Isosorbide Mononitrate ER] 30 mg PO DAILY 02/27/21 [History] Dulaglutide [Trulicity] 3 mg SQ WEEKLY 09/26/23 [History] Nitroglycerin Sl Tabs [Nitrostat] 0.4 mg SUBLINGUAL Q5M PRN 09/26/23 [History] Apixaban [Eliquis] 5 mg PO BID #60 tab 09/28/23 [Rx] Ezetimibe [Zetia] 10 mg PO DAILY #30 tab 09/28/23 [Rx] Famotidine [Pepcid] 20 mg PO DAILY #30 tablet 09/28/23 [Rx] Follow up Appointment(s)/Referral(s): Arin Stewart MD [STAFF PHYSICIAN] - 09/29/23 10:00 am Bjorn Cha MD [Primary Care Provider] - 1-2 days Ambulatory/Diagnostic Orders: Basic Metabolic Panel [LAB.AMB] Location: None Selected Complete Blood Count w/diff [LAB.AMB] Time Frame: 3 Days, Location: None Selected Patient Instructions/Handouts: A-fib (Atrial Fibrillation) (DC) Discharge Disposition: HOME SELF-CARE
== END 2023-09-28 11:53 | disposition home or self-care (01) ==
LOC: EC 12:57 → 6NMEDSUR 17:22
PROVIDERS: ADMIT Hospitalist; ATTEND Hospitalist
DX: I48.0 Paroxysmal atrial fibrillation (principal); E11.65 Type 2 diabetes mellitus with hyperglycemia; E78.5 Hyperlipidemia, unspecified; E03.9 Hypothyroidism, unspecified; G47.30 Sleep apnea, unspecified; N18.31 Chronic kidney disease, stage 3a; I13.0 Hypertensive heart and chronic kidney disease with heart failure and stage 1 through stage 4 chronic kidney disease, or unspecified chronic kidney disease; I50.9 Heart failure, unspecified
CPT/HCPCS: 96374; 96375; 99285; 36415; 93005; 85379; 83880; 80061; 80053; 83735; 84484; 85025; 85610; 85730; 83036; 71046; 71275; G0378 ×3; C8929; J1200; J3490; Q9957; Q9967; J2919; 93306

== ENCOUNTER → 2023-11-27 | Outpatient (CLI) | payer MEDICARE, BC ==
[2023-11-27 16:15] LABS: HCT 46.1 % (37.2-46.3); HGB 14.7 g/dL (12.0-15.0); MCH 26.8 pg (27.0-32.0); MCHC 31.9 g/dL (32.0-37.0); MCV 84.1 FL (80.0-97.0); Mean Platelet Volume 12.4 FL (9.5-12.2); NRBC Per 100 WBC 0 X 10*3/uL (0.00-0.01); Platelet Count 222 X 10*3/uL (140-440); RBC 5.48 X 10*6/uL (4.10-5.20); RDW 16.2 % (11.5-14.5); WBC 7.01 X 10*3/uL (4.50-10.00)
[2023-11-27 16:32] LABS: Blood Urea Nitrogen 16.5 mg/dL (9.0-27.0)
[2023-11-27 16:33] LABS: Carbon Dioxide 27.9 mmol/L (21.6-31.8); Chloride 100 mmol/L (96-109); Potassium 3.9 mmol/L (3.5-5.5); Sodium 141 mmol/L (135-145)
== END | disposition home or self-care (01) ==
LOC: LABPAT 09:01
PROVIDERS: ATTEND Internal Medicine Clinical Cardiac Electrophysiology
DX: Z01.812 Encounter for preprocedural laboratory examination (principal); I48.0 Paroxysmal atrial fibrillation
CPT/HCPCS: 80051; 82565; 84520; 85027

== ENCOUNTER 2023-12-04 10:57 | Inpatient (IN) | payer MEDICARE, BC ==
[2023-12-04] MEDS: IOPAMIDOL-370 100ML BTL INJ ONE (10:56)
[~2023-12-04 10:57] MED LIST changes: -ALPRAZolam 0.25 MG TAB PO PRN; -ALPRAZolam 0.5 MG TAB PO PRN; -ASPIRIN 325 MG TAB PO SCH; -ASPIRIN 325 MG TAB PO STA; -ATORVASTATIN 80 MG TAB PO SCH; -FLUTICASONE 50MCG/SPRAY NASAL 16GM EA NOSTRIL SCH; -HEPARIN SODIUM,PORCINE 10,000 UNIT in SODIUM CHLORIDE 0.9% 1,000 ML IRRIGATION PRN; +HEPARIN SODIUM,PORCINE 10,000 UNIT/ML 1 ML VIAL ONE; -HEPARIN SODIUM,PORCINE 2,500 UNIT in SODIUM CHLORIDE 0.9% 250 ML IRRIGATION PRN; +HEPARIN SODIUM,PORCINE 5,000 UNIT/ML 1 ML VIAL ONE; -IOPAMIDOL-370 100ML BTL INJ ONE; -IOPAMIDOL-370 125ML BTL INJ ONE; -ISOSORBIDE MONONITRATE ER 30 MG TAB.ER.24H PO SCH; -Insulin Aspart (For Pump) 100 UNIT/ML VIAL SQ-PUMP SCH; -LEVOTHYROXINE 75 MCG TAB PO SCH; -LIDOCAINE 1% INJ 10MG/ML (20 ML MDV) SQ ONE; -METOPROLOL TARTRATE 25 MG TAB PO SCH; -NITROGLYCERIN SL TABS 0.4 MG TAB SUBLINGUAL PRN; -NON FORMULARY DRUG (Cholecalciferol (Vitamin D3) [Vitamin D3] 2,000 UNIT Capsule) PO SCH; -NON FORMULARY DRUG (Dulaglutide [Trulicity] 1.5 MG/0.5 ML Each) SQ SCH; -NON FORMULARY DRUG (Fenofibrate Nanocrystallized [Fenofibrate] 145 MG Tablet) PO SCH; -NON FORMULARY DRUG (Folic Acid [Folic Acid] 0.4 MG Tablet) PO SCH; -NON FORMULARY DRUG (Pregabalin [Lyrica] 150 MG Capsule) PO SCH; +PHENYLEPHRINE-0.9% NACL SYG 1,000 MCG/10 ML SYRINGE ONE; +PROPOFOL 10 MG/ML 20 ML VIAL IV ONE; -RX INFO: IV CONTRAST WAS GIVEN 1 EACH MISC MISCELLANE PRN; -SODIUM CHLORIDE 0.9% 1,000 ML IV SCH; -SODIUM CHLORIDE 0.9% 1,000 ML in EMPTY BAG 1 BAG IV SCH; +SUCCINYLCHOLINE CHLORIDE 200 MG/10 ML VIAL IV ONE; -allopurinoL 100 MG TAB PO SCH; -fentaNYL (PF) 50 MCG/ML 2 ML AMP IVP ONE
[2023-12-04] MEDS ORDERED: APIXABAN 5 MG TAB ONE (20:18)
[2023-12-05] MEDS ORDERED: ACETAMINOPHEN TAB 325 MG TAB ONE ×2 (00:51)
[2023-12-05] MEDS ORDERED: APIXABAN 5 MG TAB ONE (08:19)
[2023-12-05] MEDS ORDERED: ATORVASTATIN 80 MG TAB ONE (08:19)
== END 2023-12-05 09:46 | disposition home or self-care (01) | DRG 274 ==
LOC: CATHEP 10:57 → UNDOADMIN 11:57 → 6NMEDSUR 11:57 → DISRECOVER 12:30 → UNDODISIN 12-05 09:46
PROVIDERS: ADMIT Internal Medicine Clinical Cardiac Electrophysiology; ATTEND Internal Medicine Clinical Cardiac Electrophysiology
PROC: 02573ZK Destruction of Left Atrial Appendage, Percutaneous Approach (ICD-10-PCS; principal; 2023-12-04 07:15)
PROC: B246ZZ4 Ultrasonography of Right and Left Heart, Transesophageal (ICD-10-PCS; 2023-12-04 07:15)
DX: I48.0 Paroxysmal atrial fibrillation (principal); E66.9 Obesity, unspecified; I10 Essential (primary) hypertension; Z88.0 Allergy status to penicillin; Z91.048 Other nonmedicinal substance allergy status; Z91.041 Radiographic dye allergy status; Z79.01 Long term (current) use of anticoagulants; Z88.2 Allergy status to sulfonamides
CPT/HCPCS: 80053; 84443

== ENCOUNTER → 2024-06-01 | Outpatient (CLI) | payer MEDICARE, BC ==
[2024-06-01 13:48] VITALS: BP 151/86; PULSE 67; RESP 16; TEMP 97.4
--- NOTE | 2024-06-01 14:52 | P.SLEEP ---
History of Present Illness H&P Date: 06/01/24 pleasant 74-year-old female patient used to work at [facility] in and currently she is retired. 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 She is known to have coronary artery disease, previous bypass surgery, she is also known to have chronic atrial fibrillation for which she has undergone A-fib ablation. She has diabetes mellitus type 2, hyperlipidemia, hypertension, and hypothyroidism. 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 The patient was referred to me for sleep apnea evaluation. Noted since her ablation that was done several months back, the patient has remained in sinus rhythm. She snores. Her sleep is fragmented. She has nocturia. She has chronic daily fatigue and she takes a nap at around 3 PM and this is a 1 hour nap. No recent weight gain. She has undergone a lap band procedure many years back and she has lost around 60 pounds and since then her weight has remained stable. Her current Austin score is at 9. She goes to bed at around midnight and wakes up at 8:30 AM in the morning. No nighttime chest pain or palpitation. No significant restlessness or neuropathy in her lower extremities. No anxiety. No depression. No dreams. No nightmares. No sleepwalking. No sleep talking. Review of Systems Constitutional: Reports daytime sleepiness, Reports fatigue, Reports weight gain Eyes: denies as per HPI, denies blurred vision, denies bulging eye, denies decreased vision, denies diplopia, denies discharge, denies dry eye, denies irritation, denies itching, denies pain, denies photophobia, denies loss of peripheral vision, denies loss of vision, denies tunnel vision/blind spots Ears: deny: decreased hearing, ear discharge, earache, tinnitus Ears, nose, mouth and throat: Reports as per HPI Breasts: absent: as per HPI, change in shape, gynecomastia, masses, nipple discharge, pain, skin changes, swelling Cardiovascular: Reports as per HPI Respiratory: Reports snoring Gastrointestinal: Reports as per HPI Genitourinary: Reports as per HPI Menstruation: Reports as per HPI Musculoskeletal: Reports as per HPI Musculoskeletal: absent: ankle pain, ankle stiffness, ankle swelling, as per HPI, elbow pain, elbow stiffness, elbow swelling, foot pain, foot stiffness, foot swelling, hand pain, hand stiffness, hand swelling, hip pain, hip stiffness, hip swelling, knee pain, knee stiffness, knee swelling, shoulder pain, shoulder stiffness, shoulder swelling, wrist pain, wrist stiffness, wrist swelling Integumentary: Reports as per HPI Neurological: Reports as per HPI Psychiatric: Reports as per HPI Endocrine: Reports as per HPI Hematologic/Lymphatic: Reports as per HPI Allergic/Immunologic: Reports as per HPI Past Medical History Past Medical History: Coronary Artery Disease (CAD), Cancer, Chest Pain / Angina, Heart Failure, Diabetes Mellitus, Hyperlipidemia, Myocardial Infarction (PR), Pneumonia, Renal Disease, Sleep Apnea/CPAP/BIPAP, Thyroid Disorder Additional Past Medical History / Comment(s): gout,neuropathy,fatty liver, CHRONIC KIDNEY DISEASE - STAGE 3 , has insulin pump,doesn't use the cpap, bronchitis, snoring, Last Myocardial Infarction Date:: 09/18/2015 History of Any Multi-Drug Resistant Organisms: None Reported Past Surgical History: Back Surgery, Bariatric Surgery, Coronary Bypass/CABG, Heart Catheterization, Heart Catheterization With Stent, Hysterectomy, Orthopedic Surgery, Tubal Ligation Additional Past Surgical History / Comment(s): several heart cath's w/stents most recent was 2015 (2 stents placed), EGD,COLONOSCOPY, LAP BAND 2007, RT ROTATOR CUFF,PANNICULECTOMY W/surgical WOUND DEBRIDEMENT X2,ANAL FISSURE REPAIR, BRIGID CATARACTS. LT ARM LIPOMA REMOVED, triple bypass & CABG 09-26-16, back sx 2018 2022 Past Anesthesia/Blood Transfusion Reactions: Previous Problems w/ Anesthesia Additional Past Anesthesia/Blood Transfusion Reaction / Comment(s): difficulty waking up from anesthesia. Pt states she had one blood transfusion after her open heart sx and did not experience any reactions Date of Last Stent Placement:: 09-18-15 Past Psychological History: No Psychological Hx Reported Smoking Status: Never smoker Past Alcohol Use History: Rare Past Drug Use History: None Reported - Past Family History Mother Family Medical History: Cancer, Diabetes Mellitus Additional Family Medical History / Comment(s): BREAST/BONE CANCER Father Family Medical History: Myocardial Infarction (PR) Additional Family Medical History / Comment(s): AT AGE 56 FROM PR Brother(s) Family Medical History: Cancer Additional Family Medical History / Comment(s): prostate cancer, had open heart surg. Sister(s) Family Medical History: Cancer Additional Family Medical History / Comment(s): KIDNEY CANCER , SKIN CANCER Medications and Allergies Home Medications Medication Instructions Recorded Confirmed Type Atorvastatin [Lipitor] 80 mg PO HS 03/24/18 09/26/23 History Fenofibrate Nanocrystallized 145 mg PO HS 03/24/18 09/26/23 History [Fenofibrate] Furosemide [Lasix] 40 mg PO BID 03/24/18 09/26/23 History Insulin Aspart (For Pump) [NovoLOG 0.01 unit SQ-PUMP CONTINUOUS 03/24/18 09/26/23 History (For Pump)] Levothyroxine Sodium [Synthroid] 75 mcg PO DAILY 03/24/18 09/26/23 History Pregabalin [Lyrica] 150 mg PO BID 03/24/18 09/26/23 History allopurinoL [Zyloprim] 100 mg PO DAILY 03/24/18 09/26/23 History Isosorbide Mononitrate [Isosorbide 30 mg PO DAILY 02/27/21 09/26/23 History Mononitrate ER] Dulaglutide [Trulicity] 3 mg SQ WEEKLY 09/26/23 09/26/23 History Nitroglycerin Sl Tabs [Nitrostat] 0.4 mg SUBLINGUAL Q5M PRN 09/26/23 09/26/23 History Apixaban [Eliquis] 5 mg PO BID #60 tab 09/28/23 Rx Ezetimibe [Zetia] 10 mg PO DAILY #30 tab 09/28/23 Rx Famotidine [Pepcid] 20 mg PO DAILY #30 tablet 09/28/23 Rx Allergies Allergy/AdvReac Type Severity Reaction Status Date / Time adhesive tape Allergy Rash/Hives Verified 09/26/23 14:13 shepherd Allergy Anaphylaxis Verified 09/26/23 14:13 Iodinated Contrast Media Allergy Anaphylaxis Verified 09/26/23 14:13 [Iodinated Contrast- Oral and IV Dye] Penicillins Allergy Rash/Hives Verified 09/26/23 14:13 plum Allergy Swelling Verified 09/26/23 14:13 Sulfa (Sulfonamide Allergy Rash/Hives Verified 09/26/23 14:13 Antibiotics) Physical Exam Vitals: Vital Signs Temp Pulse Resp BP Pulse Ox 06/01/24 13:44 97.4 F L 67 16 151/86 96 Intake and Output 05/31/24 06/01/24 06/01/24 22:59 06:59 14:59 Other: Weight 105.29 kg The patient appeared well nourished and normally developed. Vital signs as do cumented. The body mass index is 41.7 Head exam is unremarkable. No scleral icterus or corneal arcus noted. The patient has some bruising and surgical scar over the left forehead post squamous cell carcinoma resection. Neck is without jugular venous distension, thyromegaly, or carotid bruits. Carotid upstrokes are brisk bilaterally. Mallampati class IV with significant crowding of the posterior pharynx Lungs are clear to auscultation and percussion. Cardiac exam reveals the PMI to be normally sized and situated. Rhythm is regular. First and second heart sounds normal. No murmurs, rubs or gallops. Abdominal exam reveals normal bowel sounds, no masses, no organomegaly and no aortic enlargement. Extremities are nonedematous and both femoral and pedal pulses are normal. Examination of the skin revealed no evidence of significant rashes, suspicious appearing nevi or other concerning lesions. Neurologically, the patient is awake and alert and the patient does not have any focal neurological deficit. Cranial nerves are essentially intact. Assessment and Plan Plan: Loud snoring along with symptoms of chronic hypersomnia/fatigue, Austin score of 9. Rule out underlying obstructive sleep apnea. The patient has hearing a body mass index of 41.7. The patient had a Mallampati class IV Obesity with a BMI of 41.7, patient has undergone previous lap band procedure Coronary artery disease with previous bypass surgery, history of chronic atrial fibrillation the patient is post ablation and her cardiac rhythm is sinus Hyperlipidemia Hypertension Diabetes mellitus type 2 and the patient is using an insulin pump Peripheral neuropathy Fatty liver Chronic stage III kidney disease History of squamous cell carcinoma of the skin, surgically resected Hypothyroidism currently on thyroid hormone replacement. Plan This patient carries an increased risk of having obstructive sleep apnea. Based on her symptoms and underlying comorbidities, further investigation will be needed. Suggest doing a screening polysomnography to evaluate the presence and severity of sleep apnea will make further recommendations accordingly. Encourage weight loss. Optimize sleep hygiene measures. Tight control of cardiovascular risk factors. Current cardiac rhythm is sinus. Will continue to follow. Sleep Note - Sleep Data ESS Total: 9 - Sleep Note Sleep Note: Temperature: 97.4 F Pulse Rate: 67 Respiratory Rate: 16 Blood Pressure: 151/86 SpO2: 96 Height: 5 ft 2.5 in Weight: 105.29 kg BMI: Neck Circumference: 16.5
== END ==
LOC: 3 N SLEEP 13:17
PROVIDERS: ATTEND Internal Medicine Critical Care Medicine
DX: E11.9 Type 2 diabetes mellitus without complications (principal); R06.83 Snoring; G47.10 Hypersomnia, unspecified; E66.9 Obesity, unspecified; I25.10 Atherosclerotic heart disease of native coronary artery without angina pectoris; E78.5 Hyperlipidemia, unspecified; I10 Essential (primary) hypertension; G62.9 Polyneuropathy, unspecified; G60.9 Hereditary and idiopathic neuropathy, unspecified; K76.0 Fatty (change of) liver, not elsewhere classified; E03.9 Hypothyroidism, unspecified; N18.30 Chronic kidney disease, stage 3 unspecified; Z85.828 Personal history of other malignant neoplasm of skin; Z68.41 Body mass index [BMI] 40.0-44.9, adult; Z91.09 Other allergy status, other than to drugs and biological substances; Z91.018 Allergy to other foods; Z91.041 Radiographic dye allergy status; Z88.0 Allergy status to penicillin; Z88.2 Allergy status to sulfonamides
CPT/HCPCS: 99211

== ENCOUNTER 2024-06-29 19:23 | Outpatient (CLI) | payer MEDICARE, BC ==
--- NOTE | 2024-07-12 20:28 | P.PCN ---
Date of Procedure: 06/29/24 Operative Findings: Polysomnography report Date of service is 06/30/2019. History 74-year-old female patient used to work at [facility] [facility] [employer] in and currently she is retired. 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 She is known to have coronary artery disease, previous bypass surgery, she is also known to have chronic atrial fibrillation for which she has undergone A-fib ablation. She has diabetes mellitus type 2, hyperlipidemia, hypertension, and hypothyroidism. 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 The patient was referred to me for sleep apnea evaluation. Noted since her ablation that was done several months back, the patient has remained in sinus rhythm. She snores. Her sleep is fragmented. She has nocturia. She has chronic daily fatigue and she takes a nap at around 3 PM and this is a 1 hour nap. No recent weight gain. She has undergone a lap band procedure many years back and she has lost around 60 pounds and since then her weight has remained stable. Her current [place] score is at 9. She goes to bed at around midnight and wakes up at 8:30 AM in the morning. No nighttime chest pain or palpitation. No significant restlessness or neuropathy in her lower extremities. No anxiety. No depression. No dreams. No nightmares. No sleepwalking. No sleep talking. Pertinent physical findings Weight is 232 pounds with a BMI of 41.8 Technical description The patient was studied using a standard complex polysomnography protocol that included recording of the Lead II EKG, Central, occipital and frontal EEG, right and left outer canthus EOG, submental EMG, right and left anterior tibialis EMG, respiratory airflow by thermocouple and or pressure/flow transducer, respiratory efforts by abdominal and thoracic PVDF belts, oxygen saturation by cable oximetry. Position by observation synchronized the PSG. Equipment used: [employer]. Sleep architecture The total recording duration was 369.5 minutes. The total sleep time was 225.5 minutes. The wake after sleep onset time was 44 minutes. Overall sleep efficiency was 61%. The latency to sleep onset was 100 minutes. The sleep architecture was characterized by 7.3% stage I, 73.6% stage II, 0% stage III and a total of 19.1% REM sleep. The total arousal index was 35.7 Respiratory analysis The patient had a total of 270 obstructive events of which 31 were obstructive apneas, 0 were mixed apneas and 139 with obstructive hypopneas. The resulting AHI was 71.3 consistent with severe obstructive sleep apnea. Oxygenation analysis the baseline oxygen saturation while awake was 93%. Lowest oxygen saturation was 63% and the patient spent approximately 58 minutes of the sleep time below pulse ox of 89% and this accounted for 15.9% of the overall sleep time. Arousal events There was a total of 134 arousals with an index of 35.7. The respiratory arousal index was 20.8 Periodic movement events No significant reality movement activity Cardiac summary Average heart rate was 58 with a minimum heart rate 54 and a maximum heart of 64 Assessment Severe obstructive sleep apnea with an AHI of 71.3 Nocturnal oxygen desaturations with a minimum pulse ox of 63% Loud snoring along with symptoms of chronic hypersomnia/fatigue, [place] score of 9. Obesity with a body mass index of 41.7. The patient has undergone previous lap band procedure Coronary artery disease with previous bypass surgery, history of chronic atrial fibrillation the patient is post ablation and her cardiac rhythm is sinus Hyperlipidemia Hypertension Diabetes mellitus type 2 and the patient is using an insulin pump Peripheral neuropathy Fatty liver Chronic stage III kidney disease History of squamous cell carcinoma of the skin, surgically resected Hypothyroidism currently on thyroid hormone replacement. Plan This patient has severe symptomatic obstructive sleep apnea. Based on her symptoms and underlying comorbidities and disease severity, CPAP therapy is recommended. The patient will be asked to come back to the sleep center to undergo a CPAP titration. Encourage weight loss. Optimize sleep hygiene measures. Tight control of cardiovascular risk factors. Current cardiac rhythm is sinus. Will continue to follow.
== END 2024-06-30 06:10 | disposition home or self-care (01) ==
LOC: 3 N SLEEP 19:23
PROVIDERS: ATTEND Internal Medicine Critical Care Medicine
DX: E11.22 Type 2 diabetes mellitus with diabetic chronic kidney disease (principal); G47.33 Obstructive sleep apnea (adult) (pediatric); E66.9 Obesity, unspecified; I25.10 Atherosclerotic heart disease of native coronary artery without angina pectoris; E78.5 Hyperlipidemia, unspecified; I10 Essential (primary) hypertension; K76.0 Fatty (change of) liver, not elsewhere classified; N18.30 Chronic kidney disease, stage 3 unspecified; G62.9 Polyneuropathy, unspecified; E03.9 Hypothyroidism, unspecified; Z68.41 Body mass index [BMI] 40.0-44.9, adult; Z85.828 Personal history of other malignant neoplasm of skin; Z86.79 Personal history of other diseases of the circulatory system; Z91.09 Other allergy status, other than to drugs and biological substances; Z91.041 Radiographic dye allergy status; Z88.0 Allergy status to penicillin; Z88.2 Allergy status to sulfonamides; Z91.018 Allergy to other foods; I12.9 Hypertensive chronic kidney disease with stage 1 through stage 4 chronic kidney disease, or unspecified chronic kidney disease; Z79.890 Hormone replacement therapy; Z79.4 Long term (current) use of insulin
CPT/HCPCS: 95810

== ENCOUNTER 2024-08-18 19:29 | Outpatient (CLI) | payer MEDICARE, BC ==
--- NOTE | 2024-08-25 08:27 | P.PCN ---
Date of Procedure: 08/18/24 Operative Findings: 74-year-old female patient used to work at [employer] in and currently she is retired. 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 She is known to have coronary artery disease, previous bypass surgery, she is also known to have chronic atrial fibrillation for which she has undergone A-fib ablation. She has diabetes mellitus type 2, hyperlipidemia, hypertension, and hypothyroidism. 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 The patient was referred to me for sleep apnea evaluation. Noted since her ablation that was done several months back, the patient has remained in sinus rhythm. She snores. Her sleep is fragmented. She has nocturia. She has chronic daily fatigue and she takes a nap at around 3 PM and this is a 1 hour nap. No recent weight gain. She has undergone a lap band procedure many years back and she has lost around 60 pounds and since then her weight has remained stable. Her current [place] score is at 9. She goes to bed at around midnight and wakes up at 8:30 AM in the morning. No nighttime chest pain or palpitation. No significant restlessness or neuropathy in her lower extremities. No anxiety. No depression. No dreams. No nightmares. No sleepwalking. No sleep talking. The patient underwent a screening polysomnography on 06/29/2024 and the patient was found to have severe obstructive sleep apnea with an AHI of 71.4 associated with significant apnea oxygen saturations. Based on that, the patient is coming in for a CPAP titration study. Pertinent physical findings Weight is 232 pounds with a BMI of 41.8 Technical description The patient was studied using a standard complex polysomnography protocol that included recording of the Lead II EKG, Central, occipital and frontal EEG, right and left outer canthus EOG, submental EMG, right and left anterior tibialis EMG, respiratory airflow by thermocouple and or pressure/flow transducer, respiratory efforts by abdominal and thoracic PVDF belts, oxygen saturation by cable oximetry. Position by observation synchronized the PSG. Equipment used: [employer]. Sleep architecture The total recording duration was 374.5 minutes. The total sleep time was 202 minutes and wake after sleep onset time was 292 minutes. The overall sleep efficiency was poor at 53.9%. The latency to sleep onset was 82 minutes. The sleep architecture was characterized by 2.2% stage I, 65.3% stage II, 0% stage III and a total of 33.2% REM sleep. The total arousal index was 1.8 Respiratory analysis CPAP titration was started initially at a pressure of 8 cm of water. There was gradual increase in CPAP pressure and the titration was completed and the maximum CPAP pressure achieved was 15 cm of water. The patient was also given a trial of BiPAP starting pressures were 19/15 and the ending pressure was 23/19. I carefully reviewed the CPAP titration taking, the patient's sleep stage and body position. I noted that the patient was still having some obstructive respiratory events while being on CPAP therapy. Nevertheless, the patient's AHI was considerably lower while on CPAP therapy and BiPAP therapy did not offer any major improvement. I am going to start the patient on a APAP machine accordingly. There was improvement in oxygenation while being on CPAP therapy although the patient continued to have some mild desaturations Arousal events A total of 6 arousals with an index of 1.8. Respiratory arousal index was 0 Periodic movement activity None Cardiac summary Average heart rate was 50 with a mean heart rate of 46 and a maximum heart of 53 Assessment Severe obstructive sleep apnea with an AHI of 71.3. The patient underwent a CPAP titration. The results were somewhat suboptimal due to the patient's poor sleep efficiency and difficulties in maintaining sleep. The overall sleep efficiency was calculated to be at 53.9%. Nevertheless, CPAP therapy seem to be effective and all patient is going to be started on APAP therapy, improved with CPAP therapy Nocturnal oxygen desaturations with a minimum pulse ox of 63% Loud snoring along with symptoms of chronic hypersomnia/fatigue, [place] score of 9, attributed to sleep apnea Obesity with a body mass index of 41.7. The patient has undergone previous lap band procedure Coronary artery disease with previous bypass surgery, history of chronic atrial fibrillation the patient is post ablation and her cardiac rhythm is sinus Hyperlipidemia Hypertension Diabetes mellitus type 2 and the patient is using an insulin pump Peripheral neuropathy Fatty liver Chronic stage III kidney disease History of squamous cell carcinoma of the skin, surgically resected Hypothyroidism currently on thyroid hormone replacement. Plan This patient has severe symptomatic obstructive sleep apnea. The patient will be started on APAP therapy pressures of 8/15 cm of water. The patient will be offered a medium size AirFit F20 fullface mask. The patient will see me back in short-term follow-up in 30 to 90 days to assess clinical response and compliancy Encourage weight loss. Optimize sleep hygiene measures. Tight control of cardiovascular risk factors. Current cardiac rhythm is sinus. Will continue to follow. Will make further recommendations based on the patient's tolerability to CPAP therapy.
== END 2024-08-19 05:40 | disposition home or self-care (01) ==
LOC: 3 N SLEEP 19:29
PROVIDERS: ATTEND Internal Medicine Critical Care Medicine
DX: G47.33 Obstructive sleep apnea (adult) (pediatric) (principal); E66.9 Obesity, unspecified; I12.9 Hypertensive chronic kidney disease with stage 1 through stage 4 chronic kidney disease, or unspecified chronic kidney disease; E11.22 Type 2 diabetes mellitus with diabetic chronic kidney disease; N18.30 Chronic kidney disease, stage 3 unspecified; E78.5 Hyperlipidemia, unspecified; I25.10 Atherosclerotic heart disease of native coronary artery without angina pectoris; I48.20 Chronic atrial fibrillation, unspecified; K76.0 Fatty (change of) liver, not elsewhere classified; E03.9 Hypothyroidism, unspecified; Z99.89 Dependence on other enabling machines and devices; Z79.890 Hormone replacement therapy; Z79.4 Long term (current) use of insulin; Z68.41 Body mass index [BMI] 40.0-44.9, adult; Z95.1 Presence of aortocoronary bypass graft; Z96.41 Presence of insulin pump (external) (internal); Z85.828 Personal history of other malignant neoplasm of skin; Z98.84 Bariatric surgery status; Z91.048 Other nonmedicinal substance allergy status; Z91.018 Allergy to other foods; Z91.041 Radiographic dye allergy status
CPT/HCPCS: 95811

== ENCOUNTER 2024-10-23 18:45 | Inpatient (IN) | payer MEDICARE, BC ==
--- NOTE | 2024-10-23 18:51 | ED ---
Nausea/Vomiting/Diarrhea HPI - General Chief complaint: Nausea/Vomiting/Diarrhea Stated complaint: Diabetic Problems Time Seen by Provider: 10/23/24 18:50 Source: patient, EMS, RN notes reviewed, old records reviewed Mode of arrival: EMS Limitations: no limitations - History of Present Illness Initial comments: This is a 74-year-old female to the ER for evaluation patient presents today for evaluation of what is found to be fever. Elevated blood sugars uncontrolled blood sugars at home which she believes is related to recent steroid use MD complaint: nausea, vomiting (Plus today with), abdominal pain -: hour(s) Location: diffuse Radiation: none Severity: moderate Severity scale (1-10): 4 Consistency: constant Improves with: none Worsens with: none Context: other Associated Symptoms: weakness - Related Data Home Medications Medication Instructions Recorded Confirmed Atorvastatin [Lipitor] 80 mg PO HS 03/24/18 10/24/24 Fenofibrate Nanocrystallized 145 mg PO HS 03/24/18 10/24/24 [Fenofibrate] Furosemide [Lasix] 40 mg PO BID 03/24/18 10/24/24 Levothyroxine Sodium [Synthroid] 75 mcg PO DAILY 03/24/18 10/24/24 Pregabalin [Lyrica] 150 mg PO BID 03/24/18 10/24/24 allopurinoL [Zyloprim] 100 mg PO DAILY 03/24/18 10/24/24 Isosorbide Mononitrate [Isosorbide 30 mg PO DAILY 02/27/21 10/24/24 Mononitrate ER] Nitroglycerin Sl Tabs [Nitrostat] 0.4 mg SUBLINGUAL Q5M PRN 09/26/23 10/24/24 Budesonide/Formoterol Fumarate 1 puff INHALATION RT-BID PRN 10/24/24 10/24/24 [Symbicort 160-4.5 Mcg Inhaler] Previous Rx's Medication Instructions Recorded Apixaban [Eliquis] 5 mg PO BID #60 tab 09/28/23 Ezetimibe [Zetia] 10 mg PO DAILY #30 tab 09/28/23 Famotidine [Pepcid] 20 mg PO DAILY #30 tablet 09/28/23 Acetaminophen Tab [Tylenol Tab] 650 mg PO Q4H PRN #30 tablet 10/28/24 cefuroxime axetiL [Ceftin] 500 mg PO BID #20 tab 10/28/24 Allergies Allergy/AdvReac Type Severity Reaction Status Date / Time Iodinated Contrast Media Allergy Intermediate Anaphylaxis Verified 10/26/24 14:31 [Iodinated Contrast- Oral and IV Dye] adhesive tape Allergy Rash/Hives Verified 10/26/24 14:31 shepherd Allergy Anaphylaxis Verified 10/26/24 14:31 Penicillins Allergy Rash/Hives Verified 10/26/24 14:31 plum Allergy Swelling Verified 10/26/24 14:31 Sulfa (Sulfonamide Allergy Rash/Hives Verified 10/26/24 14:31 Antibiotics) ibuprofen AdvReac Swelling Verified 10/26/24 14:31 Review of Systems ROS Statement: Those systems with pertinent positive or pertinent negative responses have been documented in the HPI. ROS Other: All systems not noted in ROS Statement are negative. Past Medical History Past Medical History: Coronary Artery Disease (CAD), Cancer, Chest Pain / Angina, Heart Failure, Diabetes Mellitus, Hyperlipidemia, Myocardial Infarction ([place]), Pneumonia, Renal Disease, Sleep Apnea/CPAP/BIPAP, Thyroid Disorder Additional Past Medical History / Comment(s): gout,neuropathy,fatty liver, CHRONIC KIDNEY DISEASE - STAGE 3 , has insulin pump,doesn't use the cpap, bronchitis, snoring, Last Myocardial Infarction Date:: 09/18/2015 History of Any Multi-Drug Resistant Organisms: None Reported Past Surgical History: Back Surgery, Bariatric Surgery, Coronary Bypass/CABG, Heart Catheterization, Heart Catheterization With Stent, Hysterectomy, Orthopedic Surgery, Tubal Ligation Additional Past Surgical History / Comment(s): several heart cath's w/stents most recent was 2015 (2 stents placed), EGD,COLONOSCOPY, LAP BAND 2008, RT ROTATOR CUFF,PANNICULECTOMY W/surgical WOUND DEBRIDEMENT X2,ANAL FISSURE REPAIR, BRIGID CATARACTS. LT ARM LIPOMA REMOVED, triple bypass & CABG 09-26-16, back sx 2018 2022 Past Anesthesia/Blood Transfusion Reactions: Previous Problems w/ Anesthesia Additional Past Anesthesia/Blood Transfusion Reaction / Comment(s): difficulty waking up from anesthesia. Pt states she had one blood transfusion after her op en heart sx and did not experience any reactions Date of Last Stent Placement:: 09-18-15 Past Psychological History: No Psychological Hx Reported Smoking Status: Never smoker Past Alcohol Use History: Rare Past Drug Use History: None Reported - Past Family History Mother Family Medical History: Cancer, Diabetes Mellitus Additional Family Medical History / Comment(s): BREAST/BONE CANCER Father Family Medical History: Myocardial Infarction ([place]) Additional Family Medical History / Comment(s): AT AGE 56 FROM [place] Brother(s) Family Medical History: Cancer Additional Family Medical History / Comment(s): prostate cancer, had open heart surg. Sister(s) Family Medical History: Cancer Additional Family Medical History / Comment(s): KIDNEY CANCER , SKIN CANCER General Exam Limitations: no limitations General appearance: alert, in no apparent distress Head exam: Present: atraumatic, normocephalic, normal inspection Eye exam: Present: normal appearance, PERRL, EOMI. Absent: scleral icterus, conjunctival injection, periorbital swelling ENT exam: Present: normal exam, mucous membranes moist Neck exam: Present: normal inspection. Absent: tenderness, meningismus, lymphadenopathy Respiratory exam: Present: normal lung sounds bilaterally. Absent: respiratory distress, wheezes, rales, rhonchi, stridor Cardiovascular Exam: Present: regular rate, normal rhythm, normal heart sounds. Absent: systolic murmur, diastolic murmur, rubs, gallop, clicks GI/Abdominal exam: Present: soft, tenderness (Epigastric), normal bowel sounds. Absent: distended, guarding, rebound, rigid Extremities exam: Present: normal inspection, full ROM, normal capillary refill. Absent: tenderness, pedal edema, joint swelling, calf tenderness Back exam: Present: normal inspection Neurological exam: Present: alert, oriented X3, CN II-XII intact Psychiatric exam: Present: normal affect, normal mood Skin exam: Present: warm, dry, intact, normal color. Absent: rash Course Vital Signs 10/23/24 10/23/24 10/23/24 18:46 20:13 22:14 Temperature 101.4 F H 100.1 F H Pulse Rate 90 86 114 H Pulse Rate [ Pad Tufter ] Respiratory 16 16 20 Rate Blood Pressure 107/54 83/50 85/49 Blood Pressure [Left Arm] O2 Sat by Pulse 94 L 96 95 Oximetry 10/24/24 10/24/24 10/24/24 00:36 07:48 13:00 Temperature 97.4 F L Pulse Rate 80 59 L 90 Pulse Rate [ Pad Tufter ] Respiratory 18 18 14 Rate Blood Pressure 89/51 129/67 111/81 Blood Pressure [Left Arm] O2 Sat by Pulse 94 L 97 98 Oximetry 10/24/24 10/24/24 10/24/24 17:00 19:12 19:30 Temperature 102.2 F H 102.1 F H Pulse Rate 76 75 Pulse Rate [ Pad Tufter ] Respiratory 15 18 Rate Blood Pressure 131/65 123/55 Blood Pressure [Left Arm] O2 Sat by Pulse 94 L 95 Oximetry 10/24/24 10/24/24 10/25/24 21:24 21:31 00:35 Temperature Pulse Rate Pulse Rate [ 96 Pad Tufter ] Respiratory 16 20 Rate Blood Pressure Blood Pressure 90/50 117/66 139/81 [Left Arm] O2 Sat by Pulse 93 L 97 Oximetry 10/25/24 10/25/24 10/25/24 02:00 04:00 09:28 Temperature 98.1 F 100.6 F H 98.8 F Pulse Rate 60 Pulse Rate [ 63 Pad Tufter ] Respiratory 18 18 Rate Blood Pressure 108/72 Blood Pressure 137/78 [Left Arm] O2 Sat by Pulse 92 L 93 L Oximetry 10/25/24 13:25 Temperature Pulse Rate 68 Pulse Rate [ Pad Tufter ] Respiratory 18 Rate Blood Pressure 110/72 Blood Pressure [Left Arm] O2 Sat by Pulse 98 Oximetry - Reevaluation(s) Reevaluation #1: 10/23/24 19:10 Medical records reviewed Reevaluation #2: 10/23/24 22:34 Patient's symptoms improving thirst is improving no nausea or vomiting and no current or no history of abdominal pain Reevaluation #3: 10/23/24 22:34 Patient informed of results questions answered Reevaluation #4: Was pt. sent in by a medical professional or institution (, PA, RICE FARMWORKER, urgent care, hospital, or penitentiary...) When possible be specific @ -no Did you speak to anyone other than the patient for history (EMS, parent, family, police, friend...)? What history was obtained from this source @ -no Did you review nursing and triage notes (agree or disagree)? Why? @ -agree Are old charts reviewed (outside hosp., previous admission, EMS record, old EKG, old radiological studies, urgent care reports/EKG's, penitentiary records)? Report findings @ -yes Differential Diagnosis (chest pain, altered mental status, abdominal pain women, abdominal pain men, vaginal bleeding, weakness, fever, dyspnea, syncope, headache, dizziness, GI bleed, back pain, seizure, CVA, palpatations, mental health, musculoskeletal)? @ -prior EKG interpreted by me (3pts min.). @ -yes X-rays interpreted by me (1pt min.). @ -yes negative for acute disease CT interpreted by me (1pt min.). @ -Yes concern for cholecystitis U/S interpreted by me (1pt. min.). @ -yes concern cholecystitis What testing was considered but not performed or refused? (CT, X-rays, U/S, labs)? Why? @ -none What meds were considered but not given or refused? Why? @ -none Did you discuss the management of the patient with other professionals (professionals i.e. , PA, RICE FARMWORKER, lab, RT, psych nurse, older adult social work specialist, senior paralegal, teacher, collections officer, embedded case manager)? Give summary @ -no Was smoking cessation discussed for >3mins.? @ -no Was critical care preformed (if so, how long)? @ -yes31 Were there social determinants of health that impacted care today? How? (Homelessness, low income, unemployed, alcoholism, drug addiction, transportation, low edu. Level, literacy, decrease access to med. care, [place] [facility], rehab)? @ -none Was there de-escalation of care discussed even if they declined (Discuss DNR or withdrawal of care, Hospice)? DNR status @ -no What co-morbidities impacted this encounter? (DM, HTN, Smoking, COPD, CAD, Cancer, CVA, ARF, Chemo, Hep., AIDS, mental health diagnosis, sleep apnea, morbid obesity)? @ -none Was patient admitted / discharged? Hospital course, mention meds given and route, prescriptions, significant lab abnormalities, going to OR and other p ertinent info. @ - 74 female to the ER for evaluation patient presents today for multiple complaints back pain with history of back surgery found to have fever and chills no cause of fever found here in the ER, patient also has nausea and vomiting all symptoms are improved patient admitted for IV antibiotics has no abdominal pain here in the emergency department Undiagnosed new problem with uncertain prognosis? @ -no Drug Therapy requiring intensive monitoring for toxicity (Heparin, Nitro, Ins ulin, Cardizem)? @ -no Were any procedures done? @ -no Diagnosis/symptom? @ -Back pain back surgery fever and concern for cholecystitis Acute, or Chronic, or Acute on Chronic? @ -Acute Uncomplicated (without systemic symptoms) or Complicated (systemic symptoms)? @ -Complicated Side effects of treatment? @ -no Exacerbation, Progression, or Severe Exacerbation? @ -exacerbation Poses a threat to life or bodily function? How? (Chest pain, [place], [place], pneumonia, PE, COPD, DKA, ARF, appy, cholecystitis, CVA, Diverticulitis, Homicidal, Suicidal, threat to staff... and all critical care pts) @ -yes acute febrile illness Reevaluation #5: Differential Fever: Pneumonia, viral URI, endocarditis, myocarditis, pericarditis, otitis, sinusitis, peritonsillar Abscess, retropharyngeal Abscess, epiglottitis, peritonitis, appendicitis, Lisa cystitis, diverticulitis, hepatitis, colitis, UTI, PID, TOA, pyelonephritis, prostatitis, epididymitis, meningitis, encephalitis, pulmonary embolism, CVA, thyroid storm, pancreatitis, adrenal crisis, cavernous sinus thrombosis, this is not meant to be an all-inclusive list. Differential Weakness: Hypoglycemia, shock, sepsis, hyponatremia, anemia, infection, IN, ETOH, adverse medicine reaction, overdose, stroke, this is not meant to be an all-inclusive list. - Consultations Consultation #1: Spoke with Dr. Chirag Agustin who agrees to admit this patient Medical Decision Making - Medical Decision Making 74 female to the ER for evaluation patient presents today for multiple complaints back pain with history of back surgery found to have fever and chills no cause of fever found here in the ER, patient also has nausea and vomiting all symptoms are improved patient admitted for IV antibiotics has no abdominal pain here in the emergency department - Lab Data Result diagrams: 10/28/24 07:35 10/28/24 07:35 Lab Results 10/23/24 10/23/24 10/23/24 Range/Units 18:48 18:48 18:48 WBC 7.21 (4.50-10.00) 10*3/uL RBC 5.84 H (4.10-5.20) 10*6/uL Hgb 16.0 H (12.0-15.0) g/dL Hct 48.4 H (37.2-46.3) % MCV 82.9 (80.0-97.0) fL MCH 27.4 (27.0-32.0) pg MCHC 33.1 (32.0-37.0) g/dL Plt Count 149 (140-440) 10*3/uL MPV 11.4 (9.5-12.2) fL Immature Gran % (Auto) 0.3 % Neutrophils % 86.9 % Lymphocytes % 7.4 % Monocytes % 4.7 % Eosinophils % 0.4 % Basophils % 0.3 % Immature Gran # 0.02 (0.00-0.04) 10*3/uL Neutrophils # 6.27 (1.80-7.70) 10*3/uL Lymphocytes # 0.53 L (0.90-5.00) 10*3/uL Monocytes # 0.34 (0.20-1.00) 10*3/uL Eosinophils # 0.03 L (0.04-0.35) 10*3/uL Basophils # 0.02 (0.00-0.10) 10*3/uL PT 13.0 H (10.0-12.5) sec INR 1.2 H (<1.2) APTT 21.1 L (22.0-30.0) sec Sodium 139 (137-145) mmol/L Potassium 3.1 L (3.5-5.1) mmol/L Chloride 102 (98-107) mmol/L Carbon Dioxide 25 (22-30) mmol/L Anion Gap 12 mmol/L BUN 27 H (7-17) mg/dL Creatinine 1.41 H (0.52-1.04) mg/dL Est GFR (CKD-EPI)AfAm 42 (>60 ml/min/1.73 sqM) Est GFR (CKD-EPI)NonAf 37 (>60 ml/min/1.73 sqM) Glucose 126 H (74-99) mg/dL POC Glucose (mg/dL) (70-110) mg/dL POC Glu Egg Sorter ID Lactic Ac Sepsis Rflx Plasma Lactic Acid Aníbal (0.7-2.0) mmol/L Calcium 8.7 (8.4-10.2) mg/dL Phosphorus 2.6 (2.5-4.5) mg/dL Magnesium 1.8 (1.6-2.3) mg/dL Total Bilirubin 1.5 H (0.2-1.3) mg/dL AST 487 H (14-36) U/L ALT 179 H (4-34) U/L Alkaline Phosphatase 72 (38-126) U/L Ammonia (<30) umol/L Troponin I (0.000-0.034) ng/mL Total Protein 6.2 L (6.3-8.2) g/dL Albumin 3.7 (3.5-5.0) g/dL Lipase (23-300) U/L Acetone, Qual Negative (Negative) Influenza Type A (PCR) (Not Detectd) Influenza Type B (PCR) (Not Detectd) RSV (PCR) (Not Detectd) SARS-CoV-2 (PCR) (Not Detectd) 10/23/24 10/23/24 10/23/24 Range/Units 18:48 18:48 18:48 WBC (4.50-10.00) 10*3/uL RBC (4.10-5.20) 10*6/uL Hgb (12.0-15.0) g/dL Hct (37.2-46.3) % MCV (80.0-97.0) fL MCH (27.0-32.0) pg MCHC (32.0-37.0) g/dL Plt Count (140-440) 10*3/uL MPV (9.5-12.2) fL Immature Gran % (Auto) % Neutrophils % % Lymphocytes % % Monocytes % % Eosinophils % % Basophils % % Immature Gran # (0.00-0.04) 10*3/uL Neutrophils # (1.80-7.70) 10*3/uL Lymphocytes # (0.90-5.00) 10*3/uL Monocytes # (0.20-1.00) 10*3/uL Eosinophils # (0.04-0.35) 10*3/uL Basophils # (0.00-0.10) 10*3/uL PT (10.0-12.5) sec INR (<1.2) APTT (22.0-30.0) sec Sodium (137-145) mmol/L Potassium (3.5-5.1) mmol/L Chloride (98-107) mmol/L Carbon Dioxide (22-30) mmol/L Anion Gap mmol/L BUN (7-17) mg/dL Creatinine (0.52-1.04) mg/dL Est GFR (CKD-EPI)AfAm (>60 ml/min/1.73 sqM) Est GFR (CKD-EPI)NonAf (>60 ml/min/1.73 sqM) Glucose (74-99) mg/dL POC Glucose (mg/dL) (70-110) mg/dL POC Glu Egg Sorter ID Lactic Ac Sepsis Rflx Plasma Lactic Acid Aníbal 2.9 H* (0.7-2.0) mmol/L Calcium (8.4-10.2) mg/dL Phosphorus (2.5-4.5) mg/dL Magnesium (1.6-2.3) mg/dL Total Bilirubin (0.2-1.3) mg/dL AST (14-36) U/L ALT (4-34) U/L Alkaline Phosphatase (38-126) U/L Ammonia (<30) umol/L Troponin I 0.014 (0.000-0.034) ng/mL Total Protein (6.3-8.2) g/dL Albumin (3.5-5.0) g/dL Lipase 109 (23-300) U/L Acetone, Qual (Negative) Influenza Type A (PCR) (Not Detectd) Influenza Type B (PCR) (Not Detectd) RSV (PCR) (Not Detectd) SARS-CoV-2 (PCR) (Not Detectd) 10/23/24 10/23/24 10/23/24 Range/Units 18:57 19:01 19:17 WBC (4.50-10.00) 10*3/uL RBC (4.10-5.20) 10*6/uL Hgb (12.0-15.0) g/dL Hct (37.2-46.3) % MCV (80.0-97.0) fL MCH (27.0-32.0) pg MCHC (32.0-37.0) g/dL Plt Count (140-440) 10*3/uL MPV (9.5-12.2) fL Immature Gran % (Auto) % Neutrophils % % Lymphocytes % % Monocytes % % Eosinophils % % Basophils % % Immature Gran # (0.00-0.04) 10*3/uL Neutrophils # (1.80-7.70) 10*3/uL Lymphocytes # (0.90-5.00) 10*3/uL Monocytes # (0.20-1.00) 10*3/uL Eosinophils # (0.04-0.35) 10*3/uL Basophils # (0.00-0.10) 10*3/uL PT (10.0-12.5) sec INR (<1.2) APTT (22.0-30.0) sec Sodium (137-145) mmol/L Potassium (3.5-5.1) mmol/L Chloride (98-107) mmol/L Carbon Dioxide (22-30) mmol/L Anion Gap mmol/L BUN (7-17) mg/dL Creatinine (0.52-1.04) mg/dL Est GFR (CKD-EPI)AfAm (>60 ml/min/1.73 sqM) Est GFR (CKD-EPI)NonAf (>60 ml/min/1.73 sqM) Glucose (74-99) mg/dL POC Glucose (mg/dL) 119 H (70-110) mg/dL POC Glu Egg Sorter ID [facility] Lactic Ac Sepsis Rflx Y Plasma Lactic Acid Aníbal (0.7-2.0) mmol/L Calcium (8.4-10.2) mg/dL Phosphorus (2.5-4.5) mg/dL Magnesium (1.6-2.3) mg/dL Total Bilirubin (0.2-1.3) mg/dL AST (14-36) U/L ALT (4-34) U/L Alkaline Phosphatase (38-126) U/L Ammonia (<30) umol/L Troponin I (0.000-0.034) ng/mL Total Protein (6.3-8.2) g/dL Albumin (3.5-5.0) g/dL Lipase (23-300) U/L Acetone, Qual (Negative) Influenza Type A (PCR) Not Detected (Not Detectd) Influenza Type B (PCR) Not Detected (Not Detectd) RSV (PCR) Not Detected (Not Detectd) SARS-CoV-2 (PCR) Not Detected (Not Detectd) 10/23/24 10/23/24 10/23/24 Range/Units 21:46 21:46 22:28 WBC (4.50-10.00) 10*3/uL RBC (4.10-5.20) 10*6/uL Hgb (12.0-15.0) g/dL Hct (37.2-46.3) % MCV (80.0-97.0) fL MCH (27.0-32.0) pg MCHC (32.0-37.0) g/dL Plt Count (140-440) 10*3/uL MPV (9.5-12.2) fL Immature Gran % (Auto) % Neutrophils % % Lymphocytes % % Monocytes % % Eosinophils % % Basophils % % Immature Gran # (0.00-0.04) 10*3/uL Neutrophils # (1.80-7.70) 10*3/uL Lymphocytes # (0.90-5.00) 10*3/uL Monocytes # (0.20-1.00) 10*3/uL Eosinophils # (0.04-0.35) 10*3/uL Basophils # (0.00-0.10) 10*3/uL PT (10.0-12.5) sec INR (<1.2) APTT (22.0-30.0) sec Sodium (137-145) mmol/L Potassium (3.5-5.1) mmol/L Chloride (98-107) mmol/L Carbon Dioxide (22-30) mmol/L Anion Gap mmol/L BUN (7-17) mg/dL Creatinine (0.52-1.04) mg/dL Est GFR (CKD-EPI)AfAm (>60 ml/min/1.73 sqM) Est GFR (CKD-EPI)NonAf (>60 ml/min/1.73 sqM) Glucose (74-99) mg/dL POC Glucose (mg/dL) (70-110) mg/dL POC Glu Egg Sorter ID Lactic Ac Sepsis Rflx Y Plasma Lactic Acid Aníbal 2.6 H* (0.7-2.0) mmol/L Calcium (8.4-10.2) mg/dL Phosphorus (2.5-4.5) mg/dL Magnesium (1.6-2.3) mg/dL Total Bilirubin (0.2-1.3) mg/dL AST (14-36) U/L ALT (4-34) U/L Alkaline Phosphatase (38-126) U/L Ammonia <9 (<30) umol/L Troponin I (0.000-0.034) ng/mL Total Protein (6.3-8.2) g/dL Albumin (3.5-5.0) g/dL Lipase (23-300) U/L Acetone, Qual (Negative) Influenza Type A (PCR) (Not Detectd) Influenza Type B (PCR) (Not Detectd) RSV (PCR) (Not Detectd) SARS-CoV-2 (PCR) (Not Detectd) - EKG Data -: EKG Interpreted by Me (EKG is sinus 94 MS 158 QRS 110 QTc 387) - Radiology Data Radiology results: report reviewed (Chest x-ray is negative for acute disease ultrasound gallbladder relatively negative for acute disease), image reviewed Critical Care Time Critical Care Time: Yes Total Critical Care Time: 31 Disposition Clinical Impression: Dehydration, Gastroenteritis, Diabetes mellitus, Fever, Sepsis, Cholecystitis, Chest pain Disposition: ADMITTED IP TO THIS HOSP Condition: Serious Is patient prescribed a controlled substance at d/c from ED?: No Time of Disposition: 23:00
[2024-10-23] MEDS ORDERED: IBUPROFEN IV 800 MG in SODIUM CHLORIDE 0.9% 250 ML IV ONE (19:00)
[2024-10-23 19:04] LABS: Glucose,Whole Blood 119 mg/dL (70-110)
[2024-10-23] MEDS: IBUPROFEN 600 MG TAB PO STA (19:07)
[2024-10-23] MEDS: SODIUM CHLORIDE 0.9% 1,000 ML IV ONE ×3 (19:11→23:50)
[2024-10-23] MEDS: ACETAMINOPHEN IV (For NPO) 1,000 MG in EMPTY BAG 1 BAG IVPB STA (19:14)
[2024-10-23 19:21] LABS: INR 1.2 (<1.2); Partial Thromboplastin Time 21.1 sec (22.0-30.0); Prothrombin Time 13.0 sec (10.0-12.5)
[2024-10-23 19:25] LABS: Basophils # (A) 0.02 10*3/uL (0.00-0.10); Basophils % (A) 0.3 %; Eosinophils # (A) 0.03 10*3/uL (0.04-0.35); Eosinophils % (A) 0.4 %; HCT 48.4 % (37.2-46.3); HGB 16.0 g/dL (12.0-15.0); Lymphocytes # (A) 0.53 10*3/uL (0.90-5.00); Lymphocytes % (A) 7.4 %; MCH 27.4 pg (27.0-32.0); MCHC 33.1 g/dL (32.0-37.0); MCV 82.9 fL (80.0-97.0); Monocytes # (A) 0.34 10*3/uL (0.20-1.00); Monocytes % (A) 4.7 %; Neutrophils # (A) 6.27 10*3/uL (1.80-7.70); Neutrophils % (A) 86.9 %; Platelet Count 149 10*3/uL (140-440); RBC 5.84 10*6/uL (4.10-5.20); RDW 17.2 % (11.5-14.5); WBC 7.21 10*3/uL (4.50-10.00)
[2024-10-23 19:28] LABS: ALT 179 U/L (4-34); AST 487 U/L (14-36); African American GFR (CKD) 42 (>60 ml/min/1.73 sqM); Albumin 3.7 g/dL (3.5-5.0); Alkaline Phosphatase 72 U/L (38-126); Anion Gap 12 mmol/L; Blood Urea Nitrogen 27 mg/dL (7-17); Calcium 8.7 mg/dL (8.4-10.2); Carbon Dioxide 25 mmol/L (22-30); Chloride 102 mmol/L (98-107); Glucose 126 mg/dL (74-99); Magnesium 1.8 mg/dL (1.6-2.3); Non-African American GFR(CKD) 37 (>60 ml/min/1.73 sqM); Potassium 3.1 mmol/L (3.5-5.1); Sodium 139 mmol/L (137-145); Total Protein 6.2 g/dL (6.3-8.2)
[2024-10-23 19:40] LABS: RSV Not Detected (Not Detectd)
--- NOTE | 2024-10-23 19:56 | XR ---
EXAMINATION TYPE: XR chest 2V DATE OF EXAM: 10/23/2024 7:51 PM COMPARISON: Chest radiographs from 09/26/2023, CT chest 09/26/2023 TECHNIQUE: XR chest 2V Frontal and lateral views of the chest. CLINICAL INDICATION:Female, 74 years old with history of Weakness; FINDINGS: Lungs/Pleura: There is no evidence of pleural effusion, focal consolidation, or pneumothorax. Pulmonary vascularity: Unremarkable. Heart/mediastinum: Cardiomediastinal silhouette is unremarkable. Musculoskeletal: Multiple level degenerative disc disease changes seen throughout the spine. Midline sternotomy wires are noted and stable. Right humeral head surgical anchors. IMPRESSION: No acute cardiopulmonary disease/process. [facility], , 10/23/2024 7:54 PM
[2024-10-23] MEDS: ACETAMINOPHEN TAB 500 MG TAB PO STA (20:17)
--- NOTE | 2024-10-23 21:21 | US ---
EXAMINATION TYPE: US gallbladder DATE OF EXAM: 10/23/2024 COMPARISON: CT chest abdomen and pelvis 04/01/2018 CLINICAL INDICATION: Female, 74 years old with history of pain; left sided pain, nausea, diabetic, el evated bilirubin, ALT and AST TECHNIQUE: Grayscale and color Doppler imaging of the right upper quadrant was performed. 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 Limited visualization of the liver due to overl alex bowel gas without focal lesion identified. No cholelithiasis or pericholecystic fluid identified . There is some possible mild inflammatory changes along the anterior wall of the gallbladder. Negati ve sonographic Mejia sign. Mild dilatation of the common bile duct. The right kidney demonstrates no hydronephrosis, shadowing calculus or solid mass. IMPRESSION: 1. Possible mild inflammatory changes along the anterior wall of the gallbladder however no cholelit hiasis or other evidence for acute cholecystitis. Findings are equivocal. Consider further evaluation with nuclear medicine HIDA scan. 2. Mild dilatation of the common bile duct. Correlate with biliary labs with consideration for MRCP/ ERCP. [facility], , 10/23/2024 9:18 PM
[2024-10-23] MEDS ORDERED: MORPHINE SULFATE 4 MG/ML SYRINGE IV PRN (22:44)
[2024-10-23] MEDS ORDERED: NALOXONE 0.4 MG/ML 1 ML VIAL IV PRN (22:44)
[2024-10-23] MEDS ORDERED: NITROGLYCERIN SL TABS 0.4 MG TAB SUBLINGUAL PRN (23:37)
[2024-10-23] MEDS: POTASSIUM BICARBONATE/CIT AC 20 MEQ TABLET.EFF PO ONE ×2 (23:46→23:47)
[2024-10-23] MEDS: DILTIAZEM 5 MG/ML 5 ML VIAL IVP STA (23:51)
[2024-10-23] MEDS: MAGNESIUM OXIDE 400 MG TAB PO STA (23:52)
--- NOTE | 2024-10-24 00:15 | CT ---
EXAMINATION TYPE: CT abdomen pelvis wo con CT DLP: 1401.4 mGycm, Automated exposure control for dose reduction was used. DATE OF EXAM: 10/23/2024 10:45 PM COMPARISON: Gallbladder ultrasound 10/23/2024, CT chest abdomen pelvis 04/01/2018 CLINICAL INDICATION:Female, 74 years old with history of pain; TECHNIQUE: Standard CT of the abdomen and pelvis without IV or oral contrast. Lack of IV or oral co ntrast limits evaluation of solid and hollow organ viscera. Coronal and sagittal reformats were perfo rmed. FINDINGS: LOWER CHEST: Dependent right lower lobe subsegmental atelectasis. Partial visualization of sternotomy wires. Post-CABG changes. Coronary artery calcifications and stents. ABDOMEN LIVER: Unremarkable noncontrast appearance. GALLBLADDER AND BILE DUCTS: There are some stranding changes involving the gallbladder with some wall thickening in its fundus measuring up to 1 cm. No biliary ductal dilatation. PANCREAS: Unremarkable noncontrast appearance. SPLEEN: Unremarkable noncontrast appearance. ADRENAL GLANDS: Unremarkable noncontrast appearance.. KIDNEYS AND URETERS: No evidence of hydronephrosis. No right renal calculi. Nondestructive left renal lower pole 5 mm calculus. Left renal lower pole exophytic stable slightly hyperdense 2.1 cm nodule m ost consistent with a proteinaceous or hemorrhagic cyst. No follow-up recommended. PELVIS BLADDER: Unremarkable noncontrast appearance. REPRODUCTIVE: The uterus is surgically absent. ABDOMEN & PELVIS STOMACH AND BOWEL: Postsurgical changes with gastric lap band device redemonstrated.Small bowel feces sign without wall thickening or surrounding inflammatory changes. No dilated small bowel. The append ix is within normal limits. No evidence of bowel obstruction. PERITONEUM: No evidence of pneumoperitoneum or free fluid. VASCULATURE: Mild atherosclerotic calcifications are present throughout the abdominal aorta and its b ranches. No evidence of aortic aneurysm. MUSCULOSKELETAL: No acute osseous abnormalities. Postsurgical changes with laminectomy and bilateral pedicular screws and rods involving L3-S1. Disc spacers identified at L4-L5. Fixed grade 1 anterolist hesis of L3 on L4. Multilevel degenerative disc disease. LYMPH NODES: No gross evidence for lymphadenopathy. SOFT TISSUE/ABDOMINAL WALL: Unremarkable IMPRESSION: 1. Gallbladder wall thickening with some surrounding fat stranding. Findings are concerning for acute cholecystitis. Consider further evaluation nuclear medicine HIDA scan as clinically indicated. 2. Small bowel feces sign without evidence of wall thickening or dilated bowel. Findings suggest fidencio yed small bowel transit. 3. Nonobstructive left renal calculus. [facility], , 10/24/2024 12:12 AM
[2024-10-24] MEDS: MORPHINE SULFATE 4 MG/ML SYRINGE IVP STA (00:39)
[2024-10-24] MEDS: INSULIN LISPRO (For Pump) 100 UNIT/ML VIAL SQ-PUMP SCH (04:11)
[2024-10-24 04:38] LABS: Bilirubin,Urine Negative (Negative); Blood,Urine Negative (Negative); Color,Urine Yellow; Glucose,Urine (UA) 2+ (Negative); Ketones,Urine Trace (Negative); Leukocyte Esterase,Urine Negative (Negative); Nitrite,Urine Negative (Negative); PH, Urine 6.0 (5.0-8.0); Protein,Urine Negative (Negative); Specific Gravity,Urine 1.015 (1.001-1.035); Urobilinogen,Urine <2.0 mg/dL (<2.0)
[2024-10-24] MEDS: FUROSEMIDE 40 MG TAB PO SCH (08:51)
[2024-10-24] MEDS: FAMOTIDINE 20 MG TAB PO SCH (08:51)
[2024-10-24] MEDS: APIXABAN 5 MG TAB PO SCH (08:51)
[2024-10-24] MEDS: LEVOTHYROXINE 75 MCG TAB PO SCH (08:52)
[2024-10-24] MEDS: ISOSORBIDE MONONITRATE ER 30 MG TAB.ER.24H PO SCH (08:52)
--- NOTE | 2024-10-24 08:54 | P.CRDCN ---
History of Present Illness Consult date: 10/24/24 Consult reason: atrial fibrillation History of present illness: This is Mir Regalado NP, I'm dictating on behalf of Dr. Murphy's H&P and A&P The patient was interviewed and examined. HPI: Patient is a pleasant 74-year-old female who presented to the hospital with fever and weakness. Patient reports that she had a CT scan a few days ago, that she required prednisone for the contrast. This caused her blood sugars to increase. She reports that yesterday her blood sugars finally started coming down, but early in the morning she started having some left lower quadrant abdominal pain. This progressed to shaking chills, and she noted she was running a fever. She also began to have some nausea and vomiting. Due to this she presented to the emergency department for evaluation. Emergency department findings are consistent with possible cholecystitis on imaging. Cardiology is consulted due to possible A-fib with RVR. We have no EKG or strips available to evaluate the atrial fibrillation, but it appears that it was a very quick episode. Patient is known to us, as she had an A-fib ablation on 12/04/2023. Patient reports no noted tachycardia or chest pain during the episode. She states that she has been taking her blood thinner as prescribed. ROS: [No fever, chills, or rigors] [no cough, phlegm, or expectoration] [no nausea, vomiting, or diarrhea] [no hematuria, dysuria] [no musculoskelatal complaints] [no strokes or seizures] [no skin lesions] EXAMINATION: GENERAL: Well-appearing, well-nourished and in no acute distress. NECK: Supple without JVD or thyromegaly. LUNGS: Breath sounds clear to auscultation bilaterally. Respiration equal and unlabored. No wheezes, rales or rhonchi. HEART: Regular rate and rhythm without murmurs, rubs or gallops. S1 and S2 heard. EXTREMITIES: Normal range of motion, no edema. No clubbing or cyanosis. Peripheral pulses intact and strong. REVIEW OF LABS, ECG & MEDICAL DATA: LABS: White count 7.2, hemoglobin 16, platelets 149, sodium 139, potassium 3.1, chloride 102, BUN 27, creatinine 1.4, lactic acid 2.6, calcium 8.7, magnesium 1.8, troponin 0.014 EKG: Normal sinus rhythm with PACs IMAGING: Chest x-ray dated 10/23/2024 demonstrates no acute cardiopulmonary disease/process. Gallbladder ultrasound dated 10/23/2024 demonstrates possible mild inflammatory changes along the anterior wall of the gallbladder however no cholelithiasis or other evidence for acute cholecystitis, findings are equivocal, consider further evaluation with nuclear medicine HIDA scan, mild dilatation of the common bile duct, correlate with biliary labs with consideration for MRCP/ERCP. CT of the abdomen dated 10/23/2024 demonstrates gallbladder wall thickening with some surrounding fat stranding, findings are concerning for acute cholecystitis, consider further evaluation nuclear medicine HIDA scan as clinically indicated, small bowel feces sign without evidence of wall thickening or dilated bowel, findings suggest delayed small bowel transit, nonobstructive left renal calculus. VITALS: Temp 100.1, pulse 59, respirations 18, blood pressure 129/67, O2 saturation 97% on room air IMPRESSION: 1. Acute cholecystitis 2. Fever 3. History A-fib, ablation 11/2023 PLAN: May continue to hold anticoagulation secondary to possible procedure. Please resume as soon as cleared by surgery. Patient is currently experiencing possible infection, breakthrough atrial fibrillation is not unexpected. Continue to monitor on telemetry, as long as she remains relatively controlled or has very short episodes of atrial fibrillation, no further intervention is needed. No further recommendations from a cardiology standpoint. Thank you for the consult and allowing us to participate in the care of this patient. Past Medical History Past Medical History: Coronary Artery Disease (CAD), Cancer, Chest Pain / Angina, Heart Failure, Diabetes Mellitus, Hyperlipidemia, Myocardial Infarction (CT), Pneumonia, Renal Disease, Sleep Apnea/CPAP/BIPAP, Thyroid Disorder Additional Past Medical History / Comment(s): gout,neuropathy,fatty liver, CHRONIC KIDNEY DISEASE - STAGE 3 , has insulin pump,doesn't use the cpap, bronchitis, snoring, Last Myocardial Infarction Date:: 09/18/2015 History of Any Multi-Drug Resistant Organisms: None Reported Past Surgical History: Back Surgery, Bariatric Surgery, Coronary Bypass/CABG, Heart Catheterization, Heart Catheterization With Stent, Hysterectomy, Orthopedic Surgery, Tubal Ligation Additional Past Surgical History / Comment(s): several heart cath's w/stents most recent was 2015 (2 stents placed), EGD,COLONOSCOPY, LAP BAND 2007, RT ROTATOR CUFF,PANNICULECTOMY W/surgical WOUND DEBRIDEMENT X2,ANAL FISSURE REPAIR, BRIGID CATARACTS. LT ARM LIPOMA REMOVED, triple bypass & CABG 09-26-16, back sx 2018 2022 Past Anesthesia/Blood Transfusion Reactions: Previous Problems w/ Anesthesia Additional Past Anesthesia/Blood Transfusion Reaction / Comment(s): difficulty waking up from anesthesia. Pt states she had one blood transfusion after her open heart sx and did not experience any reactions Date of Last Stent Placement:: 09-18-15 Past Psychological History: No Psychological Hx Reported Smoking Status: Never smoker Past Alcohol Use History: Rare Past Drug Use History: None Reported - Past Family History Mother Family Medical History: Cancer, Diabetes Mellitus Additional Family Medical History / Comment(s): BREAST/BONE CANCER Father Family Medical History: Myocardial Infarction (CT) Additional Family Medical History / Comment(s): AT AGE 56 FROM [address] Brother(s) Family Medical History: Cancer Additional Family Medical History / Comment(s): prostate cancer, had open heart surg. Sister(s) Family Medical History: Cancer Additional Family Medical History / Comment(s): KIDNEY CANCER , SKIN CANCER Medications and Allergies Home Medications Medication Instructions Recorded Confirmed Type Atorvastatin [Lipitor] 80 mg PO HS 03/24/18 09/26/23 History Fenofibrate Nanocrystallized 145 mg PO HS 03/24/18 09/26/23 History [Fenofibrate] Furosemide [Lasix] 40 mg PO BID 03/24/18 09/26/23 History Insulin Aspart (For Pump) [NovoLOG 0.01 unit SQ-PUMP CONTINUOUS 03/24/18 09/26/23 History (For Pump)] Levothyroxine Sodium [Synthroid] 75 mcg PO DAILY 03/24/18 09/26/23 History Pregabalin [Lyrica] 150 mg PO BID 03/24/18 09/26/23 History allopurinoL [Zyloprim] 100 mg PO DAILY 03/24/18 09/26/23 History Isosorbide Mononitrate [Isosorbide 30 mg PO DAILY 02/27/21 09/26/23 History Mononitrate ER] Dulaglutide [Trulicity] 3 mg SQ WEEKLY 09/26/23 09/26/23 History Nitroglycerin Sl Tabs [Nitrostat] 0.4 mg SUBLINGUAL Q5M PRN 09/26/23 09/26/23 History Apixaban [Eliquis] 5 mg PO BID #60 tab 09/28/23 Rx Ezetimibe [Zetia] 10 mg PO DAILY #30 tab 09/28/23 Rx Famotidine [Pepcid] 20 mg PO DAILY #30 tablet 09/28/23 Rx Allergies Allergy/AdvReac Type Severity Reaction Status Date / Time Iodinated Contrast Media Allergy Intermediate Anaphylaxis Verified 10/23/24 19:02 [Iodinated Contrast- Oral and IV Dye] adhesive tape Allergy Rash/Hives Verified 10/23/24 19:02 shepherd Allergy Anaphylaxis Verified 10/23/24 19:02 Penicillins Allergy Rash/Hives Verified 10/23/24 19:02 plum Allergy Swelling Verified 10/23/24 19:02 Sulfa (Sulfonamide Allergy Rash/Hives Verified 10/23/24 19:02 Antibiotics) ibuprofen AdvReac Swelling Verified 10/23/24 19:02 Physical Exam Vitals: Vital Signs Temp Pulse Resp BP Pulse Ox 10/24/24 07:48 59 L 18 129/67 97 10/24/24 00:36 80 18 89/51 94 L 10/23/24 22:14 114 H 20 85/49 95 10/23/24 20:13 100.1 F H 86 16 83/50 96 10/23/24 18:46 101.4 F H 90 16 107/54 94 L Intake and Output 10/23/24 10/24/24 10/24/24 22:59 06:59 14:59 Other: Weight 101.605 kg Results 10/23/24 18:48 10/23/24 18:48 Cardiac Enzymes 10/23/24 10/23/24 Range/Units 18:48 18:48 AST 487 H (14-36) U/L Troponin I 0.014 (0.000-0.034) ng/mL Coagulation 10/23/24 Range/Units 18:48 PT 13.0 H (10.0-12.5) sec APTT 21.1 L (22.0-30.0) sec CBC 10/23/24 Range/Units 18:48 WBC 7.21 (4.50-10.00) 10*3/uL RBC 5.84 H (4.10-5.20) 10*6/uL Hgb 16.0 H (12.0-15.0) g/dL Hct 48.4 H (37.2-46.3) % Plt Count 149 (140-440) 10*3/uL Comprehensive Metabolic Panel 10/23/24 Range/Units 18:48 Sodium 139 (137-145) mmol/L Potassium 3.1 L (3.5-5.1) mmol/L Chloride 102 (98-107) mmol/L Carbon Dioxide 25 (22-30) mmol/L BUN 27 H (7-17) mg/dL Creatinine 1.41 H (0.52-1.04) mg/dL Glucose 126 H (74-99) mg/dL Calcium 8.7 (8.4-10.2) mg/dL AST 487 H (14-36) U/L ALT 179 H (4-34) U/L Alkaline Phosphatase 72 (38-126) U/L Total Protein 6.2 L (6.3-8.2) g/dL Albumin 3.7 (3.5-5.0) g/dL Current Medications Generic Name Dose Route Start Last Admin Trade Name Freq PRN Reason Stop Dose Admin Allopurinol 100 mg 10/24/24 09:00 10/24/24 08:52 Allopurinol 100 Mg Tab PO 100 mg DAILY KJ Administration Apixaban 5 mg 10/24/24 09:00 10/24/24 08:51 Apixaban 5 Mg Tab PO 5 mg BID KJ Administration Protocol Atorvastatin Calcium 80 mg 10/24/24 21:00 Atorvastatin 80 Mg Tab PO HS KJ Famotidine 20 mg 10/24/24 09:00 10/24/24 08:51 Famotidine 20 Mg Tab PO 20 mg DAILY KJ Administration Furosemide 40 mg 10/24/24 09:00 10/24/24 08:51 Furosemide 40 Mg Tab PO 40 mg BID KJ Administration Ceftriaxone Sodium 2 gm/ 50 mls @ 100 mls/hr 10/23/24 23:00 10/23/24 23:39 Sodium Chloride IVPB 100 mls/hr Q24H KJ Administration Protocol Insulin Human Lispro 0.01 unit 10/24/24 00:00 10/24/24 04:11 Insulin Lispro (For Pump) 100 Unit/Ml Vial SQ-PUMP Not Given CONTINUOUS KJ Isosorbide Mononitrate 30 mg 10/24/24 09:00 10/24/24 08:52 Isosorbide Mononitrate Er 30 Mg Tab.Er.24h PO 30 mg DAILY KJ Administration Levothyroxine Sodium 75 mcg 10/24/24 06:30 10/24/24 08:52 Levothyroxine 75 Mcg Tab PO Not Given DAILY@0630 KJ Morphine Sulfate 4 mg 10/23/24 22:44 Morphine Sulfate 4 Mg/Ml Syringe IV Q4HR PRN Severe Pain (Scale 7 to 10) Naloxone HCl 0.2 mg 10/23/24 22:44 Naloxone 0.4 Mg/Ml 1 Ml Vial IV Q2M PRN Opioid Reversal Nitroglycerin 0.4 mg 10/23/24 23:37 Nitroglycerin Sl Tabs 0.4 Mg Tab SUBLINGUAL Q5M PRN Chest Pain Ondansetron HCl 4 mg 10/23/24 22:44 Ondansetron 4 Mg/2 Ml Vial IVP Q8HR PRN Nausea And Vomiting Intake and Output 10/23/24 10/24/24 10/24/24 22:59 06:59 14:59 Other: Weight 101.605 kg 10/23/24 18:48 10/23/24 18:48
[2024-10-24 09:07] LABS: Basophils # (A) 0.05 10*3/uL (0.00-0.10); Basophils % (A) 0.4 %; Eosinophils # (A) 0.13 10*3/uL (0.04-0.35); Eosinophils % (A) 1.0 %; HCT 39.4 % (37.2-46.3); HGB 13.1 g/dL (12.0-15.0); Lymphocytes # (A) 0.70 10*3/uL (0.90-5.00); Lymphocytes % (A) 5.5 %; MCH 27.9 pg (27.0-32.0); MCHC 33.2 g/dL (32.0-37.0); MCV 83.8 fL (80.0-97.0); Monocytes # (A) 0.46 10*3/uL (0.20-1.00); Monocytes % (A) 3.6 %; Neutrophils # (A) 11.34 10*3/uL (1.80-7.70); Neutrophils % (A) 88.9 %; Platelet Count 147 10*3/uL (140-440); RBC 4.70 10*6/uL (4.10-5.20); RDW 16.9 % (11.5-14.5); WBC 12.76 10*3/uL (4.50-10.00)
[2024-10-24 09:18] LABS: ALT 226 U/L (4-34); AST 362 U/L (14-36); African American GFR (CKD) 51 (>60 ml/min/1.73 sqM); Albumin 3.2 g/dL (3.5-5.0); Alkaline Phosphatase 57 U/L (38-126); Anion Gap 7 mmol/L; Blood Urea Nitrogen 23 mg/dL (7-17); Calcium 8.5 mg/dL (8.4-10.2); Carbon Dioxide 26 mmol/L (22-30); Chloride 105 mmol/L (98-107); Glucose 189 mg/dL (74-99); Magnesium 1.9 mg/dL (1.6-2.3); Non-African American GFR(CKD) 44 (>60 ml/min/1.73 sqM); Potassium 4.1 mmol/L (3.5-5.1); Sodium 138 mmol/L (137-145); Total Protein 5.6 g/dL (6.3-8.2)
[2024-10-24] MEDS ORDERED: SYMBICORT 160-4.5 MCG INHALER INHALATION PRN (11:20)
--- NOTE | 2024-10-24 12:26 | P.HPIM ---
History of Present Illness H&P Date: 10/24/24 (Brought by ambulance) Chief Complaint: Shivering, fever, left flank pain, urine retention, abnormal liver enzyme History and physical Dictation by Dr. Cha Date of service 10/05/2023. Location patient seen in the ER bed #5. Chief complaint: Patient had CT of the back ordered by Dr. Sven guzman for severe back pain, because of her allergy to dye patient prepped with prednisone protocol which caused her blood glucose to be elevated but patient managed with the insulin this event happened on On Friday patient experienced shivering severe with pain in the left flank area patient thought that it would go away however it persists and her niece came and saw her on Friday at that time with no resolution of her discomfort which was associated with nausea but no vomiting and she did not have no diarrhea but she had left flank pain. Her niece called the ambulance who picked her up and brought her to the emergency room department at [facility] around 5 PM on 10/23/2024. In the ER patient received several investigation i.e. gallbladder ultrasound with the thoughts of cholelithiasis, however her white count was normal and her liver enzyme was elevated on the laboratories as well as lactic acid was 2.9. History of present illness: Patient is diabetic and she has insulin pump, after she had steroid for her dye test on the back CT scan she felt better on her sugar testing and apparently was improving with the compensating with the pump insulin However with the starting of the left flank pain and the shakiness and shivering and fever 101 which picked up in the ER as well she thought that some problem happening and should be in the ER called the EMS who brought her to the emergency room. Subsequently as patient in the ER she had laboratories CBC with differential indicating white count at that time 7.21 with hemoglobin 16 and hematocrit 48.4. And at that time neutrophil was 6.27, her PT and INR was 13, 1.2 and the PTT 21.1 patient with the history of atrial fibrillation has been taking Eliquis anticoagulation. Current history indicated sodium 139, potassium 3.1, chloride 102, carbon dioxide 25, BUN of 27, creatinine 1.41 with EGFR 37 and the blood sugar was 126, POC blood glucose 119 Plasma lactic acid venous 2.9 and repeat 2.6 Total bilirubin 1.5 AST 487 and ALT 179 alkaline phosphatase was normal 72. No rmal troponin 0.014 and normal ammonia less than 9 and serum lipase 109, albumin 3.7 normal She had testing semiology for influenza A and B PCR as well as RSV and SARSCove2 PCR all of them was negative. Initial EKG indicating sinus rhythm however during the monitoring in the ER was episodes of atrial fibrillation, with the patient history of chronic atrial fibrillation but no strips has been saved., Patient has also a chest x-ray which was negative, Patient has ultrasound of the gallbladder and this is investigation done in the ER on 10/23/2024 The gallbladder ultrasound was indicating #1 possible mild inflammatory changes along the anterior wall of the gallbladder however no cholelithiasis or other evidence of acute cholecystitis. And the indicating that consideration of evaluation with nuclear medicine HIDA scan. 2. Mild dilatation of the common bile duct and correlate with biliary lab with consideration for MRCP PE/ERCPPer radiology. Today she had CT scan of the abdomen and pelvis on 10/24/2024 in the emergency room still which indicating gallbladder wall thickening with some surrounding fat stranding findings are concerning for acute cholecystitis and consider evaluation with nuclear medicine HIDA scan. 2. Small bowel feces without evidence of wall thickening or dilated bowel the findings suggest delayed small bowel transit 3. Nonobstructive left renal calculus. I was called financial reporting advisor hour at 3:30 AM today with [employer] to indicate by the nursing staff the patient had bladder scan, 600 mL of urine and could not urinate, advised with the catheter straight cath and they did it and the retrieve 650 mL of urine with the temporary retention of the urine, as patient stated today on the exam that she able to urinate normally and currently she has no fever or chills however last temperature was obtained in the ER 100.1 F oral and that was on 10/23/2024 at 20: 13 hours. No temperature was obtained in the ER or not recorded today. Patient also experienced on admission blood pressure was trended to be low normotensive to hypotensive as indicated 107/54, 83/50, 85/49 with the relief of the retention of the urine bladder straight cath, blood pressure in the a.m. 129/67 her temperature this morning 97 on room air. Past medical history she had history of diabetes mellitus type 2 insulin- dependent on insulin pump, she had several heart cardiac catheterization with the stent which 2 stent has been placed in 2016, she had EGD, colonoscopy, lap band in 2007 for bariatric and obesity, she had right rotator cuff repair and she had panniculectomy surgical and wound debridement x 2. History of anal fissure, bilateral cataract repaired, left arm lipoma removed, CABG with triple bypass surgery on 09/26/2016 and history of back surgery on 2018 and 2022. She had in the past 1 blood transfusion after her open heart surgery with no reaction. Last stent placement was 09/18/2015. Social history she is non-smoker never smoked no drug history no alcohol use. Family history: Mother has diabetes mellitus and history of breast and bone cancer Father history of NH at age of 56 Brother has history of prostate cancer open heart surgery. Sister has kidney cancer and skin cancer. Her medication: 1. Insulin pump 2. Atorvastatin 80 mg once a day at at bedtime 3. Fenofibrate 145 mg p.o. nightly 4. Levothyroxine Synthroid 75 mg every morning 5. Pregabalin 150 mg twice a day 6. Allopurinol 100 mg once a day 7. Isosorbide mononitrate 30 mg daily 8. Nitroglycerin sublingual Nitrostat 0.4 mg sublingual as needed 9. Zetia 10 mg daily 10. Trulicity 3 mg subcu weekly 11. Eliquis apixaban 5 mg twice daily 12. Famotidine Pepcid 20 mg daily. Allergies: 1. Iodinated contrast media 2. Adhesive tape 3. Penicillin 4. Sulfa drugs 5. Ibuprofen 6. Food allergies Isaac, plums. Review of system: Only pertinent for the 14 is the left flank pain and shivering and shaking with nausea but no vomiting Other systems was not pertinent to the patient no chest pain no palpitation no diarrhea or constipation. On the physical exam: Patient is conscious alert oriented x 3 able to stated her complaint and the problem and she is actually do not think that she had gallbladder symptoms as she has experience with her family of the gallbladder symptoms. But elevated liver enzyme as well as the left flank pain with a small nonobstructive nephrolithiasis and elevated lactic acid and initial hypotension with the retention of the urine for 600 mL with inability to urinate however is only for 1 time. Head was normocephalic atraumatic pupil was equal reactive conjunctiva was pink sclera was nonicteric, hearing is normal Oropharynx natural teeth able to eat and swallow Neck was supple no JVD no thyromegaly no lymphadenopathy trachea midline. Chest: No tenderness on palpation no chest pain, normal breath sound and no wheezes or rhonchi's Heart initial EKG was sinus rhythm however she had history of chronic atrial fibrillation and on anticoagulant Eliquis and currently had occasional escape of atrial fibs however currently is normal sinus seen by cardiology in the ER and the troponin was normal Abdomen: Soft positive bowel sound and I did deep abdominal exam with no tenderness in the right upper quadrant or left upper quadrant over the flanks bilaterally or the lower quadrant excepted that her bladder was full this mor balaji also and she able to urinate on the commode no history of urinary tract infection or genital infection and she had history of hysterectomy. Extremities no edema and positive pulses and no shaking at this time or shivering. But patient received antibiotic through in the emergency room Assessment: 1. Left flank pain, nonobstructive nephrolithiasis, with the shivering and shaking with the possibility passing through the stool 2. Abnormal liver enzyme with normal alkaline phosphatase, with the process of dysfunctional gallbladder 3. Diabetes mellitus type 2 insulin-dependent on the pump. 4. Chronic kidney disease however is improving 5. 1 episode of urinary retention with inability to urinate could be associated with the passing stone. 6. Lactic acidosis 1.6 however this morning 1.9. 7. Drug interaction with medication which is held temporarily. Plan: 1. Will obtain HIDA scan in a.m. #2 will consult infectious disease and at this time we will continue with Rocephin IV 2. Continue monitoring blood sugar with the insulin pump and obtain CBG AC and at bedtime 3. Will obtain hemoglobin A1c. And supplementation of any electrolyte imbalance i.e. potassium/magnesium. #4 obtain consultation with the surgeon for evaluation. Past Medical History Past Medical History: Coronary Artery Disease (CAD), Cancer, Chest Pain / Angina, Heart Failure, Diabetes Mellitus, Hyperlipidemia, Myocardial Infarction (NH), Pneumonia, Renal Disease, Sleep Apnea/CPAP/BIPAP, Thyroid Disorder Additional Past Medical History / Comment(s): gout,neuropathy,fatty liver, CHRONIC KIDNEY DISEASE - STAGE 3 , has insulin pump,doesn't use the cpap, bronchitis, snoring, Last Myocardial Infarction Date:: 09/18/2015 History of Any Multi-Drug Resistant Organisms: None Reported Past Surgical History: Back Surgery, Bariatric Surgery, Coronary Bypass/CABG, Heart Catheterization, Heart Catheterization With Stent, Hysterectomy, Orthopedic Surgery, Tubal Ligation Additional Past Surgical History / Comment(s): several heart cath's w/stents most recent was 2015 (2 stents placed), EGD,COLONOSCOPY, LAP BAND 2008, RT ROTATOR CUFF,PANNICULECTOMY W/surgical WOUND DEBRIDEMENT X2,ANAL FISSURE REPAIR, BRIGID CATARACTS. LT ARM LIPOMA REMOVED, triple bypass & CABG 09-26-16, back sx 2018 2022 Past Anesthesia/Blood Transfusion Reactions: Previous Problems w/ Anesthesia Additional Past Anesthesia/Blood Transfusion Reaction / Comment(s): difficulty waking up from anesthesia. Pt states she had one blood transfusion after her open heart sx and did not experience any reactions Date of Last Stent Placement:: 09-18-15 Past Psychological History: No Psychological Hx Reported Smoking Status: Never smoker Past Alcohol Use History: Rare Past Drug Use History: None Reported - Past Family History Mother Family Medical History: Cancer, Diabetes Mellitus Additional Family Medical History / Comment(s): BREAST/BONE CANCER Father Family Medical History: Myocardial Infarction (NH) Additional Family Medical History / Comment(s): AT AGE 56 FROM NH Brother(s) Family Medical History: Cancer Additional Family Medical History / Comment(s): prostate cancer, had open heart surg. Sister(s) Family Medical History: Cancer Additional Family Medical History / Comment(s): KIDNEY CANCER , SKIN CANCER Medications and Allergies Home Medications Medication Instructions Recorded Confirmed Type Atorvastatin [Lipitor] 80 mg PO HS 03/24/18 10/24/24 History Fenofibrate Nanocrystallized 145 mg PO HS 03/24/18 10/24/24 History [Fenofibrate] Furosemide [Lasix] 40 mg PO BID 03/24/18 10/24/24 History Insulin Aspart (For Pump) [NovoLOG 0.01 unit SQ-PUMP CONTINUOUS 03/24/18 History (For Pump)] Levothyroxine Sodium [Synthroid] 75 mcg PO DAILY 03/24/18 10/24/24 History Pregabalin [Lyrica] 150 mg PO BID 03/24/18 10/24/24 History allopurinoL [Zyloprim] 100 mg PO DAILY 03/24/18 10/24/24 History Isosorbide Mononitrate [Isosorbide 30 mg PO DAILY 02/27/21 10/24/24 History Mononitrate ER] Nitroglycerin Sl Tabs [Nitrostat] 0.4 mg SUBLINGUAL Q5M PRN 09/26/23 10/24/24 History Apixaban [Eliquis] 5 mg PO BID #60 tab 09/28/23 10/24/24 Rx Ezetimibe [Zetia] 10 mg PO DAILY #30 tab 09/28/23 10/24/24 Rx Famotidine [Pepcid] 20 mg PO DAILY #30 tablet 09/28/23 10/24/24 Rx Budesonide/Formoterol Fumarate 1 puff INHALATION RT-BID PRN 10/24/24 10/24/24 History [Symbicort 160-4.5 Mcg Inhaler] Dulaglutide [Trulicity] 4.5 mg SQ TU 10/24/24 10/24/24 History Allergies Allergy/AdvReac Type Severity Reaction Status Date / Time Iodinated Contrast Media Allergy Intermediate Anaphylaxis Verified 10/24/24 10:58 [Iodinated Contrast- Oral and IV Dye] adhesive tape Allergy Rash/Hives Verified 10/24/24 10:58 isaac Allergy Anaphylaxis Verified 10/24/24 10:58 Penicillins Allergy Rash/Hives Verified 10/24/24 10:58 plum Allergy Swelling Verified 10/24/24 10:58 Sulfa (Sulfonamide Allergy Rash/Hives Verified 10/24/24 10:58 Antibiotics) ibuprofen AdvReac Swelling Verified 10/24/24 10:58 Physical Exam Vitals: Vital Signs Temp Pulse Resp BP Pulse Ox 10/24/24 07:48 59 L 18 129/67 97 10/24/24 00:36 80 18 89/51 94 L 10/23/24 22:14 114 H 20 85/49 95 10/23/24 20:13 100.1 F H 86 16 83/50 96 10/23/24 18:46 101.4 F H 90 16 107/54 94 L Intake and Output 10/23/24 10/24/24 10/24/24 22:59 06:59 14:59 Other: Weight 101.605 kg 101.605 kg Results CBC & Chem 7: 10/24/24 08:09 10/24/24 08:09 Labs: Abnormal Lab Results - Last 24 Hours (Table) 10/23/24 10/23/24 10/23/24 Range/Units 18:48 18:48 18:48 WBC (4.50-10.00) 10*3/uL RBC 5.84 H (4.10-5.20) 10*6/uL Hgb 16.0 H (12.0-15.0) g/dL Hct 48.4 H (37.2-46.3) % MPV (9.5-12.2) fL Immature Gran # (0.00-0.04) 10*3/uL Neutrophils # (1.80-7.70) 10*3/uL Lymphocytes # 0.53 L (0.90-5.00) 10*3/uL Eosinophils # 0.03 L (0.04-0.35) 10*3/uL PT 13.0 H (10.0-12.5) sec INR 1.2 H (<1.2) APTT 21.1 L (22.0-30.0) sec Potassium 3.1 L (3.5-5.1) mmol/L BUN 27 H (7-17) mg/dL Creatinine 1.41 H (0.52-1.04) mg/dL Glucose 126 H (74-99) mg/dL POC Glucose (mg/dL) (70-110) mg/dL Plasma Lactic Acid Aníbal (0.7-2.0) mmol/L Total Bilirubin 1.5 H (0.2-1.3) mg/dL AST 487 H (14-36) U/L ALT 179 H (4-34) U/L Total Protein 6.2 L (6.3-8.2) g/dL Albumin (3.5-5.0) g/dL Urine Glucose (UA) (Negative) Urine Ketones (Negative) 10/23/24 10/23/24 10/23/24 Range/Units 18:48 19:01 21:46 WBC (4.50-10.00) 10*3/uL RBC (4.10-5.20) 10*6/uL Hgb (12.0-15.0) g/dL Hct (37.2-46.3) % MPV (9.5-12.2) fL Immature Gran # (0.00-0.04) 10*3/uL Neutrophils # (1.80-7.70) 10*3/uL Lymphocytes # (0.90-5.00) 10*3/uL Eosinophils # (0.04-0.35) 10*3/uL PT (10.0-12.5) sec INR (<1.2) APTT (22.0-30.0) sec Potassium (3.5-5.1) mmol/L BUN (7-17) mg/dL Creatinine (0.52-1.04) mg/dL Glucose (74-99) mg/dL POC Glucose (mg/dL) 119 H (70-110) mg/dL Plasma Lactic Acid Aníbal 2.9 H* 2.6 H* (0.7-2.0) mmol/L Total Bilirubin (0.2-1.3) mg/dL AST (14-36) U/L ALT (4-34) U/L Total Protein (6.3-8.2) g/dL Albumin (3.5-5.0) g/dL Urine Glucose (UA) (Negative) Urine Ketones (Negative) 10/24/24 10/24/24 10/24/24 Range/Units 04:15 08:09 08:09 WBC 12.76 H (4.50-10.00) 10*3/uL RBC (4.10-5.20) 10*6/uL Hgb (12.0-15.0) g/dL Hct (37.2-46.3) % MPV 12.4 H (9.5-12.2) fL Immature Gran # 0.08 H (0.00-0.04) 10*3/uL Neutrophils # 11.34 H (1.80-7.70) 10*3/uL Lymphocytes # 0.70 L (0.90-5.00) 10*3/uL Eosinophils # (0.04-0.35) 10*3/uL PT (10.0-12.5) sec INR (<1.2) APTT (22.0-30.0) sec Potassium (3.5-5.1) mmol/L BUN 23 H (7-17) mg/dL Creatinine 1.21 H (0.52-1.04) mg/dL Glucose 189 H (74-99) mg/dL POC Glucose (mg/dL) (70-110) mg/dL Plasma Lactic Acid Aníbal (0.7-2.0) mmol/L Total Bilirubin 1.8 H (0.2-1.3) mg/dL AST 362 H (14-36) U/L ALT 226 H (4-34) U/L Total Protein 5.6 L (6.3-8.2) g/dL Albumin 3.2 L (3.5-5.0) g/dL Urine Glucose (UA) 2+ H (Negative) Urine Ketones Trace H (Negative) Thrombosis Risk Factor Assmnt - Choose All That Apply Any of the Below Risk Factors Present?: Yes Each Risk Factor Represents 2 Points: Age 61-74 years Thrombosis Risk Factor Assessment Total Risk Factor Score: 2 Thrombosis Risk Factor Assessment Level: Low Risk
--- NOTE | 2024-10-24 12:42 | P.GSCN ---
History of Present Illness Consult date: 10/24/24 Reason for Consult: Cholecystitis History of present illness: Patient presents to the hospital complaining of fevers and elevated blood sugars. The patient had steroid use recently for MRI of her back. She was having some mild left-sided abdominal discomfort. Says her back pain is chronic and in the right side of her back with radiation down her leg. Patient did have episodes of nausea and vomiting. Denied abdominal pain while in the ER. Patient's liver enzymes were slightly elevated. Ultrasound gallbladder showed some mild gallbladder wall thickening. CAT scan also showed gallbladder wall thickening. No obvious stones were seen. Common bile duct mildly dilated. Patient described having shaking chills at home. Review of Systems The patient denies any acute changes in vision or hearing, no dysphagia or odynophagia, no chest pain or shortness of breath, no dysuria or hematuria, no headache, no runny nose, no rectal bleeding or melena, no unexplained weight loss Past Medical History Past Medical History: Coronary Artery Disease (CAD), Cancer, Chest Pain / Angina, Heart Failure, Diabetes Mellitus, Hyperlipidemia, Myocardial Infarction ([place]), Pneumonia, Renal Disease, Sleep Apnea/CPAP/BIPAP, Thyroid Disorder Additional Past Medical History / Comment(s): gout,neuropathy,fatty liver, CHRONIC KIDNEY DISEASE - STAGE 3 , has insulin pump,doesn't use the cpap, bronchitis, snoring, Last Myocardial Infarction Date:: 09/18/2015 History of Any Multi-Drug Resistant Organisms: None Reported Past Surgical History: Back Surgery, Bariatric Surgery, Coronary Bypass/CABG, Heart Catheterization, Heart Catheterization With Stent, Hysterectomy, Orthopedic Surgery, Tubal Ligation Additional Past Surgical History / Comment(s): several heart cath's w/stents most recent was 2015 (2 stents placed), EGD,COLONOSCOPY, LAP BAND 2007, RT ROTAT OR CUFF,PANNICULECTOMY W/surgical WOUND DEBRIDEMENT X2,ANAL FISSURE REPAIR, BRIGID CATARACTS. LT ARM LIPOMA REMOVED, triple bypass & CABG 09-26-16, back sx 2018 2022 Past Anesthesia/Blood Transfusion Reactions: Previous Problems w/ Anesthesia Additional Past Anesthesia/Blood Transfusion Reaction / Comm: difficulty waking up from anesthesia. Pt states she had one blood transfusion after her open heart sx and did not experience any reactions Date of Last Stent Placement:: 09-18-15 Past Psychological History: No Psychological Hx Reported Smoking Status: Never smoker Past Alcohol Use History: Rare Past Drug Use History: None Reported - Past Family History Mother Family Medical History: Cancer, Diabetes Mellitus Additional Family Medical History / Comment(s): BREAST/BONE CANCER Father Family Medical History: Myocardial Infarction ([place]) Additional Family Medical History / Comment(s): AT AGE 56 FROM [place] Brother(s) Family Medical History: Cancer Additional Family Medical History / Comment(s): prostate cancer, had open heart surg. Sister(s) Family Medical History: Cancer Additional Family Medical History / Comment(s): KIDNEY CANCER , SKIN CANCER Medications and Allergies Home Medications Medication Instructions Recorded Confirmed Type Atorvastatin [Lipitor] 80 mg PO HS 03/24/18 10/24/24 History Fenofibrate Nanocrystallized 145 mg PO HS 03/24/18 10/24/24 History [Fenofibrate] Furosemide [Lasix] 40 mg PO BID 03/24/18 10/24/24 History Insulin Aspart (For Pump) [NovoLOG 0.01 unit SQ-PUMP CONTINUOUS 03/24/18 10/24/24 History (For Pump)] Levothyroxine Sodium [Synthroid] 75 mcg PO DAILY 03/24/18 10/24/24 History Pregabalin [Lyrica] 150 mg PO BID 03/24/18 10/24/24 History allopurinoL [Zyloprim] 100 mg PO DAILY 03/24/18 10/24/24 History Isosorbide Mononitrate [Isosorbide 30 mg PO DAILY 02/27/21 10/24/24 History Mononitrate ER] Nitroglycerin Sl Tabs [Nitrostat] 0.4 mg SUBLINGUAL Q5M PRN 09/26/23 10/24/24 History Apixaban [Eliquis] 5 mg PO BID #60 tab 09/28/23 10/24/24 Rx Ezetimibe [Zetia] 10 mg PO DAILY #30 tab 09/28/23 10/24/24 Rx Famotidine [Pepcid] 20 mg PO DAILY #30 tablet 09/28/23 10/24/24 Rx Budesonide/Formoterol Fumarate 1 puff INHALATION RT-BID PRN 10/24/24 10/24/24 History [Symbicort 160-4.5 Mcg Inhaler] Dulaglutide [Trulicity] 4.5 mg SQ TU 10/24/24 10/24/24 History Allergies Allergy/AdvReac Type Severity Reaction Status Date / Time Iodinated Contrast Media Allergy Intermediate Anaphylaxis Verified 10/24/24 10:5 8 [Iodinated Contrast- Oral and IV Dye] adhesive tape Allergy Rash/Hives Verified 10/24/24 10:58 shepherd Allergy Anaphylaxis Verified 10/24/24 10:58 Penicillins Allergy Rash/Hives Verified 10/24/24 10:58 plum Allergy Swelling Verified 10/24/24 10:58 Sulfa (Sulfonamide Allergy Rash/Hives Verified 10/24/24 10:58 Antibiotics) ibuprofen AdvReac Swelling Verified 10/24/24 10:58 Surgical - Exam Vital Signs Temp Pulse Resp BP Pulse Ox 101.4 F H 90 16 107/54 94 L 10/23/24 18:46 10/23/24 18:46 10/23/24 18:46 10/23/24 18:46 10/23/24 18:46 Physical exam: General: Well-developed, well-nourished HEENT: Normocephalic, sclerae nonicteric Abdomen: Nontender, nondistended Extremities: No edema Neuro: Alert and oriented Results - Labs 10/24/24 08:09 10/24/24 08:09 Abnormal Lab Results - Last 24 Hours (Table) 10/23/24 10/23/24 10/23/24 Range/Units 18:48 18:48 18:48 WBC (4.50-10.00) 10*3/uL RBC 5.84 H (4.10-5.20) 10*6/uL Hgb 16.0 H (12.0-15.0) g/dL Hct 48.4 H (37.2-46.3) % MPV (9.5-12.2) fL Immature Gran # (0.00-0.04) 10*3/uL Neutrophils # (1.80-7.70) 10*3/uL Lymphocytes # 0.53 L (0.90-5.00) 10*3/uL Eosinophils # 0.03 L (0.04-0.35) 10*3/uL PT 13.0 H (10.0-12.5) sec INR 1.2 H (<1.2) APTT 21.1 L (22.0-30.0) sec Potassium 3.1 L (3.5-5.1) mmol/L BUN 27 H (7-17) mg/dL Creatinine 1.41 H (0.52-1.04) mg/dL Glucose 126 H (74-99) mg/dL POC Glucose (mg/dL) (70-110) mg/dL Plasma Lactic Acid Aníbal (0.7-2.0) mmol/L Total Bilirubin 1.5 H (0.2-1.3) mg/dL AST 487 H (14-36) U/L ALT 179 H (4-34) U/L Total Protein 6.2 L (6.3-8.2) g/dL Albumin (3.5-5.0) g/dL Urine Glucose (UA) (Negative) Urine Ketones (Negative) 10/23/24 10/23/24 10/23/24 Range/Units 18:48 19:01 21:46 WBC (4.50-10.00) 10*3/uL RBC (4.10-5.20) 10*6/uL Hgb (12.0-15.0) g/dL Hct (37.2-46.3) % MPV (9.5-12.2) fL Immature Gran # (0.00-0.04) 10*3/uL Neutrophils # (1.80-7.70) 10*3/uL Lymphocytes # (0.90-5.00) 10*3/uL Eosinophils # (0.04-0.35) 10*3/uL PT (10.0-12.5) sec INR (<1.2) APTT (22.0-30.0) sec Potassium (3.5-5.1) mmol/L BUN (7-17) mg/dL Creatinine (0.52-1.04) mg/dL Glucose (74-99) mg/dL POC Glucose (mg/dL) 119 H (70-110) mg/dL Plasma Lactic Acid Aníbal 2.9 H* 2.6 H* (0.7-2.0) mmol/L Total Bilirubin (0.2-1.3) mg/dL AST (14-36) U/L ALT (4-34) U/L Total Protein (6.3-8.2) g/dL Albumin (3.5-5.0) g/dL Urine Glucose (UA) (Negative) Urine Ketones (Negative) 10/24/24 10/24/24 10/24/24 Range/Units 04:15 08:09 08:09 WBC 12.76 H (4.50-10.00) 10*3/uL RBC (4.10-5.20) 10*6/uL Hgb (12.0-15.0) g/dL Hct (37.2-46.3) % MPV 12.4 H (9.5-12.2) fL Immature Gran # 0.08 H (0.00-0.04) 10*3/uL Neutrophils # 11.34 H (1.80-7.70) 10*3/uL Lymphocytes # 0.70 L (0.90-5.00) 10*3/uL Eosinophils # (0.04-0.35) 10*3/uL PT (10.0-12.5) sec INR (<1.2) APTT (22.0-30.0) sec Potassium (3.5-5.1) mmol/L BUN 23 H (7-17) mg/dL Creatinine 1.21 H (0.52-1.04) mg/dL Glucose 189 H (74-99) mg/dL POC Glucose (mg/dL) (70-110) mg/dL Plasma Lactic Acid Aníbal (0.7-2.0) mmol/L Total Bilirubin 1.8 H (0.2-1.3) mg/dL AST 362 H (14-36) U/L ALT 226 H (4-34) U/L Total Protein 5.6 L (6.3-8.2) g/dL Albumin 3.2 L (3.5-5.0) g/dL Urine Glucose (UA) 2+ H (Negative) Urine Ketones Trace H (Negative) Microbiology - Last 24 Hours (Table) 10/23/24 20:25 Blood Culture Gram Stain - Preliminary Blood Diabetes panel 10/23/24 10/24/24 Range/Units 18:48 08:09 Sodium 139 138 (137-145) mmol/L Potassium 3.1 L 4.1 (3.5-5.1) mmol/L Chloride 102 105 (98-107) mmol/L Carbon Dioxide 25 26 (22-30) mmol/L BUN 27 H 23 H (7-17) mg/dL Creatinine 1.41 H 1.21 H (0.52-1.04) mg/dL Glucose 126 H 189 H (74-99) mg/dL Calcium 8.7 8.5 (8.4-10.2) mg/dL AST 487 H 362 H (14-36) U/L ALT 179 H 226 H (4-34) U/L Alkaline Phosphatase 72 57 (38-126) U/L Total Protein 6.2 L 5.6 L (6.3-8.2) g/dL Albumin 3.7 3.2 L (3.5-5.0) g/dL Calcium panel 10/23/24 10/24/24 Range/Units 18:48 08:09 Calcium 8.7 8.5 (8.4-10.2) mg/dL Phosphorus 2.6 3.4 (2.5-4.5) mg/dL Albumin 3.7 3.2 L (3.5-5.0) g/dL Pituitary panel 10/23/24 10/24/24 Range/Units 18:48 08:09 Sodium 139 138 (137-145) mmol/L Potassium 3.1 L 4.1 (3.5-5.1) mmol/L Chloride 102 105 (98-107) mmol/L Carbon Dioxide 25 26 (22-30) mmol/L BUN 27 H 23 H (7-17) mg/dL Creatinine 1.41 H 1.21 H (0.52-1.04) mg/dL Glucose 126 H 189 H (74-99) mg/dL Calcium 8.7 8.5 (8.4-10.2) mg/dL Adrenal panel 10/23/24 10/24/24 Range/Units 18:48 08:09 Sodium 139 138 (137-145) mmol/L Potassium 3.1 L 4.1 (3.5-5.1) mmol/L Chloride 102 105 (98-107) mmol/L Carbon Dioxide 25 26 (22-30) mmol/L BUN 27 H 23 H (7-17) mg/dL Creatinine 1.41 H 1.21 H (0.52-1.04) mg/dL Glucose 126 H 189 H (74-99) mg/dL Calcium 8.7 8.5 (8.4-10.2) mg/dL Total Bilirubin 1.5 H 1.8 H (0.2-1.3) mg/dL AST 487 H 362 H (14-36) U/L ALT 179 H 226 H (4-34) U/L Alkaline Phosphatase 72 57 (38-126) U/L Total Protein 6.2 L 5.6 L (6.3-8.2) g/dL Albumin 3.7 3.2 L (3.5-5.0) g/dL Assessment and Plan (1) Cholecystitis Narrative/Plan: 74-year-old female with radiographic evidence of gallbladder wall thickening. Cholecystitis certainly within the differential. Cholecystitis with choledocholithiasis also possible given the elevated liver enzymes. Patient stated numerous times she does not want her gallbladder removed unless a bsolutely necessary. Will order MRCP to further evaluate the common bile duct at this time. Repeat labs tomorrow. Continue antibiotics. Will follow. Current Visit: Yes Status: Acute Code(s): K81.9 - CHOLECYSTITIS, UNSPECIFIED SNOMED Code(s): 68194907
[2024-10-24 18:19] LABS: Glucose,Whole Blood 154 mg/dL (70-110)
[2024-10-24] MEDS: ACETAMINOPHEN TAB 500 MG TAB PO PRN (18:23)
[2024-10-24] MEDS: ATORVASTATIN 80 MG TAB PO SCH (21:27)
[2024-10-24 21:37] LABS: Glucose,Whole Blood 159 mg/dL (70-110)
--- NOTE | 2024-10-24 22:45 | P.CONS ---
History of Present Illness - Reason for Consult Consult date: 10/24/24 Sepsis Requesting physician: Pasha Ramon - Chief Complaint Fever with rigors and chills x 1 day - History of Present Illness Patient is a 74-year-old female with a past medical history significant for Coronary Artery Disease (CAD), Cancer, Chest Pain / Angina, Heart Failure, Diabetes Mellitus, Hyperlipidemia, Myocardial Infarction (CT), Pneumonia, Renal Disease, Sleep Apnea/CPAP/BIPAP, Thyroid Disorder presenting to the hospital for evaluation of rigors and chills that started the day of presentation to the hospital patient denies having any headache or URI symptoms patient denies having any chest pain shortness of breath occasional cough patien t has been complaining of some nausea but no vomiting also complaining of some right upper quadrant abdominal pain mostly dull aching without any radiation patient denies having any diarrhea or constipation and no urinary symptoms on presentation to the hospital patient was febrile with temperature of 101.4 F patient was tachycardic but not hypotensive or hypoxic patient did have a white count of 12.76 BUN/creatinine mildly elevated he did have elevated lactic acid liver enzymes are elevated urine is negative influenza RSV COVID testing has been negative patient did have a chest x-ray that was negative for acute cardiopulmonary disease process patient did have a gallbladder ultrasound possi ble mild inflammatory changes along the anterior wall of the gallbladder however no cholelithiasis mild dilatation of the common bile duct patient also have abdominal pelvis CT gallbladder wall thickening with some surrounding fat stranding concerning for acute cholecystitis patient has been started on Rocephin infectious disease was consulted for further management of antibiotic therapy patient did have a penicillin and sulfa allergy Review of Systems Positive point and negatives has been mentioned in the HPI, complete review of systems was performed and all other systems are negative Past Medical History Past Medical History: Coronary Artery Disease (CAD), Cancer, Chest Pain / Angina, Heart Failure, Diabetes Mellitus, Hyperlipidemia, Myocardial Infarction (CT), Pneumonia, Renal Disease, Sleep Apnea/CPAP/BIPAP, Thyroid Disorder Additional Past Medical History / Comment(s): gout,neuropathy,fatty liver, CHRONIC KIDNEY DISEASE - STAGE 3 , has insulin pump,doesn't use the cpap, bronchitis, snoring, Last Myocardial Infarction Date:: 09/18/2015 History of Any Multi-Drug Resistant Organisms: None Reported Past Surgical History: Back Surgery, Bariatric Surgery, Coronary Bypass/CABG, Heart Catheterization, Heart Catheterization With Stent, Hysterectomy, Orthopedic Surgery, Tubal Ligation Additional Past Surgical History / Comment(s): several heart cath's w/stents most recent was 2015 (2 stents placed), EGD,COLONOSCOPY, LAP BAND 2007, RT ROTATOR CUFF,PANNICULECTOMY W/surgical WOUND DEBRIDEMENT X2,ANAL FISSURE REPAIR, BRIGID CATARACTS. LT ARM LIPOMA REMOVED, triple bypass & CABG 09-26-16, back sx 2018 2022 Past Anesthesia/Blood Transfusion Reactions: Previous Problems w/ Anesthesia Additional Past Anesthesia/Blood Transfusion Reaction / Comm: difficulty waking up from anesthesia. Pt states she had one blood transfusion after her open hear t sx and did not experience any reactions Date of Last Stent Placement:: 09-18-15 Past Psychological History: No Psychological Hx Reported Smoking Status: Never smoker Past Alcohol Use History: Rare Past Drug Use History: None Reported - Past Family History Mother Family Medical History: Cancer, Diabetes Mellitus Additional Family Medical History / Comment(s): BREAST/BONE CANCER Father Family Medical History: Myocardial Infarction (CT) Additional Family Medical History / Comment(s): AT AGE [address] FROM [place] Brother(s) Family Medical History: Cancer Additional Family Medical History / Comment(s): prostate cancer, had open heart surg. Sister(s) Family Medical History: Cancer Additional Family Medical History / Comment(s): KIDNEY CANCER , SKIN CANCER Medications and Allergies Home Medications Medication Instructions Recorded Confirmed Type Atorvastatin [Lipitor] 80 mg PO HS 03/24/18 10/24/24 History Fenofibrate Nanocrystallized 145 mg PO HS 03/24/18 10/24/24 History [Fenofibrate] Furosemide [Lasix] 40 mg PO BID 03/24/18 10/24/24 History Insulin Aspart (For Pump) [NovoLOG 0.01 unit SQ-PUMP CONTINUOUS 03/24/18 10/24/24 History (For Pump)] Levothyroxine Sodium [Synthroid] 75 mcg PO DAILY 03/24/18 10/24/24 History Pregabalin [Lyrica] 150 mg PO BID 03/24/18 10/24/24 History allopurinoL [Zyloprim] 100 mg PO DAILY 03/24/18 10/24/24 History Isosorbide Mononitrate [Isosorbide 30 mg PO DAILY 02/27/21 10/24/24 History Mononitrate ER] Nitroglycerin Sl Tabs [Nitrostat] 0.4 mg SUBLINGUAL Q5M PRN 09/26/23 10/24/24 History Apixaban [Eliquis] 5 mg PO BID #60 tab 09/28/23 10/24/24 Rx Ezetimibe [Zetia] 10 mg PO DAILY #30 tab 09/28/23 10/24/24 Rx Famotidine [Pepcid] 20 mg PO DAILY #30 tablet 09/28/23 10/24/24 Rx Budesonide/Formoterol Fumarate 1 puff INHALATION RT-BID PRN 10/24/24 10/24/24 History [Symbicort 160-4.5 Mcg Inhaler] Dulaglutide [Trulicity] 4.5 mg SQ TU 10/24/24 10/24/24 History Allergies Allergy/AdvReac Type Severity Reaction Status Date / Time Iodinated Contrast Media Allergy Intermediate Anaphylaxis Verified 10/24/24 10:58 [Iodinated Contrast- Oral and IV Dye] adhesive tape Allergy Rash/Hives Verified 10/24/24 10:58 shepherd Allergy Anaphylaxis Verified 10/24/24 10:58 Penicillins Allergy Rash/Hives Verified 10/24/24 10:58 plum Allergy Swelling Verified 10/24/24 10:58 Sulfa (Sulfonamide Allergy Rash/Hives Verified 10/24/24 10:58 Antibiotics) ibuprofen AdvReac Swelling Verified 10/24/24 10:58 Physical Exam Vitals: Vital Signs Temp Pulse Resp BP Pulse Ox 10/24/24 07:48 59 L 18 129/67 97 10/24/24 00:36 80 18 89/51 94 L 10/23/24 22:14 114 H 20 85/49 95 10/23/24 20:13 100.1 F H 86 16 83/50 96 10/23/24 18:46 101.4 F H 90 16 107/54 94 L Intake and Output 10/23/24 10/24/24 10/24/24 22:59 06:59 14:59 Other: Weight 101.605 kg 101.605 kg GENERAL DESCRIPTION: Elderly female lying in bed, no distress. No tachypnea or accessory muscle of respiration use. HEENT: Shows Pallor , no scleral icterus. Oral mucous membrane is dry. No pharyngeal erythema or thrush NECK: Trachea central, no thyromegaly. LUNGS: Unlabored breathing. Clear to auscultation anteriorly. No wheeze or crackle. HEART: S1, S2, regular rate and rhythm. No loud murmur ABDOMEN: Soft, mild right-sided tenderness EXTREMITIES: No edema of feet. SKIN: No rash, no masses palpable. NEUROLOGICAL: The patient is awake, alert, oriented x3, mood and affect normal. Results CBC & Chem 7: 10/24/24 08:09 10/24/24 08:09 Labs: Abnormal Lab Results - Last 24 Hours (Table) 10/23/24 10/23/24 10/23/24 Range/Units 18:48 18:48 18:48 WBC (4.50-10.00) 10*3/uL RBC 5.84 H (4.10-5.20) 10*6/uL Hgb 16.0 H (12.0-15.0) g/dL Hct 48.4 H (37.2-46.3) % MPV (9.5-12.2) fL Immature Gran # (0.00-0.04) 10*3/uL Neutrophils # (1.80-7.70) 10*3/uL Lymphocytes # 0.53 L (0.90-5.00) 10*3/uL Eosinophils # 0.03 L (0.04-0.35) 10*3/uL PT 13.0 H (10.0-12.5) sec INR 1.2 H (<1.2) APTT 21.1 L (22.0-30.0) sec Potassium 3.1 L (3.5-5.1) mmol/L BUN 27 H (7-17) mg/dL Creatinine 1.41 H (0.52-1.04) mg/dL Glucose 126 H (74-99) mg/dL POC Glucose (mg/dL) (70-110) mg/dL Plasma Lactic Acid Aníbal (0.7-2.0) mmol/L Total Bilirubin 1.5 H (0.2-1.3) mg/dL AST 487 H (14-36) U/L ALT 179 H (4-34) U/L Total Protein 6.2 L (6.3-8.2) g/dL Albumin (3.5-5.0) g/dL Urine Glucose (UA) (Negative) Urine Ketones (Negative) 10/23/24 10/23/24 10/23/24 Range/Units 18:48 19:01 21:46 WBC (4.50-10.00) 10*3/uL RBC (4.10-5.20) 10*6/uL Hgb (12.0-15.0) g/dL Hct (37.2-46.3) % MPV (9.5-12.2) fL Immature Gran # (0.00-0.04) 10*3/uL Neutrophils # (1.80-7.70) 10*3/uL Lymphocytes # (0.90-5.00) 10*3/uL Eosinophils # (0.04-0.35) 10*3/uL PT (10.0-12.5) sec INR (<1.2) APTT (22.0-30.0) sec Potassium (3.5-5.1) mmol/L BUN (7-17) mg/dL Creatinine (0.52-1.04) mg/dL Glucose (74-99) mg/dL POC Glucose (mg/dL) 119 H (70-110) mg/dL Plasma Lactic Acid Aníbal 2.9 H* 2.6 H* (0.7-2.0) mmol/L Total Bilirubin (0.2-1.3) mg/dL AST (14-36) U/L ALT (4-34) U/L Total Protein (6.3-8.2) g/dL Albumin (3.5-5.0) g/dL Urine Glucose (UA) (Negative) Urine Ketones (Negative) 10/24/24 10/24/24 10/24/24 Range/Units 04:15 08:09 08:09 WBC 12.76 H (4.50-10.00) 10*3/uL RBC (4.10-5.20) 10*6/uL Hgb (12.0-15.0) g/dL Hct (37.2-46.3) % MPV 12.4 H (9.5-12.2) fL Immature Gran # 0.08 H (0.00-0.04) 10*3/uL Neutrophils # 11.34 H (1.80-7.70) 10*3/uL Lymphocytes # 0.70 L (0.90-5.00) 10*3/uL Eosinophils # (0.04-0.35) 10*3/uL PT (10.0-12.5) sec INR (<1.2) APTT (22.0-30.0) sec Potassium (3.5-5.1) mmol/L BUN 23 H (7-17) mg/dL Creatinine 1.21 H (0.52-1.04) mg/dL Glucose 189 H (74-99) mg/dL POC Glucose (mg/dL) (70-110) mg/dL Plasma Lactic Acid Aníbal (0.7-2.0) mmol/L Total Bilirubin 1.8 H (0.2-1.3) mg/dL AST 362 H (14-36) U/L ALT 226 H (4-34) U/L Total Protein 5.6 L (6.3-8.2) g/dL Albumin 3.2 L (3.5-5.0) g/dL Urine Glucose (UA) 2+ H (Negative) Urine Ketones Trace H (Negative) Microbiology - Last 24 Hours (Table) 10/23/24 20:25 Blood Culture Gram Stain - Preliminary Blood Assessment and Plan (1) Allergy to multiple antibiotics Current Visit: Yes Status: Acute Code(s): Z88.1 - ALLERGY STATUS TO OTHER ANTIBIOTIC AGENTS SNOMED Code(s): 371659441 (2) Cholecystitis Current Visit: Yes Status: Acute Code(s): K81.9 - CHOLECYSTITIS, UNSPECIFIED SNOMED Code(s): 81485410 (3) Sepsis Current Visit: Yes Status: Acute Code(s): A41.9 - SEPSIS, UNSPECIFIED ORGANISM SNOMED Code(s): 98819562 Plan: 1patient presented to hospital with sepsis in this patient who did have fever tachycardia elevated white count meeting currently for SIRS/sepsis in this patient with elevated liver enzymes and abnormal gallbladder on the CT and ultrasound source is likely acute cholecystitis and will need to cover for the enteric gram-negative with a likely pathogen. 2patient with multiple antibiotic ALLERGIES that would limit the number of antibiotic safe to use. 3patient will be treated with Rocephin 2 g daily. 4patient is being evaluated by general surgery and possible plan for cholecystectomy We will follow on clinical condition and cultures to further adjust medication if needed Thank you for this consultation we will follow the patient along with you Dictation was produced using [employer] dictation software. please excuse any grammatical, word or spelling errors. Time with Patient: Greater than 30
[2024-10-25 06:50] LABS: Basophils # (A) 0.01 10*3/uL (0.00-0.10); Basophils % (A) 0.1 %; Eosinophils # (A) 0.08 10*3/uL (0.04-0.35); Eosinophils % (A) 1.2 %; HCT 37.6 % (37.2-46.3); HGB 12.7 g/dL (12.0-15.0); Lymphocytes # (A) 0.38 10*3/uL (0.90-5.00); Lymphocytes % (A) 5.6 %; MCH 27.6 pg (27.0-32.0); MCHC 33.8 g/dL (32.0-37.0); MCV 81.7 fL (80.0-97.0); Monocytes # (A) 0.36 10*3/uL (0.20-1.00); Monocytes % (A) 5.3 %; Neutrophils # (A) 5.94 10*3/uL (1.80-7.70); Neutrophils % (A) 87.4 %; Platelet Count 120 10*3/uL (140-440); RBC 4.60 10*6/uL (4.10-5.20); RDW 17.2 % (11.5-14.5); WBC 6.80 10*3/uL (4.50-10.00)
[2024-10-25 07:13] LABS: ALT 156 U/L (4-34); AST 140 U/L (14-36); African American GFR (CKD) 53 (>60 ml/min/1.73 sqM); Albumin 3.1 g/dL (3.5-5.0); Alkaline Phosphatase 67 U/L (38-126); Anion Gap 7 mmol/L; Blood Urea Nitrogen 16 mg/dL (7-17); Calcium 8.3 mg/dL (8.4-10.2); Carbon Dioxide 23 mmol/L (22-30); Chloride 105 mmol/L (98-107); Glucose 131 mg/dL (74-99); Non-African American GFR(CKD) 46 (>60 ml/min/1.73 sqM); Potassium 3.4 mmol/L (3.5-5.1); Sodium 135 mmol/L (137-145); Total Protein 5.6 g/dL (6.3-8.2)
--- NOTE | 2024-10-25 09:05 | NM ---
EXAMINATION TYPE: NM hepatobiliary w CCK DATE OF EXAM: 10/25/2024 COMPARISON: NONE CLINICAL INDICATION: Female, 74 years old with history of Gallbladder dysfunction with abnormal liver enzyme; TECHNIQUE: After the intravenous administration of 5.38 mCi Tc 99m Mebrofenin hepatobiliary scintigra phy is performed. Immediate images post injection. FINDINGS: There is satisfactory initial accumulation of tracer by the liver. The gallbladder is visualized wit hin 10 minutes. The small bowel activity is noted within 12 minutes. At one hour CCK was administer ed, patient was injected with 2.1 mcg of Kinevac, and gallbladder ejection fraction is calculated at 87 %, in the normal range. Therefore there is no scintigraphic evidence of cystic or common bile obie t obstruction to suggest acute cholecystitis or gallbladder dyskinesia. IMPRESSION: Exam is within normal limits. [facility] Krishna Russell, , 10/25/2024 9:03 AM
--- NOTE | 2024-10-25 10:12 | P.PN ---
Subjective Progress Note Date: 10/25/24 The patient was seen and evaluated this morning. She is asymptomatic. She has been maintaining normal sinus mechanism. She is in process of having MRCP and possible surgery for the gallbladder after that. For that reason oral anticoagulation are on hold at this point. She is asymptomatic from the cardiac standpoint of view. She is hemodynamically stable. The potassium is low and will be replaced. The physical examination is remarkable for regular rhythm with a soft systolic murmur and clear breathing sounds bilaterally and no edema was noted IMPRESSION: 1. Acute cholecystitis 2. Fever 3. History A-fib, ablation 11/2023 Plan Continue the current medical regimen Restart the patient back on oral anticoagulation as soon as possible and safe after the procedure Replace potassium Objective - Vital Signs Vital signs: Vital Signs Temp 98.8 F 10/25/24 09:28 Pulse 60 10/25/24 09:28 Resp 18 10/25/24 09:28 BP 108/72 10/25/24 09:28 Pulse Ox 93 L 10/25/24 09:28 FiO2 Intake & Output 10/24/24 10/25/24 10/25/24 18:59 06:59 18:59 Intake Total 550 Balance 550 Weight 101.605 kg 103.5 kg Intake: Intake, IV Titration 50 Amount cefTRIAXone 2 gm In 50 Sodium Chloride 0.9% 50 ml @ 100 mls/hr IVPB Q24H [facility] Rx#:[id number] Oral 500 Other: Voiding Method Bedside Commode # Voids 4 - Labs CBC & Chem 7: 10/25/24 06:26 10/25/24 06:26 Labs: Abnormal Lab Results - Last 24 Hours (Table) 10/24/24 10/24/24 10/25/24 Range/Units 18:12 21:33 06:26 Plt Count 120 L (140-440) 10*3/uL MPV 12.5 H (9.5-12.2) fL Lymphocytes # 0.38 L (0.90-5.00) 10*3/uL Sodium (137-145) mmol/L Potassium (3.5-5.1) mmol/L Creatinine (0.52-1.04) mg/dL Glucose (74-99) mg/dL POC Glucose (mg/dL) 154 H 159 H (70-110) mg/dL Calcium (8.4-10.2) mg/dL Total Bilirubin (0.2-1.3) mg/dL AST (14-36) U/L ALT (4-34) U/L Total Protein (6.3-8.2) g/dL Albumin (3.5-5.0) g/dL 10/25/24 Range/Units 06:26 Plt Count (140-440) 10*3/uL MPV (9.5-12.2) fL Lymphocytes # (0.90-5.00) 10*3/uL Sodium 135 L (137-145) mmol/L Potassium 3.4 L (3.5-5.1) mmol/L Creatinine 1.18 H (0.52-1.04) mg/dL Glucose 131 H (74-99) mg/dL POC Glucose (mg/dL) (70-110) mg/dL Calcium 8.3 L (8.4-10.2) mg/dL Total Bilirubin 2.5 H (0.2-1.3) mg/dL AST 140 H (14-36) U/L ALT 156 H (4-34) U/L Total Protein 5.6 L (6.3-8.2) g/dL Albumin 3.1 L (3.5-5.0) g/dL Microbiology - Last 24 Hours (Table) 10/23/24 20:25 Blood Culture Gram Stain - Preliminary Blood Blood Culture - Preliminary Molecular ID
[2024-10-25 13:47] LABS: Glucose,Whole Blood 91 mg/dL (70-110)
--- NOTE | 2024-10-25 13:47 | P.PN ---
Subjective Progress Note Date: 10/25/24 dictated #[id number] on phone problem with dictation with dragon /remote dictation Objective - Vital Signs Vital signs: Vital Signs Temp 98.8 F 10/25/24 09:28 Pulse 60 10/25/24 09:28 Resp 18 10/25/24 09:28 BP 108/72 10/25/24 09:28 Pulse Ox 93 L 10/25/24 09:28 FiO2 Intake & Output 10/24/24 10/25/24 10/25/24 18:59 06:59 18:59 Intake Total 550 Balance 550 Weight 101.605 kg 103.5 kg Intake: Intake, IV Titration 50 Amount cefTRIAXone 2 gm In 50 Sodium Chloride 0.9% 50 ml @ 100 mls/hr IVPB Q24H [facility] Rx#:[id number] Oral 500 Other: Voiding Method Bedside Commode # Voids 4 - Labs CBC & Chem 7: 10/25/24 06:26 10/25/24 06:26 Labs: Abnormal Lab Results - Last 24 Hours (Table) 10/24/24 10/24/24 10/25/24 Range/Units 18:12 21:33 06:26 Plt Count 120 L (140-440) 10*3/uL MPV 12.5 H (9.5-12.2) fL Lymphocytes # 0.38 L (0.90-5.00) 10*3/uL Sodium (137-145) mmol/L Potassium (3.5-5.1) mmol/L Creatinine (0.52-1.04) mg/dL Glucose (74-99) mg/dL POC Glucose (mg/dL) 154 H 159 H (70-110) mg/dL Calcium (8.4-10.2) mg/dL Total Bilirubin (0.2-1.3) mg/dL AST (14-36) U/L ALT (4-34) U/L C-Reactive Protein (<1.0) mg/dL Total Protein (6.3-8.2) g/dL Albumin (3.5-5.0) g/dL 10/25/24 10/25/24 Range/Units 06:26 06:26 Plt Count (140-440) 10*3/uL MPV (9.5-12.2) fL Lymphocytes # (0.90-5.00) 10*3/uL Sodium 135 L (137-145) mmol/L Potassium 3.4 L (3.5-5.1) mmol/L Creatinine 1.18 H (0.52-1.04) mg/dL Glucose 131 H (74-99) mg/dL POC Glucose (mg/dL) (70-110) mg/dL Calcium 8.3 L (8.4-10.2) mg/dL Total Bilirubin 2.5 H (0.2-1.3) mg/dL AST 140 H (14-36) U/L ALT 156 H (4-34) U/L C-Reactive Protein 32.7 H (<1.0) mg/dL Total Protein 5.6 L (6.3-8.2) g/dL Albumin 3.1 L (3.5-5.0) g/dL Microbiology - Last 24 Hours (Table) 10/23/24 20:25 Blood Culture Gram Stain - Preliminary Blood Blood Culture - Preliminary Klebsiella pneum subsp pneum Molecular ID
--- NOTE | 2024-10-25 14:00 | MR ---
EXAMINATION TYPE: MR MRCP DATE OF EXAM: 10/25/2024 12:52 PM COMPARISON: Ultrasound, nuclear medicine, CT. CLINICAL INDICATION: Female, 74 years old with history of Dilated common bile duct, elevated liver en zymes; PHH, Dilated bile duct, elevated liver enzymes. TECHNIQUE: Multi planar, T2-weighted imaging with and without fat saturation and chemical shift imag ing was performed of the abdomen. Then, heavily T2 weighted imaging (half-Fourier acquisition single- shot turbo spin-echo) was utilized in order to study the biliary system. Maximum intensity projectio n images were reconstructed from the original data of the biliary tree. 3D images were created on a [employer] work station. No Gadolinium given. FINDINGS: Lower Thorax: No evidence for acute process. The heart is mildly enlarged for size. Sternotomy wires are present. MRCP: * The intrahepatic ducts have a normal appearance. * The extrahepatic ducts have a normal appearance. * The common hepatic duct measures 2 mm in size. * The common bile duct at the level of the pancreatic head measures 5 mm in size. * The pancreatic duct is normal. The gallbladder appears to have thickened santos with pericholecystic fluid. No stones definitively vi sualized. Abdomen: Liver: No evidence for cirrhosis. Signal dropout on chemical shift out of phase imaging. Simple appea ring segment 4A cyst. Pancreas: No ductal dilation. No evidence for solid mass. Spleen: Normal for size. Adrenal glands: Unremarkable. Kidneys: No evidence for obstructive uropathy. No suspicious renal masses. High T1 signal low T2 sign al left renal cortical cyst measuring up to 19 mm Stomach and Bowel: Gastric lap band. Appears in appropriate position. No evidence for bowel wall thic kening or evidence for obstruction. Retroperitoneum/Peritoneum: No evidence of pneumoperitoneum or free fluid. Vasculature: No aortic aneurysm. Musculoskeletal: The osseous structures appear intact. Susceptibility artifact from prior fixation ch anges to the spine. Lymph Nodes: No gross evidence for lymphadenopathy. Abdominal wall: Unremarkable. IMPRESSION: 1. Findings suspicious for acute cholecystitis with pericholecystic fluid and gallbladder wall thick ening. Correlate clinically. 2. No evidence to suggest ductal stricture, choledocholithiasis, or biliary ductal dilatation. 3. Hepatic steatosis. 4. Left renal cortical probable proteinaceous/hemorrhagic cyst. [facility], , 10/25/2024 1:58 PM
[2024-10-25 16:04] LABS: Hepatitis A Antibody IgM Nonreactive (Nonreactive); Hepatitis B Surface Antigen Nonreactive (Nonreactive); Hepatitis C IgG Antibody Nonreactive (Nonreactive)
[2024-10-25] MEDS: POTASSIUM CHLORIDE ER 20 MEQ TAB.ER PO SCH (16:43)
[2024-10-25 17:03] LABS: Glucose,Whole Blood 88 mg/dL (70-110)
--- NOTE | 2024-10-25 17:56 | P.PN ---
Subjective Progress Note Date: 10/25/24 Principal diagnosis: Cholecystitis Patient denies pain today. Tmax 102 yesterday evening. Today's labs show a normal white blood cell count. Bilirubin went up to 2.5 however ALT and AST went down. Blood cultures did show positive Klebsiella. HIDA scan showed normal ejection fraction. MRCP however showed gallbladder wall thickening with pericholecystic fluid. No definite stone seen. No choledocholithiasis seen. Objective - Vital Signs Vital signs: Vital Signs Temp 99.3 F 10/25/24 16:20 Pulse 77 10/25/24 16:20 Resp 16 10/25/24 16:20 BP 144/80 10/25/24 16:20 Pulse Ox 98 10/25/24 16:20 FiO2 Intake & Output 10/24/24 10/25/24 10/25/24 18:59 06:59 18:59 Intake Total 550 Balance 550 Weight 101.605 kg 103.5 kg Intake: Intake, IV Titration 50 Amount cefTRIAXone 2 gm In 50 Sodium Chloride 0.9% 50 ml @ 100 mls/hr IVPB Q24H [facility] Rx#:[id number] Oral 500 Other: Voiding Method Bedside Commode # Voids 4 1 - Exam Abdomen: Soft, nontender, nondistended - Labs CBC & Chem 7: 10/25/24 06:26 10/25/24 06:26 Labs: Abnormal Lab Results - Last 24 Hours (Table) 10/24/24 10/24/24 10/25/24 Range/Units 18:12 21:33 06:26 Plt Count 120 L (140-440) 10*3/uL MPV 12.5 H (9.5-12.2) fL Lymphocytes # 0.38 L (0.90-5.00) 10*3/uL ESR (0-30) mm/Hr Sodium (137-145) mmol/L Potassium (3.5-5.1) mmol/L Creatinine (0.52-1.04) mg/dL Glucose (74-99) mg/dL POC Glucose (mg/dL) 154 H 159 H (70-110) mg/dL Hemoglobin A1c (<=6.0) % Calcium (8.4-10.2) mg/dL Total Bilirubin (0.2-1.3) mg/dL AST (14-36) U/L ALT (4-34) U/L C-Reactive Protein (<1.0) mg/dL Total Protein (6.3-8.2) g/dL Albumin (3.5-5.0) g/dL Procalcitonin (0.02-0.50) ng/mL 10/25/24 10/25/24 10/25/24 Range/Units 06:26 06:26 06:26 Plt Count (140-440) 10*3/uL MPV (9.5-12.2) fL Lymphocytes # (0.90-5.00) 10*3/uL ESR (0-30) mm/Hr Sodium 135 L (137-145) mmol/L Potassium 3.4 L (3.5-5.1) mmol/L Creatinine 1.18 H (0.52-1.04) mg/dL Glucose 131 H (74-99) mg/dL POC Glucose (mg/dL) (70-110) mg/dL Hemoglobin A1c 9.6 H (<=6.0) % Calcium 8.3 L (8.4-10.2) mg/dL Total Bilirubin 2.5 H (0.2-1.3) mg/dL AST 140 H (14-36) U/L ALT 156 H (4-34) U/L C-Reactive Protein (<1.0) mg/dL Total Protein 5.6 L (6.3-8.2) g/dL Albumin 3.1 L (3.5-5.0) g/dL Procalcitonin 7.65 H (0.02-0.50) ng/mL 10/25/24 10/25/24 Range/Units 06:26 06:26 Plt Count (140-440) 10*3/uL MPV (9.5-12.2) fL Lymphocytes # (0.90-5.00) 10*3/uL ESR 57 H (0-30) mm/Hr Sodium (137-145) mmol/L Potassium (3.5-5.1) mmol/L Creatinine (0.52-1.04) mg/dL Glucose (74-99) mg/dL POC Glucose (mg/dL) (70-110) mg/dL Hemoglobin A1c (<=6.0) % Calcium (8.4-10.2) mg/dL Total Bilirubin (0.2-1.3) mg/dL AST (14-36) U/L ALT (4-34) U/L C-Reactive Protein 32.7 H (<1.0) mg/dL Total Protein (6.3-8.2) g/dL Albumin (3.5-5.0) g/dL Procalcitonin (0.02-0.50) ng/mL Microbiology - Last 24 Hours (Table) 10/23/24 20:25 Blood Culture Gram Stain - Preliminary Blood Blood Culture - Preliminary Klebsiella pneum subsp pneum Molecular ID Assessment and Plan (1) Cholecystitis Narrative/Plan: 74-year-old female with fevers and Klebsiella positive blood cultures. Patient has an ultrasound CAT scan and MRI now showing inflammatory changes of the g allbladder. HIDA scan was described as normal. Given the persistent fevers and the positive blood cultures would be concerned about the possibility of ongoing cholecystitis. Continue antibiotics. Discussed options of laparoscopic cholecystectomy, possible open. Discussed with the patient that i ntraoperatively we would look for other potential sources of her gram-negative sepsis. Urinalysis on arrival appeared quite normal. Risks of bleeding, infection, bile leak, bile duct injury, retained common bile duct stone, trocar injury, conversion to an open procedure, hernia, anesthesia related complications were reviewed. The patient expresses understanding of the proposed procedure. She will consider and let me know of her decision. Current Visit: Yes Status: Acute Code(s): K81.9 - CHOLECYSTITIS, UNSPECIFIED SNOMED Code(s): 50562366
[2024-10-25 19:50] LABS: Glucose,Whole Blood 89 mg/dL (70-110)
[2024-10-25] MEDS: D5-0.45% NACL WITH KCL 20MEQ/L 1,000 ML IV SCH (21:48)
--- NOTE | 2024-10-25 23:17 | PN ---
PROGRESS NOTE DATE OF SERVICE: 10/25/2024 SUBJECTIVE: The patient was seen, evaluated this morning. She is still in the emergency room, bed #ER28. Currently, the patient had in the morning temperature and she had a temperature was 100.6 F, and her pulse is 63, respiratory rate 18, blood pressure initially was 137/78 with a mean 97. Her oxygen saturation 92 on room air and that was shoe associate hours at 4 a.m. on 10/25/2024. Subsequently, her temperature improved to 98.8 F oral with the pulse rate 60, respiratory rate 18, blood pressure dropped to 108/72, and mean blood pressure 84, and pulse ox was 93 L on room air. The patient went this morning to HIDA scan and HIDA scan was done and report is indicating that exam within normal limit with the ejection fraction 87% with the CCK and with no evidence of cholelithiasis. The patient subsequently planned for cholangiopancreatography with MRI, MRCP and the result is not available, as not read yet. The patient also had laboratory this morning indicating that her white count 6.8, hemoglobin 12.7 and hematocrit 37.6, and her platelet count 120, and her chemistry indicating that sodium 135, potassium 3.4, and carbon dioxide was 23, chloride 105, BUN of 16, and creatinine 1.18. With the underlying estimated glomerular filtration rate 46, with a chronic kidney disease stage 3A. Her glucose was 131 with the POC glucose has been controlled well. I did order hemoglobin A1c and the result is not available yet. Also, she had calcium of 8.3, total bilirubin is slightly elevated from yesterday and currently is 2.5. However, yesterday started on October 23 at 1.5, increase subsequently 1.8 and today 2.5. With the liver enzyme was elevated on admission and the AST was 487 on admission and subsequently 362 and today 140 with the gradual improvement. Her ALT started was 179 and subsequently 226 and today 156. Her total protein is 5.6, and albumin 3.1 today. She had also blood culture on admission with the presentation fever, shaking chill and sepsis and was found a blood culture indicating Klebsiella pneumoniae species and with the molecular ID indicating some resistant ESBL to cephalosporin. Otherwise, as patient seen today, the patient was conscious, alert, oriented x3, and she denied any abdominal pain or abdominal cramps. She had no chest pain and no shortness of breath. PHYSICAL EXAMINATION: GENERAL: The patient was conscious, alert, oriented x3 and ambulatory. However, she is in bed, in the module 28 in the ER. She had a past history of seroma on the lower lumbosacral after she had her surgery in the past by Dr. Salinas, in [facility]. She had recently MRI and showed that she had seroma. Now, otherwise, the patient had low back pain, however, that no complaint. She had no nausea now or no vomiting. HEENT: As mentioned, the head was normocephalic, atraumatic. Pupils equal, reactive. Conjunctivae were pink. Sclerae non icteric and the oropharynx was natural teeth. Swallowing was normal. NECK: Supple. No JVD. No thyromegaly. No lymphadenopathy. Trachea midline. CHEST: Clear to auscultation and percussion. HEART: PMI in the 5th intercostal space outside midclavicular line. She had at that time was sinus rhythm. However, the monitor of the telemetry was not placed after she returned from the [facility] scan and she had intermittent atrial fibrillation. She had coronary artery disease and coronary artery bypass graft x3, and she had a stent as well. Her primary cardiology Dr. Stewart. The patient is seen today by Dr. Fournier. ABDOMEN: Soft, positive bowel sounds and she is seen by Dr. Cuellar as well and Dr. Conn and they will be adjusting the antibiotic subsequently. EXTREMITIES: No edema and positive pulses. No evidence of acute congestive heart failure or anginal pain. ASSESSMENT: 1. She had a mild drop in her potassium and we will supplement that with potassium chloride 20 mEq once a day and we will repeat the BMP in the a.m. 2. She is planned to have MRCP per Dr. Cuellar, the surgeon and with the impression of cholelithiasis or stripping of the stones to the duct of the pancreatic with the sepsis. 3. Underlying Klebsiella pneumoniae species, extended-spectrum beta-lactamase with some resistant, etiology unclear yet. She has also history of stone in the left kidney and was small, and she had also history of retention of the urine only once and subsequently resolved and she had the seroma of the lower spine on the LS spine, where she had the surgery and unclear etiology of the sepsis. So far her urine, we do not have any results on the culture. However, the initial urine was negative. She had a HIDA scan, which was not conclusive for stones or hydrops or dysfunctional of gallbladder with normal ejection fraction of the gallbladder. 4. She is diabetic and the diabetes mellitus type 2, insulin dependent and she has an insulin pump and she covering with the insulin with the pump and she has very well controlled, actually and I ordered today the hemoglobin A1c and her blood sugar this morning venous 131. Her total bilirubin has been increased today as mentioned as well as her liver enzyme improving gradually and I was suspicious of drug interaction and on and she has history of atrial fibrillation and she is on Eliquis, anticoagulant. We did the CRP and found very high 32.7 with the acute inflammatory process and underlying sepsis and with the fluctuation of the temperature, however, the chills, and fever has been resolved at this time. PLANNING: Patient currently her white count has improved. However, Infectious Disease is following Dr. Conn and to be evaluating the underlying cephalosporin resistant with Klebsiella pneumoniae ESBL. She is going for MRCP. We will be monitoring her liver enzymes tomorrow. MMODL / IJN: [id number] /
[2024-10-26 00:07] LABS: Glucose,Whole Blood 84 mg/dL (70-110)
[2024-10-26 06:09] LABS: Glucose,Whole Blood 85 mg/dL (70-110)
[2024-10-26] MEDS ORDERED: HYDROmorphone 0.5 MG/0.5 ML SYRINGE IVP PRN (07:00)
[2024-10-26] MEDS ORDERED: fentaNYL (PF) 50 MCG/ML 2 ML AMP IV PRN (07:00)
--- NOTE | 2024-10-26 07:35 | P.PN ---
Subjective Progress Note Date: 10/25/24 Principal diagnosis: Reason for follow-up is cholecystitis/bacteremia Patient is a 74-year-old female with a past medical history significant for Coronary Artery Disease (CAD), Cancer, Chest Pain / Angina, Heart Failure, Diabetes Mellitus, Hyperlipidemia, Myocardial Infarction ([place]), Pneumonia, Renal Disease, Sleep Apnea/CPAP/BIPAP, Thyroid Disorder presenting to the hospital for evaluation of rigors and chills and workup has been suggestive of cholecystitis patient also have a positive blood culture with Klebsiella. On today's evaluation that is 10/25/2024, patient did have improvement in her fever pattern with the last temperature 100.6 at 4 AM the patient is afebrile since 9 patient is breathing comfortably currently on room air no chest pain shortness of breath or cough no nausea vomiting or diarrhea. Patient did have a white count of 6.80 creatinine is 1.18 liver enzymes are elevated patient did have a HIDA scan exam within normal limit MRCP gallbladder appears to be thickened with pelvic cholestatic fluid CBD 2 mm in size Objective - Vital Signs Vital signs: Vital Signs Temp 98.8 F 10/25/24 09:28 Pulse 60 10/25/24 09:28 Resp 18 10/25/24 09:28 BP 108/72 10/25/24 09:28 Pulse Ox 93 L 10/25/24 09:28 FiO2 Intake & Output 10/24/24 10/25/24 10/25/24 18:59 06:59 18:59 Intake Total 550 Balance 550 Weight 101.605 kg 103.5 kg Intake: Intake, IV Titration 50 Amount cefTRIAXone 2 gm In 50 Sodium Chloride 0.9% 50 ml @ 100 mls/hr IVPB Q24H [facility] Rx#:[id number] Oral 500 Other: Voiding Method Bedside Commode # Voids 4 - Exam GENERAL DESCRIPTION: An elderly female lying in bed in no distress RESPIRATORY SYSTEM: Unlabored breathing , decreased breath sounds at bases HEART: S1 S2 regular rate and rhythm , ABDOMEN: Soft , no tenderness EXTREMITIES: No edema feet - Labs CBC & Chem 7: 10/25/24 06:26 10/25/24 06:26 Labs: Abnormal Lab Results - Last 24 Hours (Table) 10/24/24 10/24/24 10/25/24 Range/Units 18:12 21:33 06:26 Plt Count 120 L (140-440) 10*3/uL MPV 12.5 H (9.5-12.2) fL Lymphocytes # 0.38 L (0.90-5.00) 10*3/uL Sodium (137-145) mmol/L Potassium (3.5-5.1) mmol/L Creatinine (0.52-1.04) mg/dL Glucose (74-99) mg/dL POC Glucose (mg/dL) 154 H 159 H (70-110) mg/dL Calcium (8.4-10.2) mg/dL Total Bilirubin (0.2-1.3) mg/dL AST (14-36) U/L ALT (4-34) U/L C-Reactive Protein (<1.0) mg/dL Total Protein (6.3-8.2) g/dL Albumin (3.5-5.0) g/dL 10/25/24 10/25/24 Range/Units 06:26 06:26 Plt Count (140-440) 10*3/uL MPV (9.5-12.2) fL Lymphocytes # (0.90-5.00) 10*3/uL Sodium 135 L (137-145) mmol/L Potassium 3.4 L (3.5-5.1) mmol/L Creatinine 1.18 H (0.52-1.04) mg/dL Glucose 131 H (74-99) mg/dL POC Glucose (mg/dL) (70-110) mg/dL Calcium 8.3 L (8.4-10.2) mg/dL Total Bilirubin 2.5 H (0.2-1.3) mg/dL AST 140 H (14-36) U/L ALT 156 H (4-34) U/L C-Reactive Protein 32.7 H (<1.0) mg/dL Total Protein 5.6 L (6.3-8.2) g/dL Albumin 3.1 L (3.5-5.0) g/dL Microbiology - Last 24 Hours (Table) 10/23/24 20:25 Blood Culture Gram Stain - Preliminary Blood Blood Culture - Preliminary Klebsiella pneum subsp pneum Molecular ID Assessment and Plan (1) Allergy to multiple antibiotics Current Visit: Yes Status: Acute Code(s): Z88.1 - ALLERGY STATUS TO OTHER ANTIBIOTIC AGENTS SNOMED Code(s): 526946781 (2) Cholecystitis Current Visit: Yes Status: Acute Code(s): K81.9 - CHOLECYSTITIS, UNSPECIFIED SNOMED Code(s): 21560783 (3) Sepsis Current Visit: Yes Status: Acute Code(s): A41.9 - SEPSIS, UNSPECIFIED ORGANISM SNOMED Code(s): 96913778 (4) Bacteremia Current Visit: Yes Status: Acute Code(s): R78.81 - BACTEREMIA SNOMED Code (s): 6417112 Plan: 1patient presented to hospital with sepsis in this patient who did have fever tachycardia elevated white count meeting currently for SIRS/sepsis in this patient with elevated liver enzymes and abnormal gallbladder on the CT and ultrasound source is likely acute cholecystitis and will need to cover for the enteric gram-negative with a likely pathogen. 2patient with multiple antibiotic ALLERGIES that would limit the number of antibiotic safe to use. 3patient did have a positive blood culture with Klebsiella source likely cholecystitis 4patient did have a normal HIDA scan however did have a evidence of cholecystitis with the pericholecystic fluid on MRCP no evidence of any CBD stone General Surgery is following the patient and possible plan for cystectomy tomorrow 5-patient will be treated with Rocephin and monitor clinical course closely Dictation was produced using [employer] dictation software. please excuse any grammatical, word or spelling errors.
[2024-10-26 07:53] LABS: Basophils # (A) 0.02 10*3/uL (0.00-0.10); Basophils % (A) 0.3 %; Eosinophils # (A) 0.17 10*3/uL (0.04-0.35); Eosinophils % (A) 2.9 %; HCT 40.9 % (37.2-46.3); HGB 14.0 g/dL (12.0-15.0); Immature Platelet Fraction 8.1 % (1.1-6.1); Lymphocytes # (A) 0.56 10*3/uL (0.90-5.00); Lymphocytes % (A) 9.5 %; MCH 27.8 pg (27.0-32.0); MCHC 34.2 g/dL (32.0-37.0); MCV 81.2 fL (80.0-97.0); Monocytes # (A) 0.51 10*3/uL (0.20-1.00); Monocytes % (A) 8.7 %; Neutrophils # (A) 4.61 10*3/uL (1.80-7.70); Neutrophils % (A) 78.3 %; Platelet Count 137 10*3/uL (140-440); RBC 5.04 10*6/uL (4.10-5.20); RDW 17.5 % (11.5-14.5); WBC 5.89 10*3/uL (4.50-10.00)
[2024-10-26] MEDS: ONDANSETRON 4 MG/2 ML VIAL IVP PRN (08:04)
[2024-10-26 08:26] LABS: ALT 116 U/L (4-34); AST 90 U/L (14-36); African American GFR (CKD) 56 (>60 ml/min/1.73 sqM); Albumin 3.5 g/dL (3.5-5.0); Alkaline Phosphatase 109 U/L (38-126); Anion Gap 11 mmol/L; Bilirubin, Delta 1.1 mg/dL (0.0-0.2); Bilirubin,Unconjugated 0.6 mg/dL (0.0-1.1); Blood Urea Nitrogen 15 mg/dL (7-17); Calcium 8.6 mg/dL (8.4-10.2); Carbon Dioxide 20 mmol/L (22-30); Chloride 105 mmol/L (98-107); Glucose 97 mg/dL (74-99); Non-African American GFR(CKD) 48 (>60 ml/min/1.73 sqM); Potassium 3.8 mmol/L (3.5-5.1); Sodium 136 mmol/L (137-145); Total Protein 6.2 g/dL (6.3-8.2)
[2024-10-26 11:30] LABS: Glucose,Whole Blood 139 mg/dL (70-110)
--- NOTE | 2024-10-26 12:24 | P.PN ---
Subjective Progress Note Date: 10/26/24 Progress note Date of service 10/26/[address] Cha Location 368 bed 1 Patient seen today [id number] Patient had yesterday MRCP with the finding indicating acute cholecystitis, Dr. Martínez the surgeon will take her today for cholecystectomy could be laparoscopic and she is currently n.p.o. waiting for surgery. Vital sign Temperature 98.5 F oral, pulse rate 63 bpm regular sinus and respiratory rate 16/min nonlabored Blood pressure 130/84 mean blood pressure 99 Oxygen saturation 95% on room air. Laboratory today on 2024 WBC 5.8 Hemoglobin 14 and hematocrit 40.9, platelet count 137. Chemistry sodium 136 potassium 3.8, chloride 105, carbon dioxide 20, BUN 15, creatinine 1.13, blood glucose 97. Hemoglobin A1c on 10/24/2024 was 9.6, patient had episode recently of hypoglycemi a and this started her on D5 half-normal saline which caused her sodium mildly down. GENERAL EXAM: Alert, comfortable in no distress. Patient has IV D5.45 normal saline placed by Dr. Martínez probably due to hypoglycemia and that affect her sodium slightly. Patient also had dexamethasone given by the anesthesiologist and fentanyl but I do not have explanation for these 2 medication given by anesthesiologist. On the physical examination: Patient is conscious alert oriented x 3 no acute distress no severe pain Head was normocephalic atraumatic pupil was equal reactive conjunctiva was pink sclera was nonicteric oropharynx natural teeth Neck was supple no nuchal rigidity and no lymphadenopathy trachea midline no thyromegaly Chest is clear to auscultation percussion and no wheezes no rhonchi's Heart history of atrial fibrillation but currently conscious alert oriented x 3. Abdomen soft positive bowel sound with the underlying acute cholecystitis per MRCP however palpation in the right upper quadrant no tenderness over the left upper quadrant. Extremities no edema and positive pulses. Assessment: 1. Patient presented with fever chills and sepsis with blood culture was positive for Klebsiella pneumonia currently treated with ceftriaxone per infectious disease Dr. Conn 2. Abnormal liver enzyme elevated with elevated CRP, with underlying sepsis, currently liver enzyme has been trending down with significant improvement as well as bilirubin 3. Lactic acidosis resolved 4. Diabetes mellitus type 2 on insulin pump with the episode of hypoglycemia per patient today 80 mg/dL 5. History of chronic kidney disease stage IIIa 6. History of atrial fibrillation on anticoagulant Eliquis which apparently has been held for the surgery today. 7. Patient had in the past lap band for obesity, coronary artery bypass graft for three-vessel and the stent and she is on monitor 8. History of hyper lipidemia. 9. History of asthma, obstructive sleep apnea supposedly she is on CPAP at home by Dr. Carcamo pulmonary and critical care. 10. Hypothyroidism. Recommendations and plan: 1. Patient will be going today for surgery for the gallbladder with cholelithia sis Bhaskar. By Dr. Martínez 2. Continue monitoring. Objective - Vital Signs Vital signs: Vital Signs Temp 98.5 F 10/26/24 11:48 Pulse 63 10/26/24 11:48 Resp 16 10/26/24 11:48 BP 130/84 10/26/24 11:48 Pulse Ox 95 10/26/24 11:48 FiO2 Intake & Output 10/25/24 10/26/24 10/26/24 18:59 06:59 18:59 Weight 103 kg Other: # Voids 1 1 1 - Labs CBC & Chem 7: 10/26/24 07:22 10/26/24 07:22 Labs: Abnormal Lab Results - Last 24 Hours (Table) 10/25/24 10/25/24 10/25/24 Range/Units 06:26 06:26 06:26 Plt Count (140-440) 10*3/uL Lymphocytes # (0.90-5.00) 10*3/uL Immature Plt Fraction (1.1-6.1) % ESR 57 H (0-30) mm/Hr Sodium (137-145) mmol/L Carbon Dioxide (22-30) mmol/L Creatinine (0.52-1.04) mg/dL POC Glucose (mg/dL) (70-110) mg/dL Hemoglobin A1c 9.6 H (<=6.0) % Total Bilirubin (0.2-1.3) mg/dL Delta Bilirubin (0.0-0.2) mg/dL AST (14-36) U/L ALT (4-34) U/L Total Protein (6.3-8.2) g/dL Procalcitonin 7.65 H (0.02-0.50) ng/mL 10/26/24 10/26/24 10/26/24 Range/Units 07:22 07:22 11:24 Plt Count 137 L (140-440) 10*3/uL Lymphocytes # 0.56 L (0.90-5.00) 10*3/uL Immature Plt Fraction 8.1 H (1.1-6.1) % ESR (0-30) mm/Hr Sodium 136 L (137-145) mmol/L Carbon Dioxide 20 L (22-30) mmol/L Creatinine 1.13 H (0.52-1.04) mg/dL POC Glucose (mg/dL) 139 H (70-110) mg/dL Hemoglobin A1c (<=6.0) % Total Bilirubin 1.7 H (0.2-1.3) mg/dL Delta Bilirubin 1.1 H (0.0-0.2) mg/dL AST 90 H (14-36) U/L ALT 116 H (4-34) U/L Total Protein 6.2 L (6.3-8.2) g/dL Procalcitonin (0.02-0.50) ng/mL Microbiology - Last 24 Hours (Table) 10/23/24 20:25 Blood Culture Gram Stain - Final Blood Blood Culture - Final Klebsiella pneum subsp pneum Molecular ID
[2024-10-26 13:58] VITALS: BMI 40.2
--- NOTE | 2024-10-26 14:11 | P.PN ---
Subjective Progress Note Date: 10/26/24 The patient was seen and evaluated this morning. She is asymptomatic. She has been maintaining normal sinus mechanism. She is in process of having MRCP and possible surgery for the gallbladder after that. For that reason oral anticoagulation are on hold at this point. She is asymptomatic from the cardiac standpoint of view. She is hemodynamically stable. The potassium is low and will be replaced. The physical examination is remarkable for regular rhythm with a soft systolic murmur and clear breathing sounds bilaterally and no edema was noted 10/26/2024 Patient seen and examined. She is in significant amount of abdominal pain today. She states that she is scheduled for cholecystectomy today. Blood pressure 137/86, heart rate 56, pulse ox 96% on room air. She has been afebrile for greater than 24 hours. Repeat blood work reveals platelet count 137, sodium 136, potassium 3.8, BUN 15 and creatinine 1.13. The physical examination is remarkable for regular rhythm with a soft systolic murmur and clear breathing sounds bilaterally and no edema was noted IMPRESSION: 1. Acute cholecystitis 2. Fever 3. History A-fib, ablation 11/2023 Plan Continue the current medical regimen Restart the patient back on oral anticoagulation as soon as possible and safe after the procedure Nurse practitioner note has been reviewed, I agree with documented findings and plan of care. Patient was seen and examined. Objective - Vital Signs Vital signs: Vital Signs Temp 98.8 F 10/26/24 08:00 Pulse 56 L 10/26/24 08:00 Resp 16 10/26/24 08:00 BP 137/86 10/26/24 08:00 Pulse Ox 96 10/26/24 08:00 FiO2 Intake & Output 10/25/24 10/26/24 10/26/24 18:59 06:59 18:59 Weight 103 kg Other: # Voids 1 1 - Labs CBC & Chem 7: 10/26/24 07:22 10/26/24 07:22 Labs: Abnormal Lab Results - Last 24 Hours (Table) 10/25/24 10/25/24 10/25/24 Range/Units 06:26 06:26 06:26 Plt Count (140-440) 10*3/uL Lymphocytes # (0.90-5.00) 10*3/uL Immature Plt Fraction (1.1-6.1) % ESR 57 H (0-30) mm/Hr Sodium (137-145) mmol/L Carbon Dioxide (22-30) mmol/L Creatinine (0.52-1.04) mg/dL Hemoglobin A1c 9.6 H (<=6.0) % Total Bilirubin (0.2-1.3) mg/dL Delta Bilirubin (0.0-0.2) mg/dL AST (14-36) U/L ALT (4-34) U/L C-Reactive Protein (<1.0) mg/dL Total Protein (6.3-8.2) g/dL Procalcitonin 7.65 H (0.02-0.50) ng/mL 10/25/24 10/26/24 10/26/24 Range/Units 06:26 07:22 07:22 Plt Count 137 L (140-440) 10*3/uL Lymphocytes # 0.56 L (0.90-5.00) 10*3/uL Immature Plt Fraction 8.1 H (1.1-6.1) % ESR (0-30) mm/Hr Sodium 136 L (137-145) mmol/L Carbon Dioxide 20 L (22-30) mmol/L Creatinine 1.13 H (0.52-1.04) mg/dL Hemoglobin A1c (<=6.0) % Total Bilirubin 1.7 H (0.2-1.3) mg/dL Delta Bilirubin 1.1 H (0.0-0.2) mg/dL AST 90 H (14-36) U/L ALT 116 H (4-34) U/L C-Reactive Protein 32.7 H (<1.0) mg/dL Total Protein 6.2 L (6.3-8.2) g/dL Procalcitonin (0.02-0.50) ng/mL Microbiology - Last 24 Hours (Table) 10/23/24 20:25 Blood Culture Gram Stain - Preliminary Blood Blood Culture - Preliminary Klebsiella pneum subsp pneum Molecular ID
[2024-10-26 14:39] LABS: Glucose,Whole Blood 133 mg/dL (70-110)
--- NOTE | 2024-10-26 15:08 | P.PN ---
Subjective Progress Note Date: 10/26/24 Principal diagnosis: Acute cholecystitis and bacteremia Reason for follow-up is cholecystitis/bacteremia Patient is a 74-year-old female with a past medical history sign ificant for Coronary Artery Disease (CAD), Cancer, Chest Pain / Angina, Heart Failure, Diabetes Mellitus, Hyperlipidemia, Myocardial Infarction (CT), Pneumonia, Renal Disease, Sleep Apnea/CPAP/BIPAP, Thyroid Disorder presenting to the hospital for evaluation of rigors and chills and workup has been suggestive of cholecystitis patient also have a positive blood culture with Klebsiella. On today's evaluation that is 10/26/2024, patient did have improvement in her fever pattern with max temp 99.3 at 4 PM yesterday the patient is afebrile since 10/25, patient is breathing comfortably currently on room air no chest pain shortness of breath or cough no nausea vomiting or diarrhea. Patient did have a white count of 5.89, creatinine is 1.13, liver enzymes are elevated, however improving. Objective - Vital Signs Vital signs: Vital Signs Temp 97.4 F L 10/26/24 14:40 Pulse 56 L 10/26/24 14:40 Resp 16 10/26/24 14:40 BP 131/54 10/26/24 14:40 Pulse Ox 96 10/26/24 14:40 FiO2 Intake & Output 10/25/24 10/26/24 10/26/24 18:59 06:59 18:59 Weight 103 kg 103 kg Other: Voiding Method Bedside Commode # Voids 1 1 1 - Exam GENERAL DESCRIPTION: An elderly female lying in bed in no distress RESPIRATORY SYSTEM: Unlabored breathing , decreased breath sounds at bases HEART: S1 S2 regular rate and rhythm , ABDOMEN: Soft , no tenderness EXTREMITIES: No edema feet - Labs CBC & Chem 7: 10/27/24 08:28 10/27/24 08:28 Labs: Abnormal Lab Results - Last 24 Hours (Table) 10/25/24 10/25/24 10/25/24 Range/Units 06:26 06:26 06:26 Plt Count (140-440) 10*3/uL Lymphocytes # (0.90-5.00) 10*3/uL Immature Plt Fraction (1.1-6.1) % ESR 57 H (0-30) mm/Hr Sodium (137-145) mmol/L Carbon Dioxide (22-30) mmol/L Creatinine (0.52-1.04) mg/dL POC Glucose (mg/dL) (70-110) mg/dL Hemoglobin A1c 9.6 H (<=6.0) % Total Bilirubin (0.2-1.3) mg/dL Delta Bilirubin (0.0-0.2) mg/dL AST (14-36) U/L ALT (4-34) U/L Total Protein (6.3-8.2) g/dL Procalcitonin 7.65 H (0.02-0.50) ng/mL 10/26/24 10/26/24 10/26/24 Range/Units 07:22 07:22 11:24 Plt Count 137 L (140-440) 10*3/uL Lymphocytes # 0.56 L (0.90-5.00) 10*3/uL Immature Plt Fraction 8.1 H (1.1-6.1) % ESR (0-30) mm/Hr Sodium 136 L (137-145) mmol/L Carbon Dioxide 20 L (22-30) mmol/L Creatinine 1.13 H (0.52-1.04) mg/dL POC Glucose (mg/dL) 139 H (70-110) mg/dL Hemoglobin A1c (<=6.0) % Total Bilirubin 1.7 H (0.2-1.3) mg/dL Delta Bilirubin 1.1 H (0.0-0.2) mg/dL AST 90 H (14-36) U/L ALT 116 H (4-34) U/L Total Protein 6.2 L (6.3-8.2) g/dL Procalcitonin (0.02-0.50) ng/mL 10/26/24 Range/Units 14:37 Plt Count (140-440) 10*3/uL Lymphocytes # (0.90-5.00) 10*3/uL Immature Plt Fraction (1.1-6.1) % ESR (0-30) mm/Hr Sodium (137-145) mmol/L Carbon Dioxide (22-30) mmol/L Creatinine (0.52-1.04) mg/dL POC Glucose (mg/dL) 133 H (70-110) mg/dL Hemoglobin A1c (<=6.0) % Total Bilirubin (0.2-1.3) mg/dL Delta Bilirubin (0.0-0.2) mg/dL AST (14-36) U/L ALT (4-34) U/L Total Protein (6.3-8.2) g/dL Procalcitonin (0.02-0.50) ng/mL Microbiology - Last 24 Hours (Table) 10/23/24 20:25 Blood Culture Gram Stain - Final Blood Blood Culture - Final Klebsiella pneum subsp pneum Molecular ID Assessment and Plan (1) Sepsis Current Visit: Yes Status: Acute Code(s): A41.9 - SEPSIS, UNSPECIFIED ORGANISM SNOMED Code(s): 43864425 (2) Bacteremia Current Visit: Yes Status: Acute Code(s): R78.81 - BACTEREMIA SNOMED Code(s): 6113410 (3) Cholecystitis Current Visit: Yes Status: Acute Code(s): K81.9 - CHOLECYSTITIS, UNSPECIFIED SNOMED Code(s): 49635055 (4) Allergy to multiple antibiotics Current Visit: Yes Status: Acute Code(s): Z88.1 - ALLERGY STATUS TO OTHER ANTIBIOTIC AGENTS SNOMED Code(s): 432387777 Plan: 1patient presented to hospital with sepsis in this patient who did have fever tachycardia elevated white count meeting currently for SIRS/sepsis in this patient with elevated liver enzymes and abnormal gallbladder on the CT and ultrasound source is likely acute cholecystitis and will need to cover for the enteric gram-negative with a likely pathogen. 2patient with multiple antibiotic ALLERGIES that would limit the number of antibiotic safe to use. 3patient did have a positive blood culture with Klebsiella source likely cholecystitis 4patient did have a normal HIDA scan however did have a evidence of cholecystitis with the pericholecystic fluid on MRCP no evidence of any CBD stone General Surgery is following the patient and plan for cystectomy today 5-patient will be treated with Rocephin and monitor clinical course closely Fei Ewing MD Internal Medicine Resident, PGY2 Infectious disease service Patient was seen and examined with the resident physician patient did have a resolution of her fever the patient white count normalized currently waiting for the laparoscopic cholecystectomy patient will be treated with Rocephin while inpatient and monitor clinical course closely susan east MD Dictation was produced using [employer] dictation software. please excuse any grammatical, word or spelling errors. Time with Patient: Less than 30
--- NOTE | 2024-10-26 15:19 | P.PN ---
Progress Note - Text Progress Note Date: 10/26/24 Patient reassessed today. Denies abdominal pain. Liver enzymes improved. Afebrile. White blood cell count is normal. Clinical scenario again reviewed with the patient and her friends at the bedside. Patient is agreeable with surgery. Will proceed with laparoscopic, possible open cholecystectomy at this time. Risks of bleeding, infection, bile leak, bile duct injury, retained common bile duct stone, trocar injury, conversion to an open procedure, hernia, anesthesia related complications were reviewed. The patient understands and wishes to proceed.
[2024-10-26] MEDS: HEPARIN SODIUM,PORCINE 5,000 UNIT/ML 1 ML VIAL SQ STA (15:20)
[2024-10-26] MEDS: IV FLUID CONTINUATION 1,000 ML IV ONE (15:46)
[2024-10-26] MEDS: BUPIVACAINE (PF) 0.25% 30 ML VIAL SQ ONE ×3 (15:47→16:13)
[2024-10-26] MEDS ORDERED: PROPOFOL 10 MG/ML 20 ML VIAL IV ONE (15:50)
[2024-10-26] MEDS ORDERED: ROCURONIUM 10 MG/ML (5 ML VIAL) IV ONE (15:50)
[2024-10-26] MEDS ORDERED: SUGAMMADEX SODIUM 100 MG/ML SYR IV ONE (15:50)
[2024-10-26] MEDS ORDERED: LIDOCAINE 1% INJ 10MG/ML (20 ML MDV) ONE (15:50)
[2024-10-26] MEDS ORDERED: fentaNYL (PF) 50 MCG/ML 2 ML AMP ONE (15:50)
[2024-10-26] MEDS ORDERED: GLYCOPYRROLATE 0.2 MG/ML 2 ML VIAL ONE (15:50)
[2024-10-26] MEDS ORDERED: SUCCINYLCHOLINE CHLORIDE 200 MG/10 ML VIAL IV ONE (15:50)
[2024-10-26] MEDS ORDERED: NEOSTIGMINE 1 MG/ML 10 ML VIAL ONE (15:50)
[2024-10-26] MEDS ORDERED: HYDROmorphone (PF) 1 MG/ML ONE (15:50)
[2024-10-26 16:11] LABS: GGT 300 U/L (0-38)
[2024-10-26] MEDS ORDERED: ACETAMINOPHEN TAB 325 MG TAB PO PRN (17:13)
[2024-10-26] MEDS ORDERED: HYDROmorphone 1 MG/ML 1 ML SYRINGE IVP PRN (17:13)
[2024-10-26] MEDS ORDERED: IBUPROFEN 400 MG TAB PO PRN (17:13)
[2024-10-26] MEDS ORDERED: HYDROcodone/APAP 5-325MG 1 EACH TAB PO PRN (17:13)
--- NOTE | 2024-10-26 17:18 | P.OP ---
Date of Procedure: 10/26/24 Procedure(s) Performed: PREOPERATIVE DIAGNOSIS: Cholecystitis, possible choledocholithiasis POSTOPERATIVE DIAGNOSIS: Same PROCEDURE: Laparoscopic cholecystectomy SURGEON: Polo EBL: 25 cc ANESTHESIA: Gen. COMPLICATIONS: None OPERATIVE PROCEDURE: The patient was brought and placed on the operating room table in the supine position. The patient was placed under general anesthesia at that time. The abdomen was prepped and draped in the usual sterile fashion. A small vertical infraumbilical incision was made. The fascia was grasped with the Yaron forceps. The fascia was retracted anteriorly. The Veress needle was advanced into the peritoneal cavity. The saline drop test was normal. Insufflation took place up to 15 mmHg. A 5 mm optical trocar was advanced and the peritoneal cavity. 2 additional 5 mm trochars were placed in the right upper quadrant under direct visualization. A 12 mm trocar was advanced into the epigastric incision site. The gallbladder was distended and larger than normal. There was edematous gallbladder wall particularly in the mid body and infundibulum region. The gallbladder was retracted superiorly and laterally. The peritoneum overlying the infundibulum was bluntly dissected. The patient's cystic duct was visualized. The junction between the cystic duct common and hepatic duct was identified. The critical view of safety was achieved after blunt dissection. The cystic duct was then divided after placement of 3 12 mm clips on the patient's side and one on the specimen side. The cystic artery was identified and clipped as well. The patient had numerous small vessels running along either side of the gallbladder all the way up to the fundus. These were clipped individually. The gallbladder was then removed from the liver bed using electrocautery. The gallbladder was then removed from the epigastric trocar site with an Endo Catch bag. The gallbladder fossa was irrigated with saline. There was no evidence of any bleeding or biliary drainage seen. The fascia at the 12 millimeter site was closed using a Hubert-Curtis 0 Vicryl stitch. The trochars were then removed. The skin at all 4 sites was closed using a 4-0 Monocryl stitch. At the lateral right upper quadrant trocar site there was some oozing present and a external [id number] 4-0 Monocryl stitch was placed. No bleeding was then seen. Skin glue was utilized on the incision sites. At the end of this procedure the sponge and needle counts were correct. DISPOSITION: Stable to the recovery room
[2024-10-26] MEDS: METOPROLOL TARTRATE 5 MG/5 ML VIAL IVP ONE (17:22)
[2024-10-26] MEDS: ALBUTEROL NEBULIZED 2.5 MG/3 ML INHALATION STA (17:51)
[2024-10-26 20:59] LABS: Glucose,Whole Blood 252 mg/dL (70-110)
[2024-10-27] MEDS: DEXAMETHASONE SOD PHOSPHATE 4 MG/ML 1 ML VIAL IV ONE (00:31)
[2024-10-27] MEDS: LACTATED RINGERS 1,000 ML IV SCH (00:32)
[2024-10-27] MEDS: traMADol 50 MG TAB PO PRN (03:30)
[2024-10-27 06:00] LABS: Glucose,Whole Blood 200 mg/dL (70-110)
[2024-10-27 09:04] LABS: Basophils # (A) 0.00 10*3/uL (0.00-0.10); Basophils % (A) 0.0 %; Eosinophils # (A) 0.01 10*3/uL (0.04-0.35); Eosinophils % (A) 0.2 %; HCT 38.2 % (37.2-46.3); HGB 13.0 g/dL (12.0-15.0); Lymphocytes # (A) 0.70 10*3/uL (0.90-5.00); Lymphocytes % (A) 12.2 %; MCH 27.4 pg (27.0-32.0); MCHC 34.0 g/dL (32.0-37.0); MCV 80.6 fL (80.0-97.0); Monocytes # (A) 0.53 10*3/uL (0.20-1.00); Monocytes % (A) 9.2 %; Neutrophils # (A) 4.46 10*3/uL (1.80-7.70); Neutrophils % (A) 77.9 %; Platelet Count 158 10*3/uL (140-440); RBC 4.74 10*6/uL (4.10-5.20); RDW 17.3 % (11.5-14.5); WBC 5.73 10*3/uL (4.50-10.00)
[2024-10-27 09:29] LABS: ALT 88 U/L (4-34); AST 62 U/L (14-36); African American GFR (CKD) 69 (>60 ml/min/1.73 sqM); Albumin 3.2 g/dL (3.5-5.0); Alkaline Phosphatase 115 U/L (38-126); Anion Gap 12 mmol/L; Blood Urea Nitrogen 19 mg/dL (7-17); Calcium 8.8 mg/dL (8.4-10.2); Carbon Dioxide 21 mmol/L (22-30); Chloride 102 mmol/L (98-107); Glucose 234 mg/dL (74-99); Non-African American GFR(CKD) 60 (>60 ml/min/1.73 sqM); Potassium 4.4 mmol/L (3.5-5.1); Sodium 135 mmol/L (137-145); Total Protein 5.8 g/dL (6.3-8.2)
--- NOTE | 2024-10-27 11:18 | P.PN ---
Subjective Progress Note Date: 10/27/24 SURGICAL PROGRESS NOTE CHIEF COMPLAINT: Cholecystitis HISTORY OF PRESENT ILLNESS: Patient postop day #1 status post laparoscopic cholecystectomy. Patient sitting at the side of the bed. She reports her pain is controlled. She is complaining of heartburn. Denies any flatus. Afebrile. WBC 5.73 hgb 13 total bilirubin is down from 1.7-1.0 AST down from 90-62 ALT 116 down to 88 alk phos 115 PHYSICAL EXAM: VITAL SIGNS: Reviewed. GENERAL: Well-developed in no acute distress. ABDOMEN: Soft. Nondistended. Mild tenderness at incision sites. Incision sites clean dry and intact NEUROLOGIC: Alert and oriented. Cranial nerves II through XII grossly intact. ASSESSMENT: 1. Cholecystitis with possible choledocholithiasis PLAN: - Continue clear liquid diet - IV Protonix added for acid reflux - Continue pain management - Encourage patient to increase activity level - Continue antibiotics Physician Adult Basic Education Instructor note has been reviewed by physician. Signing provider agrees with the documented findings, assessment, and plan of care. I have personally seen and examined the patient, reviewed the PATROL COMMUNITY SERVICE OFFICER /PAs history, exam and MDM and agree with the assessment and plan as written. Based on total visit time, I have performed more than 50% of the visit. As above: Patient doing fairly well this evening. Minimal pain. Continue advancing diet as tolerated. Anticipate possible discharge tomorrow. Objective - Vital Signs Vital signs: Vital Signs Temp 97.4 F L 10/27/24 08:00 Pulse 53 L 10/27/24 08:00 Resp 16 10/27/24 08:00 BP 117/73 10/27/24 08:00 Pulse Ox 98 10/27/24 08:00 FiO2 Intake & Output 10/26/24 10/27/24 10/27/24 18:59 06:59 18:59 Intake Total 800 Output Total 25 Balance 775 Weight 103 kg 104 kg Intake: IV 800 Output: Estimated Blood Loss 25 Other: Voiding Method Bedside Commode Bedside Commode # Voids 1 1 - Labs CBC & Chem 7: 10/27/24 08:28 10/27/24 08:28 Labs: Abnormal Lab Results - Last 24 Hours (Table) 10/26/24 10/26/24 10/26/24 Range/Units 07:22 11:24 14:37 Lymphocytes # (0.90-5.00) 10*3/uL Eosinophils # (0.04-0.35) 10*3/uL Sodium (137-145) mmol/L Carbon Dioxide (22-30) mmol/L BUN (7-17) mg/dL Glucose (74-99) mg/dL POC Glucose (mg/dL) 139 H 133 H (70-110) mg/dL GGT 300 H (0-38) U/L AST (14-36) U/L ALT (4-34) U/L Total Protein (6.3-8.2) g/dL Albumin (3.5-5.0) g/dL 10/26/24 10/27/24 10/27/24 Range/Units 20:57 05:59 08:28 Lymphocytes # 0.70 L (0.90-5.00) 10*3/uL Eosinophils # 0.01 L (0.04-0.35) 10*3/uL Sodium (137-145) mmol/L Carbon Dioxide (22-30) mmol/L BUN (7-17) mg/dL Glucose (74-99) mg/dL POC Glucose (mg/dL) 252 H 200 H (70-110) mg/dL GGT (0-38) U/L AST (14-36) U/L ALT (4-34) U/L Total Protein (6.3-8.2) g/dL Albumin (3.5-5.0) g/dL 10/27/24 Range/Units 08:28 Lymphocytes # (0.90-5.00) 10*3/uL Eosinophils # (0.04-0.35) 10*3/uL Sodium 135 L (137-145) mmol/L Carbon Dioxide 21 L (22-30) mmol/L BUN 19 H (7-17) mg/dL Glucose 234 H (74-99) mg/dL POC Glucose (mg/dL) (70-110) mg/dL GGT (0-38) U/L AST 62 H (14-36) U/L ALT 88 H (4-34) U/L Total Protein 5.8 L (6.3-8.2) g/dL Albumin 3.2 L (3.5-5.0) g/dL Microbiology - Last 24 Hours (Table) 10/23/24 20:25 Blood Culture Gram Stain - Final Blood Blood Culture - Final Klebsiella pneum subsp pneum Molecular ID
[2024-10-27 11:50] LABS: Glucose,Whole Blood 224 mg/dL (70-110)
[2024-10-27] MEDS: PANTOPRAZOLE 40 MG/10 ML VIAL IVP SCH (12:05)
--- NOTE | 2024-10-27 12:57 | P.PN ---
Subjective Progress Note Date: 10/27/24 Progress note Date of service 10/27/[address] Cha Location 368. 1. Patient seen and evaluated [id number] No specific complaint status post laparoscopic cholecystectomy by Dr. Martínez general surgeon on 10/26/2024. Final diagnosis acute cholecystitis Abnormal liver enzyme and fever and chill secondary to sepsis with blood culture bacteremia Klebsiella pneumonia. Lactic acidosis resolved presented on admission. Hypotension on admission as well secondary to sepsis. Diabetes mellitus type 2 with the insulin pump. Hyperlipidemia Coronary artery disease atherosclerotic artery disease status post history of 3 vessel coronary artery bypass graft and stent. Hypertension controlled postoperative. History of asthma controlled oxygen saturation 97% on room air. On examination today: Postoperative day 1 she is feeling much better and she is on clear liquid diet with the hope she tolerating. No nausea no vomiting. No abdominal pain. And incision has been no evidence of infection. Her vital sign temperature 97.8 F oral, heart rate 55/min sinus with the history of atrial fibrillation Respiratory rate 16/min Blood pressure 146/63 and the mean blood pressure 90, oxygen saturation 97. On exam patient conscious alert oriented x 3 able to communicate freely Head was normocephalic atraumatic pupil was equal reactive conjunctiva was pink sclera nonicteric extraocular muscle movement is intact Oropharynx natural teeth Neck was supple no JVD no thyromegaly no lymphadenopathy trachea midline and Chest was clear to auscultation percussion no wheezes no rhonchi's Heart compensated regular sinus rhythm. Abdomen soft positive bowel sound and no tenderness in the 4 quadrant with palpation Extremities no edema and positive pulses. Neurologically stable Psychiatry stable. Laboratory WBC 5.73, hemoglobin 13, hematocrit 38.2, platelet count 158. Chemistry: Sodium 135, potassium 4.4, chloride 102, carbon dioxide 21, anion gap 12, BUN 19, creatinine 0.95. And EGFR 60 Blood glucose 234 and patient on IV D5.45 she is on clear liquid and once she change it to oral intake and ability to eat the IV will be discontinued which caused the blood sugar elevation as well as decrease in the sodium. Calcium 8.8 total bili 1, AST ST 62 and ALT 88 with significant improvement, alk phos 115, total protein 5.8 and albumin 3.2. Assessment: Status post laparoscopic cholecystectomy Acute elevation of liver enzyme secondary to the above #1 Diabetes mellitus type 2 insulin-dependent on the pump of insulin. Sepsis on admission with shaking chills and fever due to #1 Lactic acidosis resolved still due to sepsis. Diabetes mellitus type 2 uncontrolled with the IV with D5.45 normal saline. Plan: Patient to continue monitoring blood sugar cover with insulin by the pump Once patient allowed to eat we will be discontinue the IV specially the D5 half- normal saline with the causing hyperglycemia. Liver enzyme will be progressively improving with the laparoscopic cholecystectomy. Patient still on antibiotic, Probably patient will be discharged with antibiotic from infectious disease Dr. Conn and probably patient will be cleared from surgical for discharge tomorrow. Objective - Vital Signs Vital signs: Vital Signs Temp 97.8 F 10/27/24 12:00 Pulse 55 L 10/27/24 12:00 Resp 16 10/27/24 12:00 BP 146/63 10/27/24 12:00 Pulse Ox 97 10/27/24 12:00 FiO2 Intake & Output 10/26/24 10/27/24 10/27/24 18:59 06:59 18:59 Intake Total 800 Output Total 25 Balance 775 Weight 103 kg 104 kg Intake: IV 800 Output: Estimated Blood Loss 25 Other: Voiding Method Bedside Commode Bedside Commode # Voids 1 1 - Labs CBC & Chem 7: 10/27/24 08:28 10/27/24 08:28 Labs: Abnormal Lab Results - Last 24 Hours (Table) 10/26/24 10/26/24 10/26/24 Range/Units 07:22 14:37 20:57 Lymphocytes # (0.90-5.00) 10*3/uL Eosinophils # (0.04-0.35) 10*3/uL Sodium (137-145) mmol/L Carbon Dioxide (22-30) mmol/L BUN (7-17) mg/dL Glucose (74-99) mg/dL POC Glucose (mg/dL) 133 H 252 H (70-110) mg/dL GGT 300 H (0-38) U/L AST (14-36) U/L ALT (4-34) U/L Total Protein (6.3-8.2) g/dL Albumin (3.5-5.0) g/dL 10/27/24 10/27/24 10/27/24 Range/Units 05:59 08:28 08:28 Lymphocytes # 0.70 L (0.90-5.00) 10*3/uL Eosinophils # 0.01 L (0.04-0.35) 10*3/uL Sodium 135 L (137-145) mmol/L Carbon Dioxide 21 L (22-30) mmol/L BUN 19 H (7-17) mg/dL Glucose 234 H (74-99) mg/dL POC Glucose (mg/dL) 200 H (70-110) mg/dL GGT (0-38) U/L AST 62 H (14-36) U/L ALT 88 H (4-34) U/L Total Protein 5.8 L (6.3-8.2) g/dL Albumin 3.2 L (3.5-5.0) g/dL 10/27/24 Range/Units 11:39 Lymphocytes # (0.90-5.00) 10*3/uL Eosinophils # (0.04-0.35) 10*3/uL Sodium (137-145) mmol/L Carbon Dioxide (22-30) mmol/L BUN (7-17) mg/dL Glucose (74-99) mg/dL POC Glucose (mg/dL) 224 H (70-110) mg/dL GGT (0-38) U/L AST (14-36) U/L ALT (4-34) U/L Total Protein (6.3-8.2) g/dL Albumin (3.5-5.0) g/dL Microbiology - Last 24 Hours (Table) 10/23/24 20:25 Blood Culture Gram Stain - Final Blood Blood Culture - Final Klebsiella pneum subsp pneum Molecular ID
--- NOTE | 2024-10-27 13:27 | P.PN ---
Subjective Progress Note Date: 10/27/24 The patient was seen and evaluated this morning. She is asymptomatic. She has been maintaining normal sinus mechanism. She is in process of having MRCP and possible surgery for the gallbladder after that. For that reason oral anticoagulation are on hold at this point. She is asymptomatic from the cardiac standpoint of view. She is hemodynamically stable. The potassium is low and will be replaced. The physical examination is remarkable for regular rhythm with a soft systolic murmur and clear breathing sounds bilaterally and no edema was noted 10/26/2024 Patient seen and examined. She is in significant amount of abdominal pain today. She states that she is scheduled for cholecystectomy today. Blood pressure 137/86, heart rate 56, pulse ox 96% on room air. She has been afebrile for greater than 24 hours. Repeat blood work reveals platelet count 137, sodium 136, potassium 3.8, BUN 15 and creatinine 1.13. 10/27/2024 Patient seen and examined. Yesterday, patient underwent cholecystectomy. Abdominal pain seems to be improved. She denies chest pain or chest pressure, no palpitations. She remains in sinus rhythm. Blood pressure 117/73, heart rate in the 50s, pulse ox 98% on room air. Patient has been resumed on Eliquis as of last evening. The physical examination is remarkable for regular rhythm with a soft systolic murmur and clear breathing sounds bilaterally and no edema was noted IMPRESSION: 1. Acute cholecystitis 2. Fever 3. History A-fib, ablation 11/2023 Plan Continue the current medical regimen Continue Eliquis Cardiology will sign off this case and follow on an as-needed basis. Please reconsult for any new concerns. Patient may follow-up in the office in one to 2 weeks. Nurse practitioner note has been reviewed, I agree with documented findings and plan of care. Patient was seen and examined. Objective - Vital Signs Vital signs: Vital Signs Temp 97.3 F L 10/26/24 20:00 Pulse 60 10/27/24 04:30 Resp 16 10/27/24 04:30 BP 124/64 10/27/24 04:30 Pulse Ox 96 10/27/24 04:30 FiO2 Intake & Output 10/26/24 10/27/24 10/27/24 18:59 06:59 18:59 Intake Total 800 Output Total 25 Balance 775 Weight 103 kg 104 kg Intake: IV 800 Output: Estimated Blood Loss 25 Other: Voiding Method Bedside Commode # Voids 1 1 - Labs CBC & Chem 7: 10/28/24 07:35 10/28/24 07:35 Labs: Abnormal Lab Results - Last 24 Hours (Table) 10/26/24 10/26/24 10/26/24 Range/Units 07:22 11:24 14:37 POC Glucose (mg/dL) 139 H 133 H (70-110) mg/dL GGT 300 H (0-38) U/L 10/26/24 10/27/24 Range/Units 20:57 05:59 POC Glucose (mg/dL) 252 H 200 H (70-110) mg/dL GGT (0-38) U/L Microbiology - Last 24 Hours (Table) 10/23/24 20:25 Blood Culture Gram Stain - Final Blood Blood Culture - Final Klebsiella pneum subsp pneum Molecular ID
--- NOTE | 2024-10-27 15:02 | P.PN ---
Subjective Progress Note Date: 10/27/24 Reason for follow-up is cholecystitis/bacteremia Patient is a 74-year-old female with a past medical history significant for Coronary Artery Disease (CAD), Cancer, Chest Pain / Angina, Heart Failure, Diabetes Mellitus, Hyperlipidemia, Myocardial Infarction ([place]), Pneumonia, Renal Disease, Sleep Apnea/CPAP/BIPAP, Thyroid Disorder presenting to the hospital for evaluation of rigors and chills and workup has been suggestive of cholecystitis patient also have a positive blood culture with Klebsiella. On today's evaluation that is 10/27/2024, she remains afebrile, and breathing comfortably currently on room air SpO2 saturation 97%. No chest pain, shortness of breath, cough. No nausea vomiting or diarrhea. Patient did have a white count of 5.73, creatinine is 0.95, liver enzymes are elevated, and continue to normalize. Objective - Vital Signs Vital signs: Vital Signs Temp 97.8 F 10/27/24 12:00 Pulse 55 L 10/27/24 13:30 Resp 16 10/27/24 13:30 BP 146/63 10/27/24 12:00 Pulse Ox 97 10/27/24 12:00 FiO2 Intake & Output 10/26/24 10/27/24 10/27/24 18:59 06:59 18:59 Intake Total 800 820 Output Total 25 Balance 775 820 Weight 103 kg 104 kg Intake: IV 800 Intake, IV Titration 600 Amount D5-0.45% NaCl with KCl 600 20Meq/l 1,000 ml @ 75 mls /hr IV .[id number] Rx#: [id number] Oral 220 Output: Estimated Blood Loss 25 Other: Voiding Method Bedside Commode Bedside Commode # Voids 1 1 1 - Exam GENERAL DESCRIPTION: An elderly female lying in bed in no distress RESPIRATORY SYSTEM: Unlabored breathing , decreased breath sounds at bases HEART: S1 S2 regular rate and rhythm , ABDOMEN: Soft , no tenderness EXTREMITIES: No edema feet - Labs CBC & Chem 7: 10/28/24 07:35 10/28/24 07:35 Labs: Abnormal Lab Results - Last 24 Hours (Table) 10/26/24 10/26/24 10/27/24 Range/Units 07:22 20:57 05:59 Lymphocytes # (0.90-5.00) 10*3/uL Eosinophils # (0.04-0.35) 10*3/uL Sodium (137-145) mmol/L Carbon Dioxide (22-30) mmol/L BUN (7-17) mg/dL Glucose (74-99) mg/dL POC Glucose (mg/dL) 252 H 200 H (70-110) mg/dL GGT 300 H (0-38) U/L AST (14-36) U/L ALT (4-34) U/L Total Protein (6.3-8.2) g/dL Albumin (3.5-5.0) g/dL 10/27/24 10/27/24 10/27/24 Range/Units 08:28 08:28 11:39 Lymphocytes # 0.70 L (0.90-5.00) 10*3/uL Eosinophils # 0.01 L (0.04-0.35) 10*3/uL Sodium 135 L (137-145) mmol/L Carbon Dioxide 21 L (22-30) mmol/L BUN 19 H (7-17) mg/dL Glucose 234 H (74-99) mg/dL POC Glucose (mg/dL) 224 H (70-110) mg/dL GGT (0-38) U/L AST 62 H (14-36) U/L ALT 88 H (4-34) U/L Total Protein 5.8 L (6.3-8.2) g/dL Albumin 3.2 L (3.5-5.0) g/dL Assessment and Plan (1) Sepsis Status: Acute Code(s): A41.9 - SEPSIS, UNSPECIFIED ORGANISM SNOMED Code(s): 21771619 (2) Bacteremia Status: Acute Code(s): R78.81 - BACTEREMIA SNOMED Code(s): 5302717 (3) Cholecystitis Status: Acute Code(s): K81.9 - CHOLECYSTITIS, UNSPECIFIED SNOMED Code(s): 53358004 (4) Allergy to multiple antibiotics Status: Acute Code(s): Z88.1 - ALLERGY STATUS TO OTHER ANTIBIOTIC AGENTS SNOMED Code(s): 288816089 Plan: 1patient presented to hospital with sepsis in this patient who did have fever tachycardia elevated white count meeting currently for SIRS/sepsis in this patient with elevated liver enzymes and abnormal gallbladder on the CT and ultrasound source is likely acute cholecystitis and will need to cover for the enteric gram-negative with a likely pathogen. 2patient with multiple antibiotic ALLERGIES that would limit the number of antibiotic safe to use. 3patient did have a positive blood culture with Klebsiella source likely cholecystitis 4patient did have a normal HIDA scan however did have a evidence of cholecystitis with the pericholecystic fluid on MRCP no evidence of any CBD stone General Surgery is following the patient and she underwent laparoscopic cholecystectomy on 10/26/2024, without known complications. 5-patient will be treated with Rocephin and monitor clinical course closely, will continue antibiotics upon discharge Fei Ewing MD Internal Medicine Resident, PGY2 Infectious disease service Patient was personally seen and examined with the resident physician documentation by the resident physician was reviewed patient seem to have shown subclinical improvement I will keep the patient on Rocephin while inpatient and will transition to oral antibiotics on discharge susan east MD Dictation was produced using [employer] dictation software. please excuse any grammatical, word or spelling errors. Time with Patient: Less than 30
[2024-10-27 16:57] LABS: Glucose,Whole Blood 99 mg/dL (70-110)
[2024-10-27 20:46] LABS: Glucose,Whole Blood 99 mg/dL (70-110)
[2024-10-28 00:17] LABS: Glucose,Whole Blood 57 mg/dL (70-110)
[2024-10-28 00:56] LABS: Glucose,Whole Blood 59 mg/dL (70-110)
[2024-10-28 01:30] LABS: Glucose,Whole Blood 60 mg/dL (70-110)
[2024-10-28] MEDS: DEXTROSE 5%-0.9% NACL 1,000 ML IV SCH (02:00)
[2024-10-28] MEDS: DEXTROSE 50% SYRINGE 50 ML IVP STA ×2 (02:00→12:56)
[2024-10-28 02:39] LABS: Glucose,Whole Blood 87 mg/dL (70-110)
[2024-10-28 03:50] VITALS: RESP 16
[2024-10-28 06:07] LABS: Glucose,Whole Blood 70 mg/dL (70-110)
[2024-10-28 08:13] LABS: Basophils # (A) 0.02 10*3/uL (0.00-0.10); Basophils % (A) 0.3 %; Eosinophils # (A) 0.34 10*3/uL (0.04-0.35); Eosinophils % (A) 4.7 %; HCT 41.1 % (37.2-46.3); HGB 13.6 g/dL (12.0-15.0); Lymphocytes # (A) 1.47 10*3/uL (0.90-5.00); Lymphocytes % (A) 20.2 %; MCH 26.8 pg (27.0-32.0); MCHC 33.1 g/dL (32.0-37.0); MCV 81.1 fL (80.0-97.0); Monocytes # (A) 1.00 10*3/uL (0.20-1.00); Monocytes % (A) 13.7 %; Neutrophils # (A) 4.42 10*3/uL (1.80-7.70); Neutrophils % (A) 60.6 %; Platelet Count 204 10*3/uL (140-440); RBC 5.07 10*6/uL (4.10-5.20); RDW 18.0 % (11.5-14.5); WBC 7.29 10*3/uL (4.50-10.00)
[2024-10-28 08:32] LABS: ALT 82 U/L (4-34); AST 92 U/L (14-36); African American GFR (CKD) 56 (>60 ml/min/1.73 sqM); Albumin 3.4 g/dL (3.5-5.0); Alkaline Phosphatase 126 U/L (38-126); Anion Gap 12 mmol/L; Blood Urea Nitrogen 23 mg/dL (7-17); Calcium 9.2 mg/dL (8.4-10.2); Carbon Dioxide 25 mmol/L (22-30); Chloride 103 mmol/L (98-107); Glucose 80 mg/dL (74-99); Non-African American GFR(CKD) 48 (>60 ml/min/1.73 sqM); Potassium 3.8 mmol/L (3.5-5.1); Sodium 140 mmol/L (137-145); Total Protein 6.2 g/dL (6.3-8.2)
[2024-10-28 09:46] LABS: Glucose,Whole Blood 90 mg/dL (70-110)
--- NOTE | 2024-10-28 10:15 | P.DS ---
Providers Date of admission: 10/23/24 22:44 Expected date of discharge: 10/28/24 Attending physician: Bjron Cha Consults: 10/23/24 22:34 Consult Physician Routine Consulting Provider: Carolien Conn Consult Reason/Comments: sepsis Do you want consulting provider notified?: Yes 10/23/24 22:51 Consult Physician Routine Consulting Provider: Steve Cuellar Consult Reason/Comments: pain Do you want consulting provider notified?: Yes Consult Physician Routine Consulting Provider: Arin Stewart Consult Reason/Comments: afibRVR Do you want consulting provider notified?: Yes Primary care physician: Bjorn Cha Discharge summary Patient seen [id number] today and discharge after clearance from Dr. Martínez surgeon as she is postoperative for laparoscopic Lisa cystectomy Clearance from Dr. Conn infectious disease as patient had sepsis on admission with the prescription for antibiotic. Final diagnosis: 1. Patient presented with fever chills shakiness hypotension and elevated lactic acid indicating sepsis 2. Sepsis with bacteremia Klebsiella pneumonia. 3. Acute cholecystitis without cholelithiasis. Status post lap brady by Dr. Martínez surgeon 4. Diabetes mellitus type 2 on the pump 5. Recurrent episodes of hypoglycemia with the continuous pumping of insulin, stopped temporary. 6. Coronary artery disease atherosclerotic heart disease, coronary artery bypass graft x 3, and stent 7. Obesity with a history of lap band. 8. Mixed hyperlipidemia. 9. History of lactic acidosis on admission resolved. 10. Chronic kidney disease stage III A. 11. Abnormal liver enzyme secondary to acute cholecystitis with progressive improvement on discharge 12. Multiple allergies. 13. History of paroxysmal atrial fibrillation and she is on Eliquis to be continued. Consulting physician 1. Cardiology Dr. Murphy 2. Infectious disease Dr. Conn 3. Surgical consult to Dr. Martínez. Procedure done: 1. Laparoscopic cholecystectomy on 10/26/[address] scan of the abdomen 4. Ultrasound of gallbladder 5. Hide the scan. Patient on vehicle monitor technician. Initial presentation to the emergency room: Nausea no vomiting with fever persistent, disposition in the ER dehydration gastroenteritis diabetes mellitus fever sepsis. Patient admitted to the floor evaluated with the underlying # suspicious of gallbladder disease for further investigation and consultation. Patient management continued with telemetry with the past medical history of coronary heart disease as well as antibiotics started immediately and continued patient found that she had abnormal liver enzyme Evaluated with several blood testing which was negative and gradually patient liver enzyme improving and Dr. Martínez ordered the MRCP which indicating the acute cholecystitis, subsequently she was sent to the operative room and underwent lap brady. Patient did well and today she planned to be discharged after the clearance with the surgeon and infectious disease with the resolution of the white count elevation which is mild, also gradual improvement in her liver enzyme. Patient apparently will be going home with antibiotic unclear at this time probably Keflex or Ceftin as she responded well to that ceftriaxone IV On discharge: Vital sign temperature 97.8 F oral, heart rate 51, respiratory rate 16, blood pressure 136/81. With the mean blood pressure 99, oxygen saturation 98% on room air Because of her hypoglycemia during the night with the continuous use of the pump, patient advised to remove the pump temporary and to use insulin to scale and patient has syringes and insulin at home and to have the scale from the hospital until seen in the office next week meanwhile we will hold on all medication that caused her hypoglycemia and to check CBG at home patient had the monitor at home, and we resume other home medication. The prescription for antibiotic will be given by Dr. Conn infectious disease. On exam head was normocephalic atraumatic pupil was equal reactive conjunctiva was pink sclera was nonicteric extraocular muscle movement is intact Oropharynx natural teeth normal swallowing Neck was supple no JVD no thyromegaly no lymphadenopathy trachea midline Chest is clear to auscultation percussion no wheezes no rhonchi's Heart regular sinus rhythm. With the history of atrial fibrillation in the past Abdomen: Status post lap brady however patient has bowel sound and able to eat. No apparent complication. Extremities no edema positive pulses able to ambulate Psychiatry stable Neurology stable. Assessment: Patient stable general condition and postoperative for discharge after clearance from above-mentioned consulting physician . Discharge home today. Follow-up in 3 days in the office as tomorrow is 29 October. Patient Condition at Discharge: Fair Plan - Discharge Summary Discharge Rx Participant: Yes New Discharge Prescriptions: Continue Levothyroxine Sodium [Synthroid] 75 mcg PO DAILY Furosemide [Lasix] 40 mg PO BID Pregabalin [Lyrica] 150 mg PO BID Atorvastatin [Lipitor] 80 mg PO HS allopurinoL [Zyloprim] 100 mg PO DAILY Fenofibrate Nanocrystallized [Fenofibrate] 145 mg PO HS Famotidine [Pepcid] 20 mg PO DAILY #30 tablet Isosorbide Mononitrate [Isosorbide Mononitrate ER] 30 mg PO DAILY Nitroglycerin Sl Tabs [Nitrostat] 0.4 mg SUBLINGUAL Q5M PRN PRN Reason: Chest Pain Apixaban [Eliquis] 5 mg PO BID #60 tab Ezetimibe [Zetia] 10 mg PO DAILY #30 tab Budesonide/Formoterol Fumarate [Symbicort 160-4.5 Mcg Inhaler] 1 puff INHA LATION RT-BID PRN PRN Reason: Shortness Of Breath Discontinued Insulin Aspart (For Pump) [NovoLOG (For Pump)] 0.01 unit SQ-PUMP CONTINUOUS Dulaglutide [Trulicity] 4.5 mg SQ TU Discharge Medication List Atorvastatin [Lipitor] 80 mg PO HS 03/24/18 [History] Fenofibrate Nanocrystallized [Fenofibrate] 145 mg PO HS 03/24/18 [History] Furosemide [Lasix] 40 mg PO BID 03/24/18 [History] Levothyroxine Sodium [Synthroid] 75 mcg PO DAILY 03/24/18 [History] Pregabalin [Lyrica] 150 mg PO BID 03/24/18 [History] allopurinoL [Zyloprim] 100 mg PO DAILY 03/24/18 [History] Isosorbide Mononitrate [Isosorbide Mononitrate ER] 30 mg PO DAILY 02/27/21 [History] Nitroglycerin Sl Tabs [Nitrostat] 0.4 mg SUBLINGUAL Q5M PRN 09/26/23 [History] Apixaban [Eliquis] 5 mg PO BID #60 tab 09/28/23 [Rx] Ezetimibe [Zetia] 10 mg PO DAILY #30 tab 09/28/23 [Rx] Famotidine [Pepcid] 20 mg PO DAILY #30 tablet 09/28/23 [Rx] Budesonide/Formoterol Fumarate [Symbicort 160-4.5 Mcg Inhaler] 1 puff INHALATION RT-BID PRN 10/24/24 [History] Follow up Appointment(s)/Referral(s): Bjorn Cha MD [Primary Care Provider] - 3 Days Steve Cuellar MD [Medical Doctor] - 1 Week Discharge Disposition: HOME SELF-CARE
[2024-10-28 10:20] VITALS: TEMP 97.3
[2024-10-28 11:09] LABS: Glucose,Whole Blood 70 mg/dL (70-110)
--- NOTE | 2024-10-28 11:24 | P.PN ---
Subjective Progress Note Date: 10/28/24 SURGICAL PROGRESS NOTE CHIEF COMPLAINT: Cholecystitis HISTORY OF PRESENT ILLNESS: Patient postop day #2 status post laparoscopic cholecystectomy. Patient reports her pain is controlled. She has not been requiring anything for pain. Denies any nausea or vomiting. She is having flatus. Tolerated low fiber diet afebrile. PHYSICAL EXAM: VITAL SIGNS: Reviewed. GENERAL: Well-developed in no acute distress. ABDOMEN: Soft. Nondistended. Incision sites clean dry and intact NEUROLOGIC: Alert and oriented. Cranial nerves II through XII grossly intact. ASSESSMENT: 1. Cholecystitis with possible choledocholithiasis PLAN: -Patient can be discharged from surgical standpoint -Antibiotics per ID service -Okay to resume Eliquis Physician Fluxer note has been reviewed by physician. Signing provider agrees with the documented findings, assessment, and plan of care. I have personally seen and examined the patient, reviewed the [employer] /PAs history, exam and MDM and agree with the assessment and plan as written. Based on total visit time, I have performed more than 50% of the visit. As above: Patient doing fairly well today. Very anxious to go home. Denies abdominal pain. Labs reviewed. May resume Eliquis after discharge. Follow-up as outpatient. Objective - Vital Signs Vital signs: Vital Signs Temp 97.3 F L 10/28/24 09:33 Pulse 48 L 10/28/24 09:34 Resp 16 10/28/24 09:33 BP 137/82 10/28/24 09:33 Pulse Ox 98 10/28/24 09:33 FiO2 Intake & Output 10/27/24 10/28/24 10/28/24 18:59 06:59 18:59 Intake Total 820 Output Total 900 Balance 820 -900 Weight 101.8 kg Intake: Intake, IV Titration 600 Amount D5-0.45% NaCl with KCl 600 20Meq/l 1,000 ml @ 75 mls /hr IV .[id number] KJ Rx#: [id number] Oral 220 Output: Urine 900 Other: Voiding Method Bedside Commode Bedside Commode Bedside Commode # Voids 1 2 - Labs CBC & Chem 7: 10/28/24 07:35 10/28/24 07:35 Labs: Abnormal Lab Results - Last 24 Hours (Table) 10/27/24 10/28/24 10/28/24 Range/Units 11:39 00:16 00:55 MCH (27.0-32.0) pg BUN (7-17) mg/dL Creatinine (0.52-1.04) mg/dL POC Glucose (mg/dL) 224 H 57 L 59 L (70-110) mg/dL AST (14-36) U/L ALT (4-34) U/L Total Protein (6.3-8.2) g/dL Albumin (3.5-5.0) g/dL 10/28/24 10/28/24 10/28/24 Range/Units 01:28 07:35 07:35 MCH 26.8 L (27.0-32.0) pg BUN 23 H (7-17) mg/dL Creatinine 1.13 H (0.52-1.04) mg/dL POC Glucose (mg/dL) 60 L (70-110) mg/dL AST 92 H (14-36) U/L ALT 82 H (4-34) U/L Total Protein 6.2 L (6.3-8.2) g/dL Albumin 3.4 L (3.5-5.0) g/dL
[2024-10-28 11:37] LABS: Glucose,Whole Blood 75 mg/dL (70-110)
[2024-10-28 12:26] LABS: Glucose,Whole Blood 104 mg/dL (70-110)
[2024-10-28] MEDS ORDERED: DEXTROSE 50% SYRINGE 50 ML IVP PRN ×2 (14:23)
[2024-10-28 14:44] VITALS: BP 134/76; PULSE 52
--- NOTE | 2024-10-28 16:11 | P.PN ---
Subjective Progress Note Date: 10/28/24 Reason for follow-up is cholecystitis/bacteremia Patient is a 74-year-old female with a past medical history significant for Coronary Artery Disease (CAD), Cancer, Chest Pain / Angina, Heart Failure, Diabetes Mellitus, Hyperlipidemia, Myocardial Infarction ([place]), Pneumonia, Renal Disease, Sleep Apnea/CPAP/BIPAP, Thyroid Disorder presenting to the hospital for evaluation of rigors and chills and workup has been suggestive of cholecystitis patient also have a positive blood culture with Klebsiella. On today's evaluation that is 10/28/2024, she remains afebrile, and breathing comfortably currently on room air SpO2 saturation 98%. No chest pain, shortness of breath, cough. No nausea vomiting or diarrhea. Patient did have a white count of 7.2, creatinine is 1.13, liver enzymes are elevated, and continue to normalize. Objective - Vital Signs Vital signs: Vital Signs Temp 97.8 F 10/28/24 04:00 Pulse 51 L 10/28/24 04:00 Resp 16 10/28/24 04:00 BP 136/81 10/28/24 04:00 Pulse Ox 98 10/28/24 04:00 FiO2 Intake & Output 10/27/24 10/28/24 10/28/24 18:59 06:59 18:59 Intake Total 820 Output Total 900 Balance 820 -900 Weight 101.8 kg Intake: Intake, IV Titration 600 Amount D5-0.45% NaCl with KCl 600 20Meq/l 1,000 ml @ 75 mls /hr IV .[id number] [facility] Rx#: [id number] Oral 220 Output: Urine 900 Other: Voiding Method Bedside Commode Bedside Commode # Voids 1 2 - Exam GENERAL DESCRIPTION: An elderly female lying in bed in no distress RESPIRATORY SYSTEM: Unlabored breathing , decreased breath sounds at bases HEART: S1 S2 regular rate and rhythm ABDOMEN: Soft , no tenderness EXTREMITIES: No edema feet - Labs CBC & Chem 7: 10/28/24 07:35 10/28/24 07:35 Labs: Abnormal Lab Results - Last 24 Hours (Table) 10/27/24 10/27/24 10/28/24 Range/Units 08:28 11:39 00:16 MCH (27.0-32.0) pg Sodium 135 L (137-145) mmol/L Carbon Dioxide 21 L (22-30) mmol/L BUN 19 H (7-17) mg/dL Creatinine (0.52-1.04) mg/dL Glucose 234 H (74-99) mg/dL POC Glucose (mg/dL) 224 H 57 L (70-110) mg/dL AST 62 H (14-36) U/L ALT 88 H (4-34) U/L Total Protein 5.8 L (6.3-8.2) g/dL Albumin 3.2 L (3.5-5.0) g/dL 10/28/24 10/28/24 10/28/24 Range/Units 00:55 01:28 07:35 MCH 26.8 L (27.0-32.0) pg Sodium (137-145) mmol/L Carbon Dioxide (22-30) mmol/L BUN (7-17) mg/dL Creatinine (0.52-1.04) mg/dL Glucose (74-99) mg/dL POC Glucose (mg/dL) 59 L 60 L (70-110) mg/dL AST (14-36) U/L ALT (4-34) U/L Total Protein (6.3-8.2) g/dL Albumin (3.5-5.0) g/dL 10/28/24 Range/Units 07:35 MCH (27.0-32.0) pg Sodium (137-145) mmol/L Carbon Dioxide (22-30) mmol/L BUN 23 H (7-17) mg/dL Creatinine 1.13 H (0.52-1.04) mg/dL Glucose (74-99) mg/dL POC Glucose (mg/dL) (70-110) mg/dL AST 92 H (14-36) U/L ALT 82 H (4-34) U/L Total Protein 6.2 L (6.3-8.2) g/dL Albumin 3.4 L (3.5-5.0) g/dL Assessment and Plan (1) Sepsis Status: Acute Code(s): A41.9 - SEPSIS, UNSPECIFIED ORGANISM SNOMED Code(s): 05888473 (2) Bacteremia Status: Acute Code(s): R78.81 - BACTEREMIA SNOMED Code(s): 7697970 (3) Cholecystitis Status: Acute Code(s): K81.9 - CHOLECYSTITIS, UNSPECIFIED SNOMED Code(s): 23441598 (4) Allergy to multiple antibiotics Status: Acute Code(s): Z88.1 - ALLERGY STATUS TO OTHER ANTIBIOTIC AGENTS SNOMED Code(s): 618588270 Plan: 1patient presented to hospital with sepsis in this patient who did have fever tachycardia elevated white count meeting currently for SIRS/sepsis in this patient with elevated liver enzymes and abnormal gallbladder on the CT and ultrasound source is likely acute cholecystitis and will need to cover for the enteric gram-negative with a likely pathogen. 2patient with multiple antibiotic ALLERGIES that would limit the number of antibiotic safe to use. 3patient did have a positive blood culture with Klebsiella source likely cholecystitis 4patient did have a normal HIDA scan however did have a evidence of cholecystitis with the pericholecystic fluid on MRCP no evidence of any CBD stone General Surgery is following the patient and she underwent laparoscopic cholecystectomy on 10/26/2024, without known complications. 5-patient treated with Rocephin and monitor clinical course closely, cleared to be discharged on Ceftin 500 mg PO BID for 10 days Fei Ewing MD Internal Medicine Resident, PGY2 Infectious disease service Patient seen and personally examined patient care discussed with resident physician has shown clinic improvement has been cleared for discharge by admitting team we will consider a 10-day course of oral Ceftin on discharge to cover for her bacteremia susan east MD Dictation was produced using [employer] dictation software. please excuse any grammatical, word or spelling errors. Time with Patient: Less than 30
[2024-10-28] MEDS ORDERED: INSULIN LISPRO (HumaLOG) 100 UNIT/ML 10 mL VL SQ SCH (17:30)
== END 2024-10-28 14:50 | disposition home or self-care (01) | DRG 854 ==
LOC: EC 18:45 → 3SCARD 22:44
PROVIDERS: ADMIT Internal Medicine; ATTEND Internal Medicine
PROC: 0FT44ZZ Resection of Gallbladder, Percutaneous Endoscopic Approach (ICD-10-PCS; principal; 2024-10-26 07:30)
DX: A41.50 Gram-negative sepsis, unspecified (principal); E87.20 Acidosis, unspecified; I13.0 Hypertensive heart and chronic kidney disease with heart failure and stage 1 through stage 4 chronic kidney disease, or unspecified chronic kidney disease; K81.0 Acute cholecystitis; K83.8 Other specified diseases of biliary tract; E86.0 Dehydration; I48.0 Paroxysmal atrial fibrillation; E11.22 Type 2 diabetes mellitus with diabetic chronic kidney disease; N18.31 Chronic kidney disease, stage 3a; E03.9 Hypothyroidism, unspecified; E66.9 Obesity, unspecified; J45.909 Unspecified asthma, uncomplicated; K76.0 Fatty (change of) liver, not elsewhere classified; I48.20 Chronic atrial fibrillation, unspecified; Z16.12 Extended spectrum beta lactamase (ESBL) resistance; I50.9 Heart failure, unspecified; E11.649 Type 2 diabetes mellitus with hypoglycemia without coma; E11.65 Type 2 diabetes mellitus with hyperglycemia; Z79.4 Long term (current) use of insulin; E11.40 Type 2 diabetes mellitus with diabetic neuropathy, unspecified; E78.2 Mixed hyperlipidemia; G89.29 Other chronic pain; Z68.39 Body mass index [BMI] 39.0-39.9, adult; I25.10 Atherosclerotic heart disease of native coronary artery without angina pectoris; M10.9 Gout, unspecified; I25.2 Old myocardial infarction; R33.9 Retention of urine, unspecified; I95.9 Hypotension, unspecified; G47.33 Obstructive sleep apnea (adult) (pediatric); K52.9 Noninfective gastroenteritis and colitis, unspecified; N20.0 Calculus of kidney; T38.0X5A Adverse effect of glucocorticoids and synthetic analogues, initial encounter; Z79.01 Long term (current) use of anticoagulants; Z79.51 Long term (current) use of inhaled steroids; Z79.890 Hormone replacement therapy; Z79.899 Other long term (current) drug therapy; Z87.442 Personal history of urinary calculi; Z88.1 Allergy status to other antibiotic agents; Z95.1 Presence of aortocoronary bypass graft; Z95.5 Presence of coronary angioplasty implant and graft; Z96.41 Presence of insulin pump (external) (internal); Z98.84 Bariatric surgery status; Z87.01 Personal history of pneumonia (recurrent); Z88.0 Allergy status to penicillin; Z88.2 Allergy status to sulfonamides; Z88.6 Allergy status to analgesic agent; Z91.041 Radiographic dye allergy status
CPT/HCPCS: 36415; 71046; 74176; 74181; 76705; 78227; 80053; 80074; 81003; 82009; 82140; 82248; 82977; 83036; 83605; 83690; 83735; 84100; 84145; 84484; 85025; 85610; 85652; 85730; 86140; 87040; 87077; 87186; 87636; 88304; 93005; 96361; 96365; 96366; 96367; 96375; 99291